=== PATIENT | female | born 1930 | race Caucasian/White ===

== ENCOUNTER 2016-09-24 11:09 | Inpatient (IN) ==
[2016-09-24] MEDS ORDERED: Aspirin 81 MG TAB.CHEW PO ONE (11:11)
--- NOTE | 2016-09-24 11:23 | Emergency Department Note ---
Disposition Clinical Impression: Non-STEMI (non-ST elevated myocardial infarction) Disposition: Admitted As Inpatient Condition: Fair Referrals: NO,PCP [Non-Partnered Physician] - Forms: ED Satisfaction Letter Time of Disposition: 13:22 Chest Pain HPI - General Chief Complaint: ED Chest Pain Stated Complaint: chest pain Time Seen by Provider: 09/24/16 11:11 Source: patient, EMS Limitations: no limitations Vital Signs Reviewed: Yes Nursing Notes Reviewed: Yes - History of Present Illness HPI Narrative: 86-year-old female who developed chest pain this morning with radiation into both shoulders. Patient states she does have a history of coronary artery disease. She denies any recent workup. He was across her chest lasting for 20- 30 minutes. 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 Duration: constant Onset: during rest Pain Location: substernal, left chest Severity: now resolved Severity scale (1-10): 0 Pain Radiation: RUE, LUE Improves with: nothing Worsens with: nothing Associated symptoms: Denies: fever, cough Treatments prior to arrival chest pain: aspirin - Related Data Home Medications Medication Instructions Recorded Confirmed Caltrate 600+D Plus Tablet 09/27/15 Carvedilol 09/27/15 Centrum Silver Tablet 09/27/15 Digoxin 09/27/15 Iron 09/27/15 09/27/15 Januvia 09/27/15 Lisinopril 09/27/15 Pantoprazole 09/27/15 Pravastatin Sodium 09/27/15 Previous Rx's Medication Instructions Recorded Naproxen [Naprosyn] 500 mg PO BID #20 tablet 09/27/15 Allergies Allergy/AdvReac Type Severity Reaction Status Date / Time metformin Allergy See Verified 09/24/16 11:14 Comments Sulfa (Sulfonamide Allergy See Verified 09/24/16 11:14 Antibiotics) Comments All systems ED: reviewed and negative except as stated. Constitutional: Denies: fever, chills, weakness, weight change Eyes: Denies: eye pain, eye discharge, vision change ENT ED: Denies: ear pain, throat pain, dental pain, hearing loss, epistaxis, congestion, dysphagia Cardiovascular: Reports: chest pain. Denies: palpitations, dyspnea on exertion , edema, syncope Respiratory: Denies: cough, dyspnea, wheezes, hemoptysis, stridor Gastrointestinal: Denies: abdominal pain, nausea, vomiting, diarrhea, constipation, hematemesis, melena, hematochezia Genitourinary: Denies: dysuria, frequency, hematuria, discharge Musculoskeletal: Denies: back pain, neck pain, arthralgia, myalgia Integumentary: Denies: rash, abrasion, lesions Neurological: Denies: headache, weakness, numbness, paresthesias, confusion, abnormal gait, vertigo Psychiatric: Denies: anxiety, depression, suicidal thoughts, homicidal thoughts , auditory hallucinations, visual hallucinations Endocrine: Denies: fatigue Hematological/Lymphatic: Denies: easy bleeding, easy bruising Allergic/Immunologic: Denies: facial swelling, urticaria Chest Pain PMH - Past Medical History Medical history: Reports: cancer, coronary artery disease, diabetes, hyperlipidemia, hypertension Surgical history: Reports: appendectomy, colectomy, colostomy, other Psychiatric history: Reports: no psych history - Social History Smoking Status: Unknown if ever smoked Alcohol use: Reports: none Drug use: Reports: none Physical Exam - General Limitations: no limitations General appearance: alert, in no apparent distress - Head Head exam: atraumatic, normocephalic, normal inspection - Eye Eye exam: Present: normal appearance, PERRL, EOMI - ENT ENT exam: normal exam, normal oropharynx, mucous membranes moist - Neck Neck exam: Present: normal inspection, full ROM, trachea midline - Chest Chest inspection: Present: normal inspection, symmetric chest wall rise - Respiratory Respiratory exam: Present: normal lung sounds bilaterally - Cardiovascular Cardiovascular exam: Present: regular rate, normal rhythm, normal heart sounds - Abdominal Exam Abdominal exam: Present: soft, Non-Tender. Absent: tenderness, distention, guarding, rebound, rigidity - Extremities Exam Extremities exam: Present: normal inspection, full ROM. Absent: tenderness, pedal edema - Expanded Lower Extremity Exam Neurovascular/Tendon exam: Absent: motor deficit, sensory deficit, tendon deficit Gait: observed and normal - Back Exam Back exam: Present: normal inspection, full ROM. Absent: tenderness - Neurological Exam Neurological exam: Present: alert, oriented X3 - Psychiatric Psychiatric exam: Present: normal affect, normal mood - Skin Skin exam: Present: warm, dry, intact, normal color Course - Reevaluation(s) Reevaluation #1: I discussed the findings with the patient including her positive troponin. I discussed with the patient that we would like to start her on some heparin however the patient states she had blood in her colostomy bag about a year ago and declines any anticoagulation. The patient states that she has no pain at the moment. Time: 13:19 - Consultations Consultation #1: Discussed with Dr. Cid. He will see the patient in consult. Time: 13:22 Consultation #2: Discussed with Dr. Cueva, it. Time: 13:37 Vital Signs Temperature 97.7 F 09/24/16 11:10 Pulse Rate 70 09/24/16 11:10 Respiratory Rate 16 09/24/16 11:10 Blood Pressure 145/93 09/24/16 11:10 O2 Sat by Pulse Oximetry 100 09/24/16 11:10 Temperature 97.7 F 09/24/16 11:10 Pulse Rate 68 09/24/16 12:13 Respiratory Rate 16 09/24/16 12:13 Blood Pressure 125/70 09/24/16 12:13 O2 Sat by Pulse Oximetry 100 09/24/16 12:13 Oxygen Delivery Oxygen Delivery Room Air Chest Pain - Lab Data Lab results reviewed: Yes I reviewed the patient's lab results. Result diagrams: 09/24/16 12:38 09/24/16 12:38 Lab Results 09/24/16 09/24/16 09/24/16 Range/Units 12:38 12:38 12:38 WBC 9.0 (4.3-11.1) K/mcL RBC 4.25 (3.82-4.97) M/mcL Hgb 13.3 (11.5-15.4) g/dL Hct 40.1 (35.3-44.9) % MCV 94.4 (83.0-100.0) fL MCH 31.3 (28.0-33.3) pg MCHC 33.2 (31.6-35.5) g/dL RDW 12.9 (11.5-14.5) % Plt Count 154 (140-400) K/mcL MPV 10.9 (9.4-12.4) fL Immature Gran % 0.2 (0-4) % Seg Neutrophils % 78.4 % Lymphocytes % 10.4 % Monocytes % 7.6 % Eosinophils % 3.1 % Basophils % 0.3 % Neutrophils # 7.0 (1.6-8.9) K/mcL Lymphocytes # 0.9 (0.6-4.6) K/mcL Monocytes # 0.7 (0.0-1.3) K/mcL Eosinophils # 0.3 (0.0-0.6) K/mcL Basophils # 0.0 (0.0-0.2) K/mcL PT 12.3 H (9.4-12.1) Seconds INR 1.1 APTT 31.6 (26.0-36.0) Seconds Sodium 140 (136-145) mEq/L Potassium 3.8 (3.5-4.5) mEq/L Chloride 103 (98-109) mEq/L Carbon Dioxide 29 (19-29) mEq/L BUN 19 (7-20) mg/dL Creatinine 0.85 (0.57-1.11) mg/dL Est GFR ( Amer) > 60 (> 60) Est GFR (Non-Af Amer) > 60 (> 60) BUN/Creatinine Ratio 22 (6-26) Glucose 220 H (70-99) mg/dL Calculated Osmolality 299 (280-300) Calcium 9.5 (8.6-10.8) mg/dL Troponin I (0-0.03) ng/mL 09/24/16 Range/Units 12:38 WBC (4.3-11.1) K/mcL RBC (3.82-4.97) M/mcL Hgb (11.5-15.4) g/dL Hct (35.3-44.9) % MCV (83.0-100.0) fL MCH (28.0-33.3) pg MCHC (31.6-35.5) g/dL RDW (11.5-14.5) % Plt Count (140-400) K/mcL MPV (9.4-12.4) fL Immature Gran % (0-4) % Seg Neutrophils % % Lymphocytes % % Monocytes % % Eosinophils % % Basophils % % Neutrophils # (1.6-8.9) K/mcL Lymphocytes # (0.6-4.6) K/mcL Monocytes # (0.0-1.3) K/mcL Eosinophils # (0.0-0.6) K/mcL Basophils # (0.0-0.2) K/mcL PT (9.4-12.1) Seconds INR APTT (26.0-36.0) Seconds Sodium (136-145) mEq/L Potassium (3.5-4.5) mEq/L Chloride (98-109) mEq/L Carbon Dioxide (19-29) mEq/L BUN (7-20) mg/dL Creatinine (0.57-1.11) mg/dL Est GFR ( Amer) (> 60) Est GFR (Non-Af Amer) (> 60) BUN/Creatinine Ratio (6-26) Glucose (70-99) mg/dL Calculated Osmolality (280-300) Calcium (8.6-10.8) mg/dL Troponin I 0.18 H* (0-0.03) ng/mL - Radiology Data Radiology results reviewed: Yes I reviewed the patient's radiology results. Chest X-Ray 09/24/16 11:11 IMPRESSION: No evidence for acute cardiopulmonary process. Stable cardiomegaly. Mild diffuse interstitial/reticular markings likely reflecting chronic fibrotic change. D/ / 09/24/2016 11:47:21 Keaton Matthews MD / [facility] Inter[facility] Provider: Keaton Matthews MD - EKG Data EKG attestation: Yes I reviewed and interpreted this EKG. EKG shows normal: sinus rhythm Rate: normal Rhythm: NSR [place]/QRS: LBBB When compared to previous EKG there are: no significant changes (02/05/2015) Interpretation: no acute changes Heart Score - Score History: Highly Suspicious EKG: Non Specific repolarisation Disturbance Age: Greater than 65 Risk Factors: Equal/Greater than 3 risk factor or history of atherosclerotic disease Troponin: 1-3x normal limit HEART Score Total: 8 Critical Care Time Critical Care Time: Yes Total Critical Care Time: 30 Attestation: The high probability of a clinically significant, sudden or life threatening deterioration of the [cardiovascular] system(s) required my full and direct attention, intervention and personal management. The aggregate critical care time was [30] minutes. This time is in addition to time spent performing reported procedures but includes the following: [x] Data Review and interpretation [x] Patient assessment and monitoring of vital signs [x] Documentation [x] Medication orders and management
[2016-09-24 12:46] LABS: Basophils % 0.3 %; Eosinophils # 0.3 K/mcL (0.0-0.6); Eosinophils % 3.1 %; Hematocrit 40.1 % (35.3-44.9); Hemoglobin 13.3 g/dL (11.5-15.4); Immature Granulocytes % 0.2 % (0-4); Lymphocytes # 0.9 K/mcL (0.6-4.6); Lymphocytes % 10.4 %; Mean Corpuscular HGB Conc 33.2 g/dL (31.6-35.5); Mean Corpuscular Hemoglobin 31.3 pg (28.0-33.3); Mean Corpuscular Volume 94.4 fL (83.0-100.0); Mean Platelet Volume 10.9 fL (9.4-12.4); Monocytes # 0.7 K/mcL (0.0-1.3); Monocytes % 7.6 %; Platelet Count 154 K/mcL (140-400); Red Blood Count 4.25 M/mcL (3.82-4.97); Red Cell Distribution Width 12.9 % (11.5-14.5); Segmented Neutrophils % 78.4 %
[2016-09-24 12:52] LABS: INR 1.1; Prothrombin Time 12.3 Seconds (9.4-12.1)
[2016-09-24 12:55] LABS: Activated Partial Thrombo Time 31.6 Seconds (26.0-36.0)
[2016-09-24 12:59] LABS: BUN/Creatinine Ratio 22 (6-26); Blood Urea Nitrogen 19 mg/dL (7-20); Calcium 9.5 mg/dL (8.6-10.8); Carbon Dioxide 29 mEq/L (19-29); Chloride 103 mEq/L (98-109); Glucose 220 mg/dL (70-99); Osmolality,Calculated 299 (280-300); Potassium 3.8 mEq/L (3.5-4.5); Sodium 140 mEq/L (136-145); eGFR For African Americans > 60 (> 60); eGFR For Non-African Americans > 60 (> 60)
[2016-09-24] MEDS ORDERED: Naloxone 0.4 MG/ML INJ IVP PRN (13:58)
[2016-09-24] MEDS ORDERED: Acetaminophen 325 MG TABLET PO PRN (13:58)
[2016-09-24] MEDS ORDERED: Nitroglycerin 0.4 MG TAB.SUBL SL PRN (14:01)
--- NOTE | 2016-09-24 14:07 | Internal Med History&Physical ---
<Kavya Duarte - Last Filed: 09/24/16 14:42> Date of Encounter: 09/24/16 Time of Encounter: 14:03 Assessment and Plan (1) Non-STEMI (non-ST elevated myocardial infarction) Current visit: Yes Status: Acute 1 patient has elevation in trop .18, T wave inversion inferioir leads ST depression in V5 V6, LBBB which appears to be new will continue to trend troponins 2 Dr Cid has been notified per Dr Wild ER physician who will see patient 3 patient refused heparin abdullahi, she has been given ASA 4 we will continue with BB JORDAN ASA 5 NPO for possible cath 6 continuos cardiac monitoring (2) HTN (hypertension) Current visit: Yes Status: Acute 1 continue with BB JORDAN goal is to maintain systolic less than 140 2 low Na diet Qualifiers: Hypertension type: essential hypertension Qualified Code(s): I10 - Essential (primary) hypertension (3) Diabetes Current visit: Yes Status: Acute 1 hold oral antidiabetic, accucheck AC/HS SSI as needed . Presently NPO will check BS every 6hrs with SSI coverage 2 diabetic diet once eating Qualifiers: Diabetes mellitus type: type 2 Diabetes mellitus complication status: without complication Diabetes mellitus watermelon inspector insulin use: without [facility] use Qualified Code(s): E11.9 - Type 2 diabetes mellitus without complications (4) Paroxysmal a-fib Current visit: Yes Status: Acute 1 present;y SR with controlled rate. Will continue with BB on ASA dt hx of GI bleed will continue ASA (5) Hyperlipemia Current visit: Yes Status: Acute 1 check lipid profile, continue statin Qualifiers: Hyperlipidemia type: unspecified Qualified Code(s): E78.5 - Hyperlipidemia , unspecified (6) DVT prophylaxis Current visit: Yes Status: Acute 1 pt refuse anticoagulation, apply WINSTON sood Internal Medicine - H&P: HPI Chief complaint: CP Admitted From: Emergency Dept Plans for Post Hospital Care: Home History of present illness: Ms. Vilchis is a 86 year old female with past medical hx of HTn HLD diabetes cardiomyopathy taksubo proximal atrial fibrillation colon cancer upper GI bleed cancer of sigmoid colonoscopy. Patient awoke this morning began to experience left-sided heaviness 2 out of 10 which radiated to both arms no associated symptoms no aggravating or relieving factors pain lasts approximately 5-10 minutes and resolved on own. She denies any shortness of breath palpitations lightheadedness nausea vomiting fevers chills. She did have an episode particularly 2 weeks ago same symptoms. She presented to the ER above complaints. According to ER records lab work was unremarkable except for a troponin event 0.1 a. Chest x-ray no acute current pulmonary process. EKG T- wave inversions in 23 aVF left bundle branch which appears to be new ST depression in leads ventricular hypertrophy per troponin elevated at 18. ER physician did speak with cardiology who will see the patient. ER physician symptoms start patient on heparin however patient refused due to she has a history of GI bleed in the past. Patient has been admitted for further orthopedic evaluation. Presently patient denies any chest pain she does appear to be any respiratory distress vital signs are stable. Lungs sounds are clear to auscultation heart sounds S1 and S2 no clicks gallops or murmurs noted Again spoke with her concerning heparin she again declined. Also suspect patient concerning CODE STATUS states that she will like to think about it patient is a full code. I reviewed his case with Dr Cueva who agrees with plan. Past Med Surg Social Fam HX - Past Medical History Medical history: cancer, coronary artery disease, diabetes, hyperlipidemia, hypertension Psychiatric history: no psych history - Past Surgical History Surgical History: appendectomy, colectomy, colostomy, other - Social History Smoking Status: Unknown if ever smoked Smokeless Tobacco Status: No Alcohol use: none Drug use: none - Family History Son Living Status: Cause of : cancer - Additional Family History Additional family history: reviewed noncontributory Internal Medicine - H&P: Meds Aspirin [Lo-Dose Aspirin EC] 81 mg PO DAILY 09/24/16 [History] Calcium Carbonate/Vitamin D3 [Calcium 500-Vit D3 600 Tablet] 1 tab PO DAILY 01/03 [History] Carvedilol 12.5 mg PO BID 09/24/16 [History] Digoxin [Lanoxin] 0.125 mg PO DAILY 09/24/16 [History] Lisinopril [Zestril] 5 mg PO DAILY 09/24/16 [History] Multivit-Min/Iron/Folic/Lutein [Centrum Silver Women Tablet] 1 tab PO DAILY 01/03 [History] Pantoprazole Sodium [Protonix] 40 mg PO DAILY 09/24/16 [History] Pravastatin Sodium [Pravachol] 80 mg PO DAILY 09/24/16 [History] Sitagliptin Phosphate [Januvia] 50 mg PO DAILY 09/24/16 [History] Allergies metformin Allergy (Verified 09/24/16 14:20) Hives Sulfa (Sulfonamide Antibiotics) Allergy (Verified 09/24/16 14:20) Hives All Systems PM: A 10-system review of systems was performed and is negative for pertinent findings except as documented above in the HPI. - Constitutional Constitutional: no chills, no fever(s), no night sweats - EENT Eyes: no change in vision, no discharge, no pain, no photophobia Nose, mouth and throat: no dysphagia, no nasal discharge, no neck pain, no sore throat - Cardiovascular Cardiovascular ROS IM: chest pain - Gastrointestinal Gastrointestinal: no abdominal pain, no diarrhea, no hematemesis, no hematochezia, no melena, no nausea, no vomiting - Genitourinary Genitourinary: no change in urinary stream, no dysuria, no flank pain, no hematuria - Musculoskeletal Musculoskeletal ROS IM: no numbness, no tingling - Neurological Neurological ROS: no confusion, no convulsions, no focal weakness, no numbness, no tingling, no tremor(s) - Constitutional Vitals: Temp Pulse Resp BP Pulse Ox 97.7 F 62 16 148/69 100 09/24/16 11:10 09/24/16 13:38 09/24/16 13:38 09/24/16 13:38 09/24/16 13:38 General appearance: Present: A&O X 3 - Head Head exam: Present: atraumatic, normocephalic - Eye Eye exam: Present: PERRL, conjuntiva pink, sclera anicteric Pupils: Present: PERRL - Neck Neck exam general surgery: Present: supple, trachea midline. Absent: lymphadenopathy - Respiratory Respiratory exam: Present: CTAB. Absent: accessory muscle use, rales, rhonchi, wheezes - Cardiovascular Cardiovascular exam: Present: RRR, +S1, +S2. Absent: diastolic murmur, gallop, rubs, systolic murmur - GI/Abdominal GI/Abdominal exam: Present: normal bowel sounds, soft, no peritoneal signs. Absent: distended, tenderness - Extremities Exam Extremities exam: Present: warm, radial pulses palpable and symetrical. Absent : calf tenderness, cyanotic, pedal edema - Neurological Exam Neurological exam: Present: CN II-XII intact, oriented X3, no focal deficits. Absent: pronater drift, facial droop, speech deficit - Skin Skin exam: Present: dry, intact Internal Med - H&P Results - Labs CBC & Chem 7: 09/24/16 12:38 09/24/16 12:38 Labs: Short CBC 09/24/16 Range/Units 12:38 WBC 9.0 (4.3-11.1) K/mcL Hgb 13.3 (11.5-15.4) g/dL Hct 40.1 (35.3-44.9) % Plt Count 154 (140-400) K/mcL Neutrophils # 7.0 (1.6-8.9) K/mcL BMP 09/24/16 12:38 Sodium 140 Potassium 3.8 Chloride 103 Carbon Dioxide 29 BUN 19 Creatinine 0.85 Glucose 220 H Calcium 9.5 Cardiac Enzymes 09/24/16 Range/Units 12:38 Troponin I 0.18 H* (0-0.03) ng/mL - EKG Data When compared to previous EKG: there are significant changes Interpretation IM: suggestive of ischemia EKG comments: 09/24/16 14:26 SR with LBB twave inversion in inferior leads st depression in V5 V6 ventricular hypertrophy - Impressions ITS Impressions Chest X-Ray 09/24/16 11:11 IMPRESSION: No evidence for acute cardiopulmonary process. Stable cardiomegaly. Mild diffuse interstitial/reticular markings likely reflecting chronic fibrotic change. D/ /24/2016 11:47:21 Keaton Matthews MD / [facility] Interpreting Provider: Keaton Matthews MD - Diagnostic Studies Chest x-ray Additional comments: Chest X-Ray 09/24/16 11:11 IMPRESSION: No evidence for acute cardiopulmonary process. Stable cardiomegaly. Mild diffuse interstitial/reticular markings likely reflecting chronic fibrotic change. D/ /24/2016 11:47:21 Keaton Matthews MD / [facility] Interpreting Provider: Keaton Matthews MD <Reggie Cueva T - Last Filed: 09/24/16 18:12> Date of Encounter: 09/24/16 Internal Medicine - H&P: HPI History of present illness: Ms. Vilchis is a 86 year old female All Systems PM: A 10-system review of systems was performed and is negative for pertinent findings except as documented above in the HPI. - Constitutional Vitals: Temp Pulse Resp BP Pulse Ox 97.6 F 55 18 164/82 97 09/24/16 16:07 09/24/16 16:07 09/24/16 16:07 09/24/16 16:07 09/24/16 16:07 Internal Med - H&P Results - Labs CBC & Chem 7: 09/24/16 12:38 09/24/16 12:38 - Attending Attestation I have independently interviewed and examined this patient. I have reviewed the EMR extensively and discussed plan of care the resident/nurse practitioner with exemptions as stated below. 86 Y/O F with PMH of HTN, HLD, Paroxysmal Afib, CAD (non-obstructive , no stents ), Colon CA s/p colostomy, presented with chest pain. She is seen at bedside with family and denies active chest pain , denies SOB/Denies n/v/diaphoresis. Physical exam: VSS, HR controlled, Not in distress, Chest is clear, S1, S2 only , Abdomen is benign, colostomy bag is empty and surrounding skin is clean and dry. No pedal edema Labs and Imaging reviewed: CBC/coag unremarkable, initial troponin 0.28. EKG TWI inversions in lateral leads, (chronic), but deeper, new LBBB, Inferior leads ST Depression and TWI. CXR is unremarkable A/P: NSTEMI: patient refusing anticoagulation and wants to think about it , continue ASA, continue Lipitor, BB, ACEI, Obtain ECHO, continue to trend troponin, consult cardiology, resume other home meds, high risk, full code Rest of details as in CERTIFIED PEDORTHOTIST Duarte documentation
[2016-09-24] MEDS ORDERED: Dextrose Gel 15 GM PO PRN ×2 (14:45)
[2016-09-24] MEDS ORDERED: D5% in Water 1,000 ML IVC PRN (14:45)
[2016-09-24] MEDS ORDERED: *HR* Dextrose 50 % in Water (Syg) 50 ML SYRINGE IVP PRN (14:45)
--- NOTE | 2016-09-24 15:11 | Cardiology Consult Note ---
Date of Encounter: 09/24/16 Time of Encounter: 15:06 Assessment and Plan (1) Non-STEMI (non-ST elevated myocardial infarction) Current Visit: Yes Status: Acute Troponin 0.18. Chest pain now resolved. H/o mild CMP and chest pain in the past. Previously declined LHC. States she would consider at this time. Family at bedside. Discussed LHC vs. medical management. She would consider LHC. We will discuss further. We will trend troponin and check echocardiogram (2) HTN (hypertension) Current Visit: Yes Status: Acute Continue home medications. Titrate as needed. Qualifiers: Hypertension type: essential hypertension Qualified Code(s): I10 - Essential (primary) hypertension (3) Paroxysmal a-fib Current Visit: Yes Status: Acute Currently SR. Not on anticoagulation d/t h/o GI bleed and anemia. Discussion w patient/family: The assessment and plan as outlined above was discussed with the patient and/or family members who expressed understanding and agreement. All questions were answered. Thank you for involving us in the care of your patient. Please call with any questions. History of Present Illness Consult date: 09/24/16 Requesting physician: Kavya Duarte Consult reason: NSTEMI Chief complaint: Chest pain. History of present illness: Ms. Vilchis is an 86 year old female presenting with left sided chest pain radiating to bilateral arms this morning while sitting on her couch. She associates it with SOB. Symptoms lasted about 20 min. Troponin found to be elevated at 0.18. Cardiology consulted for NSTEMI. Past medical history is significant for a cardiomyopathy thought secondary to either takotsubo or tachycardia induced from afib, HTN, HLD, diabetes type II, and GI bleed one year ago, colon cancer s/p colon resection. She has declined cardiac cath in the past. She is not on anticoagulation due to anemia and is tolerating aspirin. She is now chest pain free. Denies palpitations. Previous cardiac testing: Echo 09/2014 Impressions:LVEF 45-50%; low normal systolic function.Left ventricle is mildly dilated.There is evidence of mild diastolic dysfunction of the left ventricle.Moderately enlarged left atrial size.Moderately enlarged right atrial size.RV is mild to moderately dilated with normal function.Mild-moderate central mitral regurgitation.Mild pulmonic regurgitation.Mild tricuspid regurgitation.Estimated RVSP was 32 mmHg.No pulmonary hypertension.The IVC is not dilated. Past Med Surg Social Fam HX - Past Medical History Medical history: cancer, cardiomyopathy, diabetes, hyperlipidemia, hypertension , other (colon cancer s/p colon resection with colostomy.) Psychiatric history: no psych history - Past Surgical History Surgical History: appendectomy, colectomy, colostomy, other - Social History Smoking Status: Unknown if ever smoked Smokeless Tobacco Status: No Alcohol use: none Drug use: none - Family History Son Living Status: Cause of : cancer Medications and Allergies Aspirin [Lo-Dose Aspirin EC] 81 mg PO DAILY 09/24/16 [History] Calcium Carbonate/Vitamin D3 [Calcium 500-Vit D3 600 Tablet] 1 tab PO DAILY 01/03 [History] Carvedilol 12.5 mg PO BID 09/24/16 [History] Digoxin [Lanoxin] 0.125 mg PO DAILY 09/24/16 [History] Lisinopril [Zestril] 5 mg PO DAILY 09/24/16 [History] Multivit-Min/Iron/Folic/Lutein [Centrum Silver Women Tablet] 1 tab PO DAILY 01/03 [History] Pantoprazole Sodium [Protonix] 40 mg PO DAILY 09/24/16 [History] Pravastatin Sodium [Pravachol] 80 mg PO DAILY 09/24/16 [History] Sitagliptin Phosphate [Januvia] 50 mg PO DAILY 09/24/16 [History] Allergies metformin Allergy (Verified 09/24/16 14:20) Hives Sulfa (Sulfonamide Antibiotics) Allergy (Verified 09/24/16 14:20) Hives All Systems Review: A 10-system review of systems was performed and is negative for pertinent findings except as documented above in the HPI. Physical Examination Vital Signs, Last 4 Hours Pulse Resp BP Pulse Ox 09/24/16 14:47 16 159/95 09/24/16 14:33 54 16 157/90 100 General: Conversant, No Apparent Distress HEENT: Atraumatic, Normocephaly, Mucus Membranes Moist Neck: No JVD, Normal carotid pulses Cardiac: Reg Rate and Rhythm, Normal S1 and S2, No Murmur Lungs: Normal Breath Sounds, No Wheeze, Rales, Rhonchi Neuro: Alert and responsive, No focal deficits noted Abdomen: Soft, Non-Tender, Other (abd round but soft. Colostomy intact. ) Skin: No rashes noted on visualized skin Musculoskeletal: No Chest Wall Tenderness Extremities: No Clubbing, No Cyanosis, No Edema, Normal Pulses Results 09/24/16 12:38 09/24/16 12:38 - Imaging and Cardiology Echo: report reviewed - EKG Interpretation EKG results cardiology: personally reviewed (SR with LBBB, HR 72 bpm), left bundle branch block Consult Discharge Plan - Plan Referrals: Alanis Arvizu, DATA CONTROL CLERK [Primary Care Provider] -
[2016-09-24] MEDS: Insulin LISPRO 300 UNITS/3 ML VIAL SQ SCH ×2 (17:29→21:49)
[2016-09-24] MEDS ORDERED: Insulin LISPRO 300 UNITS/3 ML VIAL SQ SCH (18:00)
[2016-09-24] MEDS ORDERED: *HR* Heparin 5,000 UNIT/ML VIAL IVP PRN ×2 (18:07)
[2016-09-24] MEDS ORDERED: *HR* Heparin 5,000 UNIT/ML VIAL IVP ONE (18:07)
--- NOTE | 2016-09-24 18:09 | Electrocardiograph Report ---
[facility] Test Date: 2016-09-24 Pat Name: Florina Vilchis Department: 103 Room: E34 Gender: F Fire Inspector: : 1930 Requested By: Barak Wild Order Number: [id number] Reading MD: Sharath Gallegos MD Measurements Intervals [place] Rate: 72 P: 102 WA: 160 QRS: -13 QRSD: 152 T: 214 QT: 454 QTc: 478 Interpretive Statements SINUS RHYTHM LEFT BUNDLE BRANCH BLOCK Electronically Signed On 09-24-2016 18:07:56 EDT by Sharath Gallegos MD
[2016-09-24] MEDS ORDERED: Heparin 25,000 UNIT/500 ML D5W 25,000 UNIT/500 ML MLS IVC SCH (18:15)
[2016-09-24 18:53] LABS: Hematocrit 40.5 % (35.3-44.9); Hemoglobin 13.3 g/dL (11.5-15.4); Mean Corpuscular HGB Conc 32.8 g/dL (31.6-35.5); Mean Corpuscular Hemoglobin 30.8 pg (28.0-33.3); Mean Corpuscular Volume 93.8 fL (83.0-100.0); Mean Platelet Volume 10.7 fL (9.4-12.4); Platelet Count 152 K/mcL (140-400); Red Blood Count 4.32 M/mcL (3.82-4.97); Red Cell Distribution Width 12.7 % (11.5-14.5)
[2016-09-24 19:04] LABS: Activated Partial Thrombo Time 32.2 Seconds (26.0-36.0)
[2016-09-24 19:07] LABS: INR 1.1; Prothrombin Time 12.2 Seconds (9.4-12.1)
[2016-09-24] MEDS: Isosorbide MONOnitrate (24 HR) 30 MG TAB.ER.24H PO SCH (21:53)
[2016-09-25 01:11] LABS: Basophils % 0.5 %; Eosinophils # 0.5 K/mcL (0.0-0.6); Eosinophils % 5.5 %; Hematocrit 38.6 % (35.3-44.9); Hemoglobin 12.8 g/dL (11.5-15.4); Immature Granulocytes % 0.1 % (0-4); Lymphocytes # 2.9 K/mcL (0.6-4.6); Lymphocytes % 34.4 %; Mean Corpuscular HGB Conc 33.2 g/dL (31.6-35.5); Mean Corpuscular Hemoglobin 31.6 pg (28.0-33.3); Mean Corpuscular Volume 95.3 fL (83.0-100.0); Monocytes # 0.7 K/mcL (0.0-1.3); Monocytes % 8.7 %; Neutrophils # 4.3 K/mcL (1.6-8.9); Platelet Count 152 K/mcL (140-400); Red Blood Count 4.05 M/mcL (3.82-4.97); Segmented Neutrophils % 50.8 %
[2016-09-25 01:28] LABS: BUN/Creatinine Ratio 17 (6-26); Blood Urea Nitrogen 14 mg/dL (7-20); Calcium 9.3 mg/dL (8.6-10.8); Carbon Dioxide 28 mEq/L (19-29); Chloride 105 mEq/L (98-109); Chol/HDL Ratio 4.4 (0-4.9); Cholesterol 190 mg/dL (< 200); Glucose 131 mg/dL (70-99); HDL Cholesterol 43 mg/dL (40-59); LDL Cholesterol,Calculated 126 mg/dL (0-99); Osmolality,Calculated 296 (280-300); Potassium 3.7 mEq/L (3.5-4.5); Sodium 142 mEq/L (136-145); Triglycerides 105 mg/dL (< 150); eGFR For African Americans > 60 (> 60); eGFR For Non-African Americans > 60 (> 60)
[2016-09-25] MEDS ORDERED: Aspirin Enteric Coated 81 MG Tablet PO SCH (09:00)
--- NOTE | 2016-09-25 09:03 | ECHO - Doppler Report ---
Echocardiogram Name: Florina Vilchis Date of Study: 09/24/2016 Date: 1930 Ht: 61.0 in Medical Record#: [id number] Age: 86 Wt: 114.0 lb Gender: Female BSA: 1.49 Order #: [id number] Location: [facility] Room #: 2NE34 Reading Physician: Saúl Cid DO, FACC, KAREEM Vp Clinical Research: Zoila Espinal, RVT, RDCS Ordering Physician: Kavya Duarte CNP Primary Physician: Alanis Arvizu CNP Indications: Chest pain Impressions: LVEF 45%. Mild concentric left ventricular hypertrophy. Not all segments were well visualized. There appeared to be hypokinesis of the basal to mid inferolateral segments. Mild left ventricular diastolic dysfunction. Right ventricle was not well visualized. No evidence of pulmonary hypertension. No significant valvular dysfunction. Future studies should be completed with Definity contrast. Left Ventricular Wall Motion: Rest Echo Findings The mid inferior lateral and basal inferior lateral souza were hypokinetic. All other wall segments showed normal motion. Findings: Study Quality * Technically sub-optimal due to poor echocardiographic windows. ECG Findings * Sinus rhythm with BBB. Left Ventricle * LVEF 45%. * Mild concentric left ventricular hypertrophy. * Not all segments were well visualized. There appeared to be hypokinesis of the basal to mid inferolateral segments. * Mild left ventricular diastolic dysfunction. Right Ventricle * Right ventricle was not well visualized. Left Atrium * Mildly dilated left atrium. Right Atrium * Mildly dilated right atrium. Interatrial Septum * Interatrial septum not well evaluated. Aortic Valve * Trileaflet aortic valve. * Mildly calcified aortic valve leaflets. * No aortic regurgitation. * No aortic stenosis. Mitral Valve * Moderately thickened mitral valve leaflets. * Trace mitral regurgitation. * No mitral stenosis. Tricuspid Valve * Normal tricuspid valve structure and function. * Trace tricuspid regurgitation. * No evidence of pulmonary hypertension. Pulmonic Valve * Pulmonic valve not well visualized. * Trace pulmonic regurgitation. Aorta * Normally sized aortic root. Pericardium * The pericardium appears normal. IVC * Normal IVC dimensions and inspiratory collapse. Pulmonary Artery * Normal visualized portions of the main pulmonary artery. History Hypertension Diabetes Hypercholesteremia History of CAD/PTCA 10/04/2014 a Previous Echo was performed. Measurements: BP: 117/ 64 2D Normal Values RVIDd: 2.30 cm <2.7 cm IVSd: .20 cm 0.6 - 1.0 cm LVIDd: 5.00 cm 3.7 - 5.6 cm LVPWd: 1.20 cm 0.6 - 1.1 cm LVIDs: 3.60 cm 1.5 - 3.6 cm AO: 2.70 cm < 4.0 cm LA: 3.30 cm 2.0 - 4.0cm %FS: 28.00 cm >25 % LA volume: 69 Mitral Valve Dec Time:398.00 msec Peak E:.55 m/sec Peak A:.74 m/sec E/A Ratio:0.7 Peak E' Lat Bishop:5.85 cm/s Peak E' Med Bishop:3.61 cm/s E/E' Lat Ratio:9.5 E/E' Med Ratio:15.3 Tricuspid Valve TV Regurg Peak Grad: 24.00mmHg TV Regurg Peak Bishop: 2.47m/sec Updated by Saúl Cid DO, DECLAN, KYLEE SERNA on 09/25/2016 8:57:12 AM electronically signed on 09/25/2016 8:58:00 AM with status of Final Wall Motion Mcbride: 1=Normal, 2=Hypokinesis, 3=Akinesis, 4=Dyskinesis, 5=Aneurysmal, 6=Hyperkinetic, X=Not Visualized (Blank)=Missing
[2016-09-25] MEDS: Aspirin Enteric Coated 81 MG Tablet PO SCH (09:11)
[2016-09-25] MEDS: Isosorbide MONOnitrate (24 HR) 30 MG TAB.ER.24H PO SCH (09:11)
[2016-09-25] MEDS: Insulin LISPRO 300 UNITS/3 ML VIAL SQ SCH ×4 (09:12→22:03)
--- NOTE | 2016-09-25 09:15 | Cardiology Progress Note ---
Date of Encounter: 09/25/16 Time of Encounter: 08:20 Assessment and Plan (1) Non-STEMI (non-ST elevated myocardial infarction) Current Visit: Yes Status: Acute Peak troponin 1.01 with downward trend. She has been chest pain free since admission. History of ID in the past--patient had declined LHC/ischemic evaluation. Most recent TTE: EF 45-50% in September 2014. She continues to be pain free overnight. Recommend conservative medical management--continue heparin gtt for 24-48 hours , betablocker, ARB. Nitrate added yesterday, continue at discharge. Cardiac rehab not indicated at this time. TTE pending, will review results with Dr. Cid. (2) Paroxysmal a-fib Current Visit: Yes Status: Acute Currently SR. Not on anticoagulation d/t h/o GI bleed and anemia. (3) HTN (hypertension) Current Visit: Yes Status: Acute Continue home medications. Titrate as needed. Qualifiers: Hypertension type: essential hypertension Qualified Code(s): I10 - Essential (primary) hypertension Discussion w patient/family: The assessment and plan as outlined above was discussed with the patient and/or family members who expressed understanding and agreement. All questions were answered. Thank you for involving us in the care of your patient. Please call with any questions. The patient will be discussed and reviewed with Dr. Cid; changes to be made accordingly. Subjective Principal diagnosis: NSTEMI Interval history: Patient seen and examined earlier this AM. Daughter at bedside. She reports she slept well overnight, denies recurrent chest pain or discomfort. She has no complaints upon exam this morning. Objective Vital Signs, Last 4 Hours Temp Pulse Resp BP Pulse Ox 09/25/16 07:48 97.8 F 59 18 136/84 96 General: Conversant, No Apparent Distress HEENT: Atraumatic, Normocephaly, Mucus Membranes Moist Cardiac: Reg Rate and Rhythm, Normal S1 and S2 Lungs: Normal Breath Sounds Neuro: Alert and responsive Abdomen: Soft Skin: No rashes noted on visualized skin Musculoskeletal: No Chest Wall Tenderness Extremities: No Edema, Normal Pulses Results 09/25/16 01:00 09/25/16 01:00 Lab Results 09/24/16 09/24/16 09/24/16 18:37 18:37 18:37 WBC 7.7 Hgb 13.3 Hct 40.5 Plt Count 152 INR 1.1 APTT 32.2 Sodium Potassium Chloride Carbon Dioxide BUN Creatinine Glucose Calcium Troponin I 1.04 H* 09/25/16 09/25/16 09/25/16 01:00 01:00 01:00 WBC 8.5 Hgb 12.8 Hct 38.6 Plt Count 152 INR APTT Sodium 142 Potassium 3.7 Chloride 105 Carbon Dioxide 28 BUN 14 Creatinine 0.81 Glucose 131 H Calcium 9.3 Troponin I 0.67 H* Active Medications Acetaminophen (Tylenol) 650 mg PO Q6HR PRN PRN Reason: Mild Pain (1-3) Stop: 03/26/17 13:59 Aspirin (Aspirin Ec) 81 mg PO DAILY [facility] Stop: 03/27/17 09:01 Last Admin: 09/25/16 09:11 Dose: 81 mg Carvedilol (Coreg) 12.5 mg PO BIDWM [facility] Stop: 03/26/17 17:01 Last Admin: 09/25/16 09:12 Dose: 12.5 mg Dextrose/Water (Dextrose 50% (Syg)) 25 ml IVP AD PRN PRN Reason: Hypoglycemia Stop: 03/26/17 14:46 Heparin Sodium (Porcine) (Heparin) 3,100 unit 60 unit/kg (3100 unit) IVP Q6HR PRN PRN Reason: SEE COMMENTS Stop: 03/26/17 18:08 Heparin Sodium (Porcine) (Heparin) 1,600 unit 30 unit/kg (1600 unit) IVP Q6H PRN PRN Reason: SEE COMMENTS Stop: 03/26/17 18:08 Heparin Sodium/Dextrose (Heparin 25,000 Unit/500 Ml D5w) 25,000 unit in 500 mls @ 19.65 mls/hr IVC .Q24H JOSE MIGUEL; 19 UNIT/KG/HR PRN Reason: Protocol Stop: 03/26/17 18:16 Last Titration: 09/25/16 02:21 Dose: 17.01 unit/kg/hr, 17.6 mls/hr Insulin Human Lispro (Humalog) 0 units SQ HS [facility] PRN Reason: Protocol Stop: 03/26/17 21:01 Last Admin: 09/24/16 21:49 Dose: Not Given Insulin Human Lispro (Humalog) 0 units SQ TIDAC JOSE MIGUEL PRN Reason: Protocol Stop: 03/26/17 16:31 Last Admin: 04/08/17 09:12 Dose: Not Given Isosorbide Mononitrate (Imdur) 30 mg PO DAILY [facility] Stop: 03/26/17 18:16 Last Admin: 09/25/16 09:11 Dose: 30 mg Lisinopril (Zestril) 5 mg PO DAILY JOSE MIGUEL PRN Reason: Protocol Stop: 03/26/17 15:31 Last Admin: 09/25/16 09:11 Dose: 5 mg Naloxone HCl (Narcan) 0.4 mg IVP Q2MIN PRN PRN Reason: Opioid Reversal Stop: 03/26/17 13:59 Nitroglycerin (Nitroglycerin) 0.4 mg SL Q5MIN PRN PRN Reason: Chest Pain Stop: 03/26/17 14:02 Simvastatin (Zocor) 40 mg PO HS JOSE MIGUEL Stop: 03/26/17 21:01 Last Admin: 09/24/16 21:53 Dose: 40 mg - Imaging and Cardiology Chest Xray: report reviewed Echo: report reviewed Other Results: 12 hour tele: avg HR 56 SB. No significant event or pause noted. - EKG Interpretation EKG results cardiology: personally reviewed - VTE Documentation of Mechanical Device: Graduated compression elastic hosiery Consult Discharge Plan - Plan Referrals: Alanis Arvizu, [employer] REPAIR TECHNICIAN [Primary Care Provider] -
[2016-09-25 09:55] LABS: Activated Partial Thrombo Time 119.3 Seconds (26.0-36.0)
[2016-09-25 10:02] LABS: Heparin anti-factor XA UFH 0.73 IU/mL (0.30-0.70)
--- NOTE | 2016-09-25 16:33 | Internal Med Progress Note ---
Date of Encounter: 09/25/16 Time of Encounter: 16:30 - Assessment and plan (1) Non-STEMI (non-ST elevated myocardial infarction) Current Visit: Yes Status: Acute Assessment and plan: Admitted with chest pain. Elevated troponin to max of 1.01 Low troponin trending down. EF: 45%. Cardiology on the board. Plan : Medical management as patient does not want cardiac catheterization (2) Paroxysmal a-fib Current Visit: Yes Status: Acute Assessment and plan: Well-controlled rate. Was on Coumadin but due to GI bleed it was stopped. (3) HTN (hypertension) Current Visit: Yes Status: Acute Assessment and plan: Stable Qualifiers: Hypertension type: essential hypertension Qualified Code(s): I10 - Essential (primary) hypertension - Subjective Interval history: Seen and examined. Chart reviewed. Patient is comfortably lying in the bed. Patient denies any chest pain, shortness of breath, dizziness, diarrhea, abdominal pain or nausea. - Constitutional Vitals: Temp Pulse Resp BP Pulse Ox 97.9 F 65 18 111/62 97 09/25/16 12:44 09/25/16 12:44 09/25/16 12:44 09/25/16 12:44 09/25/16 12:44 General appearance: Present: A&O X 3 - Head Head exam: Present: atraumatic, normocephalic - Eye Eye exam: Present: PERRL, conjuntiva pink, sclera anicteric Pupils: Present: PERRL - Neck Neck exam general surgery: Present: supple, trachea midline. Absent: lymphadenopathy - Respiratory Respiratory exam: Present: CTAB. Absent: accessory muscle use, rales, rhonchi, wheezes - Cardiovascular Cardiovascular exam: Present: RRR, +S1, +S2. Absent: diastolic murmur, gallop, rubs, systolic murmur - GI/Abdominal GI/Abdominal exam: Present: normal bowel sounds, soft, no peritoneal signs. Absent: distended, tenderness - Extremities Exam Extremities exam: Present: warm, radial pulses palpable and symetrical. Absent : calf tenderness, cyanotic, pedal edema - Neurological Exam Neurological exam: Present: CN II-XII intact, oriented X3, no focal deficits. Absent: pronater drift, facial droop, speech deficit - Skin Skin exam: Present: dry, intact Internal Medicine: Result - Labs CBC & Chem 7: 09/25/16 01:00 09/25/16 01:00 Labs: Short CBC 09/24/16 09/25/16 Range/Units 18:37 01:00 WBC 7.7 8.5 (4.3-11.1) K/mcL Hgb 13.3 12.8 (11.5-15.4) g/dL Hct 40.5 38.6 (35.3-44.9) % Plt Count 152 152 (140-400) K/mcL Neutrophils # 4.3 (1.6-8.9) K/mcL BMP 09/25/16 01:00 Sodium 142 Potassium 3.7 Chloride 105 Carbon Dioxide 28 BUN 14 Creatinine 0.81 Glucose 131 H Calcium 9.3 Cardiac Enzymes 09/24/16 09/25/16 Range/Units 18:37 01:00 Troponin I 1.04 H* 0.67 H* (0-0.03) ng/mL - ABG Interpretation ABG results: PT/INR, D-dimer PT 12.2 Seconds (9.4-12.1) H 09/24/16 18:37 - VTE Documentation of Mechanical Device: Graduated compression elastic hosiery Consult Discharge Plan - Plan Referrals: Alanis Arvizu, [employer] LIFT OPERATOR [Primary Care Provider] -
[2016-09-25] MEDS: *HR* Heparin 5,000 UNIT/ML VIAL SQ SCH (17:37)
[2016-09-26] MEDS: *HR* Heparin 5,000 UNIT/ML VIAL SQ SCH (05:16)
--- NOTE | 2016-09-26 08:37 | Discharge Summary ---
Date of Encounter: 09/26/16 Time of Encounter: 08:34 - Discharge Diagnosis (1) Non-STEMI (non-ST elevated myocardial infarction) Priority: Primary Status: Acute (2) Paroxysmal a-fib Priority: Secondary Status: Acute (3) HTN (hypertension) Priority: Secondary Status: Acute Qualifiers: Hypertension type: essential hypertension Qualified Code(s): I10 - Essential (primary) hypertension - Discharge Medications Prescriptions: Nitroglycerin 0.4 mg SL Q5MIN PRN #30 tab.subl PRN Reason: Chest Pain Isosorbide MONOnitrate (24 HR) [Imdur] 30 mg PO DAILY #30 tab.er.24h Home Medications: Aspirin [Lo-Dose Aspirin EC] 81 mg PO DAILY 09/24/16 [History] Calcium Carbonate/Vitamin D3 [Calcium 500-Vit D3 600 Tablet] 1 tab PO DAILY 01/03 [History] Carvedilol 12.5 mg PO BID 09/24/16 [History] Digoxin [Lanoxin] 0.125 mg PO DAILY 09/24/16 [History] Lisinopril [Zestril] 5 mg PO DAILY 09/24/16 [History] Multivit-Min/Iron/Folic/Lutein [Centrum Silver Women Tablet] 1 tab PO DAILY 01/03 [History] Pantoprazole Sodium [Protonix] 40 mg PO DAILY 09/24/16 [History] Pravastatin Sodium [Pravachol] 80 mg PO DAILY 09/24/16 [History] Sitagliptin Phosphate [Januvia] 50 mg PO DAILY 09/24/16 [History] Isosorbide MONOnitrate (24 HR) [Imdur] 30 mg PO DAILY #30 tab.er.24h 09/26/16 [ Rx] Nitroglycerin 0.4 mg SL Q5MIN PRN #30 tab.subl 09/26/16 [Rx] Allergies/Adverse Reactions: Allergies metformin Allergy (Verified 09/24/16 14:20) Hives Sulfa (Sulfonamide Antibiotics) Allergy (Verified 09/24/16 14:20) Hives Date of admission: 09/24/16 14:44 Primary care physician: Alanis Arvizu CNP Consults: 09/24/16 16:39 Consult to Nutrition [CONS] Routine Comment: Consulting Provider: NUTRITION Reason for Dietary Consult: MST Score Discharging clinician: Gerardo Gomez - Patient Status Disposition: Home, Self-Care Condition: Fair Functional capacity at discharge: uses cane/walker Overall status at discharge: patient is progressing back to baseline - Discharge Instructions Follow Up With: Alanis Arvizu, EAMON [Primary Care Provider] - Saúl Cid DO [Partnered Physician] - - Diet and Activity Activity: increase activity as tolerated Diet: low fat, low cholesterol, low salt diet Interval History: Ms. Vilchis is a 86 year old female with past medical hx of HTn HLD diabetes cardiomyopathy taksubo proximal atrial fibrillation colon cancer upper GI bleed cancer of sigmoid colonoscopy. Patient awoke this morning began to experience left-sided heaviness 2 out of 10 which radiated to both arms no associated symptoms no aggravating or relieving factors pain lasts approximately 5-10 minutes and resolved on own. She denies any shortness of breath palpitations lightheadedness nausea vomiting fevers chills. She did have an episode particularly 2 weeks ago same symptoms. She presented to the ER above complaints. According to ER records lab work was unremarkable except for a troponin event 0.1 a. Chest x-ray no acute current pulmonary process. EKG T- wave inversions in 23 aVF left bundle branch which appears to be new ST depression in leads ventricular hypertrophy per troponin elevated at 18. ER physician did speak with cardiology who will see the patient. ER physician symptoms start patient on heparin however patient refused due to she has a history of GI bleed in the past. Hospital course: Patient was hospitalized. Her troponins were elevated. Cardiology was consulted. Cardiology discussed with the patient regarding the option of left heart catheterization. Patient and family had a long discussion regarding this invasive procedure at her and wants age. Patient is alert and oriented 3. Patient can take her own decisions. After prolonged discussion patient decided that she preferred to go with the conservator management and declined for any invasive procedures. Cardiology again discussed with the patient regarding left heart catheterization. Patient was formed on her opinion that she does not want any further invasive/interventional treatment. Cardiology recommended medical management. Heparin drip was stopped. Patient was ambulated yesterday. Plan: -Patient can go home today. -Patient will go home with aspirin/statins/beta nichole/lisinopril/Imdur/when necessary nitroglycerin. -I have discussed at length with the patient regarding new medication prescription that is M.D. and when necessary nitroglycerin. -Patient will have a follow-up appointment with her PCP in 1-2 weeks. -Patient will have a follow-up appointment with the cardiology in 1-2 weeks. -. At the time of discharge patient and her family members did not have any question, concerns, update our recommendations regarding her hospital stay. - Time Spent with Patient Total time spent providing and/or coordinating discharge services: - Constitutional Vitals: Temp Pulse Resp BP Pulse Ox 97.8 F 70 16 142/85 97 09/26/16 08:11 09/26/16 08:11 09/26/16 08:11 09/26/16 08:11 09/26/16 08:11 General appearance: Present: A&O X 3 - Head Head exam: Present: atraumatic, normocephalic - Eye Eye exam: Present: PERRL, conjuntiva pink, sclera anicteric Pupils: Present: PERRL - Neck Neck exam general surgery: Present: supple, trachea midline. Absent: lymphadenopathy - Respiratory Respiratory exam: Present: CTAB. Absent: accessory muscle use, rales, rhonchi, wheezes - Cardiovascular Cardiovascular exam: Present: RRR, +S1, +S2. Absent: diastolic murmur, gallop, rubs, systolic murmur - GI/Abdominal GI/Abdominal exam: Present: normal bowel sounds, soft, no peritoneal signs. Absent: distended, tenderness - Extremities Exam Extremities exam: Present: warm, radial pulses palpable and symetrical. Absent : calf tenderness, cyanotic, pedal edema - Neurological Exam Neurological exam: Present: CN II-XII intact, oriented X3, no focal deficits. Absent: pronater drift, facial droop, speech deficit - Skin Skin exam: Present: dry, intact - VTE Documentation of Mechanical Device: Intermittent pneumatic compression device
[2016-09-26] MEDS: Isosorbide MONOnitrate (24 HR) 30 MG TAB.ER.24H PO SCH (08:49)
[2016-09-26] MEDS: Insulin LISPRO 300 UNITS/3 ML VIAL SQ SCH (08:50)
[2016-09-26] MEDS: Aspirin Enteric Coated 81 MG Tablet PO SCH (08:50)
--- NOTE | 2016-09-27 08:59 | Electrocardiograph Report ---
[place] [address] Test Date: 2016-09-24 Pat Name: Florina Vilchis Department: 111 Room: 2NE34 Gender: F Bat Boy/Girl: DUNG : 1930 Requested By: Gerardo Gmoez Order Number: [id number] Reading MD: Nathan Blanco MD Measurements Intervals [place] Rate: 57 P: 99 CO: 156 QRS: -34 QRSD: 150 T: 177 QT: 503 QTc: 496 Interpretive Statements SINUS BRADYCARDIA WITH OCCASIONAL SUPRAVENTRICULAR PREMATURE COMPLEXES MARKED LEFT AXIS DEVIATION LEFT BUNDLE BRANCH BLOCK Electronically Signed On 09-27-2016 8:58:08 EDT by Nathan Blanco MD
[2016-09-28 10:27] VITALS: BP 142/85
== END 2016-09-26 11:37 | disposition home or self-care (01) | DRG 281 ==
LOC: 2NENU 11:09 → EMEROO 11:09 → 2NENU 15:43
PROVIDERS: ADMIT Internal Medicine; ATTEND Internal Medicine

== ENCOUNTER 2016-10-13 14:01 | Inpatient (IN) ==
[2016-10-13] MEDS ORDERED: Aspirin 81 MG TAB.CHEW PO ONE (14:19)
[2016-10-13] MEDS ORDERED: Nitroglycerin 0.4 MG TAB.SUBL SL PRN (14:33)
--- NOTE | 2016-10-13 14:34 | Emergency Department Note ---
Disposition Clinical Impression: Healthcare-associated pneumonia Chest pain Qualifiers: Chest pain type: unspecified Qualified Code(s): R07.9 - Chest pain, unspecified Disposition: Admitted As Inpatient Referrals: Alanis Arvizu CNP [Primary Care Provider] - Forms: ED Satisfaction Letter Chest Pain HPI - General Chief Complaint: ED Chest Pain Stated Complaint: chest pain Time Seen by Provider: 10/13/16 14:04 Source: patient, family Mode of arrival: ambulatory Limitations: language barrier Vital Signs Reviewed: Yes Nursing Notes Reviewed: Yes - History of Present Illness HPI Narrative: 86-year-old female with a history of hypertension diabetes presents for evaluation of chest pain. Patient was recently admitted and discharged for similar complaint. Patient at that time was offered a heart catheter, patient declined. Patient states that she has been having intermittent chest pain since discharge. Noted to have worsening left-sided chest pain without radiation. Denies any associated symptoms. No dyspnea. No fevers. No cough. Patient states that it was nonexertional pain while she was sitting watching TV. Patient did not take any nitroglycerin at home. In the care of the daughter who is concerned. Patient states that she would consider a heart catheter. Pt complaint: chest pain Severity scale (1-10): 0 - Related Data Home Medications Medication Instructions Recorded Confirmed Aspirin [Lo-Dose Aspirin EC] 81 mg PO DAILY 09/24/16 10/13/16 Carvedilol 12.5 mg PO BID 09/24/16 10/13/16 Multivit-Min/Iron/Folic/Lutein 1 tab PO DAILY 09/24/16 10/13/16 [Centrum Silver Women Tablet] Pantoprazole Sodium [Protonix] 40 mg PO DAILY 09/24/16 10/13/16 Pravastatin Sodium [Pravachol] 80 mg PO DAILY 09/24/16 10/13/16 Calcium Carbonate/Vitamin D3 1 each PO DAILY 10/13/16 10/13/16 [Calcium 600-Vit D3 200 Tablet] Lisinopril 2.5 mg PO DAILY 10/13/16 10/13/16 SitaGLIPtin [Januvia] 100 mg PO DAILY 10/13/16 10/13/16 Previous Rx's Medication Instructions Recorded Isosorbide MONOnitrate (24 HR) 30 mg PO DAILY #30 tab.er.24h 09/26/16 [Imdur] Nitroglycerin 0.4 mg SL Q5MIN PRN #30 tab.subl 09/26/16 Allergies Allergy/AdvReac Type Severity Reaction Status Date / Time metformin Allergy Hives Verified 10/13/16 14:02 Sulfa (Sulfonamide Allergy Hives Verified 10/13/16 14:02 Antibiotics) All systems ED: reviewed and negative except as stated. Constitutional: Reports: as per HPI. Denies: fever Eyes: Reports: as per HPI ENT ED: Reports: as per HPI Cardiovascular: Reports: as per HPI, chest pain. Denies: palpitations, syncope Respiratory: Reports: as per HPI. 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 Absent : tenderness, rash - Respiratory Respiratory exam: Present: normal lung sounds bilaterally. Absent: respiratory distress - Cardiovascular Cardiovascular exam: Present: regular rate, normal rhythm - Abdominal Exam Abdominal exam: Present: soft, Non-Tender, other (Functioning ostomy in the left lower abdomen) - Extremities Exam Extremities exam: Present: normal inspection. Absent: pedal edema - Back Exam Back exam: Present: normal inspection - Neurological Exam Neurological exam: Present: alert, oriented X3 - Skin Skin exam: Present: warm, dry, intact, normal color Course Course Narrative: Patient seen and examined. Patient's chart was reviewed. Discussed with the patient's family at bedside at the next step would be admission with cardiac evaluation likely possible heart catheter. Patient states that she is more receptive at this point. We will pursue cardiac evaluation with labs, chest x- ray. Patient received aspirin. Patient is chest pain-free at the time my evaluation. - Reevaluation(s) Reevaluation #1: Patient seen and examined. Patient denies any needs at this time. Resting comfortably. Vital stable. Time: 15:35 - Consultations Consultation #1: Spoke with Dr. Ward. Time: 15:53 Vital Signs Temperature 97.9 F 10/13/16 14:03 Pulse Rate 64 10/13/16 14:03 Respiratory Rate 15 10/13/16 14:03 Blood Pressure 141/79 10/13/16 14:03 O2 Sat by Pulse Oximetry 97 10/13/16 14:03 Temperature 97.9 F 10/13/16 14:03 Pulse Rate 55 10/13/16 15:02 Respiratory Rate 15 10/13/16 14:16 Blood Pressure 136/67 10/13/16 15:02 O2 Sat by Pulse Oximetry 95 10/13/16 15:02 Oxygen Delivery Oxygen Delivery Room Air Chest Pain - [facility] Narrative Medical decision making narrative: 46 year female returns for evaluation of chest pain. Patient had similar pain presentation the beginning of this month had a cardiac workup including an echo which showed an EF of 45%. Had a cardiology consult. Patient at that time stated that she did not want any further heart catheter intervention. Patient had a cardiac exam performed today which showed an unchanged EKG, basic lab work , chest x-ray which shows new infiltrate likely healthcare associated pneumonia. Patient denies interest breath cough or fever. Had a lengthy discussion with the family stated that they would like to consider more testing at this time. Patient's history was concerning for ACS chest pain. She will be admitted for pneumonia, chest pain. All questions were answered at time of disposition. - Lab Data Lab results reviewed: Yes I reviewed the patient's lab results. Result diagrams: 10/13/16 15:03 10/13/16 15:03 Lab Results 10/13/16 10/13/16 10/13/16 Range/Units 15:03 15:03 15:03 WBC 6.5 (4.3-11.1) K/mcL RBC 4.20 (3.82-4.97) M/mcL Hgb 13.1 (11.5-15.4) g/dL Hct 39.6 (35.3-44.9) % MCV 94.3 (83.0-100.0) fL MCH 31.2 (28.0-33.3) pg MCHC 33.1 (31.6-35.5) g/dL RDW 12.7 (11.5-14.5) % Plt Count 176 (140-400) K/mcL MPV 10.7 (9.4-12.4) fL Immature Gran % 0.2 (0-4) % Seg Neutrophils % 64.8 % Lymphocytes % 19.1 % Monocytes % 9.9 % Eosinophils % 5.4 % Basophils % 0.6 % Neutrophils # 4.2 (1.6-8.9) K/mcL Lymphocytes # 1.2 (0.6-4.6) K/mcL Monocytes # 0.6 (0.0-1.3) K/mcL Eosinophils # 0.4 (0.0-0.6) K/mcL Basophils # 0.0 (0.0-0.2) K/mcL Platelet Estimate Normal (Normal) Sodium 141 (136-145) mEq/L Potassium 3.8 (3.5-4.5) mEq/L Chloride 103 (98-109) mEq/L Carbon Dioxide 31 H (19-29) mEq/L BUN 16 (7-20) mg/dL Creatinine 0.82 (0.57-1.11) mg/dL Est GFR ( Amer) > 60 (> 60) Est GFR (Non-Af Amer) > 60 (> 60) BUN/Creatinine Ratio 20 (6-26) Glucose 134 H (70-99) mg/dL Calculated Osmolality 295 (280-300) Calcium 9.7 (8.6-10.8) mg/dL Total Bilirubin 0.5 (0.2-1.2) mg/dL AST 27 (5-34) Units/L ALT 14 (0-55) Units/L Alkaline Phosphatase 62 (38-126) Units/L Troponin I 0.01 (0-0.03) ng/mL B-Natriuretic Peptide (0-100) pg/mL Serum Total Protein 6.4 (6.0-8.3) g/dL Albumin 3.4 L (3.5-5.0) g/dL Globulin 3.0 (2.4-3.5) g/dL Albumin/Globulin Ratio 1.1 (1.1-2.2) 10/13/16 Range/Units 15:03 WBC (4.3-11.1) K/mcL RBC (3.82-4.97) M/mcL Hgb (11.5-15.4) g/dL Hct (35.3-44.9) % MCV (83.0-100.0) fL MCH (28.0-33.3) pg MCHC (31.6-35.5) g/dL RDW (11.5-14.5) % Plt Count (140-400) K/mcL MPV (9.4-12.4) fL Immature Gran % (0-4) % Seg Neutrophils % % Lymphocytes % % Monocytes % % Eosinophils % % Basophils % % Neutrophils # (1.6-8.9) K/mcL Lymphocytes # (0.6-4.6) K/mcL Monocytes # (0.0-1.3) K/mcL Eosinophils # (0.0-0.6) K/mcL Basophils # (0.0-0.2) K/mcL Platelet Estimate (Normal) Sodium (136-145) mEq/L Potassium (3.5-4.5) mEq/L Chloride (98-109) mEq/L Carbon Dioxide (19-29) mEq/L BUN (7-20) mg/dL Creatinine (0.57-1.11) mg/dL Est GFR ( Amer) (> 60) Est GFR (Non-Af Amer) (> 60) BUN/Creatinine Ratio (6-26) Glucose (70-99) mg/dL Calculated Osmolality (280-300) Calcium (8.6-10.8) mg/dL Total Bilirubin (0.2-1.2) mg/dL AST (5-34) Units/L ALT (0-55) Units/L Alkaline Phosphatase (38-126) Units/L Troponin I (0-0.03) ng/mL B-Natriuretic Peptide 474 H (0-100) pg/mL Serum Total Protein (6.0-8.3) g/dL Albumin (3.5-5.0) g/dL Globulin (2.4-3.5) g/dL Albumin/Globulin Ratio (1.1-2.2) - Radiology Data Radiology results reviewed: Yes I reviewed the patient's radiology results. Chest X-Ray 10/13/16 14:32 IMPRESSION: New airspace disease in the left upper lobe suggesting pneumonia. Follow-up is recommended after treatment to ensure resolution D/ / Wilner Arreguin MD / Wilner Arreguin MD Interpreting Provider: Wilner Arreguin MD - EKG Data EKG attestation: Yes I reviewed and interpreted this EKG. EKG shows normal: sinus rhythm Rate: normal Rhythm: NSR [place]/QRS: left axis deviation, LBBB Interpretation: no acute changes, unchanged when compared to prior tracing (date ) (09/2016) Heart Score - Score History: Highly Suspicious EKG: Non Specific repolarisation Disturbance Age: Greater than 65 Risk Factors: Equal/Greater than 3 risk factor or history of atherosclerotic disease Troponin: Less than normal limit HEART Score Total: 7 S.B.A.R. - S.B.A.[place] Situation: Demographics Background: Presenting Complaint Assessment: Vital Signs, Course and respsone to treatment, Patient/Family Expectation Recommendation: Barrier(s) to disposition, Recommendation based on pending studies, treatments, or consults S.B.A.RSydney Report Given to: Dr. Mitul JamisonBSydneyAKeeley Repor Time: 15:50 Attestation Statement - Attestation Attestation: I examined this patient and my medical decision-making was reviewed with the SPECIAL EDUCATION PROFESSIONAL/PA/Advanced Practice Nurse/Resident Physician. I agree with the documented findings, disposition and treatment plan as described except to the extent set forth below. Patient to the emergency department pending a chest pain. Patient states she has had 2 episodes in the past couple of days. He nausea or diaphoresis. Patient recently admitted for the same. She is offered a heart catheterization that time and declined. Patient is unsure at this time is that something that she would want to be. On examination she is laying in bed in no acute distress. Heart regular rate and rhythm and lungs clear. Plan. EKG has a chronic left bundle branch block. Labs pending at this time. Patient and her daughter deciding how much workup that she would like to have.
[2016-10-13 15:10] LABS: Basophils % 0.6 %; Eosinophils # 0.4 K/mcL (0.0-0.6); Eosinophils % 5.4 %; Hematocrit 39.6 % (35.3-44.9); Hemoglobin 13.1 g/dL (11.5-15.4); Immature Granulocytes % 0.2 % (0-4); Lymphocytes # 1.2 K/mcL (0.6-4.6); Lymphocytes % 19.1 %; Mean Corpuscular HGB Conc 33.1 g/dL (31.6-35.5); Mean Corpuscular Hemoglobin 31.2 pg (28.0-33.3); Mean Corpuscular Volume 94.3 fL (83.0-100.0); Mean Platelet Volume 10.7 fL (9.4-12.4); Monocytes # 0.6 K/mcL (0.0-1.3); Monocytes % 9.9 %; Neutrophils # 4.2 K/mcL (1.6-8.9); Platelet Count 176 K/mcL (140-400); Red Cell Distribution Width 12.7 % (11.5-14.5); Segmented Neutrophils % 64.8 %
[2016-10-13 15:24] LABS: Alanine Aminotransferase 14 Units/L (0-55); Albumin 3.4 g/dL (3.5-5.0); Albumin/Globulin Ratio 1.1 (1.1-2.2); Alkaline Phosphatase 62 Units/L (38-126); Aspartate Amino Transferase 27 Units/L (5-34); BUN/Creatinine Ratio 20 (6-26); Bilirubin,Total 0.5 mg/dL (0.2-1.2); Blood Urea Nitrogen 16 mg/dL (7-20); Calcium 9.7 mg/dL (8.6-10.8); Carbon Dioxide 31 mEq/L (19-29); Chloride 103 mEq/L (98-109); Glucose 134 mg/dL (70-99); Osmolality,Calculated 295 (280-300); Potassium 3.8 mEq/L (3.5-4.5); Sodium 141 mEq/L (136-145); Total Protein 6.4 g/dL (6.0-8.3); eGFR For African Americans > 60 (> 60); eGFR For Non-African Americans > 60 (> 60)
[2016-10-13 15:25] LABS: Platelet Estimate Normal (Normal)
[2016-10-13] MEDS ORDERED: Piperacillin/Tazobactam 4.5 GM in D5% in Water (Mini-Bag+) 100 ML IVPB ONE (15:35)
[2016-10-13] MEDS ORDERED: Levofloxacin 750 MG/150 ML 750 MG/150 ML BAG IVPB ONE (15:37)
[2016-10-13] MEDS ORDERED: Acetaminophen 325 MG TABLET PO PRN (18:10)
[2016-10-13] MEDS ORDERED: Naloxone 0.4 MG/ML INJ IVP PRN (18:10)
--- NOTE | 2016-10-13 18:11 | Internal Med History&Physical ---
Date of Encounter: 10/13/16 Time of Encounter: 18:20 Assessment and Plan (1) Chest pain Current visit: Yes Status: Acute Acute chest pain. We will observe the patient in the hospital. Trend troponins. Telemetry. Consult cardiology for recommendations. Continue medical management. Patient appears to be more amenable for further workup and cardiac catheterization if needed. Qualifiers: Chest pain type: precordial pain Qualified Code(s): R07.2 - Precordial pain (2) Healthcare-associated pneumonia Current visit: Yes Status: Suspected Chest x-ray shows findings suggestive of left upper lobe infiltrate. Patient does not have any fever or leukocytosis or cough at this time. Will get CT scan of the chest for further evaluation. For now continue with this patient on broad-spectrum antibiotics to treat healthcare associated pneumonia with suspicion for MRSA and gram-negative bacteria. (3) HTN (hypertension) Current visit: No Status: Chronic Monitor blood pressure closely. Continue home medications. Controlled at this time. Qualifiers: Hypertension type: essential hypertension Qualified Code(s): I10 - Essential (primary) hypertension (4) Diabetes Current visit: No Status: Chronic Monitor blood sugars. Sliding scale insulin. Diabetic diet. Qualifiers: Diabetes mellitus type: type 2 Diabetes mellitus complication status: without complication Diabetes mellitus buttermaker insulin use: without half-way use Qualified Code(s): E11.9 - Type 2 diabetes mellitus without complications (5) Paroxysmal a-fib Current visit: No Status: Chronic Patient on aspirin. Not on any other anticoagulation. Heart rate is controlled. (6) Hyperlipemia Current visit: Yes Status: Chronic Continue statin. Qualifiers: Hyperlipidemia type: mixed hyperlipidemia Qualified Code(s): E78.2 - Mixed hyperlipidemia Internal Medicine - H&P: HPI Chief complaint: Chest pain Admitted From: Emergency Dept Plans for Post Hospital Care: Home History of present illness: Ms. Vilchis is a 86 year old female patient with a history of hypertension, hyperlipidemia, diabetes disease, recent non-ST elevation NV, A. fib and colon cancer presented to the ER with complaints of chest pain. Patient had been admitted here Earlier this month for similar symptoms and at that time was diagnosed with non-ST elevation NV. She was evaluated by cardiology and recommended cardiac catheterization. However patient did not want the procedure done at that time and decided to go with medical management. She was discharged home and was pain-free at the time of discharge. Since then she has been having intermittent episodes of chest followed up with cardiology last week and was told that she was doing well. However she had an episode of chest pain on Tuesday and then another episode couple of days back. This morning she woke up with chest pain again. Pain is central in location and associated tingling and numbness in her hands and arms along with headache. All of her symptoms have now subsided. She received aspirin in the ER. She denies any shortness of breath, fever or chills or cough. No nausea or vomiting. Past Med Surg Social Fam HX - Past Medical History Attestation: Yes The following information was validated with the patient. Source: old records reviewed, obtained from family Medical history: cancer (colon), cardiomyopathy, diabetes, hyperlipidemia, hypertension, other Psychiatric history: no psych history - Past Surgical History Surgical History: appendectomy, colectomy, colostomy, other - Social History Smoking Status: Unknown if ever smoked Smokeless Tobacco Status: No Alcohol use: none Drug use: none - Family History Son Living Status: - Additional Family History Additional family history: Reviewed and found to be noncontributory at this time Internal Medicine - H&P: Meds Aspirin [Lo-Dose Aspirin EC] 81 mg PO DAILY 09/24/16 [History] Carvedilol 12.5 mg PO BID 09/24/16 [History] Multivit-Min/Iron/Folic/Lutein [Centrum Silver Women Tablet] 1 tab PO DAILY 01/03 [History] Pantoprazole Sodium [Protonix] 40 mg PO DAILY 09/24/16 [History] Pravastatin Sodium [Pravachol] 80 mg PO DAILY 09/24/16 [History] Isosorbide MONOnitrate (24 HR) [Imdur] 30 mg PO DAILY #30 tab.er.24h 09/26/16 [ Rx] Nitroglycerin 0.4 mg SL Q5MIN PRN #30 tab.subl 09/26/16 [Rx] Calcium Carbonate/Vitamin D3 [Calcium 600-Vit D3 200 Tablet] 1 each PO DAILY [History] Lisinopril 2.5 mg PO DAILY 10/13/16 [History] SitaGLIPtin [Januvia] 100 mg PO DAILY 10/13/16 [History] Allergies metformin Allergy (Verified 10/13/16 14:02) Hives Sulfa (Sulfonamide Antibiotics) Allergy (Verified 10/13/16 14:02) Hives All Systems PM: A 10-system review of systems was performed and is negative for pertinent findings except as documented above in the HPI. - Constitutional Constitutional: no chills, no fever(s), no night sweats - EENT Eyes: no change in vision, no discharge, no pain, no photophobia Ears: no ear discharge, no ear pain, no tinnitus Nose, mouth and throat: no dysphagia, no nasal discharge, no neck pain, no sore throat - Cardiovascular Cardiovascular ROS IM: chest pain, no diaphoresis, no dyspnea, no lightheadedness, no palpitations, no syncope - Respiratory Respiratory: no cough, no dyspnea, no wheezing, no excessive phlegm production - Gastrointestinal Gastrointestinal: no abdominal pain, no diarrhea, no hematemesis, no hematochezia, no melena, no nausea, no vomiting - Genitourinary Genitourinary: no change in urinary stream, no dysuria, no flank pain, no hematuria - Musculoskeletal Musculoskeletal ROS IM: no numbness, no tingling - Integumentary Integumentary IM: no rash, no unusual bruising - Neurological Neurological ROS: no confusion, no convulsions, no focal weakness, no numbness, no tingling, no tremor(s) - Hematologic/Lymphatic Hematologic/Lymphatic: no easy bruising - Constitutional Vitals: Temp Pulse Resp BP Pulse Ox 97.9 F 53 20 135/68 95 10/13/16 14:03 10/13/16 17:31 10/13/16 17:55 10/13/16 17:55 10/13/16 17:31 General appearance: Present: cooperative, mild distress, A&O X 3, answers questions appropriately - Neck Neck exam general surgery: Present: supple, trachea midline. Absent: lymphadenopathy - Respiratory Respiratory exam: Present: CTAB. Absent: accessory muscle use, rales, rhonchi, wheezes - Cardiovascular Cardiovascular exam: Present: RRR, +S1, +S2. Absent: diastolic murmur, gallop, rubs, systolic murmur - GI/Abdominal GI/Abdominal exam: Present: normal bowel sounds, soft, no peritoneal signs. Absent: distended, tenderness - Extremities Exam Extremities exam: Present: warm, radial pulses palpable and symetrical. Absent : calf tenderness, cyanotic, pedal edema - Neurological Exam Neurological exam: Present: alert, CN II-XII intact, oriented X3, no focal deficits. Absent: facial droop, speech deficit - Skin Skin exam: Present: dry, intact Internal Med - H&P Results - Labs CBC & Chem 7: 10/13/16 15:03 10/13/16 15:03 - EKG Data EKG comments: 10/13/16 18:44 EKG shows left bundle branch block unchanged from prior EKGs - Impressions Impressions Chest X-Ray 10/13/16 14:32 IMPRESSION: New airspace disease in the left upper lobe suggesting pneumonia. Follow-up is recommended after treatment to ensure resolution D/ / Wilner Arreguin MD / Wilner Arreguin MD Interpreting Provider: Wilner Arreguin MD - Attending Attestation This document has been at least partially created by [employer] recognition technology by Dr. Bauman. Errors in grammar, wording or other phrases may exist. If errors are found after the documentation is signed, they will be addressed individually in the addendum section of this document when appropriate.
[2016-10-13] MEDS ORDERED: D5% in Water 1,000 ML IVC PRN (18:50)
[2016-10-13] MEDS ORDERED: *HR* Dextrose 50 % in Water (Syg) 50 ML SYRINGE IVP PRN (18:50)
[2016-10-13] MEDS ORDERED: Dextrose Gel 15 GM PO PRN ×2 (18:50)
[2016-10-13] MEDS ORDERED: Vancomycin 750 MG in D5% in Water 250 ML IVPB SCH (19:00)
[2016-10-13] MEDS ORDERED: Vancomycin 750 MG in D5% in Water 250 ML IVPB ONE (20:00)
[2016-10-13] MEDS: Insulin LISPRO 300 UNITS/3 ML VIAL SQ SCH (22:10)
[2016-10-13] MEDS: Piperacillin/Tazobactam 3.375 GM in D5% in Water (Mini-Bag+) 100 ML IVPB SCH (22:27)
[2016-10-14 04:50] LABS: Basophils % 0.5 %; Eosinophils # 0.4 K/mcL (0.0-0.6); Eosinophils % 4.5 %; Hematocrit 38.1 % (35.3-44.9); Hemoglobin 12.5 g/dL (11.5-15.4); Immature Granulocytes % 0.3 % (0-4); Lymphocytes # 1.8 K/mcL (0.6-4.6); Lymphocytes % 22.7 %; Mean Corpuscular HGB Conc 32.8 g/dL (31.6-35.5); Mean Corpuscular Hemoglobin 31.4 pg (28.0-33.3); Mean Corpuscular Volume 95.7 fL (83.0-100.0); Mean Platelet Volume 11.1 fL (9.4-12.4); Monocytes # 0.9 K/mcL (0.0-1.3); Neutrophils # 4.8 K/mcL (1.6-8.9); Platelet Count 163 K/mcL (140-400); Red Blood Count 3.98 M/mcL (3.82-4.97); Red Cell Distribution Width 12.7 % (11.5-14.5)
[2016-10-14 05:03] LABS: BUN/Creatinine Ratio 20 (6-26); Blood Urea Nitrogen 17 mg/dL (7-20); Calcium 9.1 mg/dL (8.6-10.8); Carbon Dioxide 29 mEq/L (19-29); Chloride 105 mEq/L (98-109); Glucose 131 mg/dL (70-99); Osmolality,Calculated 297 (280-300); Potassium 3.7 mEq/L (3.5-4.5); Sodium 142 mEq/L (136-145); eGFR For African Americans > 60 (> 60); eGFR For Non-African Americans > 60 (> 60)
[2016-10-14] MEDS: Piperacillin/Tazobactam 3.375 GM in D5% in Water (Mini-Bag+) 100 ML IVPB SCH ×2 (06:00→15:49)
[2016-10-14] MEDS: Insulin LISPRO 300 UNITS/3 ML VIAL SQ SCH ×4 (08:19→21:44)
[2016-10-14] MEDS ORDERED: Levofloxacin 750 MG/150 ML 750 MG/150 ML BAG IVPB SCH (09:00)
[2016-10-14] MEDS: Isosorbide MONOnitrate (24 HR) 30 MG TAB.ER.24H PO SCH (10:42)
[2016-10-14] MEDS: Aspirin Enteric Coated 81 MG Tablet PO SCH (10:42)
--- NOTE | 2016-10-14 10:55 | Cardiology Consult Note ---
Date of Encounter: 10/14/16 Time of Encounter: 10:46 Assessment and Plan (1) Chest pain Current Visit: Yes Status: Acute Prior echo on 09/24 shows LVEF of 45% and hypokinesis of basal and inferolateral segments. Prior troponin during last hospital stay peaked at 1.04 Declined cath at that time She now has agreed to a heart cath due to worsening of her symptoms Current troponin is 0.00 Will schedule heart cath Qualifiers: Chest pain type: unspecified Qualified Code(s): R07.9 - Chest pain, unspecified (2) Abnormal echocardiogram Current Visit: Yes Status: Acute Prior echo from 09/24/16 showed LVEF of 45% and basal and inferolateral segment hypokinesis Plan for heart cath (3) History of non-ST elevation myocardial infarction (NSTEMI) Current Visit: Yes Status: Acute Prior troponin elevation and echo abnormality from last hospitalization on Plan for heart cath today (4) Paroxysmal a-fib Current Visit: No Status: Chronic She is on aspirin No anticoagulants due to prior GI bleed. Currently NSR Discussion w patient/family: The assessment and plan as outlined above was discussed with the patient and/or family members who expressed understanding and agreement. All questions were answered. Thank you for involving us in the care of your patient. Please call with any questions. History of Present Illness Consult date: 10/14/16 Consult reason: Chest pain, abnormal prior echo Chief complaint: Chest pain History of present illness: Ms. Vilchis is a 86 year old female who presented to the ER due to intermittent chest pain. She had a recent admission for the same and was found to have an abnormal echo with hypokinesis of the basal and inferolateral segments, and in addition an elevated troponin. She declined a heart cath at that time (and during clinic follow up). She presented to the ER due to worsening of her symptoms and changing her mind about the heart cath. She says the pain is in her left chest and lasts only a few seconds. It happens while she is at rest. She does not walk around a lot at home and doesn't know if exertion brings it on. She has been pain free since she arrived to the ER. Initial CXR showed pneumonia, but she has no cough, no hypoxia, no fever, and no leukocytosis. Follow up CT did not show a pneumonia, and there were no findings on CT to explain her chest pain (aside from calcified coronary vessels) . She is now amenable to a heart cath but says she only wants it through her wrist. Past Med Surg Social Fam HX - Past Medical History Medical history: cancer (colon), cardiomyopathy, diabetes, hyperlipidemia, hypertension, other Psychiatric history: no psych history - Past Surgical History Surgical History: appendectomy, colectomy, colostomy, other - Social History Smoking Status: Unknown if ever smoked Smokeless Tobacco Status: No Alcohol use: none Drug use: none - Family History Son Living Status: Medications and Allergies Aspirin [Lo-Dose Aspirin EC] 81 mg PO DAILY 09/24/16 [History] Carvedilol 12.5 mg PO BID 09/24/16 [History] Multivit-Min/Iron/Folic/Lutein [Centrum Silver Women Tablet] 1 tab PO DAILY 01/03 [History] Pantoprazole Sodium [Protonix] 40 mg PO DAILY 09/24/16 [History] Pravastatin Sodium [Pravachol] 80 mg PO DAILY 09/24/16 [History] Isosorbide MONOnitrate (24 HR) [Imdur] 30 mg PO DAILY #30 tab.er.24h 09/26/16 [ Rx] Nitroglycerin 0.4 mg SL Q5MIN PRN #30 tab.subl 09/26/16 [Rx] Calcium Carbonate/Vitamin D3 [Calcium 600-Vit D3 200 Tablet] 1 each PO DAILY [History] Lisinopril 2.5 mg PO DAILY 10/13/16 [History] SitaGLIPtin [Januvia] 100 mg PO DAILY 10/13/16 [History] Allergies metformin Allergy (Verified 10/13/16 14:02) Hives Sulfa (Sulfonamide Antibiotics) Allergy (Verified 10/13/16 14:02) Hives All Systems Review: A 10-system review of systems was performed and is negative for pertinent findings except as documented above in the HPI. - Constitutional Constitutional: no fatigue, no fever(s) - EENT Eyes: no loss of vision - Cardiovascular Cardiovascular: chest pain at rest, no palpitations - Respiratory Respiratory: no cough, no dyspnea - Gastrointestinal Gastrointestinal: no abdominal pain - Integumentary Integumentary: no rash - Hematological/Lymphatic Hematologic/Lymphatic: no easy bleeding Physical Examination Vital Signs, Last 4 Hours Temp Pulse Resp BP Pulse Ox 10/14/16 09:06 97 10/14/16 07:14 97.7 F 56 16 144/79 97 General: Conversant HEENT: Atraumatic Neck: No JVD Cardiac: Reg Rate and Rhythm, Normal S1 and S2 Lungs: Normal Breath Sounds, No Wheeze, Rales, Rhonchi Neuro: Alert and responsive Abdomen: Soft Skin: No rashes noted on visualized skin Musculoskeletal: No Chest Wall Tenderness Extremities: No Cyanosis, No Edema, Normal Pulses Results 10/14/16 03:47 10/14/16 03:47 Lab Results 10/13/16 10/14/16 10/14/16 21:24 03:47 03:47 WBC 7.8 Hgb 12.5 Hct 38.1 Plt Count 163 Sodium Potassium Chloride Carbon Dioxide BUN Creatinine Glucose Calcium Troponin I 0.02 0.02 10/14/16 03:47 WBC Hgb Hct Plt Count Sodium 142 Potassium 3.7 Chloride 105 Carbon Dioxide 29 BUN 17 Creatinine 0.86 Glucose 131 H Calcium 9.1 Troponin I Consult Discharge Plan - Plan Referrals: Alanis Arvizu, SHANK MAKER [Primary Care Provider] -
--- NOTE | 2016-10-14 11:27 | Pre-Sedation Evaluation ---
Pre-sedation evaluation - Pre-sedation checklist Date of procedure: 10/14/16 Procedure: [facility] Recent Vitals: Last Vital Signs Temp 97.4 F L 10/14/16 11:06 Pulse 72 10/14/16 11:06 Resp 16 10/14/16 11:06 BP 143/73 10/14/16 11:06 Pulse Ox 96 10/14/16 11:06 H&P (including ROS) documented in medical record: Yes Previous reaction to sedatives/anesthetics: No Dietary Status: NPO after Midnight Dentition: dentures removed ASA Classification *see protocol: CLASS II-Mild systemic disease Plan of Care: Pt appropriate candidate for procedure/moderate/conscious sedation , Risks/benefits of procedure/sedation discussed w/ patient/family
[2016-10-14] MEDS ORDERED: Heparin 1,000 UNITS/500 mL NS 500 ML ONE (15:51)
[2016-10-14] MEDS ORDERED: *HR* Heparin 10,000 UNIT/10 ML VIAL ONE (15:51)
[2016-10-14] MEDS ORDERED: 0.9 % Sodium Chloride 1,000 ML ONE ×2 (15:51→16:08)
[2016-10-14] MEDS ORDERED: Nitroglycerin 1,000 MCG/10 ML VIAL IV ONE (15:51)
[2016-10-14] MEDS ORDERED: *HR* FentaNYL (PF) 100 MCG/2 ML VIAL ONE (16:08)
[2016-10-14] MEDS ORDERED: *HR* Midazolam HCl 2 MG/2 ML VIAL ONE (16:08)
--- NOTE | 2016-10-14 16:59 | Invasive Diagnostic Lab Proc ---
Name: Florina Vilchis Date of Study: 10/14/2016 Date: 1930 Ht: 59.8in Medical Record#: [id number] Age: 86 Wt: 127.87lb Gender: Female BSA: 1.54 Order #: [id number] BMI: 25.1 Physicians Procedure Physician: Nathan Blanco MD, [facility] Referring MD: Referring MD: Staff Name Position Time In Yeny Zamorano RT Monitor 04:12 PM Haven Jean RT (R) Scrub 04:12 PM Kenny Boyd RN Medical Office Worker 04:12 PM Indications Indication Cardiomyopathy Procedures Performed Procedure L HRT ARTERY/VENTRICLE ANGIO Pre-Procedure Checklist Informed consent is complete signed and on chart. H\\T\\P is on chart. ID band is on and ID verified with patient. Patient NPO for procedure The procedure was described for the patient and questions were answered. Blood Pressure: 145/96 ECG is on chart. Rhythm: NSR Plan of Care Patient will tolerate the procedure without complications. Adequate level of comfort will be maintained. Hemodynamics will remain stable Patient will recover from procedure without complications. Respiratory function will be maintained. Cardiac rhythm will remain stable. Patient temperature will be maintained. Patient and/or family have verbalized understanding of the procedure. Patient Education Chief Complaint/Reason for Test: Cardiac Cath Developmental Category: Geriatric (65+ years) Developmentally Appropriate for Age: Yes Learning Barriers: None Education Needs: Procedure Education Method: Verbal Information Taught: Cardiac Cath Educational Evaluation: Able to repeat information Intravenous Access Time IV Size Location DC'd Fluid/Drip Rate Units RN 18g 1 /" Patent On Arrival Lt Antecubital 0.9NaCl 25 ml/hr Kenny Boyd RN Allergies SULFA (sulfonamide) metformin Vital Signs Time BP (mmHg) HR (bpm) O2 Sat. RR (bpm) LOC 04:11 PM 145 / 96 71 100 % 20 5 = Fully awake and oriented or at pre-proc level 04:13 PM / % 5 = Fully awake and oriented or at pre-proc level 04:13 PM / % 4 = Oriented but drowsy 04:08 PM 145 / 96 75 96 % 04:13 PM 167 / 99 69 100 % 24 04:18 PM 150 / 79 56 99 % 26 04:23 PM 149 / 77 57 99 % 18 04:28 PM 162 / 84 65 99 % 15 04:33 PM 158 / 83 66 99 % 20 04:28 PM / % 4 = Oriented but drowsy Procedural Medications Time Medication Dose Units Method Given By 04:13 PM Oxygen 2 L/min nasal cannula Kenny Boyd RN 04:13 PM Versed 1 mg Intravenous Kenny Boyd RN 04:13 PM Fentanyl 25 mcg Intravenous Kenny Boyd RN 04:27 PM Lidocaine 2% 20 ml Subcutaneous Nathan Blanco MD, [facility] ASA Classification: CLASS II- Mild systemic disease (i.e. well-controlled diabetes, hypertension, asthma, cigarette smoking) Bhargav Score Preprocedure Postprocedure Activity 2- Moves 4 extremities sustained head lift Activity 2- Moves 4 extremities sustained head lift Circulation 2- SBP +/= 20 points of pre-anesthetic level Circulation 2- SBP +/= 20 points of pre-anesthetic level Consciousness 2- Awake and alert oriented x 3 Consciousness 2- Awake and alert oriented x 3 O2 Saturation 2- Able to maintain O2 satruation of 92% on room air O2 Saturation 2- Able to maintain O2 satruation of 92% on room air Respiratory 2- Able to deep breathe and cough well Respiratory 2- Able to deep breathe and cough well Total Score 10 Total Score 10 Contrast Agent: Isovue Diagnostic Contrast: 31 ml Total Contrast: 31 ml Fluoro Dose: 72 mGy Procedure Log Time Note Enter By 04:05 PM Pt arrived to rn lab 1 at 16:05 [email or web address] 04:07 PM Case Start 04:07 PM CathStat 04:07 PM Vitals capture started with the following parameters, Patient=Adult, Interval=5 min, Initial Yninbfhp=400 mmHg, Deflation Rate=5 mmHg, Cuff placed on Left Leg 04:07 PM Physician arrived 16:07 [email or web address] 04:08 PM HR=75 bpm, JOVJ=093/96 mmhg, SpO2=96 % 04:12 PM Yeny Zamorano RT Position: Monitor Time in: 16:12 ner 04:12 PM Haven Jean RT (R) Position: Scrub Time in: 16:12 ner 04:12 PM Kenny Boyd RN Position: Medical Office Worker Time in: 16:12 [email or web address] 04:12 PM Patient charges- Angio tray pack, Navilyst 3mm J, Pulse Oximetry and ACIST tubing and transducer [email or web address] 04:12 PM Case Delayed No kkallner 04:12 PM Hair removed from procedure site in procedure lab using clippers. Bilateral groin prepped with Chloraprep by Haven Jean (R), safety strap applied then patient was draped. Skin intact. : PM ASA Class CLASS II- Mild systemic disease (i.e. well-controlled diabetes, hypertension, asthma, cigarette smoking) kk: PM Meet and greet completed : PM Sign in performed according to hospital policy. : PM Procedure start 16:13 PM Time: 16:13 Oxygen on at 2 L/min per nasal cannula by Kenny Boyd RN PM Time: 16:13 Versed 1 mg Intravenous Given by Kenny Boyd RN PM Time: 16:13 Fentanyl 25 mcg Intravenous Given by Kenny Boyd RN : PM Time: 16:13 Patient comfortable and pain free: Yes PM Time: 16:13LOC: 5 = Fully awake and oriented or at pre-proc level kk: PM HR=69 bpm, UDRP=948/99 mmhg, YyA4=051.0 %, Resp=24 B/min, Comment=nsr 04:13 PM Clinical Presentation: Unstable angina 04:17 PM Reference ECG taken 04:17 PM Reference ECG taken 04:17 PM Reference ECG taken 04:18 PM HR=56 bpm, CIIR=583/79 mmhg, SpO2=99.0 %, Resp=26 B/min 04:18 PM Recorded ECG: HR=56 Condition=Condition 1 04:20 PM Pressure channel 1 zero failed. 04:21 PM Pressure channel 1 zeroed. 04:23 PM HR=57 bpm, ZFZY=062/77 mmhg, SpO2=99.0 %, Resp=18 B/min 04:25 PM Time out performed according to hospital policy PM Time: 16:27 20 ml Lidocaine 2% to right groin Subcutaneous Given by Nathan Blanco MD, FACC kkall 04:28 PM HR=65 bpm, GYGH=625/84 mmhg, SpO2=99.0 %, Resp=15 B/min 04:28 PM Access obtained by percutaneous puncture. 5Fr 10cm Terumo [place] sheath placed in right Femoral artery. [id number] kkallner 04:28 PM Time: 16:13 Patient comfortable and pain free: Yes kkallner 04:28 PM Time: 16:13LOC: 4 = Oriented but drowsy kkallner 04:28 PM 5Fr FL 4 catheter inserted over the wire DN kkallner 04:28 PM wire removed kkallner 04:29 PM Recorded Pressure: Ao, HR=62, Condition=Condition 1 (Aorta) Ao 151/79/109 04:29 PM LCA angiography performed in multiple views. [email or web address] 04:31 PM Catheter removed kkallner 04:31 PM 5Fr FR 4 catheter inserted over the wire DN kkallner 04:31 PM wire removed kkallner 04:31 PM RCA angiography performed in multiple views. kkallner 04:32 PM Recorded Pressure: Ao, HR=63, Condition=Condition 1 (Aorta) Ao 142/83/110 04:33 PM HR=66 bpm, KOWJ=178/83 mmhg, SpO2=99.0 %, Resp=20 B/min 04:33 PM Catheter removed kkallner 04:33 PM 5Fr Pigtail catheter inserted over the wire [facility] kkallner 04:33 PM wire removed kkallner 04:34 PM Recorded Pressure: LV, HR=65, Condition=Condition 1 (Left Ventricle) LV 171/7/13 04:34 PM Catheter selectively placed in left ventricle kkallner 04:34 PM Recorded Pressure: LV, Ao, HR=64, Condition=Condition 1 (Left Ventricle) LV 168/9/12, (Aorta) Ao 169/75/109 04:34 PM Catheter removed kkallner 04:35 PM Bolus angiogram of right Femoral complete: 4 ml/sec for a total of 7 mls kkallner 04:36 PM Coronary Dominance: right kkallner 04:36 PM Lesion found in Proximal LAD. Pre Stenosis: 70 Pre JENNY Flow: kkallner 04:36 PM Lesion found in 1st Diagonal. Pre Stenosis: 80 Pre JENNY Flow: kkallner 04:37 PM Lesion found in Mid Circumflex. Pre Stenosis: 99 Pre JENNY Flow: kkallner 04:37 PM Lesion found in Proximal RCA. Pre Stenosis: 99 Pre JENNY Flow: 1: Slow Penetration without Perfusion kkallner 04:37 PM Lesion found in Mid RCA. Pre Stenosis: 99 Pre JENNY Flow: 1: Slow Penetration without Perfusion kkallner 04:39 PM Left Main Coronary Artery with 0% stenosis kkallner 04:39 PM Proximal Left Anterior Descending Coronary Artery with 70% stenosis. If graft is supplying this territory, 0 % stenosis. kkallner 04:39 PM Mid/Distal Left Anterior Descending Coronary Artery and diagonal branches with 80% stenosis. If graft is supplying this area, 0 % stenosis kkallner 04:39 PM Circumflex, Obtuse Marginal, Left Posterior Descending, and Left Posterolateral Coronary Arteries with 99 % stenosis. If graft is supplying this area, 0 % stenosis kkallner 04:39 PM Right Coronary, Right Posterior Descending Arteries with Right Posterolateral and Acute Marginal branches with 99 % stenosis. If graft is supplying this area, 0 % stenosis kkallner 04:39 PM Ramus with 0% stenosis. If graft is supplying this area, 0 % stenosis kkallner 04:40 PM Procedure completed at 16:40 kkallner 04:40 PM Sign out completed: Radiation Dose 72.39 mGy Fluoro Time: 1.3 Isovue 370 - 200ml contrast 31 ml given by Nathan Blanco MD, FACC. Complications: NoneCardiac Rehab Consult needed: YesConfirmed administered medications: Yes kkallner 04:40 PM Isovue 370 - 200ml,1 Bottle(s) used. kkallner 04:41 PM Arterial sheath pulled, Mynx closure device used and was Successful [id number] S/N. kkallner 04:41 PM Post ECG NSR kkallner 04:41 PM Post Blood Pressure 164/85 kkallner 04:41 PM 16:41 Post Pulses Bilateral DP \\T\\ PT 2+ kkallner 04:41 PM Information taught Cardiac Cath and Mynx kkallner 04:41 PM Education needs Procedure, Plan of Care, and Responsibilities of Patient in Care kkallner 04:42 PM Learning barriers :None kkallner 04:42 PM Education Methods Verbal kkallner 04:42 PM Education evaluation Able to repeat information kkallner 04:42 PM Site status No bleeding/hematoma - Rt Groin as reported by Haven Jean RT (R) at 16:42 kkallner 04:42 PM Opsite applied kkallner 04:42 PM Plavix, Effient or Brilinta given No kkallner 04:42 PM Delay to floor No kkallner 04:42 PM Patient out of room: 16:42 kkallner 04:42 PM Family placed in consult room. kkallner 04:42 PM Complications: None kkallner 04:42 PM Fluoro Time: 1.3 kkallner 04:42 PM Isovue 370 - 200ml contrast 31 ml given by Nathan Blanco MD, FACC. kkallner 04:42 PM Radiation Dose 72.39 mGy kkallner 04:43 PM Time: 16:28 Patient comfortable and pain free: Yes kkallner 04:43 PM Time: 16:28LOC: 4 = Oriented but drowsy kkallner 04:[address] surgeon paged kkallner 04:[address] Arvizu responded and will see patient tomorrow kkallner 04:52 PM Report given to Yenifer KAUR Pt taken to 3B Room #34. 16:52 kkallner Complications Complication None None Hemodynamics Pressures Site Systolic/A Wave Diastolic/V Wave Mean AO 151 79 109 AO 142 83 110 LV 171 7 13 LV 168 9 12 AO 169 75 109 Post Procedure Information Blood Pressure: 164/85 mmHg Rhythm: NSR Post procedural instructions were given Surgery consult for CABG Closure Device Time Device Success/Fail 10/14/2016 4:44:00 PM MynxGrip Successful Site Checks Time Location Status Staff Sheath In? Note 04:42 PM Rt Groin No bleeding/hematoma Haven Jean RT (R) Pulses Time Site Pre-Procedure Post-Procedure Note 10/14/2016 4:11:00 PM Bilateral DP \\T\\ PT 2+ 10/14/2016 4:11:00 PM Bilateral radial 2+ 4:41:00 PM Bilateral DP \\T\\ PT 2+ Updated by Yeny Zamorano, RT (R) on 10/14/2016 4:54:49 PM electronically signed on 10/14/2016 4:55:19 PM with status of Final
--- NOTE | 2016-10-14 17:23 | Invasive Diagnostic Lab ---
Name: Florina Vilchis Date of Study: 10/14/2016 Date: 1930 Ht: 152.0 cm /59.8 in Medical Record#: [id number] Age: 86 Wt: 58. kg / 127.87 lb Account/Order#: [id number] Gender: Female BSA: 1.54 Order #: [id number] Fluoro Dose: 72 mGy BMI: 25.1 Procedure Physician: Nathan Blanco MD, FACC Referring MD: Referring MD: Procedures Performed: LEFT HEART CATH Indications: Cardiomyopathy Impressions: There is severe three vessel coronary artery disease. LVEDP minimally elevated Recommendations: Optimal medical therapy of patient's disease. Aggressive risk factor modification. Suggest patient have Elective coronary artery bypass surgery over complex multivessel PCI History/Risk Factors: CA cardiomyopathy AFIB Diabetes Hypertension Dyslipidemia Procedure Access obtained in the right Femoral artery by percutaneous puncture Complications: None, None Contrast: Isovue 31ml Closure Device: MynxGrip Hemodynamics: Pressures Site Systolic/ A Wave Diastolic/ V Wave End Diastolic/ Mean HR AO 151 79 109 62 AO 142 83 110 63 LV 171 7 13 65 LV 168 9 12 64 AO 169 75 109 64 Coronary Dominance: right Lesion Findings/Interventions * Left Main Coronary Artery The LMCA is angiographically free of disease. * Left Anterior Descending There is a long 70% stenosis in the Proximal LAD. There is a long 80% stenosis in the 1st Diagonal. Reynolds 1,1,1 bifurcation lesion * Circumflex There is a long 70-99% stenosis that is aneurysmal in the Mid Circumflex. * Right Coronary Artery - calcified There is a 99% stenosis in the Proximal RCA. The lesion has a JENNY flow of 1. There is a 99% stenosis in the Mid RCA. The lesion has a JENNY flow of 1. Left to right collaterals No severe disease in the R PDA. Updated by Yeny Zamorano RT (R) on 10/14/2016 4:53:56 PM Nathan Blanco MD, FACC electronically signed on 10/14/2016 5:19:44 PM with status of Final
--- NOTE | 2016-10-14 18:01 | Cardiothoracic Consult Note ---
Date of Encounter: 10/14/16 Time of Encounter: 17:57 Assessment and Plan (1) Non-STEMI (non-ST elevated myocardial infarction) Current Visit: No Status: Acute The assessment and plan as outlined above was discussed with the patient and/or family members who expressed understanding and agreement. All questions were answered. The patient has triple-vessel disease with decreased ventricular function. She is at increased risk for open heart surgery because of her decreased ventricular function and frail status. I discussed options with the patient and her family. These would include medical therapy, PTCA with stents and open heart surgery. At this point, the patient states that she doesn't want any therapy and does not want to have open heart surgery or stents. I do feel that open heart surgery would be high risk. I tend to favor medical therapy and/or PTCA with stents. - History of Present Illness History of present illness: Ms. Vilchis is a 86 year old female History of present illness. The patient is an 86-year-old female who had a myocardial infarction in 1-2 weeks ago. She was discharged. She was readmitted with chest pain and a troponin of 0.02. An echocardiogram done on September 24, 2016 revealed an ejection fraction of 45% and no valvular disease. An echocardiogram done on October 04 revealed an ejection fraction of 45% to 50% and mild to moderate central mitral regurgitation. The patient is in chronic atrial fibrillation. Cardiac catheterization reveals a 70% LAD lesion. An 80% diagonal lesion. A 99% circumflex lesion. All of these vessels are bypassable. She also has 100% right coronary artery lesion that fills by collateral and does not appear to be bypassable. Admitting chest x-ray revealed a possible left upper lobe infiltrate and she is on 3 antibiotics. CAT scan of the chest revealed bibasilar pulmonary scarring and honeycombing. Past medical history is notable for hypertension, hyperlipidemia, diabetes on oral agents and colon cancer. She is status post resection of her colon cancer in 2011 and has a colostomy. She is also had an appendectomy. Social history. She lives by herself in [place]. Does not smoke and does not drink. Family history is positive for coronary artery disease. Review of systems is notable for chronic atrial fibrillation. Past Med Surg Social Fam HX - Past Medical History Medical history: cancer (colon), cardiomyopathy, diabetes, hyperlipidemia, hypertension, other Psychiatric history: no psych history - Past Surgical History Surgical History: appendectomy, colectomy, colostomy, other - Social History Smoking Status: Unknown if ever smoked Smokeless Tobacco Status: No Alcohol use: none Drug use: none - Family History Son Living Status: Medications and Allergies Aspirin [Lo-Dose Aspirin EC] 81 mg PO DAILY 09/24/16 [History] Carvedilol 12.5 mg PO BID 09/24/16 [History] Multivit-Min/Iron/Folic/Lutein [Centrum Silver Women Tablet] 1 tab PO DAILY 01/03 [History] Pantoprazole Sodium [Protonix] 40 mg PO DAILY 09/24/16 [History] Pravastatin Sodium [Pravachol] 80 mg PO DAILY 09/24/16 [History] Isosorbide MONOnitrate (24 HR) [Imdur] 30 mg PO DAILY #30 tab.er.24h 09/26/16 [ Rx] Nitroglycerin 0.4 mg SL Q5MIN PRN #30 tab.subl 09/26/16 [Rx] Calcium Carbonate/Vitamin D3 [Calcium 600-Vit D3 200 Tablet] 1 each PO DAILY [History] Lisinopril 2.5 mg PO DAILY 10/13/16 [History] SitaGLIPtin [Januvia] 100 mg PO DAILY 10/13/16 [History] Allergies metformin Allergy (Verified 10/13/16 14:02) Hives Sulfa (Sulfonamide Antibiotics) Allergy (Verified 10/13/16 14:02) Hives All Systems Review: A 10-system review of systems was performed and is negative for pertinent findings except as documented above in the HPI. Physical Examination Vital Signs, Last 4 Hours Temp Pulse Pulse Resp BP Pulse Ox 10/14/16 17:00 57 57 18 148/79 92 10/14/16 15:53 97.6 F 96 16 141/66 96 Pupils are equal, round and reactive to light and accommodation. She is edentulous. Neck is supple. Trachea in the midline. No thyromegaly or carotid bruits. Lungs are clear to percussion and auscultation. Heart is in an irregular rate and rhythm. Abdomen is benign. No tenderness, rebound or guarding. She is status post appendectomy. She does have a colostomy. Extremities without edema. No saphenous vein varicosities or strippings. 1+ pulses. Cranial nerves, motor and sensory intact. She is awake, alert and oriented 3. Results 10/14/16 03:47 10/14/16 03:47 Lab Results, Last 24 hours 10/13/16 10/14/16 10/14/16 21:24 03:47 03:47 WBC 7.8 Hgb 12.5 Hct 38.1 Plt Count 163 Sodium Potassium Chloride Carbon Dioxide BUN Creatinine Glucose Calcium Troponin I 0.02 0.02 10/14/16 03:47 WBC Hgb Hct Plt Count Sodium 142 Potassium 3.7 Chloride 105 Carbon Dioxide 29 BUN 17 Creatinine 0.86 Glucose 131 H Calcium 9.1 Troponin I Consult Discharge Plan - Plan Referrals: Alanis Arvizu CNP [Primary Care Provider] - 10/22/16 10:00 am
--- NOTE | 2016-10-14 19:25 | Electrocardiograph Report ---
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
--- NOTE | 2016-10-14 19:47 | Internal Med Progress Note ---
Date of Encounter: 10/14/16 Time of Encounter: 09:40 - Assessment and plan (1) Chest pain Current Visit: Yes Status: Acute Assessment and plan: Patient denied chest pain to me this morning during examination at approximately 9:40 AM. She said that she felt fine and really wanted to go home. She said that she had had heart pounding, pressure in her head and arms which is what brought her to the emergency department for admission anyway. Her troponins were negative 3. Cardiology was consult to today. Patient had LHC today. There were severe 3 vessel coronary artery disease. Cardiology recommendation after heart catheter suggested patient have elective coronary artery bypass surgery over complex multivessel PCI. Proximal LAD 70% stenosis, 70-99% aneurysmal stenosis and mid circumflex, RCA is 99% stenosis, same for the mid RCA. Patient was seen by Dr. Arvizu, cardiothoracic physician. Discussed CABG and her increased risk for this surgery due to decreased ventricular function and frail state. After discussing options, patient states that she does not want any therapy and does not want to have open heart surgery or stents. Dr. Arvizu suggests medical therapy and or PTCA with stents. Monitor patient Labs in the a.m. Continue oxygen as needed for saturation Qualifiers: Chest pain type: precordial pain Qualified Code(s): R07.2 - Precordial pain (2) HTN (hypertension) Current Visit: No Status: Chronic Assessment and plan: Chronic. Continue home medications. Hydralazine when necessary systolic blood pressure greater than 180. Qualifiers: Hypertension type: essential hypertension Qualified Code(s): I10 - Essential (primary) hypertension (3) Diabetes Current Visit: No Status: Chronic Assessment and plan: Diabetic diet Continue Accu-Cheks before meals and at bedtime Sliding scale insulin Hypoglycemia protocol Qualifiers: Diabetes mellitus type: type 2 Diabetes mellitus complication status: without complication Diabetes mellitus skilled nursing insulin use: without intermediate frame tender use Qualified Code(s): E11.9 - Type 2 diabetes mellitus without complications (4) Paroxysmal a-fib Current Visit: No Status: Chronic Assessment and plan: Rate is controlled with beta nichole. She is on aspirin and not any other anticoagulation. Chronic. Continue to monitor. (5) Hyperlipemia Current Visit: Yes Status: Chronic Qualifiers: Hyperlipidemia type: mixed hyperlipidemia Qualified Code(s): E78.2 - Mixed hyperlipidemia (6) History of non-ST elevation myocardial infarction (NSTEMI) Current Visit: Yes Status: Chronic Assessment and plan: Prior history. (7) Healthcare-associated pneumonia Current Visit: Yes Status: Suspected Assessment and plan: Patient's lungs are clear. Chest x-ray showed pneumonia. Chest CT was negative for pneumonia. I stopped IV antibiotics. Her vital signs are stable and there is no leukocytosis. We will continue to monitor labs and patient condition. - Time Spent With Patient less than 15 minutes - Subjective Interval history: Patient was seen and assessed this morning at about 9:40 AM. She does not have any peripheral edema. She says that she feels fine and wants to go home. She said that she was having heart pounding and pressure in her head and arms that led her to come to the emergency department for admission. She denies chest pain at this time. Chest xray was suggestive of pneumonia, however chest CT shows no evidence of pneumonia. She does have suspected pulmonary fibrosis at lung bases, and moderate cardiomegaly with extensive coronary artery calcification. Is being treated with IV antibiotics due to age. Her lungs are clear. - Constitutional Vitals: Temp Pulse Resp BP Pulse Ox 97.6 F 57 17 154/79 95 10/14/16 15:53 10/14/16 17:45 10/14/16 17:45 10/14/16 17:45 10/14/16 17:45 General appearance: Present: cooperative, mild distress, A&O X 3, pleasant, answers questions appropriately - Head Head exam: Present: normal inspection - Eye Eye exam: Present: normal appearance, conjuntiva pink - ENT ENT exam: Present: mucous membranes moist, normal exam - Neck Neck exam general surgery: Present: normal inspection. Absent: lymphadenopathy , tenderness - Respiratory Respiratory exam: Present: decreased breath sounds, CTAB. Absent: rales, rhonchi - GI/Abdominal GI/Abdominal exam: Present: normal bowel sounds, soft. Absent: hepatomegaly, tenderness - Neurological Exam Neurological exam: Present: alert, motor sensory deficit, oriented X3. Absent: no focal deficits, facial droop, speech deficit Internal Medicine: Result - Labs CBC & Chem 7: 10/14/16 03:47 10/14/16 03:47 Labs: Short CBC 10/14/16 Range/Units 03:47 WBC 7.8 (4.3-11.1) K/mcL Hgb 12.5 (11.5-15.4) g/dL Hct 38.1 (35.3-44.9) % Plt Count 163 (140-400) K/mcL Neutrophils # 4.8 (1.6-8.9) K/mcL BMP 10/14/16 03:47 Sodium 142 Potassium 3.7 Chloride 105 Carbon Dioxide 29 BUN 17 Creatinine 0.86 Glucose 131 H Calcium 9.1 Cardiac Enzymes 10/13/16 10/14/16 Range/Units 21:24 03:47 Troponin I 0.02 0.02 (0-0.03) ng/mL - Impressions Impressions Chest CT 10/13/16 18:12 IMPRESSION: 1. No evidence of pneumonia. 2. Suspected pulmonary fibrosis at the lung bases. 3. Moderate cardiomegaly with extensive coronary artery calcification. D/ / Rell Rosas MD / Rell Rosas MD Interpreting Provider: Rell Rosas MD Consult Discharge Plan - Plan Referrals: Alanis Arvizu CNP [Primary Care Provider] - 10/22/16 10:00 am
[2016-10-14] MEDS ORDERED: Vancomycin 500 MG in D5% in Water (Mini-Bag+) 100 ML IVPB SCH (20:00)
[2016-10-14] MEDS ORDERED: Piperacillin/Tazobactam 3.375 GM in D5% in Water (Mini-Bag+) 100 ML IVPB SCH (21:00)
[2016-10-15 05:14] LABS: Basophils % 0.5 %; Eosinophils # 0.4 K/mcL (0.0-0.6); Eosinophils % 4.6 %; Hematocrit 40.8 % (35.3-44.9); Hemoglobin 13.7 g/dL (11.5-15.4); Immature Granulocytes % 0.3 % (0-4); Lymphocytes # 1.7 K/mcL (0.6-4.6); Lymphocytes % 21.2 %; Mean Corpuscular HGB Conc 33.6 g/dL (31.6-35.5); Mean Corpuscular Hemoglobin 31.7 pg (28.0-33.3); Mean Corpuscular Volume 94.4 fL (83.0-100.0); Mean Platelet Volume 11.3 fL (9.4-12.4); Monocytes # 0.9 K/mcL (0.0-1.3); Neutrophils # 4.8 K/mcL (1.6-8.9); Platelet Count 152 K/mcL (140-400); Red Blood Count 4.32 M/mcL (3.82-4.97); Red Cell Distribution Width 12.8 % (11.5-14.5); Segmented Neutrophils % 61.4 %
[2016-10-15 05:29] LABS: BUN/Creatinine Ratio 18 (6-26); Blood Urea Nitrogen 15 mg/dL (7-20); Calcium 9.1 mg/dL (8.6-10.8); Carbon Dioxide 28 mEq/L (19-29); Chloride 105 mEq/L (98-109); Glucose 108 mg/dL (70-99); Osmolality,Calculated 295 (280-300); Potassium 3.6 mEq/L (3.5-4.5); Sodium 142 mEq/L (136-145); eGFR For African Americans > 60 (> 60); eGFR For Non-African Americans > 60 (> 60)
[2016-10-15] MEDS: Insulin LISPRO 300 UNITS/3 ML VIAL SQ SCH ×4 (07:42→21:57)
[2016-10-15] MEDS: Isosorbide MONOnitrate (24 HR) 30 MG TAB.ER.24H PO SCH (07:54)
[2016-10-15] MEDS: Aspirin Enteric Coated 81 MG Tablet PO SCH (07:55)
[2016-10-15] MEDS ORDERED: Levofloxacin 750 MG/150 ML 750 MG/150 ML BAG IVPB SCH (09:00)
--- NOTE | 2016-10-15 10:29 | Cardiology Progress Note ---
Date of Encounter: 10/15/16 Time of Encounter: 10:27 Assessment and Plan (1) Chest pain Current Visit: Yes Status: Acute Prior echo on 09/24 shows LVEF of 45% and hypokinesis of basal and inferolateral segments. Prior troponin during last hospital stay peaked at 1.04 Declined cath at that time She now has agreed to a heart cath due to worsening of her symptoms Current troponin is 0.00 [facility] with severe [address] surgery consulted, and Dr Colon to see the patient this AM to discuss options Qualifiers: Chest pain type: unspecified Qualified Code(s): R07.9 - Chest pain, unspecified (2) Abnormal echocardiogram Current Visit: Yes Status: Acute Prior echo from 09/24/16 showed LVEF of 45% and basal and inferolateral segment hypokinesis [facility] with severe [address] surgery consult (3) History of non-ST elevation myocardial infarction (NSTEMI) Current Visit: Yes Status: Chronic Prior troponin elevation and echo abnormality from last hospitalization on (4) Paroxysmal a-fib Current Visit: No Status: Chronic She is on aspirin No anticoagulants due to prior GI bleed. Currently NSR Discussion w patient/family: The assessment and plan as outlined above was discussed with the patient and/or family members who expressed understanding and agreement. All questions were answered. Thank you for involving us in the care of your patient. Please call with any questions. Subjective Interval history: [facility] yesterday with severe [address] surgery was consulted. The patient and family say they talked to Dr Arvizu yesterday and they are waiting for Dr Colon to come this morning to speak more about what a CABG would entail. After they hear from Dr Colon they would like to speak with cardiology about what stenting some of the lesions would entail. She denies any new chest discomfort overnight. Denies other complaints aside from feeling cold. Objective Vital Signs, Last 4 Hours Temp Pulse Resp BP Pulse Ox 10/15/16 07:32 97.7 F 60 14 126/74 95 General: Conversant HEENT: Atraumatic Neck: No JVD Cardiac: Reg Rate and Rhythm, Normal S1 and S2 Lungs: Normal Breath Sounds Neuro: Alert and responsive Abdomen: Soft Extremities: No Edema, Normal Pulses Results 10/15/16 04:20 10/15/16 04:20 Lab Results 10/15/16 10/15/16 04:20 04:20 WBC 7.8 Hgb 13.7 Hct 40.8 Plt Count 152 Sodium 142 Potassium 3.6 Chloride 105 Carbon Dioxide 28 BUN 15 Creatinine 0.84 Glucose 108 H Calcium 9.1 Consult Discharge Plan - Plan Referrals: Alanis Arvizu CNP [Primary Care Provider] - 10/22/16 10:00 am
--- NOTE | 2016-10-15 12:57 | Cardiothoracic Progress Note ---
Date of Encounter: 10/15/16 Time of Encounter: 12:55 - Assessment and plan (1) Non-STEMI (non-ST elevated myocardial infarction) Current Visit: No Status: Acute Although reluctant, the patient is willing to consent to coronary artery stenting. She is still declining CABG. I have spoken with the steam room attendant and the patient will be loaded with Plavix prior to her stenting tomorrow. The assessment and plan as outlined above was discussed with the patient and/or family members who expressed understanding and agreement. All questions were answered. - Subjective Interval history: The patient is resting comfortably in her hospital bed. She has no complaints of substernal chest pain or shortness of breath. Vital Signs, Last 4 Hours Temp Pulse Resp BP Pulse Ox 10/15/16 11:00 97.8 F 63 18 94/59 93 Oxgyen Flow Rate Oxygen Flow Rate (LPM) 2 Weight 10/13/16 10/14/16 10/15/16 23:59 23:59 23:59 Weight 57.606 kg 58 kg 56.382 kg - Physical Examination General: Conversant, No Apparent Distress Neck: No JVD, Normal carotid pulses Cardiac: Reg Rate and Rhythm, Normal S1 and S2, No Murmur Lungs: Normal Breath Sounds, No Wheeze, Rales, Rhonchi Neuro: Alert and responsive, No focal deficits noted Vascular: Normal capillary refill Musculoskeletal: No Chest Wall Tenderness Extremities: No Clubbing, No Cyanosis, No Edema - Labs 10/15/16 04:20 10/15/16 04:20 Lab Results, Last 24 hours 10/15/16 10/15/16 04:20 04:20 WBC 7.8 Hgb 13.7 Hct 40.8 Plt Count 152 Sodium 142 Potassium 3.6 Chloride 105 Carbon Dioxide 28 BUN 15 Creatinine 0.84 Glucose 108 H Calcium 9.1 Consult Discharge Plan - Plan Referrals: Alanis Arvizu CNP [Primary Care Provider] - 10/22/16 10:00 am
[2016-10-15 16:41] LABS: Potassium 4.1 mEq/L (3.5-4.5)
--- NOTE | 2016-10-15 18:32 | Internal Med Progress Note ---
Date of Encounter: 10/15/16 Time of Encounter: 09:50 - Assessment and plan (1) Chest pain Current Visit: Yes Status: Acute Assessment and plan: Patient still denies chest pain. Patient has LVEF of 45%, hypokinesis of basal and inferolateral segments. Troponins have been negative 3. She had a LHC that showed severe three-vessel disease. She has refused CABG on multiple occasions. She has been seen by cardiothoracic surgery, as well as cardiology. She will be preloaded with Plavix in the morning and will have stenting done. Qualifiers: Chest pain type: precordial pain Qualified Code(s): R07.2 - Precordial pain (2) HTN (hypertension) Current Visit: No Status: Chronic Assessment and plan: Chronic continue home medications. She has been 90s systolic today. She is resting quietly in bed. She has not been up. Qualifiers: Hypertension type: essential hypertension Qualified Code(s): I10 - Essential (primary) hypertension (3) Diabetes Current Visit: No Status: Chronic Assessment and plan: Accu-Cheks of been in the 150s. Continue diabetic diet Continue Accu-Cheks before meals and at bedtime Continue sliding scale insulin Continue hypoglycemic protocol Qualifiers: Diabetes mellitus type: type 2 Diabetes mellitus complication status: without complication Diabetes mellitus parking patroller insulin use: without parking patroller use Qualified Code(s): E11.9 - Type 2 diabetes mellitus without complications (4) Paroxysmal a-fib Current Visit: No Status: Chronic Assessment and plan: Rate control with beta nichole. She is on aspirin. She will get Plavix in the morning for her procedure. Continue to monitor. (5) Hyperlipemia Current Visit: Yes Status: Chronic Qualifiers: Hyperlipidemia type: mixed hyperlipidemia Qualified Code(s): E78.2 - Mixed hyperlipidemia (6) History of non-ST elevation myocardial infarction (NSTEMI) Current Visit: Yes Status: Chronic Assessment and plan: Prior history. (7) Healthcare-associated pneumonia Current Visit: Yes Status: Ruled-out Assessment and plan: Patient remained stable, as do labs. Her lungs are clear. She is not requiring oxygen. Antibiotics have been stopped. Chest x-ray showed what was most likely pneumonia, CAT scan did not show pneumonia. Continue to monitor. - Time Spent With Patient less than 15 minutes - Subjective Interval history: Patient is sitting up in bed this morning she was seen and reviewed at about 9: 50 AM. She is alert and oriented very pleasant. Patient appears to feel better today and is more conversive. She lives alone and gets passport services , but just a nurse who comes to check on her occasionally. She still does all of her housework, family says that she is exceptionally independent and active. tax services intern is to see patient. I have consulted PT and OT. Patient is agreeable to having outpatient physical therapy that is not in her home. Patient and family have agreed to cardiac stenting tomorrow morning. She is seeing cardiothoracic surgery and she is seeing cardiology, has weighed all of her options and has chosen stenting. I did speak with the family and pt today about the option of palliative care, they said that they are not ready to talk to them yet, but will keep it in mind. - Constitutional Vitals: Temp Pulse Resp BP Pulse Ox 97.8 F 66 16 97/62 95 10/15/16 15:51 10/15/16 15:51 10/15/16 15:51 10/15/16 15:51 10/15/16 15:51 General appearance: Present: cooperative, mild distress, A&O X 3, pleasant, answers questions appropriately - Head Head exam: Present: normal inspection - Eye Eye exam: Present: normal appearance, conjuntiva pink - ENT ENT exam: Present: mucous membranes moist, normal exam, normal external ear exam - Neck Neck exam general surgery: Present: normal inspection. Absent: lymphadenopathy , tenderness - Respiratory Respiratory exam: Present: decreased breath sounds, CTAB. Absent: rales, respiratory distress, rhonchi, wheezes - Cardiovascular Cardiovascular exam: Present: RRR, +S1, +S2 - Expanded Cardiovascular Exam Peripheral pulses: 2+: Dorsalis Pedis (L) PM, Dorsalis Pedis (R) PM - GI/Abdominal GI/Abdominal exam: Present: normal bowel sounds, soft. Absent: hepatomegaly, tenderness - Extremities Exam Extremities exam: Present: normal capillary refill, warm, radial pulses palpable and symetrical. Absent: pedal edema, tenderness - Neurological Exam Neurological exam: Present: alert, oriented X3, strengths equal and symetr throughout. Absent: pronater drift, facial droop, speech deficit Internal Medicine: Result - Labs CBC & Chem 7: 10/15/16 04:20 10/15/16 16:20 Labs: Short CBC 10/15/16 Range/Units 04:20 WBC 7.8 (4.3-11.1) K/mcL Hgb 13.7 (11.5-15.4) g/dL Hct 40.8 (35.3-44.9) % Plt Count 152 (140-400) K/mcL Neutrophils # 4.8 (1.6-8.9) K/mcL BMP 10/15/16 10/15/16 04:20 16:20 Sodium 142 140 Potassium 3.6 4.1 Chloride 105 103 Carbon Dioxide 28 29 BUN 15 18 Creatinine 0.84 1.10 Glucose 108 H 154 H Calcium 9.1 9.0 Consult Discharge Plan - Plan Referrals: Alanis Arvizu, EAMON [Primary Care Provider] - 10/22/16 10:00 am
[2016-10-16 04:29] LABS: Basophils % 0.4 %; Eosinophils # 0.4 K/mcL (0.0-0.6); Hematocrit 38.4 % (35.3-44.9); Hemoglobin 12.8 g/dL (11.5-15.4); Immature Granulocytes % 0.1 % (0-4); Lymphocytes # 1.8 K/mcL (0.6-4.6); Lymphocytes % 24.1 %; Mean Corpuscular HGB Conc 33.3 g/dL (31.6-35.5); Mean Corpuscular Hemoglobin 31.5 pg (28.0-33.3); Mean Corpuscular Volume 94.6 fL (83.0-100.0); Mean Platelet Volume 11.2 fL (9.4-12.4); Monocytes # 0.8 K/mcL (0.0-1.3); Neutrophils # 4.5 K/mcL (1.6-8.9); Platelet Count 150 K/mcL (140-400); Red Blood Count 4.06 M/mcL (3.82-4.97); Segmented Neutrophils % 59.4 %
[2016-10-16 04:37] LABS: BUN/Creatinine Ratio 25 (6-26); Blood Urea Nitrogen 21 mg/dL (7-20); Calcium 9.1 mg/dL (8.6-10.8); Carbon Dioxide 29 mEq/L (19-29); Chloride 104 mEq/L (98-109); Glucose 139 mg/dL (70-99); Osmolality,Calculated 293 (280-300); Potassium 3.9 mEq/L (3.5-4.5); Sodium 139 mEq/L (136-145); eGFR For African Americans > 60 (> 60); eGFR For Non-African Americans > 60 (> 60)
[2016-10-16] MEDS: Insulin LISPRO 300 UNITS/3 ML VIAL SQ SCH ×4 (07:17→22:24)
--- NOTE | 2016-10-16 11:24 | Internal Med Progress Note ---
Date of Encounter: 10/16/16 Time of Encounter: 11:22 - Assessment and plan (1) Non-STEMI (non-ST elevated myocardial infarction) Current Visit: No Status: Acute Assessment and plan: cath shows multi vessel cad agreable to pci (2) HTN (hypertension) Current Visit: No Status: Chronic Assessment and plan: well controlled Qualifiers: Hypertension type: essential hypertension Qualified Code(s): I10 - Essential (primary) hypertension (3) Diabetes Current Visit: No Status: Chronic Assessment and plan: on sliding scale Qualifiers: Diabetes mellitus type: type 2 Diabetes mellitus complication status: without complication Diabetes mellitus custodial insulin use: without intermediate manager use Qualified Code(s): E11.9 - Type 2 diabetes mellitus without complications (4) Paroxysmal a-fib Current Visit: No Status: Chronic Assessment and plan: in sinus rhythm (5) Hyperlipemia Current Visit: Yes Status: Chronic Assessment and plan: on lipitor 40 mg Qualifiers: Hyperlipidemia type: mixed hyperlipidemia Qualified Code(s): E78.2 - Mixed hyperlipidemia - Subjective Interval history: Patient with history of hypertension, diabetes, high cholesterol, atrial fibrillation, and cardiomyopathy patient was admitted with chest pain and underwent cardiac cath showing multivessel disease patient declined bypass but agreeable for angioplasty which is planned for this afternoon currently she is not having any chest pain is stable . has lots of family member in room - Constitutional Vitals: Temp Pulse Resp BP Pulse Ox 97.6 F 64 18 129/70 97 10/16/16 07:40 10/16/16 07:40 10/16/16 07:40 10/16/16 07:40 10/16/16 07:40 General appearance: Present: cooperative, mild distress, A&O X 3, pleasant, answers questions appropriately - Eye Eye exam: Present: PERRL, conjuntiva pink, sclera anicteric Pupils: Present: PERRL - Neck Neck exam general surgery: Present: supple, trachea midline. Absent: lymphadenopathy - Respiratory Respiratory exam: Present: CTAB. Absent: accessory muscle use, rales, rhonchi, wheezes - Cardiovascular Cardiovascular exam: Present: RRR, +S1, +S2. Absent: diastolic murmur, gallop, rubs, systolic murmur - GI/Abdominal GI/Abdominal exam: Present: normal bowel sounds, soft, no peritoneal signs. Absent: distended, tenderness - Extremities Exam Extremities exam: Present: warm, radial pulses palpable and symetrical. Absent : calf tenderness, cyanotic, pedal edema Internal Medicine: Result - Labs CBC & Chem 7: 10/16/16 04:05 10/16/16 04:05 Labs: Short CBC 10/16/16 Range/Units 04:05 WBC 7.6 (4.3-11.1) K/mcL Hgb 12.8 (11.5-15.4) g/dL Hct 38.4 (35.3-44.9) % Plt Count 150 (140-400) K/mcL Neutrophils # 4.5 (1.6-8.9) K/mcL BMP 10/15/16 10/16/16 16:20 04:05 Sodium 140 139 Potassium 4.1 3.9 Chloride 103 104 Carbon Dioxide 29 29 BUN 18 21 H Creatinine 1.10 0.84 Glucose 154 H 139 H Calcium 9.0 9.1 Consult Discharge Plan - Plan Referrals: Alanis Arvizu CNP [Primary Care Provider] - 10/22/16 10:00 am
[2016-10-16] MEDS ORDERED: 0.9 % Sodium Chloride 1,000 ML ONE ×2 (12:41→13:10)
[2016-10-16] MEDS ORDERED: *HR* Heparin 10,000 UNIT/10 ML VIAL ONE (12:41)
[2016-10-16] MEDS ORDERED: Heparin 1,000 UNITS/500 mL NS 500 ML ONE (12:41)
--- NOTE | 2016-10-16 12:50 | Pre-Sedation Evaluation ---
Pre-sedation evaluation - Pre-sedation checklist Date of procedure: 10/16/16 Procedure: PCI Recent Vitals: Last Vital Signs Temp 97.3 F L 10/16/16 11:32 Pulse 75 10/16/16 11:32 Resp 20 10/16/16 11:32 BP 158/85 10/16/16 11:32 Pulse Ox 96 10/16/16 11:32 H&P (including ROS) documented in medical record: Yes Previous reaction to sedatives/anesthetics: No Dietary Status: NPO after Midnight Airway Assessment: Patient can open mouth completely, TMJ function normal, Micrognathia (under-bite, receding chin) absent, Neck with adequate range of motion Dentition: dentures removed Possible difficult airway: No ASA Classification *see protocol: CLASS II-Mild systemic disease Plan of Care: Pt appropriate candidate for procedure/moderate/conscious sedation , Risks/benefits of procedure/sedation discussed w/ patient/family
[2016-10-16] MEDS ORDERED: *HR* Bivalirudin 250 MG VIAL IVC ONE (13:10)
[2016-10-16] MEDS ORDERED: *HR* FentaNYL (PF) 100 MCG/2 ML VIAL ONE (13:13)
[2016-10-16] MEDS ORDERED: *HR* Midazolam HCl 2 MG/2 ML VIAL ONE (13:13)
[2016-10-16] MEDS ORDERED: Nitroglycerin 1,000 MCG/10 ML VIAL IV ONE (13:40)
--- NOTE | 2016-10-16 14:20 | Invasive Diagnostic Lab Proc ---
Name: Florina Vilchis Date of Study: 10/16/2016 Date: 1930 Ht: 59.8in Medical Record#: [id number] Age: 86 Wt: 123.46lb Gender: Female BSA: 1.52 Order #: [id number] BMI: 24.24 Physicians Procedure Physician: Zandra Schaefer MD, [facility] Referring MD: Referring MD: Staff Name Position Time In Lupe Farias RT (R) Monitor 01:31 PM Natividad Toth RN Concreting Supervisor 01:31 PM Kaylen Saravia RT (R) Scrub 01:31 PM Indications Indication Unstable Angina Procedures Performed Procedure PRQ CARD BM STENT W/ANGIO 1 VSL Pre-Procedure Checklist Informed consent is complete signed and on chart. H\\T\\P is on chart. ID band is on and ID verified with patient. Patient NPO for procedure The procedure was described for the patient and questions were answered. Blood Pressure: 180/94 ECG is on chart. Plan of Care Patient will tolerate the procedure without complications. Adequate level of comfort will be maintained. Hemodynamics will remain stable Patient will recover from procedure without complications. Respiratory function will be maintained. Cardiac rhythm will remain stable. Patient temperature will be maintained. Patient and/or family have verbalized understanding of the procedure. Patient Education Chief Complaint/Reason for Test: Cardiac Cath Developmental Category: Geriatric (65+ years) Developmentally Appropriate for Age: Yes Learning Barriers: None Education Needs: Procedure Education Method: Verbal Information Taught: Cardiac Cath Educational Evaluation: Able to repeat information Intravenous Access Time IV Size Location DC'd Fluid/Drip Rate Units RN 01:33 PM Started with 22g 1 " Rt Antecubital 0.9NaCl 25 ml/hr Allergies SULFA (sulfonamide) metformin Vital Signs Time BP (mmHg) HR (bpm) O2 Sat. RR (bpm) LOC 180 / 94 78 95 % 19 5 = Fully awake and oriented or at pre-proc level 01:32 PM / % 4 = Oriented but drowsy 01:32 PM / % 4 = Oriented but drowsy 01:48 PM / % 4 = Oriented but drowsy 01:32 PM 180 / 94 75 97 % 12 01:37 PM 175 / 86 75 93 % 22 01:42 PM 154 / 68 70 98 % 13 01:47 PM 154 / 77 72 99 % 8 01:52 PM 160 / 84 74 99 % 01:57 PM 160 / 79 75 97 % 28 02:02 PM 141 / 66 76 95 % 15 02:07 PM 146 / 72 72 97 % 20 Procedural Medications Time Medication Dose Units Method Given By 01:32 PM Oxygen 2 L/min nasal cannula Natividad Toth RN 01:32 PM Versed 1 mg Intravenous Natividad Toth RN 01:32 PM Fentanyl 25 mcg Intravenous Natividad Toth RN 01:39 PM Lidocaine 2% 13 ml Subcutaneous Zandra Schaefer MD, FAC 01:43 PM Angiomax 0.75mg/kg bolus: 8 ml Intravenous Natividad Toth RN 01:43 PM Angiomax 1.75mg/kg/hr: 19 ml Intravenous Natividad Toth RN 01:53 PM Nitroglycerin 200 mcg Intracoronary Zandra Schaefer MD, FACC 01:58 PM Nitroglycerin 200 mcg Intracoronary Zandra Schaefer MD, FACC 02:01 PM Plavix 300 mg Orally Natividad Toth RN ASA Classification: CLASS II- Mild systemic disease (i.e. well-controlled diabetes, hypertension, asthma, cigarette smoking) Bhargav Score Preprocedure Postprocedure Activity 2- Moves 4 extremities sustained head lift Activity 2- Moves 4 extremities sustained head lift Circulation 2- SBP +/= 20 points of pre-anesthetic level Circulation 2- SBP +/= 20 points of pre-anesthetic level Consciousness 2- Awake and alert oriented x 3 Consciousness 2- Awake and alert oriented x 3 O2 Saturation 2- Able to maintain O2 satruation of 92% on room air O2 Saturation 2- Able to maintain O2 satruation of 92% on room air Respiratory 2- Able to deep breathe and cough well Respiratory 2- Able to deep breathe and cough well Total Score 10 Total Score 10 Contrast Agent: Isovue Diagnostic Contrast: 67 ml Total Contrast: 67 ml Fluoro Dose: 239 mGy Procedure Log Time Note Enter By 01:12 PM CathStat 01:12 PM Case Start 01:23 PM Recorded ECG: HR=92 Condition=Condition 1 01:31 PM Vitals capture started with the following parameters, Patient=Adult, Interval=5 min, Initial Uclbdpdo=477 mmHg, Deflation Rate=5 mmHg, Cuff placed on Left Arm 01:31 PM Pt arrived to bundle tier and labeler 2 at 13:31 [email or web address] 01:31 PM Lupe Farias RT (R) Position: Monitor Time in: 13:31 01:31 PM Natividad Toth RN Position: Concreting Supervisor Time in: 13:31 01:32 PM Kaylen Saravia RT (R) Position: Scrub Time in: 13:31 y3 01:32 PM Patient charges- Angio tray pack, Navilyst 3mm J, Pulse Oximetry and ACIST tubing and transducer [email or web address] :32 PM IV Supplies used: J loop Angio Cath. [email or web address] 01:32 PM Case Delayed No 3 :32 PM Hair removed from procedure site in holding area using clippers. Bilateral groin prepped with Chloraprep by Lupe Farias RT (R), safety strap applied then patient was draped. Skin intact. [email or web address] 01:32 PM Physician arrived 13:32 [email or web address] :32 PM ASA Class CLASS II- Mild systemic disease (i.e. well-controlled diabetes, hypertension, asthma, cigarette smoking) [email or web address] :32 PM Tomasz and clara completed [email or web address] :32 PM Sign in performed according to hospital policy. [email or web address] 01:32 PM Procedure start 13:32 :32 PM Time: 13:32 Oxygen on at 2 L/min per nasal cannula by Natividad Toth RN [email or web address] 01:32 PM Time: 13:32 Versed 1 mg Intravenous Given by Natividad Toth RN [email or web address] :32 PM HR=75 bpm, EWWE=936/94 mmhg, SpO2=97.0 %, Resp=12 B/min 01:32 PM Time: 13:32 Fentanyl 25 mcg Intravenous Given by Natividad Toth RN [email or web address] 01:32 PM Time: 13:32 Patient comfortable and pain free: Yes [email or web address] :32 PM Time: 13:32LOC: 4 = Oriented but drowsy [email or web address] 01:35 PM Recorded ECG: HR=79 Condition=Condition 1 01:36 PM Pressure channel 1 zeroed. 01:37 PM HR=75 bpm, JYQO=329/86 mmhg, SpO2=93.0 %, Resp=22 B/min, Comment=SR 01:38 PM Time out performed according to hospital policy [email or web address] 01:39 PM Time: 13:39 13 ml Lidocaine 2% to left groin Subcutaneous Given by Zandra Schaefer MD, [facility] [email or web address] 01:40 PM Access obtained by percutaneous puncture. 6Fr 10cm Terumo Myton sheath placed in left Femoral artery. [id number] [email or web address] 01:41 PM 0.035 145cm Navilyst 3mmJ wire [id number] [email or web address] 01:42 PM HR=70 bpm, PSEX=754/68 mmhg, SpO2=98.0 %, Resp=13 B/min, Comment=SR 01:42 PM 6Fr XB LAD 3.5 Cordis guide catheter was used to cannulate the PCI vessel successfully. reused? No [email or web address] 01:43 PM .014 Prowater 182cm guide wire across target lesion- successful. reused? No [email or web address] 01:43 PM Inflation device was opened. [email or web address] 01:43 PM Time: 13:43 Angiomax 0.75mg/kg bolus: 8 ml Intravenous Given by Natividad Toth RN Briceno pump [email or web address] 01:43 PM Time: 13:43 Angiomax 1.75mg/kg/hr: 19 ml Intravenous Given by Natividad Toth RN Briceno pump [email or web address] 01:44 PM Recorded Pressure: Ao, HR=69, Condition=Condition 1 (Aorta) Ao 135/64/92 01:46 PM 2.0 mm x 15 mm Emerge Monorail balloon across target lesion- successful. reused? No [email or web address] 01:47 PM HR=72 bpm, TOVU=586/77 mmhg, SpO2=99.0 %, Resp=8 B/min, Comment=SR 01:47 PM Balloon inflated @ 10 isaiah for 20 seconds [email or web address] 01:47 PM Time: 13:32 Patient comfortable and pain free: Yes [email or web address] 01:48 PM Time: 13:32LOC: 4 = Oriented but drowsy [email or web address] 01:48 PM Balloon inflated @ 14 isaiah for 30 seconds [email or web address] 01:49 PM Balloon catheter removed intact. [email or web address] 01:50 PM 2.5mm x 38mm Synergy drug-eluting stent across target lesion- successful Lot #[id number] [email or web address] 01:51 PM Stent deployed @ 12 isaiah for 30 seconds [email or web address] 01:52 PM HR=74 bpm, HJDL=353/84 mmhg, SpO2=99.0 % 01:52 PM Stent delivery system removed intact. [email or web address] 01:53 PM Time: 13:53 Nitroglycerin 200 mcg Intracoronary Given by Zandra Schaefer MD, [facility] [email or web address] 01:54 PM Recorded Pressure: Ao, HR=82, Condition=Condition 1 (Aorta) Ao 130/74/98 01:54 PM 2.5 mm x 15mm NC Emerge balloon across target lesion- successful. reused? No [email or web address] 01:55 PM Balloon inflated @ 20 isaiah for 15 seconds [email or web address] 01:56 PM Balloon inflated @ 20 isaiah for 15 seconds [email or web address] 01:57 PM HR=75 bpm, OVMR=415/79 mmhg, SpO2=97.0 %, Resp=28 B/min, Comment=SR 01:57 PM Balloon inflated @ 20 isaiah for 15 seconds [email or web address] 01:58 PM Balloon catheter removed intact. [email or web address] 01:58 PM Time: 13:58 Nitroglycerin 200 mcg Intracoronary Given by Zandra Schaefer MD, [email or web address] 01[facility]59 PM Recorded Pressure: Ao, HR=75, Condition=Condition 1 (Aorta) Ao 129/70/94 01:59 PM Guide wire removed intact. [email or web address] 01:59 PM Guide catheter removed intact. [email or web address] 01:59 PM Bolus angiogram of left Femoral complete: 4 ml/sec for a total of 7 mls [email or web address] 02:00 PM Angiomax turned off. [email or web address] 02:01 PM Time: 14:01 Plavix 300 mg Orally Given by Natividad Toth RN [email or web address] 02:02 PM HR=76 bpm, HCRO=316/66 mmhg, SpO2=95.0 %, Resp=15 B/min, Comment=SR 02:02 PM Procedure completed at 14:02 [email or web address] 02:03 PM Time: 13:48LOC: 4 = Oriented but drowsy [email or web address] 02:03 PM Time: 13:47 Patient comfortable and pain free: Yes [email or web address] 02:03 PM Sign out completed: Radiation Dose 239.41 mGy Fluoro Time: 5.8 Isovue 370 - 200ml contrast 65.7 ml given by Zandra Scahefer MD, FACC. Complications: NoneCardiac Rehab Consult needed: YesConfirmed administered medications: Yes [email or web address] 02:05 PM Isovue 370 - 200ml,1 Bottle(s) used. [email or web address] 02:05 PM Sheath left in place to be pulled on floor/holding areaV+Pad [email or web address] 02:05 PM Post ECG NSR [email or web address] 02:05 PM Post Blood Pressure 141/66 [email or web address] 02:05 PM 14:05 Post Pulses Bilateral DP \\T\\ PT 1+ [email or web address] 02:05 PM Information taught PCI [email or web address] 02:05 PM Education needs Procedure, Plan of Care, and Disease Process [email or web address] 02:05 PM Learning barriers :None [email or web address] 02:05 PM Education Methods Verbal [email or web address] 02:06 PM Education evaluation Able to repeat information [email or web address] 02:06 PM Site status No bleeding/hematoma - Lt Groin as reported by Kaylen Saravia RT (R) at 14:06 [email or web address] 02:06 PM Opsite applied [email or web address] 02:06 PM Delay to floor No [email or web address] 02:06 PM Family placed in consult room. [email or web address] 02:06 PM Complications: None [email or web address] 02:06 PM Fluoro Time: 5.8 [email or web address] 02:06 PM Isovue 370 - 200ml contrast 67 ml given by Zandra Schaefer MD, FACC. [email or web address] 02:06 PM Radiation Dose 239.41 mGy [email or web address] 02:07 PM HR=72 bpm, EUBE=859/72 mmhg, SpO2=97.0 %, Resp=20 B/min, Comment=SR 02:10 PM Report given to Sally KAUR Pt taken to 2N Room #15. 14:09 [email or web address] 02:10 PM Patient out of room: 14:10 [email or web address] Complications Complication None None Hemodynamics Pressures Site Systolic/A Wave Diastolic/V Wave Mean AO 135 64 92 AO 130 74 98 AO 129 70 94 Post Procedure Information Blood Pressure: 141/66 mmHg Rhythm: NSR Post procedural instructions were given Surgery consult for CABG Site Checks Time Location Status Staff Sheath In? Note 02:06 PM Lt Groin No bleeding/hematoma Kaylen Saravia RT (R) Pulses Time Site Pre-Procedure Post-Procedure Note Bilateral DP \\T\\ PT 1+ Bilateral radial 2+ 2:05:00 PM Bilateral DP \\T\\ PT 1+ Updated by Lupe Farias RT(R) on 10/16/2016 2:14:49 PM electronically signed on 10/16/2016 2:15:19 PM with status of Final
[2016-10-16] MEDS: 0.9 % Sodium Chloride 1,000 ML IVC SCH ×2 (14:45→22:24)
--- NOTE | 2016-10-16 15:41 | Invasive Diagnostic Lab ---
Name: Florina Vilchis Date of Study: 10/16/2016 Date: 1930 Ht: 152.0 cm /59.8 in Medical Record#: [id number] Age: 86 Wt: 56. kg / 123.46 lb Account/Order#: [id number] Gender: Female BSA: 1.52 Order #: [id number] Fluoro Dose: 239 mGy BMI: 24.24 Procedure Physician: Zandra Schaefer MD, FACC Referring MD: Referring MD: Procedures Performed: Stent w/ PTCA Single Major Vessel Indications: Unstable Angina, Coronary Artery Disease, Staged PCI Impressions: Patient had successful PTCA/Drug-Eluting Stent placement in the mid Circ. Recommendations: Dual antiplatelet therapy. Optimal medical therapy of patient's disease. Aggressive risk factor modification. History/Risk Factors: Cardiomyopathy cancer Diabetes Hypertension Dyslipidemia Procedure Access obtained in the left Femoral artery by percutaneous puncture Patient had successful PTCA/Drug-Eluting Stent placement in the mid Circ. Complications: None, None Contrast: Isovue 67ml Hemodynamics: Pressures Site Systolic/ A Wave Diastolic/ V Wave End Diastolic/ Mean HR AO 135 64 92 69 AO 130 74 98 82 AO 129 70 94 75 Lesion Findings/Interventions * Circumflex There is a 38 mm long, 99% stenosis in the Mid Circumflex. The lesion has no thrombus present. An intervention was performed on the Mid Circumflex with a final stenosis of 0%. There were no lesion complications. The final JENNY flow was 3. Interventional Device(s) Vessel Segment Type Name Diameter (mm) Length (mm) Mid Circumflex Balloon NC Emerge 2.5 15 Mid Circumflex Balloon Emerge Monorail 2 15 Mid Circumflex Drug Eluting Stent Synergy 2.5 38 Updated by Zandra Schaefer MD, FACC on 10/16/2016 3:34:18 PM Zandra Schaefer MD, FACC electronically signed on 10/16/2016 3:36:39 PM with status of Final
[2016-10-16] MEDS ORDERED: *HR* Atropine Sulfate 1 MG/10 ML SYRINGE ONE (16:01)
[2016-10-16] MEDS: Aspirin Enteric Coated 81 MG Tablet PO SCH (16:39)
[2016-10-16] MEDS: Isosorbide MONOnitrate (24 HR) 30 MG TAB.ER.24H PO SCH (16:39)
[2016-10-17] MEDS: Isosorbide MONOnitrate (24 HR) 30 MG TAB.ER.24H PO SCH (07:43)
[2016-10-17] MEDS: Aspirin Enteric Coated 81 MG Tablet PO SCH (07:44)
[2016-10-17] MEDS: Insulin LISPRO 300 UNITS/3 ML VIAL SQ SCH ×2 (07:55→12:12)
--- NOTE | 2016-10-17 10:01 | Cardiology Progress Note ---
Date of Encounter: 10/17/16 Time of Encounter: 08:00 Assessment and Plan (1) CAD (coronary artery disease) Current Visit: Yes Status: Acute Per cardiology: -Prior echo on 09/24 shows LVEF of 45% and hypokinesis of basal and inferolateral segments. -Prior troponin during last hospital stay peaked at 1.04. Declined cath at that time -Troponin negative this admission. -[facility] with severe 3 vessel disease -CT surgery consulted, not a surgical candidate. -On asa, plavix, beta nichole, statin, and reginald inhibitor. -Educated on dual anti-platelet therpay uninterrupted for at least 1 year. -Right groin access site management education given. Patient and family state understanding. -Cardiology will sign off and will follow up in outpatient setting. Follow up set. Qualifiers: Coronary Disease-Associated Artery/Lesion type: [place] artery [place] vs. transplanted heart: [place] heart Associated angina: without angina Qualified Code(s): I25.10 - Atherosclerotic heart disease of [place] coronary artery without angina pectoris (2) HTN (hypertension) Current Visit: No Status: Chronic Per cardiology: -Known history of HTN. -On beta nichole and reginald. -BPs 100-130s systolic. -Will continue to monitor in outpatient setting. Qualifiers: Hypertension type: essential hypertension Qualified Code(s): I10 - Essential (primary) hypertension Discussion w patient/family: The assessment and plan as outlined above was discussed with the patient and/or family members who expressed understanding and agreement. All questions were answered. Thank you for involving us in the care of your patient. Please call with any questions. Discussed and reviewed with . Subjective Principal diagnosis: chest pain Interval history: [facility] earlier this week with severe [address] surgery was consulted, and was felt to be not a surgical candidate. Patient underwent high risk PCI . Patient has successful drug eluding stent to mid circumflex. Patient denies chest pain. Denies issues with right groin access site. Objective Vital Signs, Last 4 Hours Temp Pulse Resp BP Pulse Ox 10/17/16 07:40 97.6 F 66 17 135/70 94 General: Conversant HEENT: Atraumatic, Normocephaly, Mucus Membranes Moist Neck: No JVD, Normal carotid pulses Cardiac: Reg Rate and Rhythm, Normal S1 and S2, No Murmur Lungs: Normal Breath Sounds Neuro: Alert and responsive, No focal deficits noted Abdomen: Soft, Non-Tender Skin: No rashes noted on visualized skin, Other (Right groin access without hematoma or ecchymosis. ) Musculoskeletal: No Chest Wall Tenderness Extremities: No Clubbing, No Cyanosis, No Edema, Normal Pulses Results 10/16/16 04:05 10/16/16 04:05 Active Medications Acetaminophen (Tylenol) 650 mg PO Q6HR PRN PRN Reason: Mild Pain (1-3) Stop: 04/14/17 18:11 Aspirin (Aspirin Ec) 81 mg PO DAILY [facility] Stop: 04/15/17 09:01 Last Admin: 10/17/16 07:44 Dose: 81 mg Atorvastatin Calcium (Lipitor) 40 mg PO HS [facility] Stop: 04/16/17 21:01 Last Admin: 10/16/16 20:48 Dose: 40 mg Carvedilol (Coreg) 12.5 mg PO BID [facility] Stop: 04/14/17 21:01 Last Admin: 10/17/16 07:44 Dose: 12.5 mg Clopidogrel Bisulfate (Plavix) 75 mg PO DAILY [facility] Stop: 04/17/17 09:01 Last Admin: 10/17/16 07:44 Dose: 75 mg Dextrose/Water (Dextrose 50% (Syg)) 25 ml IVP AD PRN PRN Reason: Hypoglycemia Stop: 04/14/17 18:51 Glucagon (Glucagen) 1 mg IM ONCE PRN PRN Reason: Hypoglycemia Stop: 04/14/17 18:51 Glucose (Gluctose) 15 gm PO ONCE PRN PRN Reason: Hypoglycemia Stop: 04/14/17 18:51 Glucose (Gluctose) 30 gm PO ONCE PRN PRN Reason: Hypoglycemia Stop: 04/14/17 18:51 Dextrose (Dextrose 5%) 1,000 mls @ 100 mls/hr IVC .Q10H PRN PRN Reason: HYPOGLYCEMIA Stop: 04/14/17 18:51 Sodium Chloride (0.9 % Sodium Chloride) 1,000 mls @ 100 mls/hr IVC .Q10H JOSE MIGUEL Stop: 04/17/17 18:15 Last Infusion: 10/17/16 07:40 Dose: Infused Insulin Human Lispro (Humalog) 0 units SQ HS JOSE MIGUEL PRN Reason: Protocol Stop: 04/14/17 21:01 Last Admin: 10/16/16 22:24 Dose: Not Given Insulin Human Lispro (Humalog) 0 units SQ TIDAC JOSE MIGUEL PRN Reason: Protocol Stop: 04/15/17 07:31 Last Admin: 10/17/16 07:55 Dose: Not Given Isosorbide Mononitrate (Imdur) 30 mg PO DAILY [facility] Stop: 04/15/17 09:01 Last Admin: 10/17/16 07:43 Dose: 30 mg Lisinopril (Zestril) 2.5 mg PO DAILY [facility] Stop: 04/15/17 09:01 Last Admin: 10/17/16 07:43 Dose: 2.5 mg Naloxone HCl (Narcan) 0.4 mg IVP Q2MIN PRN PRN Reason: Opioid Reversal Stop: 04/14/17 18:11 Nitroglycerin (Nitroglycerin) 0.4 mg SL Q5MIN PRN PRN Reason: Chest Pain Stop: 04/14/17 14:34 Omeprazole (Prilosec) 20 mg PO 0630 [facility] Stop: 04/15/17 06:31 Last Admin: 10/17/16 06:38 Dose: 20 mg Laboratory Tests 10/13/16 10/13/16 10/14/16 15:03 21:24 03:47 Hgb Hct Creatinine Troponin I 0.01 0.02 0.02 10/16/16 10/16/16 04:05 04:05 Hgb 12.8 Hct 38.4 Creatinine 0.84 Troponin I - Imaging and Cardiology Chest Xray: report reviewed Cardiac cath: report reviewed - EKG Interpretation EKG results cardiology: other (Telemetry reviewed with average HR 98, sinus rhythm. PVCs and PACs noted.) Consult Discharge Plan - Plan Referrals: Alanis Arvizu, EAMON [Primary Care Provider] - 10/22/16 10:00 am
[2016-10-17 14:49] VITALS: BP 103/57
--- NOTE | 2016-10-17 15:48 | Discharge Summary ---
Date of Encounter: 10/17/16 Time of Encounter: 15:45 - Discharge Diagnosis (1) Non-STEMI (non-ST elevated myocardial infarction) Priority: Primary Status: Acute Comments: cath showing multi vessel cad underwent pci of lx no complication (2) HTN (hypertension) Priority: Secondary Status: Chronic Comments: well controlled Qualifiers: Hypertension type: essential hypertension Qualified Code(s): I10 - Essential (primary) hypertension (3) Diabetes Priority: Secondary Status: Chronic Comments: chronic Qualifiers: Diabetes mellitus type: type 2 Diabetes mellitus complication status: without complication Diabetes mellitus jail insulin use: without jail use Qualified Code(s): E11.9 - Type 2 diabetes mellitus without complications (4) Paroxysmal a-fib Priority: Secondary Status: Chronic Comments: remains in sinus (5) Hyperlipemia Priority: Secondary Status: Chronic Qualifiers: Hyperlipidemia type: mixed hyperlipidemia Qualified Code(s): E78.2 - Mixed hyperlipidemia - Discharge Medications Prescriptions: Atorvastatin [Lipitor] 40 mg PO HS #30 tablet Carvedilol [Coreg] 6.25 mg PO BID #60 tablet Clopidogrel [Plavix] 75 mg PO DAILY #30 tablet Home Medications: Aspirin [Lo-Dose Aspirin EC] 81 mg PO DAILY 09/24/16 [History] Multivit-Min/Iron/Folic/Lutein [Centrum Silver Women Tablet] 1 tab PO DAILY 01/03 [History] Pantoprazole Sodium [Protonix] 40 mg PO DAILY 09/24/16 [History] Isosorbide MONOnitrate (24 HR) [Imdur] 30 mg PO DAILY #30 tab.er.24h 09/26/16 [ Rx] Nitroglycerin 0.4 mg SL Q5MIN PRN #30 tab.subl 09/26/16 [Rx] Calcium Carbonate/Vitamin D3 [Calcium 600-Vit D3 200 Tablet] 1 each PO DAILY [History] Lisinopril 2.5 mg PO DAILY 10/13/16 [History] SitaGLIPtin [Januvia] 100 mg PO DAILY 10/13/16 [History] Atorvastatin [Lipitor] 40 mg PO HS #30 tablet 10/17/16 [Rx] Carvedilol [Coreg] 6.25 mg PO BID #60 tablet 10/17/16 [Rx] Clopidogrel [Plavix] 75 mg PO DAILY #30 tablet 10/17/16 [Rx] Allergies/Adverse Reactions: Allergies metformin Allergy (Verified 10/13/16 14:02) Hives Sulfa (Sulfonamide Antibiotics) Allergy (Verified 10/13/16 14:02) Hives Date of admission: 10/16/16 16:40 Primary care physician: Alanis Arvizu CNP Discharging clinician: Jayne Blevins Anticipated date of discharge: 10/17/16 - Patient Status Disposition: Home, Self-Care Condition: Good Overall status at discharge: patient is back to baseline - Discharge Instructions Follow Up With: Wilner Ward MD [Partnered Physician] - - Diet and Activity Activity: increase activity as tolerated Diet: advance to your usual diet Hospital course: Ms. Vilchis is a 86 year old female - Time Spent with Patient Total time spent providing and/or coordinating discharge services: - Constitutional Vitals: Temp Pulse Resp BP Pulse Ox 98.0 F 77 16 103/57 94 10/17/16 14:48 10/17/16 14:48 10/17/16 14:48 10/17/16 14:48 10/17/16 14:48 General appearance: Present: cooperative, mild distress, A&O X 3, pleasant, answers questions appropriately - Eye Eye exam: Present: PERRL, conjuntiva pink, sclera anicteric Pupils: Present: PERRL - Neck Neck exam general surgery: Present: supple, trachea midline. Absent: lymphadenopathy - Respiratory Respiratory exam: Present: CTAB. Absent: accessory muscle use, rales, rhonchi, wheezes - Cardiovascular Cardiovascular exam: Present: RRR, +S1, +S2. Absent: diastolic murmur, gallop, rubs, systolic murmur - GI/Abdominal GI/Abdominal exam: Present: normal bowel sounds, soft, no peritoneal signs. Absent: distended, tenderness - Extremities Exam Extremities exam: Present: warm, radial pulses palpable and symetrical. Absent : calf tenderness, cyanotic, pedal edema - Neurological Exam Neurological exam: Present: CN II-XII intact, oriented X3, no focal deficits. Absent: pronater drift, facial droop, speech deficit - Skin Skin exam: Present: dry, intact
[2016-10-17] MEDS ORDERED: Aminoglycoside Consult 1 EACH MC ONE (17:09)
--- NOTE | 2016-10-17 17:53 | Electrocardiograph Report ---
[place] [id number] Test Date: 2016-10-16 Pat Name: Florina Vilchis Department: 110 Room: 2N15 Gender: F [employer] Coordinator: : 1930 Requested By: Zandra Schaefer Order Number: [id number] Reading MD: Zandra Schaefer Measurements Intervals [place] Rate: 68 P: 106 [place]: 170 QRS: -28 QRSD: 154 T: 190 QT: 468 QTc: 485 Interpretive Statements SINUS RHYTHM WITH OCCASIONAL VENTRICULAR PREMATURE COMPLEXES LEFT BUNDLE BRANCH BLOCK Electronically Signed On 10-17-2016 17:51:51 EDT by Zandra Schaefre
== END 2016-10-17 17:10 | disposition home or self-care (01) | DRG 246 ==
LOC: 3BNU 14:01 → EMEROO 14:01 → 3BNU 17:59 → 2NNU 10-16 14:13 → SUATTDRO 10-16 16:40
PROVIDERS: ADMIT Internal Medicine; ATTEND Internal Medicine

== ENCOUNTER 2016-10-30 17:49 | Observation (INO) ==
[2016-10-30] MEDS ORDERED: Aspirin 81 MG TAB.CHEW PO ONE (18:09)
--- NOTE | 2016-10-30 18:15 | Emergency Department Note ---
Disposition Clinical Impression: Chest pain of uncertain etiology Disposition: Admitted As Inpatient Condition: Fair Chest Pain HPI - General Chief Complaint: ED Chest Pain Stated Complaint: Chest Pain Time Seen by Provider: 10/30/16 17:56 Source: patient, family Limitations: no limitations Vital Signs Reviewed: Yes Nursing Notes Reviewed: Yes - History of Present Illness HPI Narrative: Mrs. Vilchis, an 86-year-old female, presents from home by POV with chief complaint chest pain. Described as substernal chest heaviness. Onset this morning and lasting a total of 30 minutes which included the patient taking 2 sublingual nitroglycerin 5 minutes apart which completely relieved her chest pain. Patient had just come in from outside and sat down at onset of her chest pain which was not relieved by rest. Associated with mild nausea. Patient denies radiation of her pain, weakness, diaphoresis, dyspnea. Patient had 2 episodes of this chest pain earlier this week. And all 3 abscesses, her chest pain was very similar to previous chest pain in early September of this year for which she was admitted to the hospital and subsequent received a single stent. PMH: Hypertension, hyperlipidemia, diabetes, colon cancer with colectomy and subsequent colostomy, ACS with single stent. Severity scale (1-10): 3 - Related Data Home Medications Medication Instructions Recorded Confirmed Aspirin [Lo-Dose Aspirin EC] 81 mg PO DAILY 09/24/16 10/31/16 Multivit-Min/Iron/Folic/Lutein 1 tab PO DAILY 09/24/16 10/31/16 [Centrum Silver Women Tablet] Pantoprazole Sodium [Protonix] 40 mg PO DAILY 09/24/16 10/31/16 Calcium Carbonate/Vitamin D3 1 each PO DAILY 10/13/16 10/31/16 [Calcium 600-Vit D3 200 Tablet] Lisinopril 2.5 mg PO DAILY 10/13/16 10/31/16 SitaGLIPtin [Januvia] 100 mg PO DAILY 10/13/16 10/31/16 Previous Rx's Medication Instructions Recorded Isosorbide MONOnitrate (24 HR) 30 mg PO DAILY #30 tab.er.24h 09/26/16 [Imdur] Nitroglycerin 0.4 mg SL Q5MIN PRN #30 tab.subl 09/26/16 Atorvastatin [Lipitor] 40 mg PO HS #30 tablet 10/17/16 Carvedilol [Coreg] 6.25 mg PO BID #60 tablet 10/17/16 Clopidogrel [Plavix] 75 mg PO DAILY #30 tablet 10/17/16 Isosorbide MONOnitrate (24 HR) 60 mg PO DAILY #60 tab.er.24h 11/01/16 [Imdur] Allergies Allergy/AdvReac Type Severity Reaction Status Date / Time metformin Allergy Hives Verified 10/31/16 11:52 Sulfa (Sulfonamide Allergy Hives Verified 10/31/16 11:52 Antibiotics) All systems ED: reviewed and negative except as stated. Constitutional: Denies: fever, chills, weakness Cardiovascular: Reports: chest pain. Denies: palpitations, dyspnea on exertion , orthopnea, edema, syncope Respiratory: Denies: cough, dyspnea, wheezes Gastrointestinal: Reports: nausea. Denies: abdominal pain, vomiting, diarrhea, constipation, hematemesis Genitourinary: Denies: urgency Musculoskeletal: Denies: back pain, neck pain Neurological: Denies: headache, weakness, numbness, paresthesias Chest Pain PMH - Past Medical History Medical history: Reports: cancer, cardiomyopathy, diabetes, hyperlipidemia, hypertension, other Surgical history: Reports: appendectomy, colectomy, colostomy, other Psychiatric history: Reports: no psych history PLATING ENGINEER history: Reports: no PLATING ENGINEER history - Social History Smoking Status: Unknown if ever smoked Alcohol use: Reports: none Drug use: Reports: none Physical Exam General: Patient is alert, oriented, and in no acute distress. HEENT: No facial asymmetry. Head is normocephalic and atraumatic. Cardiovascular: Heart regular rate and rhythm without clicks, rubs, gallops. Grade 3/6 left upper sternal border systolic murmur No JVD. PMI nondisplaced. No pedal edema. Bilateral radial and posterior pulses 2/4. Brisk capillary refill. Respiratory: Symmetric chest rise with good respiratory effort. Bilateral breath sounds are clear without wheezing, crackles, or rhonchi. Abdomen: Bowel sounds present normoactive x-4 quadrants. Abdomen is soft, nondistended, and nontender. No organomegaly noted. Psych: Patient's affect is appropriate for situation. - General Limitations: no limitations General appearance: alert, in no apparent distress Course Course Narrative: Patient's history is clinical concern for ACS. We will workup his chest pain with disposition pending. At this point, anticipating admission to the hospital for chest pain with rule out ACS. Initial troponin (-). EKG unremarkable for acute ischemic changes. Patient agrees to admission for r/o ACS. Patient accepted by hospitalist. Vital Signs Temperature 98.2 F 10/30/16 17:54 Pulse Rate 70 10/30/16 17:54 Respiratory Rate 18 10/30/16 17:54 Blood Pressure 141/78 10/30/16 17:54 O2 Sat by Pulse Oximetry 98 10/30/16 17:54 Temperature 98.0 F 11/01/16 07:21 Pulse Rate 64 11/01/16 07:21 Respiratory Rate 15 11/01/16 07:21 Blood Pressure 122/66 11/01/16 07:21 O2 Sat by Pulse Oximetry 97 11/01/16 08:59 Oxygen Delivery Oxygen Delivery Room Air Chest Pain - Medical Records Medical records reviewed: Yes I reviewed the patient's medical records. - Lab Data Lab results reviewed: Yes I reviewed the patient's lab results. Result diagrams: 10/31/16 00:17 10/31/16 00:17 Lab Results 10/30/16 10/30/16 10/30/16 Range/Units 18:29 18:29 18:29 WBC 7.0 (4.3-11.1) K/mcL RBC 4.26 (3.82-4.97) M/mcL Hgb 13.3 (11.5-15.4) g/dL Hct 40.1 (35.3-44.9) % MCV 94.1 (83.0-100.0) fL MCH 31.2 (28.0-33.3) pg MCHC 33.2 (31.6-35.5) g/dL RDW 12.8 (11.5-14.5) % Plt Count 194 (140-400) K/mcL MPV 10.8 (9.4-12.4) fL Immature Gran % 0.3 (0-4) % Seg Neutrophils % 67.2 % Lymphocytes % 16.3 % Monocytes % 9.6 % Eosinophils % 6.0 % Basophils % 0.6 % Neutrophils # 4.7 (1.6-8.9) K/mcL Lymphocytes # 1.1 (0.6-4.6) K/mcL Monocytes # 0.7 (0.0-1.3) K/mcL Eosinophils # 0.4 (0.0-0.6) K/mcL Basophils # 0.0 (0.0-0.2) K/mcL PT 12.8 H (9.4-12.1) Seconds INR 1.2 APTT 31.0 (26.0-36.0) Seconds Sodium 142 (136-145) mEq/L Potassium 3.7 (3.5-4.5) mEq/L Chloride 104 (98-109) mEq/L Carbon Dioxide 28 (19-29) mEq/L BUN 18 (7-20) mg/dL Creatinine 0.80 (0.57-1.11) mg/dL Est GFR ( Amer) > 60 (> 60) Est GFR (Non-Af Amer) > 60 (> 60) BUN/Creatinine Ratio 23 (6-26) Glucose 167 H (70-99) mg/dL Calculated Osmolality 300 (280-300) Calcium 9.4 (8.6-10.8) mg/dL Troponin I (0-0.03) ng/mL 10/30/16 Range/Units 18:29 WBC (4.3-11.1) K/mcL RBC (3.82-4.97) M/mcL Hgb (11.5-15.4) g/dL Hct (35.3-44.9) % MCV (83.0-100.0) fL MCH (28.0-33.3) pg MCHC (31.6-35.5) g/dL RDW (11.5-14.5) % Plt Count (140-400) K/mcL MPV (9.4-12.4) fL Immature Gran % (0-4) % Seg Neutrophils % % Lymphocytes % % Monocytes % % Eosinophils % % Basophils % % Neutrophils # (1.6-8.9) K/mcL Lymphocytes # (0.6-4.6) K/mcL Monocytes # (0.0-1.3) K/mcL Eosinophils # (0.0-0.6) K/mcL Basophils # (0.0-0.2) K/mcL PT (9.4-12.1) Seconds INR APTT (26.0-36.0) Seconds Sodium (136-145) mEq/L Potassium (3.5-4.5) mEq/L Chloride (98-109) mEq/L Carbon Dioxide (19-29) mEq/L BUN (7-20) mg/dL Creatinine (0.57-1.11) mg/dL Est GFR ( Amer) (> 60) Est GFR (Non-Af Amer) (> 60) BUN/Creatinine Ratio (6-26) Glucose (70-99) mg/dL Calculated Osmolality (280-300) Calcium (8.6-10.8) mg/dL Troponin I 0.01 (0-0.03) ng/mL - Radiology Data Radiology results reviewed: Yes I reviewed the patient's radiology results. - EKG Data EKG attestation: Yes I reviewed and interpreted this EKG. EKG results narrative: EKG dated 10/30/16 at 17:56 interpreted as sinus rhythm with rate of 69. CA 149 , QRS 150, QT/QTc 461/479. Left bundle branch block which is old compared to previous EKG dated 10/16/2016. EKG does not meet [facility] criteria. Attestation Statement - Attestation Attestation: I, Slava Leonardo, examined this patient and my medical decision-making was reviewed with the WORKERS' COMPENSATION MEDIATOR/PA/Advanced Practice Nurse/Resident Physician. I agree with the documented findings, disposition and treatment plan as described except to the extent set forth below. 86-year-old female presents with concerns of chest pain. Patient has multiple risk factors for cardiac disease. Patient has had similar episodes in the past and has received stenting in the past. Patient states the pain is central and nonradiating described as a pressure. Initial troponin negative. Patient will be admitted to hospital for further care and evaluation of her chest pain to rule out ACS.
[2016-10-30 18:35] LABS: Basophils % 0.6 %; Eosinophils # 0.4 K/mcL (0.0-0.6); Hematocrit 40.1 % (35.3-44.9); Hemoglobin 13.3 g/dL (11.5-15.4); Immature Granulocytes % 0.3 % (0-4); Lymphocytes # 1.1 K/mcL (0.6-4.6); Lymphocytes % 16.3 %; Mean Corpuscular HGB Conc 33.2 g/dL (31.6-35.5); Mean Corpuscular Hemoglobin 31.2 pg (28.0-33.3); Mean Corpuscular Volume 94.1 fL (83.0-100.0); Mean Platelet Volume 10.8 fL (9.4-12.4); Monocytes # 0.7 K/mcL (0.0-1.3); Monocytes % 9.6 %; Neutrophils # 4.7 K/mcL (1.6-8.9); Platelet Count 194 K/mcL (140-400); Red Blood Count 4.26 M/mcL (3.82-4.97); Red Cell Distribution Width 12.8 % (11.5-14.5); Segmented Neutrophils % 67.2 %
[2016-10-30 18:40] LABS: INR 1.2; Prothrombin Time 12.8 Seconds (9.4-12.1)
[2016-10-30 18:47] LABS: BUN/Creatinine Ratio 23 (6-26); Blood Urea Nitrogen 18 mg/dL (7-20); Calcium 9.4 mg/dL (8.6-10.8); Carbon Dioxide 28 mEq/L (19-29); Chloride 104 mEq/L (98-109); Glucose 167 mg/dL (70-99); Osmolality,Calculated 300 (280-300); Potassium 3.7 mEq/L (3.5-4.5); Sodium 142 mEq/L (136-145); eGFR For African Americans > 60 (> 60); eGFR For Non-African Americans > 60 (> 60)
[2016-10-30] MEDS ORDERED: Acetaminophen 325 MG TABLET PO PRN (21:59)
[2016-10-30] MEDS ORDERED: Naloxone 0.4 MG/ML INJ IVP PRN (21:59)
[2016-10-30] MEDS ORDERED: Nitroglycerin 0.4 MG TAB.SUBL SL PRN (22:02)
[2016-10-30] MEDS ORDERED: D5% in Water 1,000 ML IVC PRN (22:04)
[2016-10-30] MEDS ORDERED: *HR* Dextrose 50 % in Water (Syg) 50 ML SYRINGE IVP PRN (22:04)
[2016-10-30] MEDS ORDERED: Dextrose Gel 15 GM PO PRN ×2 (22:04)
--- NOTE | 2016-10-30 22:07 | Internal Med History&Physical ---
Date of Encounter: 10/30/16 Time of Encounter: 22:00 Assessment and Plan (1) Chest pain Current visit: No Status: Acute Patient has a history of CAD with a recent stenting. Chest pain more like cardiac origin. - We will put patient on continuous cardiac monitoring. - 3 sets of troponin. - Cardiology consult. - Increased imdur dose from 30 mg daily to 45 mg daily - Continue medical management for CAD, i.e. DAPT, beta nichole, statin. Qualifiers: Chest pain type: precordial pain Qualified Code(s): R07.2 - Precordial pain (2) Diabetes Current visit: No Status: Chronic Cover patient with sliding scale Qualifiers: Diabetes mellitus type: type 2 Diabetes mellitus complication status: without complication Diabetes mellitus longterm insulin use: without longterm use Qualified Code(s): E11.9 - Type 2 diabetes mellitus without complications (3) Hyperlipemia Current visit: No Status: Chronic Continue statin. Qualifiers: Hyperlipidemia type: mixed hyperlipidemia Qualified Code(s): E78.2 - Mixed hyperlipidemia (4) DVT prophylaxis Current visit: No Status: Acute Heparin subcutaneously (5) CAD (coronary artery disease) Current visit: No Status: Acute Continue aspirin, Plavix, beta nichole, and statin, - NTG prn - Increase imdur dose from 30mg qd to 45 mg qd. Qualifiers: Coronary Disease-Associated Artery/Lesion type: [place] artery [place] vs. transplanted heart: [place] heart Associated angina: without angina Qualified Code(s): I25.10 - Atherosclerotic heart disease of [place] coronary artery without angina pectoris Internal Medicine - H&P: HPI Chief complaint: Chest pain Admitted From: Home Plans for Post Hospital Care: Home History of present illness: Ms. Vilchis is a 86 year old female with a history of CAD S/P stent 2 weeks ago presented to ER for chest pain. Patient said she has a one episode the chest pain on Tuesday. Today she has 2 episode of chest pain, with 15 minutes interval between 2 episodes of chest pain. Patient said pain located on left substernal area, dull, 5/10, no radiation. Patient denies shortness of breath, nausea, diaphoresis. She denies cough or fever. Patient took 2 pills of nitroglycerin and the pain relieved after nitroglycerin use. Patient was sent to ER for further evaluation and admitted for further observation. I have discussed CODE STATUS with patient. She is DNR/DNI. Past Med Surg Social Fam HX - Past Medical History Medical history: cancer, cardiomyopathy, diabetes, hyperlipidemia, hypertension , other Psychiatric history: no psych history - Past Surgical History Surgical History: appendectomy, colectomy, colostomy, other - Social History Smoking Status: Unknown if ever smoked Smokeless Tobacco Status: No Alcohol use: none Drug use: none - Family History Son Living Status: Daughter Name: Mary Kay Tinsley Age: 64 Living Status: Still Living Hx Family Cardiac Disorders: No Hx Family Respiratory Disorders: No Hx Family Cancer: Yes (Breast CA) Hx Family GI Disorders: No Hx Family Genitourinary Disorders: No Hx Family Endocrine Disorder: No Hx Family Musculoskeletal Disorders: No Hx Family Neuromuscular Disorders: No Hx Family Neurologic Disorders: No Hx Family HEENT Disorders: No Hx Family Autoimmune Disorders: No Hx Family Reproductive Disorders: No Hx Family Psychosocial Disorders: No Hx Family Medical Disorders: No Internal Medicine - H&P: Meds Aspirin [Lo-Dose Aspirin EC] 81 mg PO DAILY 09/24/16 [History] Multivit-Min/Iron/Folic/Lutein [Centrum Silver Women Tablet] 1 tab PO DAILY 01/03 [History] Pantoprazole Sodium [Protonix] 40 mg PO DAILY 09/24/16 [History] Isosorbide MONOnitrate (24 HR) [Imdur] 30 mg PO DAILY #30 tab.er.24h 09/26/16 [ Rx] Nitroglycerin 0.4 mg SL Q5MIN PRN #30 tab.subl 09/26/16 [Rx] Calcium Carbonate/Vitamin D3 [Calcium 600-Vit D3 200 Tablet] 1 each PO DAILY [History] Lisinopril 2.5 mg PO DAILY 10/13/16 [History] SitaGLIPtin [Januvia] 100 mg PO DAILY 10/13/16 [History] Atorvastatin [Lipitor] 40 mg PO HS #30 tablet 10/17/16 [Rx] Carvedilol [Coreg] 6.25 mg PO BID #60 tablet 10/17/16 [Rx] Clopidogrel [Plavix] 75 mg PO DAILY #30 tablet 10/17/16 [Rx] Allergies metformin Allergy (Verified 10/13/16 14:02) Hives Sulfa (Sulfonamide Antibiotics) Allergy (Verified 10/13/16 14:02) Hives All Systems PM: A 10-system review of systems was performed and is negative for pertinent findings except as documented above in the HPI. - Constitutional Vitals: Temp Pulse Resp BP Pulse Ox 97.9 F 62 16 143/60 95 10/30/16 20:37 10/30/16 20:37 10/30/16 20:37 10/30/16 20:37 10/30/16 20:45 General appearance: Present: A&O X 3, no acute distress, answers questions appropriately - Head Head exam: Present: atraumatic, normocephalic - Eye Eye exam: Present: PERRL, conjuntiva pink, sclera anicteric Pupils: Present: PERRL - Neck Neck exam general surgery: Present: supple, trachea midline. Absent: lymphadenopathy - Respiratory Respiratory exam: Present: CTAB. Absent: accessory muscle use, rales, rhonchi, wheezes - Cardiovascular Cardiovascular exam: Present: RRR, +S1, +S2. Absent: diastolic murmur, gallop, rubs, systolic murmur - GI/Abdominal GI/Abdominal exam: Present: normal bowel sounds, soft, no peritoneal signs. Absent: distended, tenderness - Extremities Exam Extremities exam: Present: warm, radial pulses palpable and symetrical. Absent : calf tenderness, cyanotic, pedal edema - Neurological Exam Neurological exam: Present: CN II-XII intact, oriented X3, no focal deficits. Absent: pronater drift, facial droop, speech deficit - Skin Skin exam: Present: dry, intact Internal Med - H&P Results - Labs CBC & Chem 7: 10/31/16 00:17 10/31/16 00:17 - EKG Data -: EKG Interpreted by Myself EKG shows normal: sinus rhythm Rate: normal - EKG Data Prior EKG available for review: yes When compared to previous EKG: there is no significant change
[2016-10-31 00:43] LABS: Basophils % 0.4 %; Eosinophils # 0.5 K/mcL (0.0-0.6); Eosinophils % 6.7 %; Hematocrit 36.3 % (35.3-44.9); Hemoglobin 11.9 g/dL (11.5-15.4); Immature Granulocytes % 0.1 % (0-4); Lymphocytes # 1.9 K/mcL (0.6-4.6); Lymphocytes % 27.6 %; Mean Corpuscular HGB Conc 32.8 g/dL (31.6-35.5); Mean Corpuscular Hemoglobin 30.9 pg (28.0-33.3); Mean Corpuscular Volume 94.3 fL (83.0-100.0); Monocytes # 0.7 K/mcL (0.0-1.3); Monocytes % 10.3 %; Neutrophils # 3.8 K/mcL (1.6-8.9); Platelet Count 181 K/mcL (140-400); Red Blood Count 3.85 M/mcL (3.82-4.97); Red Cell Distribution Width 12.8 % (11.5-14.5); Segmented Neutrophils % 54.9 %
[2016-10-31 01:02] LABS: BUN/Creatinine Ratio 23 (6-26); Blood Urea Nitrogen 19 mg/dL (7-20); Calcium 9.1 mg/dL (8.6-10.8); Carbon Dioxide 27 mEq/L (19-29); Chloride 105 mEq/L (98-109); Chol/HDL Ratio 3.7 (0-4.9); Cholesterol 140 mg/dL (< 200); Glucose 194 mg/dL (70-99); HDL Cholesterol 38 mg/dL (40-59); LDL Cholesterol,Calculated 85 mg/dL (0-99); Magnesium 1.4 mg/dL (1.6-2.6); Osmolality,Calculated 300 (280-300); Phosphorous 3.5 mg/dL (2.3-4.7); Potassium 3.5 mEq/L (3.5-4.5); Sodium 141 mEq/L (136-145); Triglycerides 86 mg/dL (< 150); eGFR For African Americans > 60 (> 60); eGFR For Non-African Americans > 60 (> 60)
[2016-10-31] MEDS: *HR* Heparin 5,000 UNIT/ML VIAL SQ SCH ×2 (07:03→18:05)
[2016-10-31] MEDS: Insulin LISPRO 300 UNITS/3 ML VIAL SQ SCH ×3 (07:21→17:20)
[2016-10-31] MEDS ORDERED: Isosorbide MONOnitrate (24 HR) 30 MG TAB.ER.24H PO SCH ×2 (09:00)
[2016-10-31] MEDS: Aspirin Enteric Coated 81 MG Tablet PO SCH ×2 (10:03→11:20)
--- NOTE | 2016-10-31 10:13 | Cardiology Consult Note ---
Date of Encounter: 10/31/16 Time of Encounter: 10:10 Assessment and Plan (1) Chest pain Current Visit: No Status: Acute Patient has a history of CAD with a recent stenting. Chest pain possibly angina with response to nitro. Cardiac enzymes negative. Will increase nitrates (Imdur to 60 mg) Qualifiers: Chest pain type: precordial pain Qualified Code(s): R07.2 - Precordial pain Discussion w patient/family: The assessment and plan as outlined above was discussed with the patient and/or family members who expressed understanding and agreement. All questions were answered. Thank you for involving us in the care of your patient. Please call with any questions. History of Present Illness Consult date: 10/31/16 Requesting physician: Tariq Ochoa Consult reason: Chest pain Chief complaint: Chest pain History of present illness: Ms. Vilchis is a 86 year old female who recently underwent PCI. She has had two episodes of chest pressure since then, both have responded to nitro. The symptoms are somewhat different than what led her to get the PCI in the first place. Past Med Surg Social Fam HX - Past Medical History Medical history: cancer, cardiomyopathy, diabetes, hyperlipidemia, hypertension , other Psychiatric history: no psych history - Past Surgical History Surgical History: appendectomy, colectomy, colostomy, other - Social History Smoking Status: Unknown if ever smoked Smokeless Tobacco Status: No Alcohol use: none Drug use: none - Family History Son Living Status: Daughter Name: Mary Kay Tinsley Age: 64 Living Status: Still Living Hx Family Cardiac Disorders: No Hx Family Respiratory Disorders: No Hx Family Cancer: Yes (Breast CA) Hx Family GI Disorders: No Hx Family Genitourinary Disorders: No Hx Family Endocrine Disorder: No Hx Family Musculoskeletal Disorders: No Hx Family Neuromuscular Disorders: No Hx Family Neurologic Disorders: No Hx Family HEENT Disorders: No Hx Family Autoimmune Disorders: No Hx Family Reproductive Disorders: No Hx Family Psychosocial Disorders: No Hx Family Medical Disorders: No Medications and Allergies Aspirin [Lo-Dose Aspirin EC] 81 mg PO DAILY 09/24/16 [History] Multivit-Min/Iron/Folic/Lutein [Centrum Silver Women Tablet] 1 tab PO DAILY 01/03 [History] Pantoprazole Sodium [Protonix] 40 mg PO DAILY 09/24/16 [History] Isosorbide MONOnitrate (24 HR) [Imdur] 30 mg PO DAILY #30 tab.er.24h 09/26/16 [ Rx] Nitroglycerin 0.4 mg SL Q5MIN PRN #30 tab.subl 09/26/16 [Rx] Calcium Carbonate/Vitamin D3 [Calcium 600-Vit D3 200 Tablet] 1 each PO DAILY [History] Lisinopril 2.5 mg PO DAILY 10/13/16 [History] SitaGLIPtin [Januvia] 100 mg PO DAILY 10/13/16 [History] Atorvastatin [Lipitor] 40 mg PO HS #30 tablet 10/17/16 [Rx] Carvedilol [Coreg] 6.25 mg PO BID #60 tablet 10/17/16 [Rx] Clopidogrel [Plavix] 75 mg PO DAILY #30 tablet 10/17/16 [Rx] Allergies metformin Allergy (Verified 10/13/16 14:02) Hives Sulfa (Sulfonamide Antibiotics) Allergy (Verified 10/13/16 14:02) Hives All Systems Review: A 10-system review of systems was performed and is negative for pertinent findings except as documented above in the HPI. Physical Examination Vital Signs, Last 4 Hours Temp Pulse Resp BP Pulse Ox 10/31/16 07:13 97.9 F 59 16 146/81 96 General: Conversant, No Apparent Distress HEENT: Atraumatic, Normocephaly, Mucus Membranes Moist Neck: No JVD, Normal carotid pulses Cardiac: Reg Rate and Rhythm, Normal S1 and S2, No Murmur Lungs: Normal Breath Sounds, No Wheeze, Rales, Rhonchi Neuro: Alert and responsive, No focal deficits noted Abdomen: Soft, Non-Tender Skin: No rashes noted on visualized skin Musculoskeletal: No Chest Wall Tenderness Extremities: No Clubbing, No Cyanosis, No Edema, Normal Pulses Results 10/31/16 00:17 10/31/16 00:17 Lab Results 10/31/16 10/31/16 10/31/16 00:17 00:17 00:17 WBC 6.9 Hgb 11.9 Hct 36.3 Plt Count 181 Sodium 141 Potassium 3.5 Chloride 105 Carbon Dioxide 27 BUN 19 Creatinine 0.81 Glucose 194 H Calcium 9.1 Magnesium 1.4 L Troponin I 0.01 10/31/16 04:39 WBC Hgb Hct Plt Count Sodium Potassium Chloride Carbon Dioxide BUN Creatinine Glucose Calcium Magnesium Troponin I 0.02 Consult Discharge Plan - Plan Referrals: Alanis Arvizu, CUSTODIAL WORKER [Primary Care Provider] -
--- NOTE | 2016-10-31 11:02 | Internal Med Progress Note ---
Date of Encounter: 10/31/16 Time of Encounter: 11:00 - Assessment and plan (1) HTN (hypertension) Current Visit: No Status: Chronic Assessment and plan: conitnue home meds, monitor BP Qualifiers: Hypertension type: essential hypertension Qualified Code(s): I10 - Essential (primary) hypertension (2) Diabetes Current Visit: No Status: Chronic Assessment and plan: continu eto monitor fsg Qualifiers: Diabetes mellitus type: type 2 Diabetes mellitus complication status: without complication Diabetes mellitus custodial insulin use: without custodial use Qualified Code(s): E11.9 - Type 2 diabetes mellitus without complications (3) Hyperlipemia Current Visit: No Status: Chronic Qualifiers: Hyperlipidemia type: mixed hyperlipidemia Qualified Code(s): E78.2 - Mixed hyperlipidemia (4) Chest pain Current Visit: No Status: Acute Assessment and plan: Patient has a history of CAD with a recent stenting. Chest pain more like cardiac origin. Troponin was negative and EKG showed no ischemic changes. Cardiology was consulted and recommended increasing the dose of Imdur. Patient is chest pain-free at this time. Will observe today with increased dose of Imdur Qualifiers: Chest pain type: precordial pain Qualified Code(s): R07.2 - Precordial pain (5) CAD (coronary artery disease) Current Visit: No Status: Acute Assessment and plan: Continue aspirin, Plavix, beta nichole, and statin, - NTG prn - Increase imdur dose to 60 qd Qualifiers: Coronary Disease-Associated Artery/Lesion type: [place] artery [place] vs. transplanted heart: [place] heart Associated angina: without angina Qualified Code(s): I25.10 - Atherosclerotic heart disease of [place] coronary artery without angina pectoris - Subjective Interval history: seen at the bedside, presenetd with recurrent chest pain status post recent stenting. Denies any chest pain at this time. Cardiology has been consulted. - Constitutional Vitals: Temp Pulse Resp BP Pulse Ox 97.9 F 59 16 146/81 96 10/31/16 07:13 10/31/16 07:13 10/31/16 07:13 10/31/16 07:13 10/31/16 07:13 General appearance: Present: A&O X 3, no acute distress, answers questions appropriately Exam: - Head Head exam: Present: atraumatic, normocephalic - Eye Eye exam: Present: PERRL, conjuntiva pink, sclera anicteric Pupils: Present: PERRL - Neck Neck exam general surgery: Present: supple, trachea midline. Absent: lymphadenopathy - Respiratory Respiratory exam: Present: CTAB. Absent: accessory muscle use, rales, rhonchi, wheezes - Cardiovascular Cardiovascular exam: Present: RRR, +S1, +S2. Absent: diastolic murmur, gallop, rubs, systolic murmur - GI/Abdominal GI/Abdominal exam: Present: normal bowel sounds, soft, no peritoneal signs. Absent: distended, tenderness - Extremities Exam Extremities exam: Present: warm, radial pulses palpable and symetrical. Absent : calf tenderness, cyanotic, pedal edema - Neurological Exam Neurological exam: Present: CN II-XII intact, oriented X3, no focal deficits. Absent: pronater drift, facial droop, speech deficit - Skin Skin exam: Present: dry, intact Internal Medicine: Result - Labs CBC & Chem 7: 10/31/16 00:17 10/31/16 00:17 Labs: Short CBC 10/31/16 Range/Units 00:17 WBC 6.9 (4.3-11.1) K/mcL Hgb 11.9 (11.5-15.4) g/dL Hct 36.3 (35.3-44.9) % Plt Count 181 (140-400) K/mcL Neutrophils # 3.8 (1.6-8.9) K/mcL BMP 10/31/16 00:17 Sodium 141 Potassium 3.5 Chloride 105 Carbon Dioxide 27 BUN 19 Creatinine 0.81 Glucose 194 H Calcium 9.1 Cardiac Enzymes 10/31/16 10/31/16 Range/Units 00:17 04:39 Troponin I 0.01 0.02 (0-0.03) ng/mL - ABG Interpretation ABG results: PT/INR, D-dimer PT 12.8 Seconds (9.4-12.1) H 10/30/16 18:29 Consult Discharge Plan - Plan Referrals: Alanis Arvizu, STOCK TAKER [Primary Care Provider] -
[2016-10-31] MEDS: Isosorbide MONOnitrate (24 HR) 60 MG TAB.ER.24H PO SCH (11:20)
--- NOTE | 2016-10-31 12:51 | Electrocardiograph Report ---
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
[2016-10-31] MEDS ORDERED: Insulin LISPRO 300 UNITS/3 ML VIAL SQ SCH (21:00)
[2016-11-01] MEDS: *HR* Heparin 5,000 UNIT/ML VIAL SQ SCH (05:14)
[2016-11-01 07:25] VITALS: BP 122/66
[2016-11-01] MEDS: Insulin LISPRO 300 UNITS/3 ML VIAL SQ SCH (08:20)
[2016-11-01] MEDS: Isosorbide MONOnitrate (24 HR) 60 MG TAB.ER.24H PO SCH (08:47)
[2016-11-01] MEDS: Aspirin Enteric Coated 81 MG Tablet PO SCH (08:47)
--- NOTE | 2016-11-01 09:12 | Cardiology Progress Note ---
Date of Encounter: 11/01/16 Time of Encounter: 08:30 Assessment and Plan (1) Chest pain Current Visit: No Status: Acute Per cardiology: -Patient has a history of CAD with a recent stenting, September 2016 -[facility] September 2016 with 70% stenosis proximal LAD, 80% diagonal 1, 70-99% circumflex with CELIA, 99% proximal RCA, 99% mid RCA left to right collaterals noted. -Patient had chest pain prior to admission, relieved with 2 nitro. -Patient had chest pain, previous anginal equivalent bilateral arm pain. -Troponins negative. -Imdur was increased yesterday. -Denies chest pain overnight. -ON asa, beta nichole, statin, reginald inhibitor, plavix, and imdur. -Cardiology will sign off and will follow up in outpatient setting. Follow up set. Qualifiers: Chest pain type: precordial pain Qualified Code(s): R07.2 - Precordial pain (2) HTN (hypertension) Current Visit: No Status: Chronic Per cardiology: -Patient hypertensive on admission with BPs 140s. -Currently controlled. -ON beta nichole, reginald inhibitor. -Will continue to monitor in outpatient setting. Qualifiers: Hypertension type: essential hypertension Qualified Code(s): I10 - Essential (primary) hypertension (3) CAD (coronary artery disease) Current Visit: No Status: Acute Per cardiology: -Known CAD, see [facility] as above. -Will continue to monitor in outpatient setting. Qualifiers: Coronary Disease-Associated Artery/Lesion type: [place] artery [place] vs. transplanted heart: [place] heart Associated angina: without angina Qualified Code(s): I25.10 - Atherosclerotic heart disease of [place] coronary artery without angina pectoris Discussion w patient/family: The assessment and plan as outlined above was discussed with the patient and/or family members who expressed understanding and agreement. All questions were answered. Thank you for involving us in the care of your patient. Please call with any questions. Patient discussed and reviewed with . Subjective Principal diagnosis: chest pain Interval history: Patient was admitted with chest pain. Patient with recent [facility], triple vessel disease noted. Patient was turned down for CABG. Patient with subsequent CELIA to circumflex September 2016. Patient was admitted with chest pain. Patient was seen by Dr.JOhn Schaefer yesterday and imdur was increased. Patient denies chest pain overnight. Patient denies shortness of breath or increased fatigue. Objective Vital Signs, Last 4 Hours Temp Pulse Resp BP Pulse Ox 11/01/16 07:21 98.0 F 64 15 122/66 97 General: Conversant, No Apparent Distress HEENT: Atraumatic, Normocephaly, Mucus Membranes Moist Neck: No JVD, Normal carotid pulses Cardiac: Reg Rate and Rhythm, Normal S1 and S2, No Murmur Lungs: Normal Breath Sounds, No Wheeze, Rales, Rhonchi Neuro: Alert and responsive, No focal deficits noted Abdomen: Soft, Non-Tender Skin: No rashes noted on visualized skin Musculoskeletal: No Chest Wall Tenderness Extremities: No Clubbing, No Cyanosis, No Edema, Normal Pulses Results 10/31/16 00:17 10/31/16 00:17 Active Medications Acetaminophen (Tylenol) 650 mg PO Q6HR PRN PRN Reason: Mild Pain (1-3) Stop: 05/01/17 22:00 Aspirin (Aspirin Ec) 81 mg PO DAILY [facility] Stop: 05/02/17 09:01 Last Admin: 11/01/16 08:47 Dose: 81 mg Carvedilol (Coreg) 6.25 mg PO BID JOSE MIGUEL PRN Reason: Protocol Stop: 05/01/17 22:16 Last Admin: 11/01/16 08:47 Dose: 6.25 mg Clopidogrel Bisulfate (Plavix) 75 mg PO DAILY [facility] Stop: 05/02/17 09:01 Last Admin: 11/01/16 08:47 Dose: 75 mg Dextrose/Water (Dextrose 50% (Syg)) 25 ml IVP AD PRN PRN Reason: Hypoglycemia Stop: 05/01/17 22:05 Glucagon (Glucagen) 1 mg IM ONCE PRN PRN Reason: Hypoglycemia Stop: 05/01/17 22:05 Glucose (Gluctose) 15 gm PO ONCE PRN PRN Reason: Hypoglycemia Stop: 05/01/17 22:05 Glucose (Gluctose) 30 gm PO ONCE PRN PRN Reason: Hypoglycemia Stop: 05/01/17 22:05 Heparin Sodium (Porcine) (Heparin) 5,000 unit SQ Q12HCO [facility] Stop: 05/02/17 06:01 Last Admin: 11/01/16 05:14 Dose: 5,000 unit Dextrose (Dextrose 5%) 1,000 mls @ 100 mls/hr IVC .Q10H PRN PRN Reason: HYPOGLYCEMIA Stop: 05/01/17 22:05 Insulin Human Lispro (Humalog) 0 units SQ HS JOSE MIGUEL PRN Reason: Protocol Stop: 05/02/17 21:01 Last Admin: 10/31/16 21:10 Dose: Not Given Insulin Human Lispro (Humalog) 0 units SQ TIDAC JOSE MIGUEL PRN Reason: Protocol Stop: 05/02/17 07:31 Last Admin: 11/01/16 08:20 Dose: Not Given Isosorbide Mononitrate (Imdur) 60 mg PO DAILY [facility] Stop: 05/02/17 10:31 Last Admin: 11/01/16 08:47 Dose: 60 mg Lisinopril (Zestril) 2.5 mg PO DAILY [facility] Stop: 05/02/17 09:01 Last Admin: 11/01/16 08:47 Dose: 2.5 mg Naloxone HCl (Narcan) 0.4 mg IVP Q2MIN PRN PRN Reason: Opioid Reversal Stop: 05/01/17 22:00 Nitroglycerin (Nitroglycerin) 0.4 mg SL Q5MIN PRN PRN Reason: Chest Pain Stop: 05/01/17 22:03 Simvastatin (Zocor) 40 mg PO HS [facility] Stop: 05/02/17 21:01 Last Admin: 10/31/16 21:22 Dose: 40 mg Laboratory Tests 10/30/16 10/31/16 10/31/16 18:29 00:17 00:17 Hgb 11.9 Potassium Creatinine Troponin I 0.01 0.01 10/31/16 10/31/16 00:17 04:39 Hgb Potassium 3.5 Creatinine 0.81 Troponin I 0.02 - Imaging and Cardiology Chest Xray: report reviewed Cardiac cath: report reviewed - EKG Interpretation EKG results cardiology: other (Telemetry reviewed with average HR 61, sinus rhythm. Minimum HR 50. PVCs and 1 couplet PVCs noted. PACs noted.) Consult Discharge Plan - Plan Referrals: Alanis Arvizu, DISBURSING AGENT [Primary Care Provider] -
--- NOTE | 2016-11-01 09:28 | Discharge Summary ---
Date of Encounter: 11/01/16 Time of Encounter: 09:26 - Discharge Diagnosis (1) HTN (hypertension) Priority: Secondary Status: Chronic Qualifiers: Hypertension type: essential hypertension Qualified Code(s): I10 - Essential (primary) hypertension (2) Diabetes Priority: Secondary Status: Chronic Qualifiers: Diabetes mellitus type: type 2 Diabetes mellitus complication status: without complication Diabetes mellitus mcfp insulin use: without ocean transportation intermediary use Qualified Code(s): E11.9 - Type 2 diabetes mellitus without complications (3) Hyperlipemia Priority: Secondary Status: Chronic Qualifiers: Hyperlipidemia type: mixed hyperlipidemia Qualified Code(s): E78.2 - Mixed hyperlipidemia (4) Chest pain Priority: Primary Status: Acute Qualifiers: Chest pain type: precordial pain Qualified Code(s): R07.2 - Precordial pain (5) CAD (coronary artery disease) Priority: Secondary Status: Acute Qualifiers: Coronary Disease-Associated Artery/Lesion type: [place] artery [place] vs. transplanted heart: [place] heart Associated angina: without angina Qualified Code(s): I25.10 - Atherosclerotic heart disease of [place] coronary artery without angina pectoris - Discharge Medications Prescriptions: Isosorbide MONOnitrate (24 HR) [Imdur] 60 mg PO DAILY #60 tab.er.24h Home Medications: Aspirin [Lo-Dose Aspirin EC] 81 mg PO DAILY 09/24/16 [History] Multivit-Min/Iron/Folic/Lutein [Centrum Silver Women Tablet] 1 tab PO DAILY 01/03 [History] Pantoprazole Sodium [Protonix] 40 mg PO DAILY 09/24/16 [History] Isosorbide MONOnitrate (24 HR) [Imdur] 30 mg PO DAILY #30 tab.er.24h 09/26/16 [ Rx] Nitroglycerin 0.4 mg SL Q5MIN PRN #30 tab.subl 09/26/16 [Rx] Calcium Carbonate/Vitamin D3 [Calcium 600-Vit D3 200 Tablet] 1 each PO DAILY [History] Lisinopril 2.5 mg PO DAILY 10/13/16 [History] SitaGLIPtin [Januvia] 100 mg PO DAILY 10/13/16 [History] Atorvastatin [Lipitor] 40 mg PO HS #30 tablet 10/17/16 [Rx] Carvedilol [Coreg] 6.25 mg PO BID #60 tablet 10/17/16 [Rx] Clopidogrel [Plavix] 75 mg PO DAILY #30 tablet 10/17/16 [Rx] Isosorbide MONOnitrate (24 HR) [Imdur] 60 mg PO DAILY #60 tab.er.24h 11/01/16 [ Rx] Allergies/Adverse Reactions: Allergies metformin Allergy (Verified 10/31/16 11:52) Hives Sulfa (Sulfonamide Antibiotics) Allergy (Verified 10/31/16 11:52) Hives Date of admission: 10/30/16 19:57 Primary care physician: Alanis Arvizu CNP Consults: 10/30/16 22:05 Consult to Cardiology [CONS] Routine Comment: Consulting Provider: Cardiology Susi Reason for Consult: Increased frequency of chest pain after stenting Call Completed: No Discharging clinician: Denisha Bucio Anticipated date of discharge: 11/01/16 - Patient Status Disposition: Home, Self-Care Condition: Fair Functional capacity at discharge: independent ambulation Overall status at discharge: patient is back to baseline - Discharge Instructions Instructions: Myocardial Infarction (DC), Chest Pain (DC), Diabetes Mellitus Type 2 in Adults (DC), Chronic Hypertension (DC) Follow Up With: Alanis Arvizu CNP [Primary Care Provider] - 11/08/16 3:00 pm - Diet and Activity Activity: resume usual activities as tolerated Diet: advance to your usual diet Interval History: Ms. Vilchis is a 86 year old female who recently underwent PCI. She has had two episodes of chest pressure since then, both have responded to nitro. The symptoms are somewhat different than what led her to get the PCI in the first place. she was admitted for further evaluation of her chest pain. Chest pain possibly angina with response to nitro. Cardiac enzymes negative. cardio was consulted and recommended to increase nitrates (Imdur to 60 mg). john has remained chest pain free and is dc today in stable condition. [facility] will f/u as OP with cariodlogy Hospital course: Ms. Vilchis is a 86 year old female Time spent discussing smoking cessation with patient: more than 10 minutes - Time Spent with Patient Total time spent providing and/or coordinating discharge services: Greater than 30 minutes - Constitutional Vitals: Temp Pulse Resp BP Pulse Ox 98.0 F 64 15 122/66 97 11/01/16 07:21 11/01/16 07:21 11/01/16 07:21 11/01/16 07:21 11/01/16 08:59 General appearance: Present: A&O X 3, no acute distress, answers questions appropriately Exam: - Head Head exam: Present: atraumatic, normocephalic - Eye Eye exam: Present: PERRL, conjuntiva pink, sclera anicteric Pupils: Present: PERRL - Neck Neck exam general surgery: Present: supple, trachea midline. Absent: lymphadenopathy - Respiratory Respiratory exam: Present: CTAB. Absent: accessory muscle use, rales, rhonchi, wheezes - Cardiovascular Cardiovascular exam: Present: RRR, +S1, +S2. Absent: diastolic murmur, gallop, rubs, systolic murmur - GI/Abdominal GI/Abdominal exam: Present: normal bowel sounds, soft, no peritoneal signs. Absent: distended, tenderness - Extremities Exam Extremities exam: Present: warm, radial pulses palpable and symetrical. Absent : calf tenderness, cyanotic, pedal edema - Neurological Exam Neurological exam: Present: CN II-XII intact, oriented X3, no focal deficits. Absent: pronater drift, facial droop, speech deficit - Skin Skin exam: Present: dry, intact
--- NOTE | 2016-11-01 11:31 | Electrocardiograph Report ---
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
== END 2016-11-01 10:56 | disposition home or self-care (01) ==
LOC: EMEROO 17:49 → 3NENU 17:49 → SUATTDRO 19:57 → 3NENU 20:11 → 3BNU 11-01 08:41
PROVIDERS: ADMIT Pediatrics; ATTEND Pediatrics

== ENCOUNTER 2017-04-14 22:49 | Observation (INO) ==
[2017-04-14] MEDS ORDERED: Aspirin 81 MG TAB.CHEW PO ONE (23:17)
--- NOTE | 2017-04-14 23:22 | Emergency Department Note ---
Disposition Clinical Impression: Chest pain of uncertain etiology Disposition: Admitted As Inpatient Condition: Fair Time of Disposition: 04:40 Chest Pain HPI - General Chief Complaint: ED Chest Pain Stated Complaint: "CP" Time Seen by Provider: 04/14/17 23:03 Source: patient Limitations: no limitations Vital Signs Reviewed: Yes Nursing Notes Reviewed: Yes - History of Present Illness HPI Narrative: Mrs. Vilchis, an 87-year-old female, presents from home by personal vehicle for evaluation of chest pain. Onset 7 PM tonight while sitting. Described as left lower anterior chest pain, sharp, stabbing, with heaviness. Lasted approximately 5 minutes before spontaneously resolving. She did not have associated nausea, dyspnea, diaphoresis, back pain, weakness, or any radiation of her pain. Patient's daughter is bedside and brought her into the hospital and notes the pain began to resume while in the wound however cannot add further clarification. Patient is chest pain-free and asymptomatic at this time. Cardiac history: Hypertension, paroxysmal atrial fibrillation, CAD with ACS in September with stent placed. Antiplatelet: Aspirin, Plavix Anticoagulant: None Severity scale (1-10): 0 - Related Data Home Medications Medication Instructions Recorded Confirmed Aspirin [Lo-Dose Aspirin EC] 81 mg PO DAILY 09/24/16 12/30/16 Multivit-Min/Iron/Folic/Lutein 1 tab PO DAILY 09/24/16 12/30/16 [Centrum Silver Women Tablet] Pantoprazole Sodium [Protonix] 40 mg PO DAILY 09/24/16 12/30/16 Calcium Carbonate/Vitamin D3 1 each PO DAILY 10/13/16 12/30/16 [Calcium 600-Vit D3 200 Tablet] Lisinopril 2.5 mg PO DAILY 10/13/16 12/30/16 SitaGLIPtin [Januvia] 100 mg PO DAILY 10/13/16 12/30/16 Hydroxyzine HCl 10 mg PO PRN PRN MDD daily 12/30/16 12/30/16 Pantoprazole Sodium [Pantoprazole 40 mg PO DAILY 12/30/16 12/30/16 Sodium] Previous Rx's Medication Instructions Recorded Nitroglycerin 0.4 mg SL Q5MIN PRN #30 tab.subl 09/26/16 Atorvastatin [Lipitor] 40 mg PO HS #30 tablet 10/17/16 Carvedilol [Coreg] 6.25 mg PO BID #60 tablet 10/17/16 Clopidogrel [Plavix] 75 mg PO DAILY #30 tablet 10/17/16 Isosorbide MONOnitrate (24 HR) 60 mg PO DAILY #60 tab.er.24h 11/01/16 [Imdur] Allergies Allergy/AdvReac Type Severity Reaction Status Date / Time metformin Allergy Hives Verified 10/31/16 11:52 Sulfa (Sulfonamide Allergy Hives Verified 10/31/16 11:52 Antibiotics) All systems ED: reviewed and negative except as stated. Review of Systems: As Per HPI Chest Pain PMH - Past Medical History Medical history: Reports: cancer, diabetes, hyperlipidemia, hypertension, myocardial infarction Surgical history: Reports: appendectomy, colectomy, colostomy, other Psychiatric history: Reports: no psych history [employer] history: Reports: no [employer] history - Social History Smoking Status: Never smoker Alcohol use: Reports: none Drug use: Reports: none Physical Exam Vital Signs Reviewed General: Patient is alert, oriented, and in no acute distress. She appears age- appropriate. HEENT: No facial asymmetry. Head is normocephalic and atraumatic. PERRL, EOMI. mucosa moist. Trachea midline. Cardiovascular: Heart regular rate and rhythm without clicks, rubs, gallops, or murmurs. No JVD. PMI nondisplaced. No pedal edema. Bilateral radial posterior tibial pulses 2/4 equal. Respiratory: Symmetric chest rise with good respiratory effort. Bilateral breath sounds are clear without wheezing, crackles, or rhonchi. Abdomen: Obese. Bowel sounds present normoactive x-4 quadrants. Abdomen is soft, nondistended, and nontender. No organomegaly noted. Colostomy stoma pink , clean, with brown stool in colostomy bag. Musculoskeletal: Spontaneously moving all extremities. Neuro: GCS 15. Sensation light touch intact. Skin: Warm, dry, intact. Psych: Patient's affect is appropriate for situation. - General Limitations: no limitations General appearance: alert, in no apparent distress Course Course Narrative: Patient presents with chest pain and concerning story. She had an MA with stent in September. EKG shows left bundle branch block which is present on comparative EKG. Chest x-ray is unremarkable. Initial troponin is normal. Lab work otherwise unremarkable. I discussed these findings with the patient and her daughter at bedside. I described the meaning of an initial negative troponin and the need for continued evaluation given the patient's risk factors. They agree for admission for continued evaluation and management. I discussed the patient with the admitting hospitalist, Dr. Desai, who agrees to accept the patient for chest pain rule out ACS. Vital Signs Temperature 97.6 F 04/14/17 22:57 Pulse Rate 80 04/14/17 22:57 Respiratory Rate 18 04/14/17 22:57 Blood Pressure 167/85 04/14/17 22:57 O2 Sat by Pulse Oximetry 97 04/14/17 22:57 Temperature 97.9 F 04/15/17 01:57 Pulse Rate 72 04/15/17 01:57 Respiratory Rate 16 04/15/17 01:57 Blood Pressure 143/72 04/15/17 01:57 O2 Sat by Pulse Oximetry 94 04/15/17 01:57 Oxygen Delivery Oxygen Delivery Room Air Chest Pain - Lab Data Lab results reviewed: Yes I reviewed the patient's lab results. Result diagrams: 04/14/17 23:17 04/14/17 23:17 Lab Results 04/14/17 04/14/17 04/14/17 Range/Units 23:17 23:17 23:17 WBC 9.0 (4.3-11.1) K/mcL RBC 4.29 (3.82-4.97) M/mcL Hgb 13.5 (11.5-15.4) g/dL Hct 40.8 (35.3-44.9) % MCV 95.1 (83.0-100.0) fL MCH 31.5 (28.0-33.3) pg MCHC 33.1 (31.6-35.5) g/dL RDW 13.2 (11.5-14.5) % Plt Count 173 (140-400) K/mcL MPV 11.0 (9.4-12.4) fL Immature Gran % 0.2 (0-4) % Seg Neutrophils % 71.2 % Lymphocytes % 13.9 % Monocytes % 8.8 % Eosinophils % 5.5 % Basophils % 0.4 % Neutrophils # 6.4 (1.6-8.9) K/mcL Lymphocytes # 1.3 (0.6-4.6) K/mcL Monocytes # 0.8 (0.0-1.3) K/mcL Eosinophils # 0.5 (0.0-0.6) K/mcL Basophils # 0.0 (0.0-0.2) K/mcL PT 13.1 H (9.4-12.1) Seconds INR 1.2 APTT 32.4 (26.0-36.0) Seconds Sodium 141 (136-145) mEq/L Potassium 3.9 (3.5-4.5) mEq/L Chloride 104 (98-109) mEq/L Carbon Dioxide 27 (19-29) mEq/L BUN 18 (7-20) mg/dL Creatinine 1.15 H (0.57-1.11) mg/dL Est GFR ( Amer) 54 L (> 60) Est GFR (Non-Af Amer) 45 L (> 60) BUN/Creatinine Ratio 16 (6-26) Glucose 161 H (70-99) mg/dL Calculated Osmolality 297 (280-300) Calcium 9.6 (8.6-10.8) mg/dL Troponin I (0-0.03) ng/mL 04/14/17 Range/Units 23:17 WBC (4.3-11.1) K/mcL RBC (3.82-4.97) M/mcL Hgb (11.5-15.4) g/dL Hct (35.3-44.9) % MCV (83.0-100.0) fL MCH (28.0-33.3) pg MCHC (31.6-35.5) g/dL RDW (11.5-14.5) % Plt Count (140-400) K/mcL MPV (9.4-12.4) fL Immature Gran % (0-4) % Seg Neutrophils % % Lymphocytes % % Monocytes % % Eosinophils % % Basophils % % Neutrophils # (1.6-8.9) K/mcL Lymphocytes # (0.6-4.6) K/mcL Monocytes # (0.0-1.3) K/mcL Eosinophils # (0.0-0.6) K/mcL Basophils # (0.0-0.2) K/mcL PT (9.4-12.1) Seconds INR APTT (26.0-36.0) Seconds Sodium (136-145) mEq/L Potassium (3.5-4.5) mEq/L Chloride (98-109) mEq/L Carbon Dioxide (19-29) mEq/L BUN (7-20) mg/dL Creatinine (0.57-1.11) mg/dL Est GFR ( Amer) (> 60) Est GFR (Non-Af Amer) (> 60) BUN/Creatinine Ratio (6-26) Glucose (70-99) mg/dL Calculated Osmolality (280-300) Calcium (8.6-10.8) mg/dL Troponin I 0.02 (0-0.03) ng/mL - Radiology Data Radiology results reviewed: Yes I reviewed the patient's radiology results. - EKG Data EKG attestation: Yes I reviewed and interpreted this EKG. EKG results narrative: EKG dated 04/14/17 at 23:06 interpreted as sinus rhythm with a rate of 81. Normal intervals. Left axis. Left bundle branch block that is appropriately discordant. Compared to previous EKG also showing left bundle branch block; no acute ischemic changes in comparison. Heart Score - Score History: Moderately Suspicious EKG: Non Specific repolarisation Disturbance Age: Greater than 65 Risk Factors: Equal/Greater than 3 risk factor or history of atherosclerotic disease Troponin: Less than normal limit HEART Score Total: 6 Attestation Statement - Attestation Attestation: I, Jasper Joy MD, personally evaluated this patient and discussed their management with the resident physician. I reviewed the resident's note and agree with the documented findings, medical decision making, and plan of care. 87-year-old female presents to the emergency department with a complaint of an episode of left-sided chest pain which started earlier this evening while she was watching television. She describes the pain as a dull tight aching in the left mid chest. No radiation of the pain. No shortness of breath. No palpitations. No nausea or vomiting or diaphoresis. She denies any pain at present. Patient does have a history of an MA and coronary artery stents. On examination patient is a well-developed small elderly female in no acute distress. She is alert and oriented 3. There is no cyanosis or diaphoresis. Chest is nontender to palpation. Breath sounds are decreased but equal bilaterally with no rales or wheezes noted. Heart regular rate and rhythm. Abdomen soft and nontender with normal bowel sounds. Labs reviewed. Troponin normal. EKG shows a sinus rhythm with a left bundle branch block. Heart rate 81. Chest x-ray shows New mild pulmonary edema with probable small bilateral pleural effusions. The hospitalist, Dr. Desai, was consulted and accepted admission of the patient.
[2017-04-14 23:35] LABS: Basophils % 0.4 %; Eosinophils # 0.5 K/mcL (0.0-0.6); Eosinophils % 5.5 %; Hematocrit 40.8 % (35.3-44.9); Hemoglobin 13.5 g/dL (11.5-15.4); Immature Granulocytes % 0.2 % (0-4); Lymphocytes # 1.3 K/mcL (0.6-4.6); Lymphocytes % 13.9 %; Mean Corpuscular HGB Conc 33.1 g/dL (31.6-35.5); Mean Corpuscular Hemoglobin 31.5 pg (28.0-33.3); Mean Corpuscular Volume 95.1 fL (83.0-100.0); Monocytes # 0.8 K/mcL (0.0-1.3); Monocytes % 8.8 %; Neutrophils # 6.4 K/mcL (1.6-8.9); Platelet Count 173 K/mcL (140-400); Red Blood Count 4.29 M/mcL (3.82-4.97); Red Cell Distribution Width 13.2 % (11.5-14.5); Segmented Neutrophils % 71.2 %
[2017-04-14 23:39] LABS: INR 1.2; Prothrombin Time 13.1 Seconds (9.4-12.1)
[2017-04-14 23:41] LABS: Activated Partial Thrombo Time 32.4 Seconds (26.0-36.0)
[2017-04-14 23:44] LABS: Calcium 9.6 mg/dL (8.6-10.8); Potassium 3.9 mEq/L (3.5-4.5)
[2017-04-15] MEDS ORDERED: Naloxone 0.4 MG/ML INJ IVP PRN (01:12)
[2017-04-15] MEDS ORDERED: *HR* Dextrose 50 % in Water (Syg) 50 ML SYRINGE IVP PRN (01:14)
[2017-04-15] MEDS ORDERED: Nitroglycerin 0.4 MG TAB.SUBL SL PRN (01:14)
[2017-04-15] MEDS ORDERED: D5% in Water 1,000 ML IVC PRN (01:14)
[2017-04-15] MEDS ORDERED: Dextrose Gel 15 GM PO PRN ×2 (01:14)
--- NOTE | 2017-04-15 01:24 | Internal Med History&Physical ---
Date of Encounter: 04/15/17 Time of Encounter: 01:22 Assessment and Plan (1) Chest pain Current visit: Yes Status: Acute history of triple vessel coronary artery disease; 70% stenosis of proximal LAD , 80% diagonal 1, 70-99% circumflex with CELIA, 99% proximal RCA, 99% mid RCA left to right collaterals noted, she was recommended at the time to get CABG rather than multiple PCI's but she was turned down for CABG due to her advanced age so she subsequently had placement of CELIA to circumflex September 2016, since then she has been seen in the ER on multiple occasions with chest pain(stable angina) for which she has had increasing doses of long acting nitrates, we will continue her current regimen, cycle troponin, stone breaker and get cardiology to weigh in regarding optimizing medical management vs targeted PCI Qualifiers: Chest pain type: precordial pain Qualified Code(s): R07.2 - Precordial pain (2) HTN (hypertension) Current visit: Yes Status: Chronic Continue home antihypertensives with BP monitoring Qualifiers: Hypertension type: essential hypertension Qualified Code(s): I10 - Essential (primary) hypertension (3) Diabetes Current visit: Yes Status: Chronic History of type II diabetes mellitus that is well-controlled on Januvia, A1c was 6.1% in 01/2017, will hold home medication and do basal bolus insulin regimen with sliding scale insulin for hyperglycemia coverage Qualifiers: Diabetes mellitus type: type 2 Diabetes mellitus complication status: with neurologic complications Diabetes mellitus complication detail: with polyneuropathy Diabetes mellitus penitentiary insulin use: without penitentiary use Qualified Code(s): E11.42 - Type 2 diabetes mellitus with diabetic polyneuropathy (4) Paroxysmal a-fib Current visit: Yes Status: Chronic in sinus rhythm, on Coreg for rate control and aspirin both of which we will continue (5) CAD (coronary artery disease) Current visit: Yes Status: Chronic Refer to chest pain section Qualifiers: Coronary Disease-Associated Artery/Lesion type: [place] artery [place] vs. transplanted heart: [place] heart Associated angina: with stable angina Qualified Code(s): I25.118 - Atherosclerotic heart disease of [place] coronary artery with other forms of angina pectoris Internal Medicine - H&P: HPI Chief complaint: Chest pain Admitted From: Emergency Dept Plans for Post Hospital Care: Home History of present illness: Ms. Vilchis is a 87 year old female with hx of HTN/diabetes mellitus/ischemic- taksubo cardiomyopathy/paroxysmal atrial fibrillation/cancer of sigmoid colon was brought in for chest pain. She was sitting in her recliner on the evening of 04/14 when she began experiencing chest pain/heaviness under her left breast , it was 7/10 in severity, did not radiate, lasted for about 5 minutes and self resolved without the use of nitroglycerin or any medication. The pain returned after about 2 hours and it was then that patient called EMS and she was transported to the ER. She reports associated feeling of apprehension and dyspnea with the pain, she denies diaphoresis, lightheadedness, palpitations, nausea or vomiting. She denies any aggravating or relieving factors. A stat EKG obtained in the ER upon presentation was unchanged from prior EKG obtained on 10/31/2016. Her serum troponin was unremarkable. Of note she had LHC in September 2016 with the following findings; 70% stenosis of proximal LAD, 80% diagonal 1, 70-99% circumflex, 99% proximal RCA, 99% mid RCA left to right collaterals noted, she was recommended at the time to get CABG rather than multiple PCI's but she was turned down for CABG so she subsequently had placement of CELIA to circumflex in September 2016. Past Med Surg Social Fam HX - Past Medical History Medical history: cancer, diabetes, hyperlipidemia, hypertension, myocardial infarction Psychiatric history: no psych history - Past Surgical History Surgical History: appendectomy, colectomy, colostomy, other - Social History Smoking Status: Never smoker Smokeless Tobacco Status: No Alcohol use: none Drug use: none - Family History Son Living Status: Daughter Adopted: No Family Member Ethnicity: Non- Living Status: Still Living Hx Family Cardiac Disorders: No Hx Family Respiratory Disorders: No Hx Family Cancer: Yes (Breast Cancer) Hx Family GI Disorders: No Hx Family Endocrine Disorder: No Hx Family Neuromuscular Disorders: No Hx Family Neurologic Disorders: No Hx Family HEENT Disorders: No Hx Family Autoimmune Disorders: No Internal Medicine - H&P: Meds Aspirin [Lo-Dose Aspirin EC] 81 mg PO DAILY 09/24/16 [History] Multivit-Min/Iron/Folic/Lutein [Centrum Silver Women Tablet] 1 tab PO DAILY 01/03 [History] Pantoprazole Sodium [Protonix] 40 mg PO DAILY 09/24/16 [History] Nitroglycerin 0.4 mg SL Q5MIN PRN #30 tab.subl 09/26/16 [Rx] Calcium Carbonate/Vitamin D3 [Calcium 600-Vit D3 200 Tablet] 1 each PO DAILY [History] Lisinopril 2.5 mg PO DAILY 10/13/16 [History] SitaGLIPtin [Januvia] 100 mg PO DAILY 10/13/16 [History] Atorvastatin [Lipitor] 40 mg PO HS #30 tablet 10/17/16 [Rx] Carvedilol [Coreg] 6.25 mg PO BID #60 tablet 10/17/16 [Rx] Clopidogrel [Plavix] 75 mg PO DAILY #30 tablet 10/17/16 [Rx] Isosorbide MONOnitrate (24 HR) [Imdur] 60 mg PO DAILY #60 tab.er.24h 11/01/16 [ Rx] Hydroxyzine HCl 10 mg PO PRN PRN MDD daily 12/30/16 [History] Pantoprazole Sodium [Pantoprazole Sodium] 40 mg PO DAILY 12/30/16 [History] 3 Allergy/AdvReac Type Severity Reaction Status Date / Time metformin Allergy Hives Verified 10/31/16 11:52 Sulfa (Sulfonamide Allergy Hives Verified 10/31/16 11:52 Antibiotics) All Systems PM: A 10-system review of systems was performed and is negative for pertinent findings except as documented above in the HPI. - Constitutional Vitals: Temp Pulse Resp BP Pulse Ox 97.6 F 71 16 150/75 94 04/14/17 22:57 04/15/17 00:59 04/15/17 00:59 04/15/17 00:59 04/15/17 00:59 GENERAL: Frail looking elderly female, lying in bed, Alert, not in obvious pain or distress HEENT: NC/AT, EOMI, PERRLA, anicteric sclera, normal conjunctiva, supple, clear nares, moist mucous membranes, RESP: Lungs are clear to auscultation bilaterally, minimal crackles at the lung bases with no wheeze CARDIO: Normal heart sounds with RRR, no murmurs, no JVD, no ankle edema GI: Colostomy bag noted in the left abdomen, soft, full, no tenderness, no organomegaly felt, normal bowel sounds heard MUSCULOSKELETAL: Grossly normal movements bilaterally, no deformities noted, NEUROLOGIC: CN 2-12 intact grossly. No gross motor/sensory deficit appreciated, PSYCHIATRY: AAO x 3. Mood is fair SKIN: no skin rash or ulcers noted Internal Med - H&P Results - Labs CBC & Chem 7: 04/14/17 23:17 04/15/17 03:59 - EKG Data -: EKG Interpreted by Myself EKG shows normal: sinus rhythm - EKG Data Prior EKG available for review: yes When compared to previous EKG: there is no significant change - Diagnostic Studies Chest x-ray Status: image reviewed by me
[2017-04-15 05:00] LABS: BUN/Creatinine Ratio 24 (6-26); Blood Urea Nitrogen 21 mg/dL (7-20); Calcium 8.8 mg/dL (8.6-10.8); Carbon Dioxide 28 mEq/L (19-29); Chloride 105 mEq/L (98-109); Glucose 159 mg/dL (70-99); Magnesium 1.3 mg/dL (1.6-2.6); Osmolality,Calculated 298 (280-300); Phosphorous 2.5 mg/dL (2.3-4.7); Potassium 3.4 mEq/L (3.5-4.5); Sodium 141 mEq/L (136-145); eGFR For African Americans > 60 (> 60); eGFR For Non-African Americans > 60 (> 60)
[2017-04-15] MEDS ORDERED: Insulin LISPRO 300 UNITS/3 ML VIAL SQ SCH (06:00)
[2017-04-15] MEDS ORDERED: *HR* Heparin 5,000 UNIT/ML VIAL SQ SCH (06:30)
--- NOTE | 2017-04-15 08:34 | Cardiology Consult Note ---
<Domingo Monsivais - Last Filed: 04/15/17 10:29> Date of Encounter: 04/15/17 Time of Encounter: 08:30 Assessment and Plan (1) Chest pain Status: Acute Recurrent brief chest pain. Patient states that she forgot to use NTG. Troponin is negative x3. EKG unchanged from previous. Shows NSR with LBBB. Previous cardiac work-up: TTE 09/24/2016: LVEF 45%. Mild concentric LVH. Hypokinesis of the basal mid inferolateral segments. Mild diastolic dysfunction. RV was not well visualized. No evidence of pulmonary hypertension. No significant valvular dysfunction. [facility] 10/16/2016: Severe 3 vessel disease. Successful PTCA/CELIA placement fot mid circumflex. Left anterior descending 70% stenosis proximal LAD. 80% stenosis 1st diagonal. 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 Right coronary artery-calcified 99% stenosis in the proximal RCA. 99% stenosis in the Mid RCA. Brief episode of chest pain. Known CAD. B/p noted to be elevated. Increase imdur as tolerated. Consider increasing carvedilol if b/p tolerates. Instruction on use of SL NTG reviewed with patient and daughter. Patient was doing well prior to this event. Medical management vs further cardiac work up discussed. Recommend continuing medical management due to only one brief episode of chest pain. Patient and daughter agrees. Qualifiers: Chest pain type: precordial pain Qualified Code(s): R07.2 - Precordial pain (2) Paroxysmal a-fib Status: Chronic H/o PAF. Currently NSR. Continue carvedilol. No PAF seen on telemetry. Avg HR 67. Not on full AC due to history of GI bleed. On asa. (3) CAD (coronary artery disease) Status: Chronic H/o Severe three vessel CAD. S/p PCI Lcx artery earlier this year. Continue asa , plavix, statin, bb, and imdur. Qualifiers: Coronary Disease-Associated Artery/Lesion type: [place] artery [place] vs. transplanted heart: [place] heart Associated angina: with stable angina Qualified Code(s): I25.118 - Atherosclerotic heart disease of [place] coronary artery with other forms of angina pectoris Discussion w patient/family: The assessment and plan as outlined above was discussed with the patient and/or family members who expressed understanding and agreement. All questions were answered. Thank you for involving us in the care of your patient. Please call with any questions. History of Present Illness Consult date: 04/15/17 Requesting physician: Stalin Desai Consult reason: Chest pain Chief complaint: Chest pain History of present illness: Ms. Vilchis is a 87 year old female with hyperlipidemia, hypertension, DM, and atrial fibrillation. She is not on full anticoagulation secondary to anemia/ prior GI bleed, but does take aspirin. She presented to the ER with left sided chest pain. Pain occurred at rest and improved on its own after five minutes. She denies use of nitroglycerine. Denies associated symptoms such as SOB, palpitations, nausea, or diaphoresis. Reports she was otherwise doing fine for the last three months. Her daughter brought her in to the ED. She denies recurrent chest pain. Known history of severe three vessel CAD diagnosed 11/2016 and initially recommended for CABG. She was turned down for CABG due to advanced age and PCI was recommended. She received high risk PCI to her LCX artery in September. She had recurrent admission for chest pain since diagnosis. Previous testing: TTE 09/24/2016: LVEF 45%. Mild concentric LVH. Hypokinesis of the basal mid inferolateral segments. Mild diastolic dysfunction. RV was not well visualized. No evidence of pulmonary hypertension. No significant valvular dysfunction. [facility] 10/16/2016: Severe 3 vessel disease. Successful PTCA/CELIA placement fot mid circumflex. Left anterior descending 70% stenosis proximal LAD. 80% stenosis 1st diagonal. 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 Right coronary artery-calcified 99% stenosis in the proximal RCA. 99% stenosis in the Mid RCA. Past Med Surg Social Fam HX - Past Medical History Attestation: Yes The following information was validated with the patient. Medical history: cancer, diabetes, hyperlipidemia, hypertension, myocardial infarction Psychiatric history: no psych history - Past Surgical History Surgical History: appendectomy, colectomy, colostomy, other - Social History Smoking Status: Never smoker Smokeless Tobacco Status: No Alcohol use: none Drug use: none - Family History Son Living Status: Daughter Adopted: No Family Member Ethnicity: Non- Living Status: Still Living Hx Family Cardiac Disorders: No Hx Family Respiratory Disorders: No Hx Family Cancer: Yes (Breast Cancer) Hx Family GI Disorders: No Hx Family Endocrine Disorder: No Hx Family Neuromuscular Disorders: No Hx Family Neurologic Disorders: No Hx Family HEENT Disorders: No Hx Family Autoimmune Disorders: No Medications and Allergies Aspirin [Lo-Dose Aspirin EC] 81 mg PO DAILY 09/24/16 [History] Multivit-Min/Iron/Folic/Lutein [Centrum Silver Women Tablet] 1 tab PO DAILY 01/03 [History] Pantoprazole Sodium [Protonix] 40 mg PO DAILY 09/24/16 [History] Nitroglycerin 0.4 mg SL Q5MIN PRN #30 tab.subl 09/26/16 [Rx] Calcium Carbonate/Vitamin D3 [Calcium 600-Vit D3 200 Tablet] 1 each PO DAILY [History] Lisinopril 2.5 mg PO DAILY 10/13/16 [History] SitaGLIPtin [Januvia] 100 mg PO DAILY 10/13/16 [History] Atorvastatin [Lipitor] 40 mg PO HS #30 tablet 10/17/16 [Rx] Carvedilol [Coreg] 6.25 mg PO BID #60 tablet 10/17/16 [Rx] Clopidogrel [Plavix] 75 mg PO DAILY #30 tablet 10/17/16 [Rx] Isosorbide MONOnitrate (24 HR) [Imdur] 60 mg PO DAILY #60 tab.er.24h 11/01/16 [ Rx] Hydroxyzine HCl 10 mg PO DAILY PRN 12/30/16 [History] Isosorbide MONOnitrate (24 HR) [Imdur] 90 mg PO DAILY #30 tab.er.24h 04/15/17 [ Rx] 3 Allergy/AdvReac Type Severity Reaction Status Date / Time metformin Allergy Hives Verified 04/15/17 08:18 Sulfa (Sulfonamide Allergy Hives Verified 04/15/17 08:18 Antibiotics) All Systems Review: A 10-system review of systems was performed and is negative for pertinent findings except as documented above in the HPI. Physical Examination Vital Signs, Last 4 Hours Temp Pulse Resp BP Pulse Ox 04/15/17 07:30 97.4 F L 64 16 151/72 95 General: Conversant, No Apparent Distress, Other (Frail elderly female) HEENT: Atraumatic, Normocephaly, Mucus Membranes Moist Neck: No JVD, Normal carotid pulses Cardiac: Reg Rate and Rhythm, Normal S1 and S2, No Murmur, Other (SR, LBBB) Lungs: Normal Breath Sounds, No Wheeze, Rales, Rhonchi Neuro: Alert and responsive, No focal deficits noted Abdomen: Soft, Non-Tender, Other (colostomy bag in place. ) Skin: No rashes noted on visualized skin Musculoskeletal: No Chest Wall Tenderness Extremities: No Clubbing, No Cyanosis, No Edema, Normal Pulses Results 04/14/17 23:17 04/15/17 03:59 Lab Results 04/15/17 04/15/17 03:59 03:59 Sodium 141 Potassium 3.4 L Chloride 105 Carbon Dioxide 28 BUN 21 H Creatinine 0.86 Glucose 159 H Calcium 8.8 Magnesium 1.3 L Troponin I 0.03 Chest X-Ray 04/14/17 23:17 IMPRESSION: New mild pulmonary edema with probable small bilateral pleural effusions. D/ / Kim Samuel MD / Kim Samuel MD Interpreting Provider: Kim Samuel MD - Imaging and Cardiology Echo: report reviewed Cardiac cath: report reviewed - EKG Interpretation EKG results cardiology: personally reviewed Consult Discharge Plan - Plan Instructions: Isosorbide Mononitrate (By mouth), Chest Pain (GEN), Hypertension (GEN) Additional Instructions: Continue your medications. Your IMdur has been increased. Remember to use your nitroglycerin when you have chest pain. Return to the ER as needed for any other problems or concerns or if your symptoms return or worsen. Resume your normal activities as tolerated. Referrals: Alanis Arvizu CNP [Primary Care Provider] - 04/22/17 10:00 am Prescriptions: Isosorbide MONOnitrate (24 HR) [Imdur] 90 mg PO DAILY #30 tab.er.24h <Rosie Coombs - Last Filed: 04/15/17 22:40> Date of Encounter: 04/15/17 - Attending Attestation I have personally performed a face to face evaluation on this patient. I have reviewed and agree with the care plan. History and Exam by me shows: 87 YOF with severe 2 vessel disease and s/p pci of the mid CIRC 09/24/2016 had 5 minute episode of atypical chest pain, EF 45% on excellent medical management. Continue medical management and f/u with cardiology as an OP. Complex high risk PCI not indicated at this time Assessment and Plan Discussion w patient/family: The assessment and plan as outlined above was discussed with the patient and/or family members who expressed understanding and agreement. All questions were answered. Thank you for involving us in the care of your patient. Please call with any questions. History of Present Illness History of present illness: Ms. Vilchis is a 87 year old female All Systems Review: A 10-system review of systems was performed and is negative for pertinent findings except as documented above in the HPI. Results 04/14/17 23:17 04/15/17 03:59 Lab Results 04/15/17 04/15/17 04/15/17 03:59 03:59 10:16 Sodium 141 Potassium 3.4 L Chloride 105 Carbon Dioxide 28 BUN 21 H Creatinine 0.86 Glucose 159 H Calcium 8.8 Magnesium 1.3 L Troponin I 0.03 0.04 H*
[2017-04-15] MEDS ORDERED: Aspirin Enteric Coated 81 MG Tablet PO SCH (09:00)
[2017-04-15] MEDS ORDERED: Isosorbide MONOnitrate (24 HR) 60 MG TAB.ER.24H PO SCH (09:00)
[2017-04-15] MEDS ORDERED: Magnesium Oxide 400 MG TABLET PO SCH (09:00)
--- NOTE | 2017-04-15 09:09 | Electrocardiograph Report ---
[place] [id number] Test Date: 2017-04-14 Pat Name: Florina Vilchis Department: 104 Room: 3B48 Gender: F Deck Hand: [place] : 1930 Requested By: Anthony Crowley Order Number: [id number] Reading MD: Zandra Schaefer Measurements Intervals Keo Rate: 81 P: 99 TN: 153 QRS: 3 QRSD: 146 T: 143 QT: 427 QTc: 464 Interpretive Statements SINUS RHYTHM LEFT BUNDLE BRANCH BLOCK [120+ ms QRS DURATION, 80+ ms Q/S IN V1/V2, 85+ ms R IN I/aVL/V5/V6] Electronically Signed On 04-15-2017 9:07:12 EDT by Zandra Schaefer
[2017-04-15] MEDS ORDERED: Isosorbide MONOnitrate (24 HR) 30 MG TAB.ER.24H PO ONE (10:40)
[2017-04-15 10:48] VITALS: BP 152/77
--- NOTE | 2017-04-15 13:16 | Discharge Summary ---
Date of Encounter: 04/15/17 Time of Encounter: 09:00 - Discharge Diagnosis (1) Chest pain Priority: Primary Status: Acute Comments: Patient reports one brief, 5 minute episode of chest pain under her left breast. Onset while watching TV. She denies shortness of breath, nausea, or vomiting. It was persistent for 5 minutes and resolved on its own. There were no aggravating factors. She says that she presented to the emergency department after the pain result because she "felt funny". She reports hot feeling coming over her entire body from head to toe and feeling flushed. She otherwise she was unable to describe any other sensations. She denies palpitations. Patient recently finished cardiac rehabilitation this month after [facility] with stent placement in September or October of this year. Patient states that she forgot to use NTG. Troponin is negative x3. EKG unchanged from previous. Shows NSR with LBBB. Previous cardiac work-up: TTE 09/24/2016: LVEF 45%. Mild concentric LVH. Hypokinesis of the basal mid inferolateral segments. Mild diastolic dysfunction. RV was not well visualized. No evidence of pulmonary hypertension. No significant valvular dysfunction. [facility] 10/16/2016: Severe 3 vessel disease. Successful PTCA/CELIA placement fot mid circumflex. Left anterior descending 70% stenosis proximal LAD. 80% stenosis 1st diagonal. 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 Right coronary artery-calcified 99% stenosis in the proximal RCA. 99% stenosis in the Mid RCA. Brief episode of chest pain. Known CAD. B/p noted to be elevated. Increase imdur as tolerated. Consider increasing carvedilol if b/p tolerates. Instruction on use of SL NTG reviewed with patient and daughter. Patient was doing well prior to this event. Medical management vs further cardiac work up discussed. Recommend continuing medical management due to only one brief episode of chest pain. Patient and daughter agrees. Qualifiers: Chest pain type: precordial pain Qualified Code(s): R07.2 - Precordial pain (2) Paroxysmal a-fib Priority: Secondary Status: Chronic Comments: H/o PAF. Currently NSR. No PAF seen on telemetry. Avg HR 67. Patient is not on Plavix or another anticoagulant due to prior history of GI bleed. On asa and beta nichole. Continue at home. (3) CAD (coronary artery disease) Priority: Secondary Status: Chronic Comments: Patient with recent history of C with stent placement. Patient brief episode of chest pain prior to admission. She has been seen by cardiology and they agree and further medical management at this time. Continue home medications and increase Imdur. 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 Qualifiers: Coronary Disease-Associated Artery/Lesion type: [place] artery [place] vs. transplanted heart: [place] heart Associated angina: with stable angina Qualified Code(s): I25.118 - Atherosclerotic heart disease of [place] coronary artery with other forms of angina pectoris (4) HTN (hypertension) Priority: Secondary Status: Chronic Comments: Chronic. Continye home medications. Qualifiers: Hypertension type: essential hypertension Qualified Code(s): I10 - Essential (primary) hypertension (5) Diabetes Priority: Secondary Status: Chronic Comments: A1c 6.1% in January. 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: without petroleum terminal plant operator use Qualified Code(s): E11.42 - Type 2 diabetes mellitus with diabetic polyneuropathy - Discharge Medications Prescriptions: Isosorbide MONOnitrate (24 HR) [Imdur] 90 mg PO DAILY #30 tab.er.24h Home Medications: Aspirin [Lo-Dose Aspirin EC] 81 mg PO DAILY 09/24/16 [History] Multivit-Min/Iron/Folic/Lutein [Centrum Silver Women Tablet] 1 tab PO DAILY 01/03 [History] Pantoprazole Sodium [Protonix] 40 mg PO DAILY 09/24/16 [History] Nitroglycerin 0.4 mg SL Q5MIN PRN #30 tab.subl 09/26/16 [Rx] Calcium Carbonate/Vitamin D3 [Calcium 600-Vit D3 200 Tablet] 1 each PO DAILY [History] Lisinopril 2.5 mg PO DAILY 10/13/16 [History] SitaGLIPtin [Januvia] 100 mg PO DAILY 10/13/16 [History] Atorvastatin [Lipitor] 40 mg PO HS #30 tablet 10/17/16 [Rx] Carvedilol [Coreg] 6.25 mg PO BID #60 tablet 10/17/16 [Rx] Clopidogrel [Plavix] 75 mg PO DAILY #30 tablet 10/17/16 [Rx] Isosorbide MONOnitrate (24 HR) [Imdur] 60 mg PO DAILY #60 tab.er.24h 11/01/16 [ Rx] Hydroxyzine HCl 10 mg PO DAILY PRN 12/30/16 [History] Isosorbide MONOnitrate (24 HR) [Imdur] 90 mg PO DAILY #30 tab.er.24h 04/15/17 [ Rx] Allergies/Adverse Reactions: 3 Allergy/AdvReac Type Severity Reaction Status Date / Time metformin Allergy Hives Verified 04/15/17 08:18 Sulfa (Sulfonamide Allergy Hives Verified 04/15/17 08:18 Antibiotics) Date of admission: 04/15/17 01:03 Primary care physician: Alanis Arvizu CNP Consults: 04/15/17 01:12 Consult to Cardiology [CONS] Routine Comment: Consulting Provider: Cardiology Susi Reason for Consult: pls assist in managing this pt known to your practice with angina, thanks Call Completed: No Discharging clinician: Amy Rodriguez Anticipated date of discharge: 04/15/17 - Patient Status Disposition: Home, Self-Care Condition: Good Functional capacity at discharge: independent ambulation Overall status at discharge: patient is back to baseline - Discharge Instructions Follow Up With: Alanis Arvizu CNP [Primary Care Provider] - Additional Instructions: Continue your medications. Your IMdur has been increased. Remember to use your nitroglycerin when you have chest pain. Return to the ER as needed for any other problems or concerns or if your symptoms return or worsen. Resume your normal activities as tolerated. - Diet and Activity Activity: increase activity as tolerated Diet: diabetic diet, low fat, low cholesterol Hospital course: Please see assessment and plan for hospital course. - Time Spent with Patient Total time spent providing and/or coordinating discharge services: Less than 30 minutes - Constitutional Vitals: Temp Pulse Resp BP Pulse Ox 97.8 F 64 15 152/77 95 04/15/17 10:48 04/15/17 10:48 04/15/17 10:48 04/15/17 10:48 04/15/17 10:48
[2017-04-16] MEDS ORDERED: Isosorbide MONOnitrate (24 HR) 60 MG TAB.ER.24H PO SCH (09:00)
== END 2017-04-15 15:00 | disposition home or self-care (01) ==
LOC: EMEROO 22:49 → 3BNU 22:49
PROVIDERS: ADMIT Internal Medicine; ATTEND Registered Nurse

== ENCOUNTER 2017-05-28 20:23 | Observation (INO) ==
[2017-05-28] MEDS ORDERED: Aspirin 81 MG TAB.CHEW PO ONE (20:36)
[2017-05-28 20:50] LABS: Basophils # 0.1 K/mcL (0.0-0.2); Basophils % 0.6 %; Eosinophils # 0.5 K/mcL (0.0-0.6); Eosinophils % 6.5 %; Hematocrit 43.1 % (35.3-44.9); Immature Granulocytes % 0.1 % (0-4); Lymphocytes # 1.4 K/mcL (0.6-4.6); Lymphocytes % 17.4 %; Mean Corpuscular HGB Conc 32.5 g/dL (31.6-35.5); Mean Corpuscular Hemoglobin 31.2 pg (28.0-33.3); Mean Platelet Volume 10.9 fL (9.4-12.4); Monocytes # 0.8 K/mcL (0.0-1.3); Neutrophils # 5.2 K/mcL (1.6-8.9); Platelet Count 204 K/mcL (140-400); Red Blood Count 4.49 M/mcL (3.82-4.97); Red Cell Distribution Width 13.5 % (11.5-14.5); Segmented Neutrophils % 65.4 %
[2017-05-28 20:56] LABS: INR 1.1; Prothrombin Time 12.1 Seconds (9.4-12.1)
[2017-05-28 20:58] LABS: Activated Partial Thrombo Time 31.5 Seconds (26.0-36.0)
[2017-05-28 21:03] LABS: BUN/Creatinine Ratio 22 (6-26); Blood Urea Nitrogen 20 mg/dL (7-20); Calcium 9.9 mg/dL (8.6-10.8); Carbon Dioxide 30 mEq/L (19-29); Chloride 105 mEq/L (98-109); Glucose 183 mg/dL (70-99); Osmolality,Calculated 299 (280-300); Potassium 4.2 mEq/L (3.5-4.5); Sodium 141 mEq/L (136-145); eGFR For African Americans > 60 (> 60); eGFR For Non-African Americans 59 (> 60)
--- NOTE | 2017-05-28 21:38 | Emergency Department Note ---
Disposition Clinical Impression: Chest pain Qualifiers: Chest pain type: unspecified Qualified Code(s): R07.9 - Chest pain, unspecified Disposition: Admitted As Inpatient Condition: Good Chest Pain HPI - General Chief Complaint: ED Chest Pain Stated Complaint: chest pain Time Seen by Provider: 05/28/17 20:30 Source: patient Limitations: no limitations Vital Signs Reviewed: Yes Nursing Notes Reviewed: Yes - History of Present Illness HPI Narrative: Patient with previous history of stent placement presents for evaluation of chest pain. Patient states chest pain started while she was reading a book. Chest pain is described as a dull ache. Similar to previous NH but not as intense. No radiation of pain. No nausea or vomiting. No diaphoresis. Patient's chest pain was relieved with 2 nitroglycerin. Patient has been chest pain free since. Patient's chest pain started 1 hour prior to presentation. Severity scale (1-10): 0 - Related Data Home Medications Medication Instructions Recorded Confirmed Aspirin [Lo-Dose Aspirin EC] 81 mg PO DAILY 05/28/17 05/28/17 Atorvastatin [Lipitor] 40 mg PO HS 05/28/17 05/28/17 Calcium Carbonate/Vitamin D3 1 each PO DAILY 05/28/17 05/28/17 [Liquid Calcium 600-Vit D3 Sfgl] Carvedilol [Coreg] 6.25 mg PO BIDWM 05/28/17 05/28/17 Clopidogrel [Plavix] 75 mg PO DAILY 05/28/17 05/28/17 Isosorbide MONOnitrate [Isosorbide 90 mg PO DAILY 05/28/17 05/28/17 Mononitrate ER] Lisinopril [Zestril] 2.5 mg PO DAILY 05/28/17 05/28/17 Multivitamin [Multivitamins] 1 each PO DAILY 05/28/17 05/28/17 Nitroglycerin [Nitrostat] 0.4 mg SL PRN PRN 05/28/17 05/28/17 Pantoprazole Sodium [Protonix] 40 mg PO DAILY 05/28/17 05/28/17 SitaGLIPtin [Januvia] 100 mg PO DAILY 05/28/17 05/28/17 Allergies Allergy/AdvReac Type Severity Reaction Status Date / Time metformin Allergy See Verified 05/21/17 18:56 Comments Sulfa (Sulfonamide Allergy See Verified 05/21/17 18:56 Antibiotics) Comments All systems ED: reviewed and negative except as stated. Review of Systems: As Per HPI Constitutional: Denies: fever, chills Cardiovascular: Reports: chest pain. Denies: palpitations, dyspnea on exertion Respiratory: Denies: cough, dyspnea, wheezes Gastrointestinal: Denies: abdominal pain, nausea, vomiting, diarrhea Genitourinary: Denies: urgency, dysuria Musculoskeletal: Denies: back pain Integumentary: Denies: rash, abrasion, lesions Neurological: Denies: headache, weakness Chest Pain PMH - Past Medical History Medical history: Reports: diabetes, hypertension, other Surgical history: Reports: appendectomy, colectomy, colostomy, other Psychiatric history: Reports: no psych history DIANETIC COUNSELOR history: Reports: no DIANETIC COUNSELOR history - Social History Smoking Status: Never smoker Alcohol use: Reports: none Drug use: Reports: none Physical Exam General: Well appearing, nontoxic, no acute distress Head: Normocephalic Atraumatic Eyes: PERRL, EOMI ENT: Airway patent, no stridor Neck: supple, no meningismus Chest: Lungs clear to auscultation bilateral Cardiac: Regular rate and rhythm, no murmurs, rubs or gallops Abdomen: soft, nontender, nondistended; no guarding, rebound, or tenderness to percussion Musculoskeletal: Calves symmetric, nontender, no palpable cord Skin: No rash, normal skin tone Neuro: Alert and Oriented to person, place, and time; No focal deficit, CN 2-12 symmetric and intact - General Limitations: no limitations General appearance: alert, in no apparent distress Course - Reevaluation(s) Reevaluation #1: Patient remains chest pain-free. Patient lives alone. Son is at bedside. Agrees to admission. - Consultations Consultation #1: Discussed with hospitalist, Dr. Vazquez, patient accepted for admission. Time: 21:44 Vital Signs Temperature 0 F L 05/28/17 20:30 Pulse Rate 82 05/28/17 20:30 Respiratory Rate 16 05/28/17 20:30 Blood Pressure 158/106 05/28/17 20:30 O2 Sat by Pulse Oximetry 96 05/28/17 20:30 Temperature 98.1 F 05/29/17 06:54 Pulse Rate 60 05/29/17 06:54 Respiratory Rate 16 05/29/17 06:54 Blood Pressure 142/74 05/29/17 06:54 O2 Sat by Pulse Oximetry 93 05/29/17 06:54 Oxygen Delivery Oxygen Delivery Room Air Chest Pain - Lab Data Result diagrams: 05/28/17 20:46 05/28/17 20:46 Lab Results 05/28/17 05/28/17 05/28/17 Range/Units 20:46 20:46 20:46 WBC 7.9 (4.3-11.1) K/mcL RBC 4.49 (3.82-4.97) M/mcL Hgb 14.0 (11.5-15.4) g/dL Hct 43.1 (35.3-44.9) % MCV 96.0 (83.0-100.0) fL MCH 31.2 (28.0-33.3) pg MCHC 32.5 (31.6-35.5) g/dL RDW 13.5 (11.5-14.5) % Plt Count 204 (140-400) K/mcL MPV 10.9 (9.4-12.4) fL Immature Gran % 0.1 (0-4) % Seg Neutrophils % 65.4 % Lymphocytes % 17.4 % Monocytes % 10.0 % Eosinophils % 6.5 % Basophils % 0.6 % Neutrophils # 5.2 (1.6-8.9) K/mcL Lymphocytes # 1.4 (0.6-4.6) K/mcL Monocytes # 0.8 (0.0-1.3) K/mcL Eosinophils # 0.5 (0.0-0.6) K/mcL Basophils # 0.1 (0.0-0.2) K/mcL PT 12.1 (9.4-12.1) Seconds INR 1.1 APTT 31.5 (26.0-36.0) Seconds Sodium 141 (136-145) mEq/L Potassium 4.2 (3.5-4.5) mEq/L Chloride 105 (98-109) mEq/L Carbon Dioxide 30 H (19-29) mEq/L BUN 20 (7-20) mg/dL Creatinine 0.90 (0.57-1.11) mg/dL Est GFR ( Amer) > 60 (> 60) Est GFR (Non-Af Amer) 59 L (> 60) BUN/Creatinine Ratio 22 (6-26) Glucose 183 H (70-99) mg/dL Calculated Osmolality 299 (280-300) Calcium 9.9 (8.6-10.8) mg/dL Troponin I (0-0.03) ng/mL 05/28/17 Range/Units 20:46 WBC (4.3-11.1) K/mcL RBC (3.82-4.97) M/mcL Hgb (11.5-15.4) g/dL Hct (35.3-44.9) % MCV (83.0-100.0) fL MCH (28.0-33.3) pg MCHC (31.6-35.5) g/dL RDW (11.5-14.5) % Plt Count (140-400) K/mcL MPV (9.4-12.4) fL Immature Gran % (0-4) % Seg Neutrophils % % Lymphocytes % % Monocytes % % Eosinophils % % Basophils % % Neutrophils # (1.6-8.9) K/mcL Lymphocytes # (0.6-4.6) K/mcL Monocytes # (0.0-1.3) K/mcL Eosinophils # (0.0-0.6) K/mcL Basophils # (0.0-0.2) K/mcL PT (9.4-12.1) Seconds INR APTT (26.0-36.0) Seconds Sodium (136-145) mEq/L Potassium (3.5-4.5) mEq/L Chloride (98-109) mEq/L Carbon Dioxide (19-29) mEq/L BUN (7-20) mg/dL Creatinine (0.57-1.11) mg/dL Est GFR ( Amer) (> 60) Est GFR (Non-Af Amer) (> 60) BUN/Creatinine Ratio (6-26) Glucose (70-99) mg/dL Calculated Osmolality (280-300) Calcium (8.6-10.8) mg/dL Troponin I 0.02 (0-0.03) ng/mL Attestation Statement - Attestation Attestation: I, Jasper Joy MD, personally evaluated this patient and discussed their management with the resident physician. I reviewed the resident's note and agree with the documented findings, medical decision making, and plan of care. 87-year-old female who lives alone with history of coronary artery disease and coronary artery stents presents to the emergency department complaining of some left sided chest pain which started about one hour prior to arrival. She describes the pain as a dull ache beneath her left breast. No radiation of the pain. No nausea or vomiting or diaphoresis. No increased shortness of breath. Patient states this felt similar to her prior cardiac chest pain. She did take 2 nitroglycerin at home which relieved the pain by the time she arrived here. She has no pain at time of examination. On examination patient is a well-developed well-nourished well-appearing elderly female in no acute distress. She is alert and oriented 3. There is no cyanosis or diaphoresis. Chest is nontender to palpation. Breath sounds clear and equal bilaterally. Heart regular rate and rhythm. Abdomen soft and nontender with normal bowel sounds. She does have 1+ pitting edema bilaterally of the lower extremities. Abdomen reviewed. No acute ischemic changes on EKG. Chest x-ray negative. The hospitalist, Dr. Vazquez, was consulted and accepted admission of the patient.
[2017-05-29] MEDS ORDERED: Dextrose Gel 15 GM PO PRN ×2 (00:45)
[2017-05-29] MEDS ORDERED: D5% in Water 1,000 ML IVC PRN (00:45)
[2017-05-29] MEDS ORDERED: *HR* Dextrose 50 % in Water (Syg) 50 ML SYRINGE IVP PRN (00:45)
[2017-05-29] MEDS ORDERED: Nitroglycerin 0.4 MG TAB.SUBL SL PRN (00:46)
[2017-05-29] MEDS ORDERED: *HR* Morphine 2 MG/ML SYRINGE IVP PRN (00:48)
[2017-05-29] MEDS ORDERED: Acetaminophen 325 MG TABLET PO PRN (00:48)
[2017-05-29] MEDS ORDERED: Ondansetron 4 MG/2 ML VIAL IVP PRN (00:48)
[2017-05-29] MEDS ORDERED: Naloxone 0.4 MG/ML INJ IVP PRN (00:48)
--- NOTE | 2017-05-29 00:53 | Internal Med History&Physical ---
Date of Encounter: 05/29/17 Time of Encounter: 00:51 Assessment and Plan (1) Chest pain Current visit: Yes Status: Acute Hx of CAD/sp PTCA presented with SS chest pain at rest. Order cardiac enzymes. Stress test on Tuesday? 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 Vilchis is a 87 year old female pmhx significant for DM, HTN, HLD and CAD sp PTCA x2 presented with resting chest pain. Denies any prior episode. EKG and troponin are negative. Chest pain was substernal , non radiating , lasting only for 2 minutes and then did not recurr. She had cardiac cath with stent placement in September this year. Since then she is returning with chest pain. No dyspnea, no cough, no abdominal pain, no NVD. Past Med Surg Social Fam HX - Past Medical History Medical history: diabetes, hypertension, other Psychiatric history: no psych history - Past Surgical History Surgical History: appendectomy, colectomy, colostomy, other - Social History Smoking Status: Never smoker Smokeless Tobacco Status: No Alcohol use: none Drug use: none - Family History Son Living Status: Daughter Adopted: No Family Member Ethnicity: Non- Living Status: Still Living Hx Family Cardiac Disorders: No Hx Family Respiratory Disorders: No Hx Family Cancer: Yes (Breast Cancer) Hx Family GI Disorders: No Hx Family Endocrine Disorder: No Hx Family Neuromuscular Disorders: No Hx Family Neurologic Disorders: No Hx Family HEENT Disorders: No Hx Family Autoimmune Disorders: No Father Living Status: Hx Family Cancer: Yes Internal Medicine - H&P: Meds Aspirin [Lo-Dose Aspirin EC] 81 mg PO DAILY 05/28/17 [History] Atorvastatin [Lipitor] 40 mg PO HS 05/28/17 [History] Calcium Carbonate/Vitamin D3 [Liquid Calcium 600-Vit D3 Sfgl] 1 each PO DAILY [History] Carvedilol [Coreg] 6.25 mg PO BIDWM 05/28/17 [History] Clopidogrel [Plavix] 75 mg PO DAILY 05/28/17 [History] Isosorbide MONOnitrate [Isosorbide Mononitrate ER] 90 mg PO DAILY 05/28/17 [ History] Lisinopril [Zestril] 2.5 mg PO DAILY 05/28/17 [History] Multivitamin [Multivitamins] 1 each PO DAILY 05/28/17 [History] Nitroglycerin [Nitrostat] 0.4 mg SL PRN PRN 05/28/17 [History] Pantoprazole Sodium [Protonix] 40 mg PO DAILY 05/28/17 [History] SitaGLIPtin [Januvia] 100 mg PO DAILY 05/28/17 [History] 3 Allergy/AdvReac Type Severity Reaction Status Date / Time metformin Allergy See Verified 05/21/17 18:56 Comments Sulfa (Sulfonamide Allergy See Verified 05/21/17 18:56 Antibiotics) Comments All Systems PM: A 10-system review of systems was performed and is negative for pertinent findings except as documented above in the HPI. - Constitutional Constitutional: no chills, no fever(s), no night sweats - EENT Eyes: no change in vision, no discharge, no pain, no photophobia Ears: no ear discharge, no ear pain, no tinnitus Nose, mouth and throat: no dysphagia, no nasal discharge, no neck pain, no sore throat - Cardiovascular Cardiovascular ROS IM: no chest pain, no diaphoresis, no dyspnea, no lightheadedness, no palpitations, no syncope - Respiratory Respiratory: no cough, no dyspnea, no wheezing, no excessive phlegm production - Gastrointestinal Gastrointestinal: no abdominal pain, no diarrhea, no hematemesis, no hematochezia, no melena, no nausea, no vomiting - Genitourinary Genitourinary: no change in urinary stream, no dysuria, no flank pain, no hematuria - Musculoskeletal Musculoskeletal ROS IM: no numbness, no tingling - Integumentary Integumentary IM: no rash, no unusual bruising - Neurological Neurological ROS: no confusion, no convulsions, no focal weakness, no numbness, no tingling, no tremor(s) - Hematologic/Lymphatic Hematologic/Lymphatic: no easy bruising - Constitutional Vitals: Temp Pulse Resp BP Pulse Ox 97.8 F 72 14 176/74 94 05/28/17 22:11 05/28/17 22:11 05/28/17 22:11 05/28/17 22:11 05/28/17 22:11 - Head Head exam: Present: atraumatic, normocephalic - Eye Eye exam: Present: PERRL, conjuntiva pink, sclera anicteric Pupils: Present: PERRL - Neck Neck exam general surgery: Present: supple, trachea midline. Absent: lymphadenopathy - Respiratory Respiratory exam: Present: CTAB. Absent: accessory muscle use, rales, rhonchi, wheezes - Cardiovascular Cardiovascular exam: Present: RRR, +S1, +S2. Absent: diastolic murmur, gallop, rubs, systolic murmur - GI/Abdominal GI/Abdominal exam: Present: normal bowel sounds, soft, no peritoneal signs. Absent: distended, tenderness - Extremities Exam Extremities exam: Present: warm, radial pulses palpable and symmetrical. Absent : calf tenderness, cyanotic, pedal edema - Neurological Exam Neurological exam: Present: CN II-XII intact, oriented X3, no focal deficits. Absent: pronater drift, facial droop, speech deficit - Skin Skin exam: Present: dry, intact Internal Med - H&P Results - Labs CBC & Chem 7: 05/28/17 20:46 05/28/17 20:46
[2017-05-29 01:47] LABS: Hemoglobin A1C 6.2 %
[2017-05-29] MEDS: Insulin LISPRO 300 UNITS/3 ML VIAL SQ SCH ×6 (03:14→20:37)
[2017-05-29] MEDS: Aspirin Enteric Coated 81 MG Tablet PO SCH ×2 (03:22→08:24)
[2017-05-29] MEDS: Multivit/Ca/Min/Fe/FA 1 TAB TABLET PO SCH (08:24)
[2017-05-29] MEDS: Isosorbide MONOnitrate (24 HR) 30 MG TAB.ER.24H PO SCH (08:24)
--- NOTE | 2017-05-29 13:47 | Internal Med Progress Note ---
Date of Encounter: 05/29/17 Time of Encounter: 09:00 - Assessment and plan (1) Chest pain Current Visit: Yes Status: Acute Assessment and plan: Patient is an 87-year-old female. Past medical history significant for diabetes , hypertension, hyperlipidemia, coronary artery disease status post PTCA, also paroxysmal A. fib. She presented with chest pain while at rest at home. She reports that it lasted approximately 2 minutes and has had no chest pain since that time. She reports her daughter insisted she come for evaluation. Troponin is mildly elevated this visit, third troponin 0.04. Will trend. Chest x-ray is negative. Patient with recent extensive cardiac workup at the end of March of this year. [facility] in September,. Patient had successful PTCA/CELIA placement in mid circumflex. 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 RCA was calcified with 99% stenosis in the proximal RCA, and 99% stenosis in the mid RCA. Recommendations included DAPT and aggressive risk factor modification. The patient had TTE in September, with an LVEF of 45%, mild concentric LVH, hypokinesis of basal mid inferolateral segments, mild DDD and no significant valvular dysfunction. He was also evaluated in March, at that time continued medical management was recommended, patient and daughter both agreed. Due to continued chest pain and elevated troponin, cardiology was consulted this visit, as well. I appreciate their consultation and further recommendations. Continue aspirin, statin, beta nichole, Plavix, Imdur, lisinopril. Cardiology consult pending Continue telemetry Qualifiers: Chest pain type: unspecified Qualified Code(s): R07.9 - Chest pain, unspecified (2) Diabetes Current Visit: Yes Status: Chronic Assessment and plan: A1c 6.2%. Well controlled. SSI, Accuchecks achs, diabetic diet. 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 Qualifiers: Hyperlipidemia type: mixed hyperlipidemia Qualified Code(s): E78.2 - Mixed hyperlipidemia (4) DVT prophylaxis Current Visit: No Status: Acute Assessment and plan: Heparin subcutaneous, up to chair. - Time Spent With Patient less than 15 minutes - Subjective Interval history: Pt was seen and assessed at 0900. Pt is alert, awake, denies chest pain. She states that she has had no chest pain since prior to arrival in ED and that her daughter made her come. She is aware of POC and cardiology consult. She is agreeable and states that she wants to go home. She denies SOB, headache, n/v/d , diaphoresis, or abd pain. Cardiology consult pending at this time. - Constitutional Vitals: Temp Pulse Resp BP Pulse Ox 97.6 F 57 16 117/56 92 05/29/17 10:45 05/29/17 10:45 05/29/17 10:45 05/29/17 10:45 05/29/17 10:45 General appearance: Present: cooperative, A&O X 3, pleasant, no acute distress, answers questions appropriately - Head Head exam: Present: atraumatic, normal inspection, normocephalic - Eye Eye exam: Present: normal appearance, conjuntiva pink, sclera anicteric - Neck Neck exam general surgery: Present: normal inspection, supple, trachea midline. Absent: lymphadenopathy, tenderness - Respiratory Respiratory exam: Present: CTAB. Absent: accessory muscle use, chest wall tenderness, decreased breath sounds, rales, respiratory distress, rhonchi, wheezes - Cardiovascular Cardiovascular exam: Present: RRR, +S1, +S2. Absent: diastolic murmur, gallop, rubs, systolic murmur - GI/Abdominal GI/Abdominal exam: Present: normal bowel sounds, soft, no peritoneal signs. Absent: distended, hepatomegaly, tenderness - Extremities Exam Extremities exam: Present: normal capillary refill, normal inspection, warm, radial pulses palpable and symmetrical. Absent: calf tenderness, cyanotic, pedal edema, tenderness - Neurological Exam Neurological exam: Present: alert, oriented X3, no focal deficits. Absent: facial droop, speech deficit - Skin Skin exam: Present: dry, intact, normal color, warm. Absent: rash Internal Medicine: Result - Labs CBC & Chem 7: 05/28/17 20:46 05/28/17 20:46 Labs: Cardiac Enzymes 05/29/17 05/29/17 Range/Units 01:20 06:42 Troponin I 0.03 0.04 H* (0-0.03) ng/mL - ABG Interpretation ABG results: PT/INR, D-dimer PT 12.1 Seconds (9.4-12.1) 05/28/17 20:46 Consult Discharge Plan - Plan Referrals: Alanis Arvizu, TIMBER TRIMMER [Primary Care Provider] -
[2017-05-29] MEDS: *HR* Heparin 5,000 UNIT/ML VIAL SQ SCH (16:39)
[2017-05-30] MEDS: *HR* Heparin 5,000 UNIT/ML VIAL SQ SCH (05:08)
[2017-05-30 06:19] LABS: BUN/Creatinine Ratio 28 (6-26); Blood Urea Nitrogen 21 mg/dL (7-20); Calcium 8.8 mg/dL (8.6-10.8); Carbon Dioxide 27 mEq/L (19-29); Chloride 108 mEq/L (98-109); Glucose 135 mg/dL (70-99); Osmolality,Calculated 301 (280-300); Potassium 3.5 mEq/L (3.5-4.5); Sodium 143 mEq/L (136-145); eGFR For African Americans > 60 (> 60); eGFR For Non-African Americans > 60 (> 60)
[2017-05-30] MEDS ORDERED: Regadenoson 0.4 MG/5 ML SYRINGE IVP ONE ×2 (08:37→09:15)
[2017-05-30] MEDS: Insulin LISPRO 300 UNITS/3 ML VIAL SQ SCH ×3 (08:44→17:48)
--- NOTE | 2017-05-30 09:50 | Cardiology Consult Note ---
Date of Encounter: 05/30/17 Time of Encounter: 09:48 Assessment and Plan (1) Chest pain Current Visit: Yes Status: Acute Recurrent chest pain. 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 Troponin is negative x3. EKG unchanged from previous. Shows NSR with LBBB. Recent cardiac work-up: TTE 09/24/2016: LVEF 45%. Mild concentric LVH. Hypokinesis of the basal mid inferolateral segments. Mild diastolic dysfunction. RV was not well visualized. No evidence of pulmonary hypertension. No significant valvular dysfunction. [facility] 10/16/2016: Severe 3 vessel disease. Successful PTCA/CELIA placement to mid circumflex. 70% stenosis proximal LAD. 80% stenosis 1st diagonal. 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 Right coronary artery- calcified 99% stenosis in the proximal RCA. 99% stenosis in the Mid RCA. Recurrent episode of chest pain. Known severe 3 vessel CAD diagnosed in September. She declined CABg and opted for PCI. S/p CELIA to mLCX artery and severe stenosis in the LAD and RCA remaining. 3rd hospitalization for chest pain since [facility]. Imdur and carvedilol increased at last visit in March. Patient was recommended for stress test today per discussions with cardiology and hospitalist over the weekend. B/p not well controlled. B/p 156/100 will increase lisinopril. Further recommendations pending stress test. Qualifiers: Chest pain type: unspecified Qualified Code(s): R07.9 - Chest pain, unspecified (2) Paroxysmal a-fib Current Visit: Yes Status: Chronic H/o PAF. Currently NSR with LBBB. Continue carvedilol. Not on full AC due to GI bleed. (3) HTN (hypertension) Current Visit: Yes Status: Chronic B/p not well controlled. Increase zestril to 5 mg daily. Low sodium diet. Qualifiers: Hypertension type: essential hypertension Qualified Code(s): I10 - Essential (primary) hypertension Discussion w patient/family: The assessment and plan as outlined above was discussed with the patient and/or family members who expressed understanding and agreement. All questions were answered. Thank you for involving us in the care of your patient. Please call with any questions. History of Present Illness Consult date: 05/30/17 Requesting physician: Amy Rodriguez Consult reason: Chest pain Chief complaint: Chest pain History of present illness: Ms. Vilchis is a 87 year old female with a history of severe three vessel CAD s /p CELIA to m CX 09/2016, DM, and HTN who presented from home with chest pain. C/o sub sternal chest discomfort that was non-radiating. Denies associated symptoms. Symptoms occurred at rest. Denies using SL NTG. Third admission for recurrent chest pain since PCI in September of this year despite medical management. Cardiology discussed care with hospitalist yesterday and stress test was recommended. Past Med Surg Social Fam HX - Past Medical History Medical history: diabetes, hypertension, other Psychiatric history: no psych history - Past Surgical History Surgical History: appendectomy, colectomy, colostomy, other - Social History Smoking Status: Never smoker Smokeless Tobacco Status: No Alcohol use: none Drug use: none - Family History Son Living Status: Daughter Adopted: No Family Member Ethnicity: Non- Living Status: Still Living Hx Family Cardiac Disorders: No Hx Family Respiratory Disorders: No Hx Family Cancer: Yes (Breast Cancer) Hx Family GI Disorders: No Hx Family Endocrine Disorder: No Hx Family Neuromuscular Disorders: No Hx Family Neurologic Disorders: No Hx Family HEENT Disorders: No Hx Family Autoimmune Disorders: No Father Living Status: Hx Family Cancer: Yes Medications and Allergies Aspirin [Lo-Dose Aspirin EC] 81 mg PO DAILY 05/28/17 [History] Atorvastatin [Lipitor] 40 mg PO HS 05/28/17 [History] Calcium Carbonate/Vitamin D3 [Liquid Calcium 600-Vit D3 Sfgl] 1 cap PO DAILY 03/06 [History] Carvedilol [Coreg] 6.25 mg PO BIDWM 05/28/17 [History] Clopidogrel [Plavix] 75 mg PO DAILY 05/28/17 [History] Isosorbide MONOnitrate [Isosorbide Mononitrate ER] 90 mg PO DAILY 05/28/17 [ History] Lisinopril [Zestril] 2.5 mg PO DAILY 05/28/17 [History] Multivitamin [Multivitamins] 1 cap PO DAILY 05/28/17 [History] Nitroglycerin [Nitrostat] 0.4 mg SL PRN PRN 05/28/17 [History] Pantoprazole Sodium [Protonix] 40 mg PO DAILY 05/28/17 [History] SitaGLIPtin [Januvia] 100 mg PO DAILY 05/28/17 [History] 3 Allergy/AdvReac Type Severity Reaction Status Date / Time metformin Allergy See Verified 05/21/17 18:56 Comments Sulfa (Sulfonamide Allergy See Verified 05/21/17 18:56 Antibiotics) Comments All Systems Review: A 10-system review of systems was performed and is negative for pertinent findings except as documented above in the HPI. Physical Examination Vital Signs, Last 4 Hours Temp Pulse Resp BP Pulse Ox 05/30/17 06:55 97.9 F 61 16 159/81 95 Results 05/28/17 20:46 05/30/17 05:25 Lab Results 05/29/17 05/30/17 13:08 05:25 Sodium 143 Potassium 3.5 Chloride 108 Carbon Dioxide 27 BUN 21 H Creatinine 0.75 Glucose 135 H Calcium 8.8 Troponin I 0.03 Consult Discharge Plan - Plan Referrals: Alanis Arvizu, BUSINESS LAW PROFESSOR [Primary Care Provider] -
[2017-05-30] MEDS: Isosorbide MONOnitrate (24 HR) 30 MG TAB.ER.24H PO SCH (11:19)
[2017-05-30] MEDS: Aspirin Enteric Coated 81 MG Tablet PO SCH (11:19)
[2017-05-30] MEDS: Multivit/Ca/Min/Fe/FA 1 TAB TABLET PO SCH (11:19)
[2017-05-30] MEDS ORDERED: Ranolazine 500 MG TAB.ER.12H PO SCH (12:45)
--- NOTE | 2017-05-30 15:05 | Electrocardiograph Report ---
[place] [id number] Test Date: 2017-05-28 Pat Name: Florina Vilchis Department: 104 Room: 3B41 Gender: F Therapy Teacher: BOBBI : [id number] Requested By: Ernesto Duran Order Number: [id number] Reading MD: Slava Schaefer Measurements Intervals [place] Rate: 76 P: DC: 0 QRS: -30 QRSD: 150 T: 150 QT: 453 QTc: 483 Interpretive Statements SINUS RHYTHM WITH PVCS LEFT BUNDLE BRANCH BLOCK Electronically Signed On 05-30-2017 15:03:44 EST by Slava Schaefer
[2017-05-30 16:19] VITALS: BP 114/54
--- NOTE | 2017-05-30 17:24 | Discharge Summary ---
Date of Encounter: 05/30/17 Time of Encounter: 09:55 - Discharge Diagnosis (1) Chest pain Priority: Primary Status: Acute Comments: Patient is an 87-year-old female. Past medical history significant for diabetes , hypertension, hyperlipidemia, coronary artery disease status post PTCA, also paroxysmal A. fib. She presented with chest pain while at rest at home. She reports that it lasted approximately 2 minutes and has had no chest pain since that time. She reports her daughter insisted she come for evaluation. Troponin is mildly elevated this visit, third troponin 0.04. Will trend. Chest x-ray is negative. Patient with recent extensive cardiac workup at the end of March of this year. C in September,. Patient had successful PTCA/CELIA placement in mid circumflex. 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 RCA was calcified with 99% stenosis in the proximal RCA, and 99% stenosis in the mid RCA. Recommendations included DAPT and aggressive risk factor modification. The patient had TTE in September, with an LVEF of 45%, mild concentric LVH, hypokinesis of basal mid inferolateral segments, mild DDD and no significant valvular dysfunction. He was also evaluated in March, at that time continued medical management was recommended, patient and daughter both agreed. Due to continued chest pain and elevated troponin, cardiology was consulted this visit, as well. I appreciate their consultation and further recommendations. Per cardiology note, in September patient declined CABG and opted for PCI. This is her third hospitalization for chest pain since she had a heart catheter. Imdur and carvedilol were increased at her last visit in March. Patient had another stress test today, there is a mild/moderate intensity stress perfusion defect involving the mid to distal inferior lateral wall and distal mid inferior septum. Findings represent mild to moderate ischemia. There is 3 times a day. There is a gated EF of 44%. Patient was seen again after the stress test by cardiology, again they have opted to medically manage patient. She will follow-up in the office and they will discuss CABG vs continued medical management. Qualifiers: Chest pain type: unspecified Qualified Code(s): R07.9 - Chest pain, unspecified (2) Diabetes Priority: Secondary Status: Chronic Comments: A1c 6.2%. Well controlled. Continue home medication and Accu-Chek regimen. Qualifiers: Diabetes mellitus type: type 2 Diabetes mellitus complication status: without complication Diabetes mellitus snf insulin use: unspecified snf insulin use status Qualified Code(s): E11.9 - Type 2 diabetes mellitus without complications (3) Hyperlipemia Priority: Secondary Status: Chronic Comments: Chronic. Continue home medications. Qualifiers: Hyperlipidemia type: mixed hyperlipidemia Qualified Code(s): E78.2 - Mixed hyperlipidemia (4) DVT prophylaxis Priority: Secondary Status: Acute Comments: Heparin subcutaneous. Patient has been ambulatory. - Discharge Medications Prescriptions: Lisinopril [Zestril] 5 mg PO DAILY #30 tablet Home Medications: Aspirin [Lo-Dose Aspirin EC] 81 mg PO DAILY 05/28/17 [History] Atorvastatin [Lipitor] 40 mg PO HS 05/28/17 [History] Calcium Carbonate/Vitamin D3 [Liquid Calcium 600-Vit D3 Sfgl] 1 cap PO DAILY 03/06 [History] Carvedilol [Coreg] 6.25 mg PO BIDWM 05/28/17 [History] Clopidogrel [Plavix] 75 mg PO DAILY 05/28/17 [History] Isosorbide MONOnitrate [Isosorbide Mononitrate ER] 90 mg PO DAILY 05/28/17 [ History] Multivitamin [Multivitamins] 1 cap PO DAILY 05/28/17 [History] Nitroglycerin [Nitrostat] 0.4 mg SL PRN PRN 05/28/17 [History] Pantoprazole Sodium [Protonix] 40 mg PO DAILY 05/28/17 [History] SitaGLIPtin [Januvia] 100 mg PO DAILY 05/28/17 [History] Lisinopril [Zestril] 5 mg PO DAILY #30 tablet 05/30/17 [Rx] Allergies/Adverse Reactions: 3 Allergy/AdvReac Type Severity Reaction Status Date / Time metformin Allergy See Verified 05/21/17 18:56 Comments Sulfa (Sulfonamide Allergy See Verified 05/21/17 18:56 Antibiotics) Comments Procedures/tests Complete & Pending: Procedures Performed prior 72 hours Category Date Time Status NM rere perf SPECT multi [NM] Routine Exams 05/30/17 07:56 Taken SP pharm nuclear stress Routine Y 05/30/17 07:56 Completed Date of admission: 05/28/17 21:47 Primary care physician: Alanis Arvizu CNP Consults: 05/29/17 08:09 Consult to Cardiology [CONS] Routine Comment: Consulting Provider: Cardiology Susi Reason for Consult: elevated trop, known severe multi-vessel disease. [facility] with CELIA in 10/04. Recently seen by Dr. Coombs 04/05, recommended continued medical management. Time Notified: 08:11 Call Completed: Yes Discharging clinician: Amy Rodriguez Anticipated date of discharge: 05/30/17 - Patient Status Disposition: Home, Self-Care Condition: Good Functional capacity at discharge: uses cane/walker Overall status at discharge: patient is back to baseline - Discharge Instructions Follow Up With: Alanis Arvizu CNP [Primary Care Provider] - 06/06/17 3:00 pm Additional Instructions: Please follow-up with her primary care provider in the next 7-10 days for recheck. Please follow-up with cardiology as scheduled. Please resume your normal medications. I have increased your lisinopril, please start it tomorrow morning. Resume your normal activities as tolerated. Return to your normal diet. Please return to the emergency department as needed for any other problems or concerns. - Diet and Activity Activity: increase activity as tolerated Diet: advance to your usual diet Hospital course: Ms. Vilchis is a 87 year old female with past medical history of paroxysmal A. fib, coronary artery disease, recent PTCA with CELIA placement, hyperlipidemia, diabetes, hypertension, non-STEMI. She presented for repeat chest pain. She has had extensive cardiac workup in the recent past. Stress test today was positive for ischemia. Patient has been seen by cardiology and they will continue to medically manage. She will follow up in the office and perhaps discuss CABG in the near future. Please see assessment and plan for hospital course. - Time Spent with Patient Total time spent providing and/or coordinating discharge services: Less than 30 minutes - Constitutional Vitals: Temp Pulse Resp BP Pulse Ox 97.7 F 69 16 114/54 94 05/30/17 16:08 05/30/17 16:08 05/30/17 16:08 05/30/17 16:08 05/30/17 16:08 General appearance: Present: cooperative, A&O X 3, pleasant, no acute distress, answers questions appropriately - Head Head exam: Present: atraumatic, normal inspection, normocephalic - Eye Eye exam: Present: normal appearance, conjuntiva pink, sclera anicteric - Neck Neck exam general surgery: Present: supple, trachea midline. Absent: lymphadenopathy - Respiratory Respiratory exam: Present: CTAB. Absent: accessory muscle use, rales, rhonchi, wheezes - Cardiovascular Cardiovascular exam: Present: RRR, +S1, +S2. Absent: diastolic murmur, gallop, rubs, systolic murmur - GI/Abdominal GI/Abdominal exam: Present: normal bowel sounds, soft. Absent: distended, tenderness - Extremities Exam Extremities exam: Present: normal inspection, warm, radial pulses palpable and symmetrical. Absent: calf tenderness, cyanotic, pedal edema, tenderness - Neurological Exam Neurological exam: Present: alert, oriented X3, no focal deficits. Absent: facial droop, speech deficit - Skin Skin exam: Present: dry, intact, normal color, warm. Absent: rash
== END 2017-05-30 18:30 | disposition home or self-care (01) ==
LOC: EMEROO 20:23 → 3BNU 20:23
PROVIDERS: ADMIT Family Medicine; ATTEND Registered Nurse

== ENCOUNTER 2017-08-27 12:04 | Observation (INO) ==
[2017-08-27 12:49] LABS: Basophils % 0.2 %; Eosinophils # 0.3 K/mcL (0.0-0.6); Eosinophils % 2.5 %; Hematocrit 43.1 % (35.3-44.9); Hemoglobin 14.1 g/dL (11.5-15.4); Immature Granulocytes % 0.4 % (0-4); Lymphocytes # 1.4 K/mcL (0.6-4.6); Lymphocytes % 13.5 %; Mean Corpuscular HGB Conc 32.7 g/dL (31.6-35.5); Mean Corpuscular Hemoglobin 31.5 pg (28.0-33.3); Mean Corpuscular Volume 96.2 fL (83.0-100.0); Mean Platelet Volume 10.8 fL (9.4-12.4); Monocytes # 0.9 K/mcL (0.0-1.3); Monocytes % 8.6 %; Neutrophils # 7.9 K/mcL (1.6-8.9); Platelet Count 187 K/mcL (140-400); Red Blood Count 4.48 M/mcL (3.82-4.97); Red Cell Distribution Width 13.6 % (11.5-14.5); Segmented Neutrophils % 74.8 %
[2017-08-27 12:54] LABS: INR 1.1; Prothrombin Time 12.4 Seconds (9.4-12.1)
[2017-08-27 12:56] LABS: Activated Partial Thrombo Time 27.5 Seconds (26.0-36.0)
--- NOTE | 2017-08-27 12:57 | Emergency Department Note ---
Disposition Clinical Impression: Chest pain Qualifiers: Chest pain type: chest pain due to myocardial ischemia Ischemic chest pain type : stable angina pectoris Qualified Code(s): I20.8 - Other forms of angina pectoris Disposition: Admitted As Inpatient Condition: Fair Reasons to Return/Additional Instructions: admitted as inpatient. Referrals: Alanis Arvizu CNP [Primary Care Provider] - Forms: ED Satisfaction Letter Time of Disposition: 15:22 Chest Pain HPI - General Chief Complaint: ED Chest Pain Stated Complaint: chest pain Time Seen by Provider: 08/27/17 12:06 Source: patient, family Mode of arrival: ambulatory Limitations: no limitations Vital Signs Reviewed: Yes Nursing Notes Reviewed: Yes - History of Present Illness HPI Narrative: 87 year old female with PMHx of CAD, RI with stent placed 1 year ago presents to ED with a complaint of chest pain starting this morning. She states the pain is substernal pressure which began as she was getting out of bed. She states it last a couple of minutes and then resolved on its own. She did take a nitroglycerin later but states by that time her pain was already gone. She gets these episodes of CP about twice per month. She denies associated symptoms of SOB, lightheadedness, dizziness, abdominal pain, nausea, vomiting, diaphoresis. She is currently asymptomatic during exam. She is a never smoker but is a diabetic and takes aspirin daily. Severity scale (1-10): 0 - Related Data Home Medications Medication Instructions Recorded Confirmed Aspirin [Lo-Dose Aspirin EC] 81 mg PO DAILY 05/28/17 08/27/17 Atorvastatin [Lipitor] 40 mg PO HS 05/28/17 08/27/17 Calcium Carbonate/Vitamin D3 1 cap PO DAILY 05/28/17 08/27/17 [Liquid Calcium 600-Vit D3 Sfgl] Carvedilol [Coreg] 6.25 mg PO BIDWM 05/28/17 08/27/17 Clopidogrel [Plavix] 75 mg PO DAILY 05/28/17 08/27/17 Multivitamin [Multivitamins] 1 cap PO DAILY 05/28/17 08/27/17 Nitroglycerin [Nitrostat] 0.4 mg SL Q5M PRN 05/28/17 08/27/17 Pantoprazole Sodium [Protonix] 40 mg PO DAILY 05/28/17 08/27/17 SitaGLIPtin [Januvia] 100 mg PO DAILY 05/28/17 08/27/17 Acetaminophen [Tylenol] 500 mg PO Q6H PRN 08/14/17 08/27/17 HydrOXYzine 5 - 10 mg PO BID 08/14/17 08/27/17 Isosorbide MONOnitrate (24 HR) 30 mg PO DAILY 08/27/17 08/27/17 [Imdur] Previous Rx's Medication Instructions Recorded Lisinopril [Zestril] 5 mg PO DAILY #30 tablet 05/30/17 Magnesium Oxide [Mag-Ox] 400 mg PO DAILY #30 tablet 08/15/17 methylPREDNISolone [Medrol] 4 mg PO TAPER #21 tablet 08/22/17 Allergies Allergy/AdvReac Type Severity Reaction Status Date / Time metformin Allergy See Verified 08/22/17 17:36 Comments Sulfa (Sulfonamide Allergy See Verified 08/22/17 17:36 Antibiotics) Comments All systems ED: reviewed and negative except as stated. 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 Absent: respiratory distress, wheezes - Cardiovascular Cardiovascular exam: Present: regular rate, irregular rhythm, normal heart sounds, +S1, +S2 - Abdominal Exam Abdominal exam: Present: soft, tenderness. Absent: distention, guarding, rebound, rigidity Abdominal tenderness: Present: LLQ - Extremities Exam Extremities exam: Present: normal inspection, full ROM. Absent: tenderness, pedal edema - Neurological Exam Neurological exam: Present: alert, oriented X3 - Psychiatric Psychiatric exam: Present: normal affect, normal mood - Skin Skin exam: Present: warm, dry, intact, normal color Course Course Narrative: Will obtain EKG, old EKG, CBC, BMP, troponin, CXR. Vital Signs Temperature 98.3 F 08/27/17 12:10 Pulse Rate 98 03/10/18 12:10 Respiratory Rate 18 08/27/17 12:10 Blood Pressure 163/101 08/27/17 12:10 O2 Sat by Pulse Oximetry 94 08/27/17 12:10 Temperature 98.3 F 08/27/17 12:10 Pulse Rate 61 08/27/17 13:39 Respiratory Rate 16 08/27/17 13:39 Blood Pressure 153/83 08/27/17 13:39 O2 Sat by Pulse Oximetry 94 08/27/17 13:39 Oxygen Delivery Oxygen Delivery Room Air Chest Pain - MDM Narrative Medical decision making narrative: 87 year old female presents to ED with chest pain. She has been stable in ED. Workup has been negative thus far including EKG showing old LBBB, negative troponin, unremarkable labs and vitals. She has been asymptomatic however will require admission for ACS rule out. Discussed with hospitalist, agrees for admission at this time. - Lab Data Result diagrams: 08/27/17 12:36 08/27/17 12:36 Lab Results 08/27/17 08/27/17 08/27/17 Range/Units 12:36 12:36 12:36 WBC 10.6 (4.3-11.1) K/mcL RBC 4.48 (3.82-4.97) M/mcL Hgb 14.1 (11.5-15.4) g/dL Hct 43.1 (35.3-44.9) % MCV 96.2 (83.0-100.0) fL MCH 31.5 (28.0-33.3) pg MCHC 32.7 (31.6-35.5) g/dL RDW 13.6 (11.5-14.5) % Plt Count 187 (140-400) K/mcL MPV 10.8 (9.4-12.4) fL Immature Gran % 0.4 (0-4) % Seg Neutrophils % 74.8 % Lymphocytes % 13.5 % Monocytes % 8.6 % Eosinophils % 2.5 % Basophils % 0.2 % Neutrophils # 7.9 (1.6-8.9) K/mcL Lymphocytes # 1.4 (0.6-4.6) K/mcL Monocytes # 0.9 (0.0-1.3) K/mcL Eosinophils # 0.3 (0.0-0.6) K/mcL Basophils # 0.0 (0.0-0.2) K/mcL PT 12.4 H (9.4-12.1) Seconds INR 1.1 APTT 27.5 (26.0-36.0) Seconds Sodium 140 (136-145) mEq/L Potassium 4.0 (3.5-5.1) mEq/L Chloride 102 (98-107) mEq/L Carbon Dioxide 33 H (23-29) mEq/L BUN 19 (8-23) mg/dL Creatinine 0.77 (0.60-1.20) mg/dL Est GFR ( Amer) > 60 (> 60) Est GFR (Non-Af Amer) > 60 (> 60) BUN/Creatinine Ratio 25 (6-26) Glucose 181 H (70-105) mg/dL Calculated Osmolality 297 (280-300) Calcium 9.6 (8.6-10.3) mg/dL Troponin I 0.03 (< 0.04) ng/mL Heart Score - Score History: Moderately Suspicious EKG: Non Specific repolarisation Disturbance Age: Greater than 65 Risk Factors: Equal/Greater than 3 risk factor or history of atherosclerotic disease Troponin: Less than normal limit HEART Score Total: 6 Attestation Statement - Attestation Attestation: Patient was seen with resident physician. I reviewed the history, physical, assessment and plan, and agree with the findings. I also personally evaluated this patient and had [id number] time with this patient. 87 show female presents to emergency Department with 4-5 minute history of chest pain earlier today. Patient has a history of stents placed approximately year ago and several months ago had an echo which showed only 35% function. Patient states she does not usually get chest pain and this was unusual she said it is extreme heaviness that was in the middle of her chest. She denied afterwards but not while she actively had the pain. She is currently pain-free. She did take her aspirin this morning. No diaphoresis no shortness of breath. On exam vital signs are stable. ENT is unremarkable. Heart and lungs normal. Abdomen is soft and nontender. Extremities do not show any swelling. Neurologically intact and skin no rashes ED course we will do a chest pain workup which essentially was negative chest x-ray showed no abnormalities. EKG shows a left bundle branch block which is old. Troponin is negative. We will speak with the hospitalist service to arrange for admission for further cardiac workup. She was stable in the emergency department. Agree with resident physician assessment and plan.
[2017-08-27 13:06] LABS: Troponin I 0.03 ng/mL (< 0.04)
[2017-08-27 13:08] LABS: BUN/Creatinine Ratio 25 (6-26); Blood Urea Nitrogen 19 mg/dL (8-23); Calcium 9.6 mg/dL (8.6-10.3); Carbon Dioxide 33 mEq/L (23-29); Chloride 102 mEq/L (98-107); Glucose 181 mg/dL (70-105); Osmolality,Calculated 297 (280-300); Sodium 140 mEq/L (136-145); eGFR For African Americans > 60 (> 60); eGFR For Non-African Americans > 60 (> 60)
[2017-08-27] MEDS ORDERED: Naloxone 0.4 MG/ML INJ IVP PRN (15:46)
[2017-08-27] MEDS ORDERED: Nitroglycerin 0.4 MG TAB.SUBL SL PRN (15:56)
[2017-08-27] MEDS ORDERED: Dextrose Gel 15 GM/37.5 ML TUBE PO PRN ×2 (15:57)
[2017-08-27] MEDS ORDERED: D5% in Water 1,000 ML IVC PRN (15:57)
[2017-08-27] MEDS ORDERED: *HR* Dextrose 50 % in Water (Syg) 50 ML SYRINGE IVP PRN (15:57)
--- NOTE | 2017-08-27 16:03 | Internal Med History&Physical ---
<Kristin Pimentel - Last Filed: 08/27/17 16:32> Date of Encounter: 08/27/17 Time of Encounter: 16:00 Assessment and Plan (1) Chest pain Current visit: Yes Status: Acute - Hx of cad with recent stent placement. risk factors including HTN, HLP, and DM. - intermittent atypical chest pain. - troponin negative, and EKG no acute ST-T changes. - will admitted as observation, cycle troponin, EKG as needed, consult cardio. Qualifiers: Chest pain type: chest pain due to myocardial ischemia Ischemic chest pain type: stable angina pectoris Qualified Code(s): I20.8 - Other forms of angina pectoris (2) CAD (coronary artery disease) Current visit: No Status: Chronic - [facility] 10/16/2016: Severe 3 vessel disease. Successful PTCA/CELIA placement to mid circumflex. 70% stenosis proximal LAD. 80% stenosis 1st diagonal. 70-99% stenosis in the mid circumflex. Right coronary artery-calcified 99% stenosis in the proximal RCA. 99% stenosis in the Mid RCA. - cardiac risk factors including HTN, HLP, and DM. - continue asa, plavix, BB, ACEI, and imdur. - continue manage the risk factors, improve BG and BP control. Qualifiers: Coronary Disease-Associated Artery/Lesion type: [place] artery [place] vs. transplanted heart: [place] heart Associated angina: with stable angina Qualified Code(s): I25.118 - Atherosclerotic heart disease of [place] coronary artery with other forms of angina pectoris (3) HTN (hypertension) Current visit: No Status: Chronic - not well controlled, will adjust meds as needed. Qualifiers: Hypertension type: essential hypertension Qualified Code(s): I10 - Essential (primary) hypertension (4) Diabetes Current visit: No Status: Chronic - continue homes, started on insulin sliding scale. 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 - euvolemic on physical - continue current treatment. Qualifiers: Heart failure chronicity: chronic Qualified Code(s): I50.42 - Chronic combined systolic (congestive) and diastolic (congestive) heart failure Internal Medicine - H&P: HPI Chief complaint: chest pain Admitted From: Home Plans for Post Hospital Care: Home History of present illness: Ms. Vilchis is a 87 year old female with PMHx of CAD, [place] with stent placed 2016 presents to ED with a complaint of chest pain starting this morning. She states the pain is substernal pressure which began as she was getting out of bed. She states it last a couple of minutes and then resolved on its own. She did take a nitroglycerin later but states by that time her pain was already gone. She gets these episodes of CP about twice per month. She denies associated symptoms of SOB, lightheadedness, dizziness, abdominal pain, nausea, vomiting, diaphoresis. She is currently asymptomatic during exam. She is a never smoker but is a diabetic. Her daughter reported that she never checks her BG and BP at home. She stated that she takes aspirin and plavix daily. She also states that she feels nasal congested and has dry cough started today. Past Med Surg Social Fam HX - Past Medical History Medical history: coronary artery disease, diabetes, hyperlipidemia, hypertension Psychiatric history: no psych history - Past Surgical History Surgical History: appendectomy, colectomy, colostomy, other - Social History Smoking Status: Unknown if ever smoked Smokeless Tobacco Status: No Alcohol use: none Drug use: none - Family History Son Living Status: Daughter Adopted: No Family Member Ethnicity: Non- Living Status: Still Living Hx Family Cardiac Disorders: No Hx Family Respiratory Disorders: No Hx Family Cancer: Yes (Breast Cancer) Hx Family GI Disorders: No Hx Family Endocrine Disorder: No Hx Family Neuromuscular Disorders: No Hx Family Neurologic Disorders: No Hx Family HEENT Disorders: No Hx Family Autoimmune Disorders: No Father Living Status: Hx Family Cancer: Yes Internal Medicine - H&P: Meds Aspirin [Lo-Dose Aspirin EC] 81 mg PO DAILY 05/28/17 [History] Atorvastatin [Lipitor] 40 mg PO HS 05/28/17 [History] Calcium Carbonate/Vitamin D3 [Liquid Calcium 600-Vit D3 Sfgl] 1 cap PO DAILY 03/06 [History] Carvedilol [Coreg] 6.25 mg PO BIDWM 05/28/17 [History] Clopidogrel [Plavix] 75 mg PO DAILY 05/28/17 [History] Multivitamin [Multivitamins] 1 cap PO DAILY 05/28/17 [History] Nitroglycerin [Nitrostat] 0.4 mg SL Q5M PRN 05/28/17 [History] Pantoprazole Sodium [Protonix] 40 mg PO DAILY 05/28/17 [History] SitaGLIPtin [Januvia] 100 mg PO DAILY 05/28/17 [History] Lisinopril [Zestril] 5 mg PO DAILY #30 tablet 05/30/17 [Rx] Acetaminophen [Tylenol] 500 mg PO Q6H PRN 08/14/17 [History] HydrOXYzine 5 - 10 mg PO BID 08/14/17 [History] Magnesium Oxide [Mag-Ox] 400 mg PO DAILY #30 tablet 08/15/17 [Rx] methylPREDNISolone [Medrol] 4 mg PO TAPER #21 tablet 08/22/17 [Rx] Isosorbide MONOnitrate (24 HR) [Imdur] 90 mg PO DAILY 08/27/17 [History] 3 Allergy/AdvReac Type Severity Reaction Status Date / Time metformin Allergy See Verified 08/22/17 17:36 Comments Sulfa (Sulfonamide Allergy See Verified 08/22/17 17:36 Antibiotics) Comments All Systems PM: A 10-system review of systems was performed and is negative for pertinent findings except as documented above in the HPI. Review of systems: REVIEW OF SYSTEMS: CONSTITUTIONAL: No weight loss, fever, chills, weakness or fatigue. HEENT: Eyes: No visual loss, blurred vision, double vision or yellow sclerae. Ears, Nose, Throat: No hearing loss, sneezing, congestion, runny nose or sore throat. SKIN: No rash or itching. CARDIOVASCULAR: see HPI. RESPIRATORY: see HPI. GASTROINTESTINAL: No anorexia, nausea, vomiting or diarrhea. No abdominal pain or blood. GENITOURINARY: No dysuria, urgency, or frequency. NEUROLOGICAL: No headache, dizziness, syncope, paralysis, ataxia, numbness or tingling in the extremities. No change in bowel or bladder control. MUSCULOSKELETAL: No muscle, back pain, joint pain or stiffness. HEMATOLOGIC: No anemia, bleeding or bruising. LYMPHATICS: No enlarged nodes. No history of splenectomy. PSYCHIATRIC: No history of depression or anxiety. ENDOCRINOLOGIC: No reports of sweating, cold or heat intolerance. No polyuria or polydipsia. - Constitutional Vitals: Temp Pulse Resp BP Pulse Ox 98.3 F 73 18 157/82 98 08/27/17 12:10 08/27/17 15:39 08/27/17 15:39 08/27/17 15:39 08/27/17 15:39 Exam: PHYSICAL EXAMINATION: GENERAL APPEARANCE: The patient is alert, oriented and in no acute distress. HEENT: Head is normocephalic. The sinuses are nontender. Pupils are equal and reactive. The nares are patent. Oropharynx clear without lesions. NECK: Supple without lymphadenopathy. HEART: Regular rate and rhythm. LUNGS: No crackles or wheezes are heard. ABDOMEN: Soft, nontender, nondistended with good bowel sounds heard. Inguinal area is normal. EXTREMITIES: Without cyanosis, clubbing or edema. NEUROLOGICAL: Gross nonfocal. SKIN: Warm and dry without any rash. Internal Med - H&P Results - Labs CBC & Chem 7: 08/27/17 12:36 08/27/17 12:36 <Corby Pascual - Last Filed: 08/27/17 17:25> Date of Encounter: 08/27/17 Internal Medicine - H&P: HPI History of present illness: Ms. Vilchis is a 87 year old female All Systems PM: A 10-system review of systems was performed and is negative for pertinent findings except as documented above in the HPI. - Constitutional Vitals: Temp Pulse Resp BP Pulse Ox 98.8 F 82 16 154/74 96 08/27/17 16:10 08/27/17 16:10 08/27/17 16:10 08/27/17 16:10 08/27/17 16:10 Internal Med - H&P Results - Labs CBC & Chem 7: 08/27/17 12:36 08/27/17 12:36 Labs: Cardiac Enzymes 08/27/17 Range/Units 16:18 Troponin I 0.03 (< 0.04) ng/mL - Attending Attestation I have personally performed a face to face evaluation on this patient. I have reviewed and agree with the care plan provided by NATALIA Pimentel. History and Exam by me shows: Ms. Vilchis is a 87 year old female with PMHx of CAD, GA with stent placed 2016 presents to ED with a complaint of chest pain starting this morning. Her CP is more like sharp pain, located left chest and sub sternal region. Non radiating CP. Denied any active CP now. Gen: A,A, O x 3 Mark: Diminished BS b/l No crackles Heart: S1S2 + RRR 2/6 ESM Abd: Soft, NT BS + a/p 1. Acute chest pain 2. Severe tripple vessel CAD Pt wanted to continued medical management on Tele check [facility] Imdur to 90 will get her BP under control Card consulted
[2017-08-27] MEDS ORDERED: Isosorbide MONOnitrate (24 HR) 60 MG TAB.ER.24H PO SCH ×2 (16:25→16:34)
[2017-08-27] MEDS: Insulin LISPRO 300 UNITS/3 ML VIAL SQ SCH (16:53)
[2017-08-27] MEDS ORDERED: Insulin LISPRO 300 UNITS/3 ML VIAL SQ SCH (21:00)
[2017-08-27] MEDS: methylPREDNISolone 4 MG TABLET PO SCH (21:55)
[2017-08-28 06:06] LABS: Basophils % 0.3 %; Eosinophils # 0.2 K/mcL (0.0-0.6); Eosinophils % 2.2 %; Hematocrit 42.5 % (35.3-44.9); Hemoglobin 14.1 g/dL (11.5-15.4); Immature Granulocytes % 0.3 % (0-4); Lymphocytes % 9.5 %; Mean Corpuscular HGB Conc 33.2 g/dL (31.6-35.5); Mean Corpuscular Hemoglobin 31.7 pg (28.0-33.3); Mean Corpuscular Volume 95.5 fL (83.0-100.0); Mean Platelet Volume 11.7 fL (9.4-12.4); Monocytes # 0.8 K/mcL (0.0-1.3); Monocytes % 7.6 %; Neutrophils # 8.2 K/mcL (1.6-8.9); Platelet Count 191 K/mcL (140-400); Red Blood Count 4.45 M/mcL (3.82-4.97); Red Cell Distribution Width 13.6 % (11.5-14.5); Segmented Neutrophils % 80.1 %
[2017-08-28 06:50] LABS: BUN/Creatinine Ratio 23 (6-26); Blood Urea Nitrogen 15 mg/dL (8-23); Carbon Dioxide 27 mEq/L (23-29); Chloride 101 mEq/L (98-107); Glucose 159 mg/dL (70-105); Osmolality,Calculated 292 (280-300); Potassium 3.6 mEq/L (3.5-5.1); Sodium 139 mEq/L (136-145); eGFR For African Americans > 60 (> 60); eGFR For Non-African Americans > 60 (> 60)
[2017-08-28] MEDS: methylPREDNISolone 4 MG TABLET PO SCH (08:25)
[2017-08-28] MEDS: Insulin LISPRO 300 UNITS/3 ML VIAL SQ SCH ×2 (08:33→12:51)
[2017-08-28] MEDS ORDERED: VITAMIN D3 PO SCH (09:00)
[2017-08-28] MEDS ORDERED: Aspirin Enteric Coated 81 MG Tablet PO SCH (09:00)
[2017-08-28] MEDS ORDERED: Cholecalciferol (D-3) 1,000 UNIT TABLET PO SCH (09:00)
[2017-08-28] MEDS ORDERED: *HR* SitaGLIPtin 100 MG TABLET PO SCH (09:00)
[2017-08-28] MEDS ORDERED: CALCIUM CARBONATE PO SCH (09:00)
[2017-08-28] MEDS ORDERED: [UNRECOGNIZED DRUG - OTHER] PO SCH (09:00)
[2017-08-28] MEDS ORDERED: Magnesium Oxide 400 MG TABLET PO SCH (09:00)
[2017-08-28] MEDS ORDERED: Multivit/Ca/Min/Fe/FA 1 TAB TABLET PO SCH (09:00)
[2017-08-28] MEDS ORDERED: Isosorbide MONOnitrate (24 HR) 30 MG TAB.ER.24H PO SCH (09:00)
--- NOTE | 2017-08-28 10:45 | Cardiology Consult Note ---
Date of Encounter: 08/28/17 Time of Encounter: 10:38 Assessment and Plan (1) Chest pain Current Visit: No Status: Acute Chest pain, possible angina but some atypical features. LORI negative. Would reocmmend increase imdur as was recommended previously, and more aggressive BP control. Qualifiers: Chest pain type: precordial pain Qualified Code(s): R07.2 - Precordial pain Discussion w patient/family: The assessment and plan as outlined above was discussed with the patient and/or family members who expressed understanding and agreement. All questions were answered. Thank you for involving us in the care of your patient. Please call with any questions. History of Present Illness Consult date: 08/28/17 Requesting physician: Julienne Chew Consult reason: Chest pain Chief complaint: Chest Pain History of present illness: Ms. Vilchis is a 87 year old female with known CAD presents with recurrent chest pain. Pain was substernal, came on at rest a lasted just a few minutes. This is her first episode since being admitted in May. At that time medical mgmt. was recomended. Increasing her imdur had been suggested but was not done. She has known CAD, underwent stenting of circ. Known 99% prox. RCA with collaterals form circ. This was reviewed by interventional at last admission and medical mgmt. recommnended. Past Med Surg Social Fam HX - Past Medical History Medical history: coronary artery disease, diabetes, hyperlipidemia, hypertension Psychiatric history: no psych history - Past Surgical History Surgical History: appendectomy, colectomy, colostomy, other - Social History Smoking Status: Unknown if ever smoked Smokeless Tobacco Status: No Alcohol use: none Drug use: none - Family History Son Living Status: Daughter Adopted: No Family Member Ethnicity: Non- Living Status: Still Living Hx Family Cardiac Disorders: No Hx Family Respiratory Disorders: No Hx Family Cancer: Yes (Breast Cancer) Hx Family GI Disorders: No Hx Family Endocrine Disorder: No Hx Family Neuromuscular Disorders: No Hx Family Neurologic Disorders: No Hx Family HEENT Disorders: No Hx Family Autoimmune Disorders: No Father Living Status: Hx Family Cancer: Yes Medications and Allergies Aspirin [Lo-Dose Aspirin EC] 81 mg PO DAILY 05/28/17 [History] Atorvastatin [Lipitor] 40 mg PO HS 05/28/17 [History] Calcium Carbonate/Vitamin D3 [Liquid Calcium 600-Vit D3 Sfgl] 1 cap PO DAILY 03/06 [History] Carvedilol [Coreg] 6.25 mg PO BIDWM 05/28/17 [History] Clopidogrel [Plavix] 75 mg PO DAILY 05/28/17 [History] Multivitamin [Multivitamins] 1 cap PO DAILY 05/28/17 [History] Nitroglycerin [Nitrostat] 0.4 mg SL Q5M PRN 05/28/17 [History] Pantoprazole Sodium [Protonix] 40 mg PO DAILY 05/28/17 [History] SitaGLIPtin [Januvia] 100 mg PO DAILY 05/28/17 [History] Lisinopril [Zestril] 5 mg PO DAILY #30 tablet 05/30/17 [Rx] Acetaminophen [Tylenol] 500 mg PO Q6H PRN 08/14/17 [History] HydrOXYzine 5 - 10 mg PO BID 08/14/17 [History] Magnesium Oxide [Mag-Ox] 400 mg PO DAILY #30 tablet 08/15/17 [Rx] methylPREDNISolone [Medrol] 4 mg PO TAPER #21 tablet 08/22/17 [Rx] Isosorbide MONOnitrate (24 HR) [Imdur] 90 mg PO DAILY 08/27/17 [History] 3 Allergy/AdvReac Type Severity Reaction Status Date / Time metformin Allergy See Verified 08/22/17 17:36 Comments Sulfa (Sulfonamide Allergy See Verified 08/22/17 17:36 Antibiotics) Comments All Systems Review: The remainder of the systems were reviewed and are negative Physical Examination Vital Signs, Last 4 Hours Temp Pulse Resp BP Pulse Ox 08/28/17 07:26 98.1 F 59 16 140/73 91 General: Conversant, No Apparent Distress HEENT: Atraumatic, Normocephaly, Mucus Membranes Moist Neck: No JVD, Normal carotid pulses Cardiac: Reg Rate and Rhythm, Normal S1 and S2, No Murmur Lungs: Normal Breath Sounds, No Wheeze, Rales, Rhonchi Neuro: Alert and responsive, No focal deficits noted Abdomen: Soft, Non-Tender Skin: No rashes noted on visualized skin Musculoskeletal: No Chest Wall Tenderness Results 08/28/17 05:00 08/28/17 05:00 Lab Results 08/27/17 08/27/17 08/28/17 16:18 21:54 05:00 WBC 10.3 Hgb 14.1 Hct 42.5 Plt Count 191 Sodium Potassium Chloride Carbon Dioxide BUN Creatinine Glucose Calcium Troponin I 0.03 0.03 08/28/17 08/28/17 05:00 05:00 WBC Hgb Hct Plt Count Sodium 139 Potassium 3.6 Chloride 101 Carbon Dioxide 27 BUN 15 Creatinine 0.66 Glucose 159 H Calcium 9.0 Troponin I 0.04 H* - EKG Interpretation EKG results cardiology: other (NSR, PAC, LBBB, no acute ST changes) Consult Discharge Plan - Plan Referrals: Alanis Arvizu, PRE KINDERGARTEN TEACHER [Primary Care Provider] -
[2017-08-28 12:29] VITALS: BP 108/68
--- NOTE | 2017-08-28 14:00 | Discharge Summary ---
- NOTES TO OUTPATIENT PROVIDER Notes to Outpatient Provider: Family concerned that patient's anxiety is brain on her chest pain. Recommend following up with her primary care physician and have him discuss altering her anxiety meds Orders not resulted at time of discharge: Pending orders 08/28/17 06:00 ECG 12 lead ECG [ECG] AM 0600 Date of Encounter: 08/28/17 Time of Encounter: 13:58 - Discharge Diagnosis (1) CAD (coronary artery disease) Priority: Primary Status: Chronic Comments: Please see notes under chest pain Cardiology saw and stated Chest pain is possible angina but some atypical features. LORI negative. Would reocmmend increase imdur as was recommended previously, which has been done, and more aggressive BP control. Family feels there is component of anxiety related to the chest pain. I instructed them to speak to their primary care physician regarding anti-anxiety medications. Qualifiers: Coronary Disease-Associated Artery/Lesion type: [place] artery [place] vs. transplanted heart: [place] heart Associated angina: with stable angina Qualified Code(s): I25.118 - Atherosclerotic heart disease of [place] coronary artery with other forms of angina pectoris (2) Chest pain Priority: Primary Status: Acute Comments: Cardiology consulted and saw the patient. Patient has a history of left heart catheter 10/16/16 with severe three-vessel disease with successful PTCA/CELIA placement 70% percent stenosis proximal LAD, 80% stenosis first diagonal, 70-99 % stenosis in the mid circumflex, right coronary artery calcified 99% stenosis in the proximal RCA. 99% stenosis in the mid RCA. Cardiac risk factors include hypertension which has been poorly controlled, HL PE and diabetes. She will continue her aspirin, Plavix,, beta nichole, [place] 1 and Imdur which the dose has been increased from 90 daily to 60 twice a day. She will follow-up with cardiology as directed. She needs to continue to manage her risk factors with improved blood glucose and blood pressure control. 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 Imdur dose has been adjusted to 60 mg twice a day Qualifiers: Hypertension type: essential hypertension Qualified Code(s): I10 - Essential (primary) hypertension (6) Paroxysmal a-fib Priority: Primary Status: Chronic Comments: Sinus rhythm on monitor (7) Anxiety Priority: Primary Status: Chronic Comments: Family states she becomes anxious at times. She is on no anti-anxiety medications. We will defer to her primary care in view of her age. Hospital course: Ms. Vilchis is a 87 year old female Discharge discussed with: patient, family, nurse - Time Spent with Patient Total time spent providing and/or coordinating discharge services: Less than 30 minutes - Discharge Medications Prescriptions: Isosorbide MONOnitrate (24 HR) [Imdur] 60 mg PO BID 30 Days #60 tab.er.24h Home Medications: Aspirin [Lo-Dose Aspirin EC] 81 mg PO DAILY 05/28/17 [History] Atorvastatin [Lipitor] 40 mg PO HS 05/28/17 [History] Calcium Carbonate/Vitamin D3 [Liquid Calcium 600-Vit D3 Sfgl] 1 cap PO DAILY 03/06 [History] Carvedilol [Coreg] 6.25 mg PO BIDWM 05/28/17 [History] Clopidogrel [Plavix] 75 mg PO DAILY 05/28/17 [History] Multivitamin [Multivitamins] 1 cap PO DAILY 05/28/17 [History] Nitroglycerin [Nitrostat] 0.4 mg SL Q5M PRN 05/28/17 [History] Pantoprazole Sodium [Protonix] 40 mg PO DAILY 05/28/17 [History] SitaGLIPtin [Januvia] 100 mg PO DAILY 05/28/17 [History] Lisinopril [Zestril] 5 mg PO DAILY #30 tablet 05/30/17 [Rx] Acetaminophen [Tylenol] 500 mg PO Q6H PRN 08/14/17 [History] HydrOXYzine 5 - 10 mg PO BID 08/14/17 [History] Magnesium Oxide [Mag-Ox] 400 mg PO DAILY #30 tablet 08/15/17 [Rx] methylPREDNISolone [Medrol] 4 mg PO TAPER #21 tablet 08/22/17 [Rx] Isosorbide MONOnitrate (24 HR) [Imdur] 60 mg PO BID 30 Days #60 tab.er.24h 08/28 [Rx] Allergies/Adverse Reactions: 3 Allergy/AdvReac Type Severity Reaction Status Date / Time metformin Allergy See Verified 08/22/17 17:36 Comments Sulfa (Sulfonamide Allergy See Verified 08/22/17 17:36 Antibiotics) Comments Date of admission: 87-year-old female with known CAD presented with recurrent chest pain. Pain was substernal and came at rest which lasted a few minutes. She was admitted with same in May. At that time medical management was recommended. Increasing her Imdur had been suggested but was not done. She has known CAD underwent stenting of the circumflex with no 99% proximal RCA with collaterals from the circumflex. Medical management continues to be recommended and her Imdur dose has been increased from 90 daily to 60 mg twice a day. Patient has had no further chest pain her blood pressure is stable. It is recommended she have tighter control of her blood pressure and blood glucose. She is to follow up with her PCP this week. Son is concerned this is anxiety driven and night ask him to discuss this with his primary care physician. Please refer to the assessment and plan for further details of this admission Primary care physician: Alanis Arvizu CNP Consults: 08/27/17 16:26 Consult to Cardiology [CONS] Routine Comment: Consulting Provider: Cardiology Susi Reason for Consult: chest pain Call Completed: Yes Discharging clinician: Nya Gutierrez Anticipated date of discharge: 08/28/17 - Constitutional Vitals: Temp Pulse Resp BP Pulse Ox 97.8 F 80 16 108/68 97 08/28/17 12:28 08/28/17 12:28 08/28/17 12:28 08/28/17 12:28 08/28/17 12:28 General appearance: Present: cooperative, A&O X 3, pleasant, no acute distress, answers questions appropriately - Head Head exam: Present: atraumatic, normocephalic - Eye Eye exam: Present: PERRL, conjuntiva pink, sclera anicteric Pupils: Present: PERRL - Neck Neck exam general surgery: Present: supple, trachea midline. Absent: lymphadenopathy - Respiratory Respiratory exam: Present: CTAB. Absent: accessory muscle use, rales, rhonchi, wheezes - Cardiovascular Cardiovascular exam: Present: RRR, +S1, +S2. Absent: diastolic murmur, gallop, rubs, systolic murmur - GI/Abdominal GI/Abdominal exam: Present: normal bowel sounds, soft, no peritoneal signs. Absent: distended, tenderness - Extremities Exam Extremities exam: Present: warm, radial pulses palpable and symmetrical. Absent : calf tenderness, cyanotic, pedal edema - Neurological Exam Neurological exam: Present: alert, CN II-XII intact, oriented X3, no focal deficits. Absent: pronater drift, facial droop, speech deficit - Skin Skin exam: Present: dry, intact, normal color, warm - Patient Status Disposition: Home, Self-Care Condition: Fair Functional capacity at discharge: independent ambulation Overall status at discharge: patient is back to baseline - Discharge Instructions Follow Up With: Alanis Arvizu, FIELD HUMAN RESOURCES MANAGER [Primary Care Provider] - - Diet and Activity Activity: resume usual activities as tolerated Diet: advance to your usual diet, low fat, low cholesterol, low salt diet
[2017-08-28] MEDS ORDERED: Isosorbide MONOnitrate (24 HR) 60 MG TAB.ER.24H PO SCH (21:00)
--- NOTE | 2017-08-29 19:28 | Electrocardiograph Report ---
[place] [id number] Test Date: 2017-08-27 Pat Name: Florina Vilchis Department: 103 Room: 24 Gender: Female Complaint Specialist: PARKER : 1930 Requested By: Julienne Chew Order Number: [id number] Reading MD: Nathan Blanco MD Measurements Intervals [place] Rate: 70 P: 29 SD: 153 QRS: -21 QRSD: 140 T: 156 QT: 453 QTc: 474 Interpretive Statements SINUS RHYTHM WITH OCCASIONAL SUPRAVENTRICULAR PREMATURE COMPLEXES W BLOCKED PAC/SINUS BEAT LEFT BUNDLE BRANCH BLOCK BASELINE ARTIFACT COMPLICATES ACCURATE INTERPRETATION Electronically Signed On 08-29-2017 19:27:13 EDT by Nathan Blanco MD
--- NOTE | 2017-08-29 19:35 | Electrocardiograph Report ---
[place] [id number] Test Date: 2017-08-27 Pat Name: Florina Vilchis Department: 103 Room: 3B23 Gender: F Roller Setter: : 1930 Requested By: Mick Scott Order Number: [id number] Reading MD: Nathan Blanco MD Measurements Intervals [place] Rate: 61 P: 62 ME: 153 QRS: -24 QRSD: 146 T: 153 QT: 477 QTc: 480 Interpretive Statements SINUS RHYTHM WITH OCCASIONAL SUPRAVENTRICULAR PREMATURE COMPLEXES LEFT BUNDLE BRANCH BLOCK Poor R wave progression Electronically Signed On 08-29-2017 19:33:17 EDT by Nathan Blanco MD
--- NOTE | 2017-08-29 19:53 | Electrocardiograph Report ---
[address] [place], [place] [address] Test Date: 2017-08-28 Pat Name: Florina Vilchis Department: 113 Room: 3B23 Gender: F Surface Grinder: [id number] : 1930 Requested By: Kristin Pimentel Order Number: [id number] Reading MD: Nathan Blanco MD Measurements Intervals [place] Rate: 55 P: 36 OR: 151 QRS: -28 QRSD: 157 T: 170 QT: 533 QTc: 522 Interpretive Statements SINUS BRADYCARDIA WITH OCCASIONAL SUPRAVENTRICULAR PREMATURE COMPLEXES W BLOCKED PAC LEFT BUNDLE BRANCH BLOCK Electronically Signed On 08-29-2017 19:52:30 EDT by Nathan Blanco MD
== END 2017-08-28 15:28 | disposition home or self-care (01) ==
LOC: EMEROO 12:04 → 3BNU 12:04
PROVIDERS: ADMIT Family Medicine; ATTEND Registered Nurse

== ENCOUNTER 2017-09-08 03:20 | Observation (INO) ==
[2017-09-08] MEDS ORDERED: Aspirin 81 MG TAB.CHEW PO ONE (03:47)
[2017-09-08 04:03] LABS: Basophils % 0.1 %; Hematocrit 40.4 % (35.3-44.9); Hemoglobin 13.1 g/dL (11.5-15.4); Immature Granulocytes % 0.5 % (0-4); Lymphocytes # 0.6 K/mcL (0.6-4.6); Lymphocytes % 4.4 %; Mean Corpuscular HGB Conc 32.4 g/dL (31.6-35.5); Mean Corpuscular Hemoglobin 31.4 pg (28.0-33.3); Mean Corpuscular Volume 96.9 fL (83.0-100.0); Mean Platelet Volume 10.7 fL (9.4-12.4); Monocytes # 0.5 K/mcL (0.0-1.3); Monocytes % 3.9 %; Neutrophils # 12.8 K/mcL (1.6-8.9); Platelet Count 239 K/mcL (140-400); Red Blood Count 4.17 M/mcL (3.82-4.97); Red Cell Distribution Width 13.5 % (11.5-14.5); Segmented Neutrophils % 91.1 %
[2017-09-08 04:09] LABS: INR 1.1; Prothrombin Time 12.3 Seconds (9.4-12.1)
[2017-09-08 04:12] LABS: Activated Partial Thrombo Time 27.7 Seconds (26.0-36.0)
[2017-09-08 04:23] LABS: BUN/Creatinine Ratio 29 (6-26); Blood Urea Nitrogen 28 mg/dL (8-23); Calcium 9.3 mg/dL (8.6-10.3); Carbon Dioxide 29 mEq/L (23-29); Chloride 102 mEq/L (98-107); Glucose 368 mg/dL (70-105); Osmolality,Calculated 306 (280-300); Potassium 4.1 mEq/L (3.5-5.1); Sodium 138 mEq/L (136-145); eGFR For African Americans > 60 (> 60); eGFR For Non-African Americans 56 (> 60)
[2017-09-08 04:24] LABS: Troponin I < 0.03 ng/mL (< 0.04)
--- NOTE | 2017-09-08 04:31 | Emergency Department Note ---
Disposition Clinical Impression: CAD (coronary artery disease) Qualifiers: Coronary Disease-Associated Artery/Lesion type: unspecified vessel or lesion type [place] vs. transplanted heart: [place] heart Associated angina: with unstable angina Qualified Code(s): I25.110 - Atherosclerotic heart disease of [place] coronary artery with unstable angina pectoris Chest pain Qualifiers: Chest pain type: chest pain due to myocardial ischemia Ischemic chest pain type : stable angina pectoris Qualified Code(s): I20.8 - Other forms of angina pectoris Disposition: Admitted As Inpatient Condition: Fair Time of Disposition: 04:34 Chest Pain HPI - General Chief Complaint: ED Chest Pain Stated Complaint: CP Time Seen by Provider: 09/08/17 03:33 Source: patient Mode of arrival: ambulatory Limitations: no limitations Vital Signs Reviewed: Yes Nursing Notes Reviewed: Yes - History of Present Illness HPI Narrative: 87-year-old female presents to the emergency department with chest pain. Said it started approximately 2:00 this morning while she was watching a movie. So they came on all of a sudden is about 8 out 10 nonradiating. Says she was not nauseous or vomiting. But did feel similar to her previous heart attack or she had ever placed approximately one year ago. She did take 2 nitroglycerin while there. She does take a daily aspirin. But takes in the morning. She says the chest pain is now gone after nitroglycerin completely took away. Patient otherwise having no complaints including no fevers, chills, nausea, vomiting, shortness of breath, abdominal pain, change in bowel movement, pain with urination, neck pain, back pain, headache, blurry vision, peritoneal and on the arms and legs are in generalized weakness. Severity scale (1-10): 8 - Related Data Home Medications Medication Instructions Recorded Confirmed Aspirin [Lo-Dose Aspirin EC] 81 mg PO DAILY 05/28/17 08/27/17 Atorvastatin [Lipitor] 40 mg PO HS 05/28/17 08/27/17 Calcium Carbonate/Vitamin D3 1 cap PO DAILY 05/28/17 08/27/17 [Liquid Calcium 600-Vit D3 Sfgl] Carvedilol [Coreg] 6.25 mg PO BIDWM 05/28/17 08/27/17 Clopidogrel [Plavix] 75 mg PO DAILY 05/28/17 08/27/17 Multivitamin [Multivitamins] 1 cap PO DAILY 05/28/17 08/27/17 Nitroglycerin [Nitrostat] 0.4 mg SL Q5M PRN 05/28/17 08/27/17 Pantoprazole Sodium [Protonix] 40 mg PO DAILY 05/28/17 08/27/17 SitaGLIPtin [Januvia] 100 mg PO DAILY 05/28/17 08/27/17 Acetaminophen [Tylenol] 500 mg PO Q6H PRN 08/14/17 08/27/17 HydrOXYzine 5 - 10 mg PO BID 08/14/17 08/27/17 Previous Rx's Medication Instructions Recorded Lisinopril [Zestril] 5 mg PO DAILY #30 tablet 05/30/17 Magnesium Oxide [Mag-Ox] 400 mg PO DAILY #30 tablet 08/15/17 methylPREDNISolone [Medrol] 4 mg PO TAPER #21 tablet 08/22/17 Isosorbide MONOnitrate (24 HR) 60 mg PO BID 30 Days #60 tab.er.24h 08/28/17 [Imdur] Allergies Allergy/AdvReac Type Severity Reaction Status Date / Time metformin Allergy See Verified 09/08/17 03:24 Comments Sulfa (Sulfonamide Allergy See Verified 09/08/17 03:24 Antibiotics) Comments Review of Systems: 10 point review of systems done and negative unless otherwise stated in the history of present illness. All systems ED: reviewed and negative except as stated. Review of Systems: As Per HPI Chest Pain PMH - Past Medical History Medical history: Reports: coronary artery disease, diabetes, hyperlipidemia, hypertension Surgical history: Reports: appendectomy, colectomy, colostomy, other Psychiatric history: Reports: no psych history JANITOR CUSTODIAN history: Reports: no JANITOR CUSTODIAN history - Social History Smoking Status: Never smoker Alcohol use: Reports: none Drug use: Reports: none Physical Exam - General Limitations: no limitations General appearance: alert - Head Head exam: atraumatic, normocephalic, normal inspection - Eye Eye exam: Present: normal appearance, PERRL, EOMI - ENT ENT exam: normal exam, normal oropharynx, mucous membranes moist - Neck Neck exam: Present: normal inspection, full ROM, trachea midline - Chest Chest inspection: Present: normal inspection, symmetric chest wall rise - Respiratory Respiratory exam: Present: normal lung sounds bilaterally - Cardiovascular Cardiovascular exam: Present: regular rate, normal rhythm, normal heart sounds - Abdominal Exam Abdominal exam: Present: soft, Non-Tender. Absent: tenderness, distention, guarding, rebound, rigidity - Extremities Exam Extremities exam: Present: normal inspection, full ROM. Absent: tenderness, pedal edema - Expanded Lower Extremity Exam Neurovascular/Tendon exam: Present: normal capillary refill. Absent: pulse deficit, motor deficit, sensory deficit, tendon deficit - Back Exam Back exam: Present: normal inspection, full ROM. Absent: tenderness, CVA tenderness (R), CVA tenderness (L) - Neurological Exam Neurological exam: Present: alert, oriented X3 - Skin Skin exam: Present: warm, dry, intact, normal color Course Course Narrative: 87-year-old female presents to the emergency department with chest pain. We will do normal chest pain workup including CBC, CMP, troponin as well as chest x -ray EKG. Patient had a gotten aspirins will give her aspirin as she R he took nitroglycerin and chest pain is completely alleviated. Disposition most likely is admission. Vital Signs Temperature 98.1 F 09/08/17 03:21 Pulse Rate 75 09/08/17 03:21 Respiratory Rate 20 09/08/17 03:21 Blood Pressure 129/73 09/08/17 03:21 O2 Sat by Pulse Oximetry 96 09/08/17 03:21 Temperature 98.1 F 09/08/17 03:21 Pulse Rate 75 09/08/17 03:21 Respiratory Rate 20 09/08/17 03:21 Blood Pressure 129/73 09/08/17 03:21 O2 Sat by Pulse Oximetry 96 09/08/17 03:21 Oxygen Delivery Oxygen Delivery Room Air Chest Pain - [facility] Narrative Medical decision making narrative: 87-year-old male presents to the emergency department complaining of chest pain. She does have history of stents also has diabetes. Chest pain is alleviated with nitroglycerin. Did give aspirin while she was here. EKG had no acute changes she had a left bundle-branch block that is old when comparison with old one. She recently was admitted approximately 2-3 weeks ago for similar issue. Discharged home and followed up with cardiology with no complaints. Due to patient's history as well as a going away with nitroglycerin and risk factors patient are sore 5 we felt that admission was warranted. Spoke with the Hospital is Dr. Cárdenas who agreed to admit the patient with her service. Patient is admitted hospital service and stable condition. Chest X-Ray 09/08/17 03:47 IMPRESSION: No acute cardiopulmonary findings. Cardiomegaly. Chronic interstitial disease. D/ / Wilner Vidal MD / Wilner Vidal MD Interpreting Provider: Wilner Vidal MD - Medical Records Medical records reviewed: Yes I reviewed the patient's medical records. - Lab Data Lab results reviewed: Yes I reviewed the patient's lab results. Result diagrams: 09/08/17 03:45 09/08/17 03:45 Lab Results 09/08/17 09/08/17 09/08/17 Range/Units 03:45 03:45 03:45 WBC 14.0 H (4.3-11.1) K/mcL RBC 4.17 (3.82-4.97) M/mcL Hgb 13.1 (11.5-15.4) g/dL Hct 40.4 (35.3-44.9) % MCV 96.9 (83.0-100.0) fL MCH 31.4 (28.0-33.3) pg MCHC 32.4 (31.6-35.5) g/dL RDW 13.5 (11.5-14.5) % Plt Count 239 (140-400) K/mcL MPV 10.7 (9.4-12.4) fL Immature Gran % 0.5 (0-4) % Seg Neutrophils % 91.1 % Lymphocytes % 4.4 % Monocytes % 3.9 % Eosinophils % 0.0 % Basophils % 0.1 % Neutrophils # 12.8 H (1.6-8.9) K/mcL Lymphocytes # 0.6 (0.6-4.6) K/mcL Monocytes # 0.5 (0.0-1.3) K/mcL Eosinophils # 0.0 (0.0-0.6) K/mcL Basophils # 0.0 (0.0-0.2) K/mcL PT 12.3 H (9.4-12.1) Seconds INR 1.1 APTT 27.7 (26.0-36.0) Seconds Sodium 138 (136-145) mEq/L Potassium 4.1 (3.5-5.1) mEq/L Chloride 102 (98-107) mEq/L Carbon Dioxide 29 (23-29) mEq/L BUN 28 H (8-23) mg/dL Creatinine 0.95 (0.60-1.20) mg/dL Est GFR ( Amer) > 60 (> 60) Est GFR (Non-Af Amer) 56 L (> 60) BUN/Creatinine Ratio 29 H (6-26) Glucose 368 H (70-105) mg/dL Calculated Osmolality 306 H (280-300) Calcium 9.3 (8.6-10.3) mg/dL Troponin I < 0.03 (< 0.04) ng/mL - Radiology Data Radiology results reviewed: Yes I reviewed the patient's radiology results. - EKG Data EKG attestation: Yes I reviewed and interpreted this EKG. EKG results narrative: EKG done at [age] year myself intending shows sinus rhythm at a rate of 79, PA 159, QRS 154, QTC 492 with a leftward axis. There is no acute ST changes no acute T-wave changes no other signs of ischemia. She does have a left bundle- branch block that is old in comparison with old no heart strain or hypertrophy or WPW/Brugada syndrome. The bundle-branch is present in old EKG done on . Heart Score - Score History: Slightly Suspicious EKG: Non Specific repolarisation Disturbance Age: Greater than 65 Risk Factors: Equal/Greater than 3 risk factor or history of atherosclerotic disease Troponin: Less than normal limit HEART Score Total: 5
--- NOTE | 2017-09-08 04:54 | Internal Med History&Physical ---
Date of Encounter: 09/08/17 Time of Encounter: 04:50 Assessment and Plan (1) Chest pain Current visit: Yes Status: Acute recurrent chest pain with recurrent admission trend trop, tele, pulse ox BP low normal for her age. Unable to increase coreg dosing. Already on increased dose of imdur. consult cards for further guidance on plan of care. Evaluate benefit of ranexa ? Qualifiers: Chest pain type: chest pain due to myocardial ischemia Ischemic chest pain type: stable angina pectoris Qualified Code(s): I20.8 - Other forms of angina pectoris (2) CAD (coronary artery disease) Current visit: Yes Status: Chronic plan as above Qualifiers: Coronary Disease-Associated Artery/Lesion type: unspecified vessel or lesion type [place] vs. transplanted heart: [place] heart Associated angina: with unstable angina Qualified Code(s): I25.110 - Atherosclerotic heart disease of [place] coronary artery with unstable angina pectoris (3) Diabetes Current visit: No Status: Chronic poor control on januvia alone check A1c Add ISS diabetic education may need home insulin depending on A1c number Qualifiers: Diabetes mellitus type: type 2 Diabetes mellitus fpc insulin use: unspecified intermediate teacher insulin use status Diabetes mellitus complication status : without complication Qualified Code(s): E11.9 - Type 2 diabetes mellitus without complications (4) HTN (hypertension) Current visit: No Status: Chronic Qualifiers: Hypertension type: essential hypertension Qualified Code(s): I10 - Essential (primary) hypertension (5) Hyperlipemia Current visit: No Status: Chronic Qualifiers: Hyperlipidemia type: mixed hyperlipidemia Qualified Code(s): E78.2 - Mixed hyperlipidemia (6) Paroxysmal a-fib Current visit: No Status: Chronic Internal Medicine - H&P: HPI Chief complaint: Chest pain History of present illness: Ms. Vilchis is a 87 year old female with a history of CAD status post stents who presents with chest pain evaluation. She was sitting at home watching TV at about 2 AM in the morning when she developed sternal chest pain, radiating down the sternum, 8 out of 10, pressure- like sensation, associated with bilateral arm numbness, improved with nitroglycerin x2 tabs. On review of medical history it appears that she completed left heart catheter with severe three-vessel disease with successful PTCA/CELIA placement 70% percent stenosis proximal LAD, 80% stenosis first diagonal, 70-99% stenosis in the mid circumflex, right coronary artery calcified 99% stenosis in the proximal RCA. 99% stenosis in the mid RCA. She subsequently completed a stress test in May 2017 with plans for continued medical management. She was again seen earlier this month in August for similar chest pain presentation. Was evaluated by cardiology with recommendation to increase the dose of Imdur from 90mg QD to 60mg BID She has a colostomy status post colon cancer surgery in April 2012 EKG personally reviewed with rate of 79, left bundle branch block XR/XR chest 1V portable IMPRESSION: No acute cardiopulmonary findings. Cardiomegaly. Chronic interstitial disease. Past Med Surg Social Fam HX - Past Medical History Medical history: coronary artery disease, diabetes, hyperlipidemia, hypertension Psychiatric history: no psych history - Past Surgical History Surgical History: appendectomy, colectomy, colostomy, other - Social History Smoking Status: Never smoker Smokeless Tobacco Status: No Alcohol use: none Drug use: none - Family History Son Living Status: Daughter Adopted: No Family Member Ethnicity: Non- Living Status: Still Living Hx Family Cardiac Disorders: No Hx Family Respiratory Disorders: No Hx Family Cancer: Yes (Breast Cancer) Hx Family GI Disorders: No Hx Family Endocrine Disorder: No Hx Family Neuromuscular Disorders: No Hx Family Neurologic Disorders: No Hx Family HEENT Disorders: No Hx Family Autoimmune Disorders: No Father Living Status: Hx Family Cancer: Yes Internal Medicine - H&P: Meds Aspirin [Lo-Dose Aspirin EC] 81 mg PO DAILY 05/28/17 [History] Atorvastatin [Lipitor] 40 mg PO HS 05/28/17 [History] Calcium Carbonate/Vitamin D3 [Liquid Calcium 600-Vit D3 Sfgl] 1 cap PO DAILY 03/06 [History] Carvedilol [Coreg] 6.25 mg PO BIDWM 05/28/17 [History] Clopidogrel [Plavix] 75 mg PO DAILY 05/28/17 [History] Multivitamin [Multivitamins] 1 cap PO DAILY 05/28/17 [History] Nitroglycerin [Nitrostat] 0.4 mg SL Q5M PRN 05/28/17 [History] Pantoprazole Sodium [Protonix] 40 mg PO DAILY 05/28/17 [History] SitaGLIPtin [Januvia] 100 mg PO DAILY 05/28/17 [History] Lisinopril [Zestril] 5 mg PO DAILY #30 tablet 05/30/17 [Rx] Acetaminophen [Tylenol] 500 mg PO Q6H PRN 08/14/17 [History] HydrOXYzine 5 - 10 mg PO BID 08/14/17 [History] Magnesium Oxide [Mag-Ox] 400 mg PO DAILY #30 tablet 08/15/17 [Rx] methylPREDNISolone [Medrol] 4 mg PO TAPER #21 tablet 08/22/17 [Rx] Isosorbide MONOnitrate (24 HR) [Imdur] 60 mg PO BID 30 Days #60 tab.er.24h 08/28 [Rx] 3 Allergy/AdvReac Type Severity Reaction Status Date / Time metformin Allergy See Verified 09/08/17 03:24 Comments Sulfa (Sulfonamide Allergy See Verified 09/08/17 03:24 Antibiotics) Comments All Systems PM: A 10-system review of systems was performed and is negative for pertinent findings except as documented above in the HPI. Review of systems: ROS 14 point review of systems reviewed as best as possible given presentation. Pertinent positive or negative as per HPI or otherwise reviewed as negative - Constitutional Vitals: Temp Pulse Resp BP Pulse Ox 98.1 F 72 16 115/64 95 09/08/17 03:21 09/08/17 04:32 09/08/17 04:32 09/08/17 04:32 09/08/17 04:32 Exam: General - AAO x 3 Psych - Appropriate affect/speech. No agitation Eyes - YANELIS. Eye lids intact. No scleral icterus Neuro - No gross peripheral or central neuro deficits on inspection Heart - Sinus. RRR. S1 and S2 present. No added HS/murmurs appreciated. No elevated JVD appreciated. Lung - Adequate air entry b/l, No crackles/wheezes appreciated GI - stoma present. Soft, non-tender. No hepatosplenomegaly/ascites. BS+ - No CVA/suprapubic tenderness or palpable bladder distension Skin - Intact. No rash/petechiae/ecchymosis. Warm extremities MSK - Joints with normal ROM. No joint swellings Internal Med - H&P Results - Labs CBC & Chem 7: 09/08/17 03:45 09/08/17 03:45
[2017-09-08] MEDS ORDERED: Naloxone 0.4 MG/ML INJ IVP PRN (05:05)
[2017-09-08] MEDS ORDERED: *HR* Dextrose 50 % in Water (Syg) 50 ML SYRINGE IVP PRN (05:06)
[2017-09-08] MEDS ORDERED: Dextrose Gel 15 GM/37.5 ML TUBE PO PRN ×2 (05:06)
[2017-09-08] MEDS ORDERED: D5% in Water 1,000 ML IVC PRN (05:06)
[2017-09-08] MEDS: Insulin LISPRO 300 UNITS/3 ML VIAL SQ SCH ×2 (08:16→11:51)
[2017-09-08] MEDS: Aspirin Enteric Coated 81 MG Tablet PO SCH (08:20)
[2017-09-08] MEDS: *HR* SitaGLIPtin 100 MG TABLET PO SCH (08:20)
[2017-09-08] MEDS: Cholecalciferol (D-3) 1,000 UNIT TABLET PO SCH (08:20)
[2017-09-08] MEDS: Isosorbide MONOnitrate (24 HR) 60 MG TAB.ER.24H PO SCH ×2 (08:20→21:09)
[2017-09-08] MEDS: Magnesium Oxide 400 MG TABLET PO SCH (08:21)
[2017-09-08] MEDS ORDERED: Isosorbide MONOnitrate (24 HR) 60 MG TAB.ER.24H PO SCH (09:00)
[2017-09-08 09:48] LABS: Estimated Average Glucose 166 mg/dl; Hemoglobin A1C 7.4 %
--- NOTE | 2017-09-08 11:08 | Cardiology Consult Note ---
Date of Encounter: 09/08/17 Time of Encounter: 08:30 Assessment and Plan (1) Chest pain Current Visit: No Status: Chronic Per cardiology: -Presents with chest pain, occured at rest. -Relieved with 2 nitro at home. -Denies recurrence since, chest pain free. -Initial troponin negative, then 0.05. -No acute ischemic ECG changes. -On imdur. -Of note, daughter reports she feels anxiety plays a role in her mother's chest pain. Reports PCP recently started anti-anxiety medications TID. -Will add ranexa 500mg BID. - will review [facility] films. Qualifiers: Chest pain type: unspecified Qualified Code(s): R07.9 - Chest pain, unspecified (2) Elevated troponin Current Visit: Yes Status: Acute Per cardiology: -Initial troponin negative, then 0.05. -Appears to have somewhat chronically elevated troponins. -Denies current chest pain. -ECG with no acute changes. -TTE 08/15/17 with LVEF 35%, global hypokinesis. -Known severe CAD. -Of note, WBC 14. -Recommend trending troponins. -Do not suspect NSTEMI at this time. Has chronically elevated troponins. (3) Cardiomyopathy Current Visit: Yes Status: Chronic Per cardiology: -Known cardiomyopathy. -LVEf 09/2016 45%. -08/15/17 LVEF 35%, global hypokinesis. -On beta nichole and reginald inhibitor. -Euvolemic on exam. -Will continue to monitor. Qualifiers: Cardiomyopathy type: unspecified Qualified Code(s): I42.9 - Cardiomyopathy , unspecified (4) Paroxysmal a-fib Current Visit: No Status: Chronic Per cardiology: -Known PAF. -On beta nichole. -Gtnmg3exae score 7 (age 3, Gender, HTN, CHF, CAD, DM). Not on anticoagulation due to significant GI bleed on coumadin. Patient and family aware of greatly increased risk of CVA/embolic event off anticoagulation, and accept risk -HR controlled. -SR per telemetry. -Will continue to monitor. (5) CAD (coronary artery disease) Current Visit: Yes Status: Chronic Per cardiology: -Known CAD -[facility] 10/16/2016: Severe 3 vessel disease. Successful PTCA/CELIA placement fot mid circumflex. Left anterior descending 70% stenosis proximal LAD. 80% stenosis 1st diagonal. 70-99% stenosis that is aneurysmal in the mid circumflex with CELIA placed. Right coronary artery-calcified 99% stenosis in the proximal RCA. 99% stenosis in the Mid RCA. -Stress 05/2017 with There is a mild-moderate intensity stress perfusion defect involving the mid to distal inferior wall and distal inferoseptum. Findings represent mild to moderate ischemia (SDS 6). There is transient ischemic dilatation. -Stress Adán abnormal, however correlates with known RCA lesion. Medical management was recommended at that time. -On asa, plavix, statin, beta nichole, imdur. -Ranexa has been added. Will continue to monitor. Qualifiers: Coronary Disease-Associated Artery/Lesion type: [place] artery [place] vs. transplanted heart: [place] heart Associated angina: with unspecified angina Qualified Code(s): I25.119 - Atherosclerotic heart disease of [place] coronary artery with unspecified angina pectoris Discussion w patient/family: The assessment and plan as outlined above was discussed with the patient and/or family members who expressed understanding and agreement. All questions were answered. Thank you for involving us in the care of your patient. Please call with any questions. Discussed and reviewed with . History of Present Illness Consult date: 09/08/17 Requesting physician: Melina Cárdenas Consult reason: recurrent chest pain Chief complaint: chest pain History of present illness: Ms. Vilchis is a 87 year old female with a relevant past medical history of CAD s/p PCI, cardiomyopathy, HTN, hyperlipidemia, DM, paroxysmal atrial fibrillation not on anticoagulation due to GI bleed, colon CA. Patient presented to [facility] with complaints of mid sternal chest pain. Patient states pain started while sitting down at rest. Patient states pain radiated to both arms. Denies aggravating symptoms. Pateint states pain was relieved with 2 nitro at home. Denies exertional symptoms. Denies current chest pain. Of note, daughter thinks that anxiety may be playing a part in chest pain and states PCP recently started patient on a daily anti-anxiety regimen. Past Med Surg Social Fam HX - Past Medical History Attestation: Yes The following information was validated with the patient. Source: patient, old records reviewed, obtained from family Medical history: atrial fibrillation, cardiomyopathy, coronary artery disease, diabetes, hyperlipidemia, hypertension Psychiatric history: no psych history - Past Surgical History Surgical History: appendectomy, colectomy, colostomy, other - Social History Smoking Status: Never smoker Smokeless Tobacco Status: No Alcohol use: none Drug use: none - Family History Son Living Status: Daughter Adopted: No Family Member Ethnicity: Non- Living Status: Still Living Hx Family Cardiac Disorders: No Hx Family Respiratory Disorders: No Hx Family Cancer: Yes (Breast Cancer) Hx Family GI Disorders: No Hx Family Endocrine Disorder: No Hx Family Neuromuscular Disorders: No Hx Family Neurologic Disorders: No Hx Family HEENT Disorders: No Hx Family Autoimmune Disorders: No Father Living Status: Hx Family Cancer: Yes Medications and Allergies Aspirin [Lo-Dose Aspirin EC] 81 mg PO DAILY 05/28/17 [History] Atorvastatin [Lipitor] 40 mg PO HS 05/28/17 [History] Calcium Carbonate/Vitamin D3 [Liquid Calcium 600-Vit D3 Sfgl] 1 cap PO DAILY 03/06 [History] Carvedilol [Coreg] 6.25 mg PO BIDWM 05/28/17 [History] Clopidogrel [Plavix] 75 mg PO DAILY 05/28/17 [History] Multivitamin [Multivitamins] 1 cap PO DAILY 05/28/17 [History] Nitroglycerin [Nitrostat] 0.4 mg SL Q5M PRN 05/28/17 [History] Pantoprazole Sodium [Protonix] 40 mg PO DAILY 05/28/17 [History] SitaGLIPtin [Januvia] 100 mg PO DAILY 05/28/17 [History] Acetaminophen [Tylenol] 500 mg PO Q6H PRN 08/14/17 [History] HydrOXYzine 5 - 10 mg PO TID 08/14/17 [History] Magnesium Oxide [Mag-Ox] 400 mg PO DAILY #30 tablet 08/15/17 [Rx] methylPREDNISolone [Medrol] 4 mg PO TAPER #21 tablet 08/22/17 [Rx] Isosorbide MONOnitrate (24 HR) [Imdur] 60 mg PO BID 30 Days #60 tab.er.24h 08/28 [Rx] Lisinopril [Zestril] 10 mg PO DAILY 09/08/17 [History] 3 Allergy/AdvReac Type Severity Reaction Status Date / Time metformin Allergy See Verified 09/08/17 03:24 Comments Sulfa (Sulfonamide Allergy See Verified 09/08/17 03:24 Antibiotics) Comments All Systems Review: The remainder of the systems were reviewed and are negative - Cardiovascular Cardiovascular: as per HPI, chest pain at rest, radiating jaw, neck or arm pain Physical Examination Vital Signs, Last 4 Hours Temp Pulse Resp BP Pulse Ox 09/08/17 08:05 97.8 F 68 135/68 94 09/08/17 07:23 97.8 F 66 14 135/68 94 General: Conversant, No Apparent Distress HEENT: Atraumatic, Normocephaly, Mucus Membranes Moist Neck: No JVD, Normal carotid pulses Cardiac: Reg Rate and Rhythm, Normal S1 and S2, No Murmur Lungs: Normal Breath Sounds, No Wheeze, Rales, Rhonchi Neuro: Alert and responsive, No focal deficits noted Abdomen: Soft, Non-Tender Skin: No rashes noted on visualized skin Musculoskeletal: No Chest Wall Tenderness Extremities: No Clubbing, No Cyanosis, No Edema, Normal Pulses Results 09/08/17 03:45 09/08/17 03:45 Lab Results Impressions Chest X-Ray 09/08/17 03:47 IMPRESSION: No acute cardiopulmonary findings. Cardiomegaly. Chronic interstitial disease. D/ / Wilner Vidal MD / Wilner Vidal MD Interpreting Provider: Wilner Vidal MD Active Medications Acetaminophen (Tylenol) 500 mg PO Q6H PRN PRN Reason: Pain Stop: 03/10/18 04:59 Aspirin (Aspirin Ec) 81 mg PO DAILY JOSE MIGUEL Stop: 03/10/18 09:01 Last Admin: 09/08/17 08:20 Dose: 81 mg Atorvastatin Calcium (Lipitor) 40 mg PO HS JOSE MIGUEL Stop: 03/10/18 21:01 Calcium Carbonate (Tums) 500 mg PO DAILY JOSE MIGUEL PRN Reason: Protocol Stop: 03/10/18 09:01 Last Admin: 09/08/17 08:19 Dose: 500 mg Carvedilol (Coreg) 6.25 mg PO BIDWM JOSE MIGUEL PRN Reason: Protocol Stop: 03/10/18 08:01 Last Admin: 09/08/17 08:20 Dose: 6.25 mg Clopidogrel Bisulfate (Plavix) 75 mg PO DAILY JOSE MIGUEL Stop: 03/10/18 09:01 Last Admin: 09/08/17 08:19 Dose: 75 mg Dextrose/Water (Dextrose 50% (Syg)) 25 ml IVP AD PRN PRN Reason: Hypoglycemia Stop: 03/10/18 05:07 Glucagon (Glucagen) 1 mg IM ONCE PRN PRN Reason: Hypoglycemia Stop: 03/10/18 05:07 Glucose (Gluctose) 15 gm PO ONCE PRN PRN Reason: Hypoglycemia Stop: 03/10/18 05:07 Glucose (Gluctose) 30 gm PO ONCE PRN PRN Reason: Hypoglycemia Stop: 03/10/18 05:07 Hydroxyzine HCl (Hydroxyzine) 5 mg PO BID PRN PRN Reason: Anxiety Stop: 03/10/18 09:01 Dextrose (Dextrose 5%) 1,000 mls @ 100 mls/hr IVC .Q10H PRN PRN Reason: HYPOGLYCEMIA Stop: 03/10/18 05:07 Insulin Human Lispro (Humalog) 0 units SQ TIDAC [facility] PRN Reason: Protocol Stop: 03/10/18 07:31 Last Admin: 09/08/17 08:16 Dose: 10 units Insulin Human Lispro (Humalog) 0 units SQ HS JOSE MIGUEL PRN Reason: Protocol Stop: 03/10/18 21:01 Isosorbide Mononitrate (Imdur) 60 mg PO BID [facility] Stop: 03/10/18 09:01 Last Admin: 09/08/17 08:20 Dose: 60 mg Lisinopril (Zestril) 5 mg PO DAILY [facility] PRN Reason: Protocol Stop: 03/10/18 09:01 Last Admin: 09/08/17 08:19 Dose: 5 mg Magnesium Oxide (Mag-Ox) 400 mg PO DAILY JOSE MIGUEL PRN Reason: Protocol Stop: 03/10/18 09:01 Last Admin: 09/08/17 08:21 Dose: Not Given Naloxone HCl (Narcan) 0.4 mg IVP Q2MIN PRN PRN Reason: SEE COMMENTS Stop: 03/10/18 05:06 Omeprazole (Prilosec) 20 mg PO 0630 [facility] Stop: 03/10/18 06:31 Last Admin: 09/08/17 05:44 Dose: 20 mg Ranolazine (Ranexa) 500 mg PO BID [facility] Stop: 03/10/18 11:01 Sitagliptin Phosphate (Januvia) 100 mg PO DAILY [facility] Stop: 03/10/18 09:01 Last Admin: 09/08/17 08:20 Dose: 100 mg Vitamin D (Vitamin D) 1,000 unit PO DAILY JOSE MIGUEL Stop: 03/10/18 09:01 Last Admin: 09/08/17 08:20 Dose: 1,000 unit Laboratory Tests 09/08/17 09/08/17 09/08/17 03:45 03:45 08:25 WBC 14.0 H Hgb 13.1 Creatinine 0.95 Troponin I < 0.03 0.05 H* - Imaging and Cardiology Chest Xray: report reviewed Stress Test: report reviewed Echo: report reviewed Cardiac cath: report reviewed - EKG Interpretation EKG results cardiology: personally reviewed (ECG with SR, PACs, LBBB noted.), other (Telemetry reviewed with average HR previous 12 hours noted to be 75, SR. PVCs noted.) Consult Discharge Plan - Plan Referrals: Alanis Arvizu, [facility] [Primary Care Provider] -
[2017-09-08] MEDS: Ranolazine 500 MG TAB.ER.12H PO SCH ×2 (11:54→21:09)
[2017-09-08] MEDS ORDERED: methylPREDNISolone 4 MG TABLET PO ONE (15:52)
--- NOTE | 2017-09-08 15:56 | Event Note ---
Date of Encounter: 09/08/17 Time of Encounter: 15:55 Patient was seen and examined. Admitted overnight by my colleague for chest pain that is recurrent. Has known coronary artery disease that is being managed conservatively. Had a stent placed back in September 2016. Comes back with chest pain. No ST or T-wave changes. Opponent first set was 0.03 seconds that was 0.05. We will check another troponin. Started on Ranexa by cardiology. We will see if this helps her and possibly discharge by tomorrow early if she is feeling better.
--- NOTE | 2017-09-08 16:52 | Discharge Summary ---
Orders not resulted at time of discharge: Pending orders 09/08/17 16:16 Troponin I Stat 09/09/17 04:00 BMP [Basic Metabolic Panel] AM 0400 Complete Blood Count [HEME] AM 0400 Magnesium AM 0400 Date of Encounter: 09/09/17 Time of Encounter: 16:51 - Discharge Diagnosis (1) Chest pain Priority: Primary Status: Acute Qualifiers: Chest pain type: chest pain due to myocardial ischemia Ischemic chest pain type: stable angina pectoris Qualified Code(s): I20.8 - Other forms of angina pectoris (2) Elevated troponin Priority: Primary Status: Acute (3) Diabetes Priority: Secondary Status: Chronic Qualifiers: Diabetes mellitus type: type 2 Diabetes mellitus supervisor intermediates insulin use: unspecified halfway insulin use status Diabetes mellitus complication status : without complication Qualified Code(s): E11.9 - Type 2 diabetes mellitus without complications (4) HTN (hypertension) Priority: Secondary Status: Chronic Qualifiers: Hypertension type: essential hypertension Qualified Code(s): I10 - Essential (primary) hypertension (5) Hyperlipemia Priority: Secondary Status: Chronic Qualifiers: Hyperlipidemia type: mixed hyperlipidemia Qualified Code(s): E78.2 - Mixed hyperlipidemia Hospital course: Ms. Vilchis is a 87 year old female with a history of CAD status post stents who presented with chest pain. She was sitting at home watching TV at about 2 AM in the morning when she developed sternal chest pain, radiating down the sternum, 8 out of 10, pressure-like sensation, associated with bilateral arm numbness, improved with nitroglycerin x2 tabs. On review of medical history it appears that she completed left heart catheter 10/16/16 with severe three-vessel disease with successful PTCA/CELIA placement 70% percent stenosis proximal LAD, 80 % stenosis first diagonal, 70-99% stenosis in the mid circumflex, right coronary artery calcified 99% stenosis in the proximal RCA. 99% stenosis in the mid RCA. She subsequently completed a stress test in May 2017 with plans for continued medical management. She was again seen earlier this month in August for similar chest pain presentation. Was evaluated by cardiology with recommendation to increase the dose of Imdur from 90mg QD to 60mg BID. This time around she was admitted to the hospitalist service. Troponins were 0.05, 0.06, 0.06. EKG with no new ST or T-wave changes. There was a left bundle branch block which is not new. Cardiology saw the patient and recommended Ranexa for now. Ranexa was added and the patient was chest pain-free. She was discharged on 09/09 2017. - Time Spent with Patient Total time spent providing and/or coordinating discharge services: Greater than 30 minutes - Discharge Medications Prescriptions: Ranolazine [Ranexa] 500 mg PO BID #60 tab.er.12h Home Medications: Aspirin [Lo-Dose Aspirin EC] 81 mg PO DAILY 05/28/17 [History] Atorvastatin [Lipitor] 40 mg PO HS 05/28/17 [History] Calcium Carbonate/Vitamin D3 [Liquid Calcium 600-Vit D3 Sfgl] 1 cap PO DAILY 03/06 [History] Carvedilol [Coreg] 6.25 mg PO BIDWM 05/28/17 [History] Clopidogrel [Plavix] 75 mg PO DAILY 05/28/17 [History] Multivitamin [Multivitamins] 1 cap PO DAILY 05/28/17 [History] Nitroglycerin [Nitrostat] 0.4 mg SL Q5M PRN 05/28/17 [History] Pantoprazole Sodium [Protonix] 40 mg PO DAILY 05/28/17 [History] SitaGLIPtin [Januvia] 100 mg PO DAILY 05/28/17 [History] Acetaminophen [Tylenol] 500 mg PO Q6H PRN 08/14/17 [History] HydrOXYzine 5 - 10 mg PO TID 08/14/17 [History] Magnesium Oxide [Mag-Ox] 400 mg PO DAILY #30 tablet 08/15/17 [Rx] methylPREDNISolone [Medrol] 4 mg PO TAPER #21 tablet 08/22/17 [Rx] Isosorbide MONOnitrate (24 HR) [Imdur] 60 mg PO BID 30 Days #60 tab.er.24h 08/28 [Rx] Lisinopril [Zestril] 10 mg PO DAILY 09/08/17 [History] Ranolazine [Ranexa] 500 mg PO BID #60 tab.er.12h 09/08/17 [Rx] Allergies/Adverse Reactions: 3 Allergy/AdvReac Type Severity Reaction Status Date / Time metformin Allergy See Verified 09/08/17 03:24 Comments Sulfa (Sulfonamide Allergy See Verified 09/08/17 03:24 Antibiotics) Comments Date of admission: 09/08/17 04:25 Primary care physician: Alanis Arvizu CNP Consults: 09/08/17 05:06 Consult to Diabetes Education [CONS] Routine Comment: Reason for Consult: poor control of blood sugar, education 09/08/17 05:11 Consult to Cardiology [CONS] Routine Comment: Consulting Provider: Cardiology Susi Reason for Consult: recurrent chest pain Call Completed: No - Constitutional Vitals: Temp Pulse Resp BP Pulse Ox 98.3 F 77 14 120/54 93 09/08/17 16:00 09/08/17 16:00 09/08/17 07:23 09/08/17 16:00 09/08/17 16:00 Exam: GEN: NAD CVS: RRR. S1, S2, No m/r/g RESP: CTAB ABD: Soft, NT, ND, +BS EXT: No edema. 2+ DP. No rashes NEURO: Nonfocal - Patient Status Disposition: Home, Self-Care Overall status at discharge: patient is progressing back to baseline - Discharge Instructions Instructions: Coronary Artery Disease in Women (GEN) Follow Up With: Alanis Arvizu CNP [Primary Care Provider] - 09/15/17 10:00 am (Please follow up as schedule...) - Diet and Activity Activity: increase activity as tolerated Diet: diabetic diet, low salt diet
[2017-09-08] MEDS ORDERED: Insulin LISPRO 300 UNITS/3 ML VIAL SQ SCH (21:00)
[2017-09-09 05:08] LABS: Basophils % 0.1 %; Hematocrit 37.9 % (35.3-44.9); Hemoglobin 12.5 g/dL (11.5-15.4); Immature Granulocytes % 0.4 % (0-4); Lymphocytes # 0.6 K/mcL (0.6-4.6); Lymphocytes % 4.4 %; Mean Corpuscular Hemoglobin 31.6 pg (28.0-33.3); Mean Corpuscular Volume 95.7 fL (83.0-100.0); Mean Platelet Volume 10.8 fL (9.4-12.4); Monocytes # 0.3 K/mcL (0.0-1.3); Monocytes % 2.2 %; Neutrophils # 11.9 K/mcL (1.6-8.9); Platelet Count 212 K/mcL (140-400); Red Blood Count 3.96 M/mcL (3.82-4.97); Red Cell Distribution Width 13.7 % (11.5-14.5); Segmented Neutrophils % 92.9 %
[2017-09-09 05:21] LABS: BUN/Creatinine Ratio 36 (6-26); Blood Urea Nitrogen 30 mg/dL (8-23); Calcium 9.1 mg/dL (8.6-10.3); Carbon Dioxide 30 mEq/L (23-29); Chloride 104 mEq/L (98-107); Glucose 319 mg/dL (70-105); Magnesium 1.6 mg/dL (1.6-2.6); Osmolality,Calculated 306 (280-300); Potassium 4.5 mEq/L (3.5-5.1); Sodium 139 mEq/L (136-145); eGFR For African Americans > 60 (> 60); eGFR For Non-African Americans > 60 (> 60)
[2017-09-09 07:31] VITALS: BP 132/80
[2017-09-09] MEDS: Insulin LISPRO 300 UNITS/3 ML VIAL SQ SCH (08:07)
[2017-09-09] MEDS: Aspirin Enteric Coated 81 MG Tablet PO SCH (08:07)
[2017-09-09] MEDS: Cholecalciferol (D-3) 1,000 UNIT TABLET PO SCH (08:07)
[2017-09-09] MEDS: Magnesium Oxide 400 MG TABLET PO SCH (08:08)
[2017-09-09] MEDS: Ranolazine 500 MG TAB.ER.12H PO SCH (08:08)
[2017-09-09] MEDS: Isosorbide MONOnitrate (24 HR) 60 MG TAB.ER.24H PO SCH (08:08)
[2017-09-09] MEDS: *HR* SitaGLIPtin 100 MG TABLET PO SCH (08:08)
--- NOTE | 2017-09-09 14:48 | Electrocardiograph Report ---
[place] [id number] Test Date: 2017-09-08 Pat Name: Florina Vilchis Department: 104 Room: 2A14 Gender: F Postulant: BOBBI : 1930 Requested By: Bradley Glez Order Number: [id number] Reading MD: Saúl Cid DO Measurements Intervals [place] Rate: 79 P: 25 MO: 159 QRS: -30 QRSD: 154 T: 151 QT: 458 QTc: 492 Interpretive Statements SINUS RHYTHM WITH OCCASIONAL SUPRAVENTRICULAR PREMATURE COMPLEXES LEFT BUNDLE BRANCH BLOCK Electronically Signed On 09-09-2017 14:47:14 EDT by Saúl Cid DO
== END 2017-09-09 11:00 | disposition home or self-care (01) ==
LOC: 2ANU 03:20 → EMEROO 03:20 → 2ANU 04:57
PROVIDERS: ADMIT Internal Medicine Hematology & Oncology; ATTEND Internal Medicine

== ENCOUNTER 2017-09-20 08:34 | Observation (INO) ==
[2017-09-20] MEDS: 0.9 % Sodium Chloride 1,000 ML IVC SCH (10:34)
[2017-09-20] MEDS ORDERED: *HR* Heparin 10,000 UNIT/10 ML VIAL ONE ×2 (12:42→14:15)
[2017-09-20] MEDS ORDERED: Heparin 1,000 UNITS/500 mL 500 ML ONE (12:42)
[2017-09-20] MEDS ORDERED: 0.9 % Sodium Chloride 1,000 ML ONE ×2 (12:42→19:51)
[2017-09-20] MEDS ORDERED: Verapamil 5 MG/2 ML VIAL ONE (12:42)
[2017-09-20] MEDS ORDERED: ISOVUE-370 200 ML INFUS..BTL IV ONE ×2 (12:42→14:31)
[2017-09-20] MEDS ORDERED: Nitroglycerin 1,000 MCG/10 ML VIAL IV ONE (12:42)
[2017-09-20] MEDS ORDERED: *HR* FentaNYL (PF) 100 MCG/2 ML VIAL ONE (13:08)
[2017-09-20] MEDS ORDERED: *HR* Midazolam HCl 2 MG/2 ML VIAL ONE (13:08)
--- NOTE | 2017-09-20 13:25 | Pre-Sedation Evaluation ---
Pre-sedation evaluation - Pre-sedation checklist Date of procedure: 09/20/17 Procedure: [facility] Recent Vitals: Last Vital Signs Temp 98.6 F 09/20/17 10:23 Pulse 57 09/20/17 10:23 Resp 18 09/20/17 10:23 BP 128/64 09/20/17 10:23 Pulse Ox 96 09/20/17 10:23 H&P (including ROS) documented in medical record: Yes Previous reaction to sedatives/anesthetics: No Dietary Status: NPO after Midnight Dentition: No loose teeth or bridges ASA Classification *see protocol: CLASS II-Mild systemic disease Plan of Care: Pt appropriate candidate for procedure/moderate/conscious sedation , Risks/benefits of procedure/sedation discussed w/ patient/family
--- NOTE | 2017-09-20 13:26 | History & Physical Report ---
Date of Encounter: 09/20/17 Time of Encounter: 13:20 24 Hour HP Update - Instructions Instructions: If the History and Physical is less than 30 days old and was completed prior to A.M. admission and or procedure and has NOT been updated on calendar day of procedure please complete this update prior to performing procedure. - Update Patient reports changes in Medical Condition: No Changes in examination, assessment, or condition: No Changes in Medication: No Preop tests/diagnostics Reviewed: Yes Surgery Remains Indicated: Yes Consent for Planned Operative Procedure(s) Verified: Yes - Attending Attestation Patient and family aware of progressively worsening CHF with severe RCA and LAD stenosis and declining functional capacity with angina requiring multiple hospitalizations. High risk, potentially complex PCI discussed with them. They are aware and wish to proceed understanding <5% chance of MT//CVA/CABG /ITZ/bleeding.
[2017-09-20] MEDS ORDERED: Tirofiban 12.5 MG/250ML 12.5 MG/250 ML BAG ONE (13:43)
[2017-09-20] MEDS ORDERED: Ondansetron 4 MG/2 ML VIAL IVP PRN (14:55)
[2017-09-20] MEDS ORDERED: Acetaminophen 325 MG TABLET PO PRN (14:55)
[2017-09-20] MEDS ORDERED: Nitroglycerin 0.4 MG TAB.SUBL SL PRN ×2 (14:55→16:23)
[2017-09-20] MEDS ORDERED: *HR* HYDROcodone/Acet 5/325 mg TABLET PO PRN (14:55)
[2017-09-20] MEDS ORDERED: *HR* Atropine Sulfate 1 MG/10 ML SYRINGE ONE (19:50)
[2017-09-20] MEDS ORDERED: *HR* Atropine Sulfate 1 MG/10 ML SYRINGE IVP STA (20:08)
--- NOTE | 2017-09-20 21:05 | Event Note ---
Date of Encounter: 09/20/17 Time of Encounter: 21:02 Asked to evaluate patient for bradycardia. Pt is s/p cath and stent placement x 2 today. Her heart rate has been in 50s and SBP in 80s today. This evening she developed bradycardia and hypotension (SBP in 70s). Pt without chest pain or dyspnea. No confusion. Exam Alert. Oriented and pleasant SBP 82. Heart rate 30s - 40. Heart kimberly and irreg. Lungs clear EKG - Mobitz 2 versus 3rd degree heart block I/P 1. High grade heart block - currently mentating and SBP OK. Atropine 0.5mg IV tried with no improvement (as expected) IV fluids given for 200ml. BP has remained stable. Pacer pads applied. Transferred to 2N. D/W cardiology carbon grinder. Family at bedside and updated. CCM 74min
[2017-09-20] MEDS: Isosorbide MONOnitrate (24 HR) 60 MG TAB.ER.24H PO SCH (21:21)
[2017-09-21] MEDS: 0.9 % Sodium Chloride 1,000 ML IVC SCH ×2 (03:36→20:42)
[2017-09-21 04:28] LABS: Hematocrit 32.5 % (35.3-44.9)
[2017-09-21 04:31] LABS: Hemoglobin 10.7 g/dL (11.5-15.4)
[2017-09-21 04:47] LABS: BUN/Creatinine Ratio 18 (6-26); Blood Urea Nitrogen 23 mg/dL (8-23); eGFR For African Americans 48 (> 60); eGFR For Non-African Americans 40 (> 60)
[2017-09-21] MEDS: Isosorbide MONOnitrate (24 HR) 60 MG TAB.ER.24H PO SCH ×2 (07:35→20:34)
[2017-09-21] MEDS: Magnesium Oxide 400 MG TABLET PO SCH (07:55)
[2017-09-21] MEDS: Aspirin Enteric Coated 81 MG Tablet PO SCH (07:56)
[2017-09-21] MEDS: Multivit/Ca/Min/Fe/FA 1 TAB TABLET PO SCH (07:56)
[2017-09-21] MEDS: CALCIUM CARBONATE PO SCH (07:58)
[2017-09-21] MEDS: VITAMIN D3 PO SCH (07:58)
[2017-09-21] MEDS ORDERED: *HR* SitaGLIPtin 100 MG TABLET PO SCH (09:00)
[2017-09-21 11:30] LABS: Calcium 8.4 mg/dL (8.6-10.3); Potassium 3.8 mEq/L (3.5-5.1)
--- NOTE | 2017-09-21 13:52 | Cardiology Progress Note ---
Date of Encounter: 09/21/17 Time of Encounter: 13:50 Assessment and Plan (1) AV block Current Visit: Yes Status: Acute Developed high degree/complete heart block yesterday evening, s/p LHC with PCI yesterday to RCA, mLAD. Was also on Coreg 6.25mg BID at home--now on hold. BP was 80s/50s overnight. Fluids currently running. Pt alert and oriented. Improved today--appears SR with PACs and blocked PACs. HR 60s. No urgent need for PPM at this time. Check TSH. Continue to monitor on tele overnight, avoid AV asia blockers. (2) CAD (coronary artery disease) Current Visit: Yes Status: Chronic S/P LHC yesterday with PCI to proximal/mid RCA. Patient had successful PTCA/Drug -Eluting Stent placement in the mid LAD. DAPT (ASA and Plavix) uninterrupted x 1 year. Pt verbalizes understanding. Continue Statin. No BB due to bradycardia/AV block as above. Right femoral access site healing well. No bleeding or hematoma. Mild ecchymosis noted. HGB 10.7 today, was 13.9 09/14/17. Continue to monitor closely. Check CBC and BMP in AM. Denies active bleeding. Qualifiers: Coronary Disease-Associated Artery/Lesion type: [place] artery [place] vs. transplanted heart: [place] heart Associated angina: with unspecified angina Qualified Code(s): I25.119 - Atherosclerotic heart disease of [place] coronary artery with unspecified angina pectoris (3) Cardiomyopathy Current Visit: No Status: Chronic EF 35% on TTE 07/2017. EF on LHC yesterday 25%. ICMP. Recheck TTE as outpt after revascularization. Pt appears euvolemic on exam. Qualifiers: Cardiomyopathy type: unspecified Qualified Code(s): I42.9 - Cardiomyopathy , unspecified (4) Elevated troponin Current Visit: No Status: Acute Troponin 0.10, 0.31 s/p C with revascularization--suspect demand ischemic, nondiagnostic for ACS. (5) EDNA (acute kidney injury) Current Visit: Yes Status: Acute Creatinine 1.34 s/p LHC. Receiving IV fluids. Recheck BMP in AM. Discussion w patient/family: The assessment and plan as outlined above was discussed with the patient and/or family members who expressed understanding and agreement. All questions were answered. Thank you for involving us in the care of your patient. Please call with any questions. I will discuss all the above with Dr. Coombs and make changes as necessary. Subjective Principal diagnosis: CAD s/p PCI, AV block Interval history: S/P outpt [facility] yesterday--There is multi vessel coronary artery disease sp successful high risk revascularization. Intermediate tercile SYNTAX anatomy score. The left ventricle has severely abnormal contractility EF 25%. Patient had successful PTCA/Drug-Eluting Stent placement in the proximal/mid RCA. Patient had successful PTCA/Drug-Eluting Stent placement in the mid LAD. Yesterday evening pt developed high degree AV block, was given atropine without improvement. BP was 70s systolic, was 80s/50s overnight. Appears improved this AM. Home BB--Coreg on hold. Currently SR with ectopy and blocked PACs. Pt denies chest pain or dyspnea. Post cath troponin 0.10, 0.31. Objective Vital Signs, Last 4 Hours Temp Pulse Resp BP Pulse Ox 09/21/17 11:33 98.4 F 73 18 98/49 94 09/21/17 11:17 64 09/21/17 11:13 67 18 93 09/21/17 10:21 68 16 89/49 94 Vital Signs Temp Pulse Resp BP Pulse Ox 09/21/17 11:33 98.4 F 73 18 98/49 94 09/21/17 11:17 64 09/21/17 11:13 67 18 93 09/21/17 10:21 68 16 89/49 94 09/21/17 07:45 59 09/21/17 07:42 94 09/21/17 07:40 60 16 93 09/21/17 07:18 98.9 F 66 16 85/55 93 09/21/17 03:40 97.6 F 68 19 86/52 90 09/20/17 23:23 98.0 F 51 16 88/66 95 09/20/17 21:00 98.9 F 42 17 99/47 92 09/20/17 19:40 97.3 F L 64 18 84/36 96 09/20/17 19:30 98 09/20/17 16:48 58 94/54 09/20/17 16:17 57 97/59 09/20/17 16:07 56 97/54 09/20/17 15:58 97.5 F L 56 16 97/54 98 09/20/17 15:35 58 93/58 Intake and Output 09/20/17 09/21/17 09/21/17 23:59 07:59 15:59 Intake Total 0 / 0 1000 / 1000 240 / 240 Output Total 400 / 400 Balance 0 / 0 600 / 600 240 / 240 Intake: IV Fluids 1000 / 1000 0.9 % Sodium Chloride 1,000 ML 1000 / 1000 @ 50 mls/hr IVC .Q20H JOSE MIGUEL Rx#: [id number] Oral 0 / 0 240 / 240 Output: Urine 400 / 400 Other: Meal Dinner Breakfast Percent of Meal Consumed 0% 75% # Voids 0 Weight 62.9 kg 62.8 kg Blood Glucose* 125 146 Patient Weight 09/21/17 23:59 Weight 62.8 kg General: Conversant, No Apparent Distress HEENT: Atraumatic, Normocephaly, Mucus Membranes Moist Neck: No JVD, Normal carotid pulses Cardiac: Other (irregular) Lungs: Normal Breath Sounds, No Wheeze, Rales, Rhonchi Neuro: Alert and responsive, No focal deficits noted Abdomen: Soft, Non-Tender Skin: Other (right femoral access site healing well. No bleeding or hematoma noted. Mild ecchymosis.) Musculoskeletal: No Chest Wall Tenderness Extremities: No Clubbing, No Cyanosis, No Edema, Normal Pulses Results 09/21/17 04:02 09/21/17 10:52 Lab Results 09/21/17 09/21/17 09/21/17 04:02 04:02 10:52 Hgb 10.7 L D Hct 32.5 L Plt Count 152 Sodium Potassium Chloride Carbon Dioxide BUN 23 Creatinine 1.27 H Glucose Calcium Troponin I 0.10 H* 0.31 H* 09/21/17 10:52 Hgb Hct Plt Count Sodium 137 Potassium 3.8 Chloride 103 Carbon Dioxide 29 BUN 25 H Creatinine 1.34 H Glucose 165 H Calcium 8.4 L Troponin I Short CBC 09/21/17 Range/Units 04:02 Hgb 10.7 L D (11.5-15.4) g/dL Hct 32.5 L (35.3-44.9) % Plt Count 152 (140-400) K/mcL BMP 09/21/17 09/21/17 Range/Units 10:52 04:02 Sodium 137 (136-145) mEq/L Potassium 3.8 (3.5-5.1) mEq/L Chloride 103 (98-107) mEq/L Carbon Dioxide 29 (23-29) mEq/L BUN 25 H 23 (8-23) mg/dL Creatinine 1.34 H 1.27 H (0.60-1.20) mg/dL Glucose 165 H (70-105) mg/dL Calcium 8.4 L (8.6-10.3) mg/dL Cardiac Enzymes 09/21/17 09/21/17 Range/Units 10:52 04:02 Troponin I 0.31 H* 0.10 H* (< 0.04) ng/mL Active Medications Acetaminophen (Tylenol) 650 mg PO Q6HR PRN PRN Reason: Mild Pain Stop: 03/22/18 14:56 Acetaminophen (Tylenol) 500 mg PO Q6H PRN PRN Reason: Pain Stop: 03/22/18 16:24 Hydrocodone Bitart/Acetaminophen ([place] 5-325 Mg) 1 tab PO Q4HR PRN PRN Reason: Moderate Pain Stop: 03/22/18 14:56 Last Admin: 09/20/17 19:33 Dose: 1 tab Aspirin (Aspirin Ec) 81 mg PO DAILY JOSE MIGUEL Stop: 03/23/18 09:01 Last Admin: 09/21/17 07:56 Dose: 81 mg Atorvastatin Calcium (Lipitor) 40 mg PO HS JOSE MIGUEL Stop: 03/22/18 21:01 Last Admin: 09/20/17 21:22 Dose: 40 mg Clopidogrel Bisulfate (Plavix) 75 mg PO DAILY JOSE MIGUEL Stop: 03/23/18 09:01 Last Admin: 09/21/17 07:56 Dose: 75 mg Diphenhydramine HCl (Benadryl) 25 mg PO HS PRN PRN Reason: Insomnia Stop: 03/22/18 14:56 Docusate Sodium (Colace) 100 mg PO BID JOSE MIGUEL PRN Reason: Protocol Stop: 03/22/18 21:01 Last Admin: 09/21/17 07:56 Dose: 100 mg Sodium Chloride (0.9 % Sodium Chloride) 1,000 mls @ 50 mls/hr IVC .Q20H JOSE MIGUEL Stop: 03/22/18 10:01 Last Admin: 09/21/17 03:36 Dose: 50 mls/hr Isosorbide Mononitrate (Imdur) 60 mg PO BID [facility] Stop: 03/22/18 21:01 Last Admin: 09/21/17 07:35 Dose: Not Given Lansoprazole (Prevacid) 30 mg PO DAILY JOSE MIGUEL Stop: 03/23/18 09:01 Last Admin: 09/21/17 07:56 Dose: 30 mg Magnesium Oxide (Mag-Ox) 400 mg PO DAILY JOSE MIGUEL PRN Reason: Protocol Stop: 03/23/18 09:01 Last Admin: 09/21/17 07:55 Dose: 400 mg Multivitamins/Calcium (Thera M Plus) 1 tab PO DAILY JOSE MIGUEL Stop: 03/23/18 09:01 Last Admin: 09/21/17 07:56 Dose: 1 tab Nitroglycerin (Nitroglycerin) 0.4 mg SL Q5MIN PRN PRN Reason: Chest Pain Stop: 03/22/18 14:56 Nitroglycerin (Nitroglycerin) 0.4 mg SL Q5M PRN PRN Reason: Chest Pain Stop: 03/22/18 16:24 Ondansetron HCl (Zofran) 4 mg IVP Q6HR PRN; Protocol PRN Reason: Nausea And Vomiting Stop: 03/22/18 14:56 Pharmacy Profile Note (Patient Taking Own Medication) 0 each PO DAILY [facility] Stop: 03/23/18 09:01 Last Admin: 09/21/17 07:58 Dose: Not Given Sitagliptin Phosphate (Januvia) 100 mg PO DAILY [facility] Stop: 03/23/18 09:01 Last Admin: 09/21/17 08:30 Dose: 100 mg - Imaging and Cardiology Cardiac cath: report reviewed - EKG Interpretation EKG results cardiology: personally reviewed, other (12 hr tele AVG HR 60) Consult Discharge Plan - Plan Referrals: Alanis Arvizu, [facility] AIDE [Primary Care Provider] - 09/30/17 9:00 am
--- NOTE | 2017-09-21 16:20 | Invasive Diagnostic Lab Proc ---
Name: Florina Vilchis Date of Study: 09/20/2017 Date: 1930 Ht: 59.0in Medical Record#: [id number] Age: 87 Wt: 131.18lb Gender: Female BSA: 1.54 Order #: [id number] BMI: 26.48 Physicians Procedure Physician: Nathan Blanco MD, FACC Referring MD: Alanis Arvizu, UTILITY SALES AND SERVICE MANAGER Referring MD: Jose Roberto Staff Name Position Time In Rhiannon Saldivar RN Pre-Op Nurse Melba Galdamez RN Pre-Op Nurse Lupe Farias RT (R) Monitor 01:18 PM Kaylen Saravia RT (R) Scrub 01:18 PM Kim Sigala RN Algebraist 01:18 PM Devon Matias RN Algebraist 01:19 PM Indications Indication Anginal equivalent Procedures Performed Procedure L HRT ARTERY/VENTRICLE ANGIO PRQ CARD CELIA STENT W/ANGIO 1 VSL PRQ CARD CELIA STENT W/ANGIO 1 VSL Pre-Procedure Checklist Informed consent is complete signed and on chart. H&P is on chart. ID band is on and ID verified with patient. Patient NPO for procedure The procedure was described for the patient and questions were answered. Blood Pressure: 128/64 ECG is on chart. Rhythm: Sinus Bradycardia Plan of Care Patient will tolerate the procedure without complications. Adequate level of comfort will be maintained. Hemodynamics will remain stable Patient will recover from procedure without complications. Respiratory function will be maintained. Cardiac rhythm will remain stable. Patient temperature will be maintained. Patient and/or family have verbalized understanding of the procedure. Patient Education Chief Complaint/Reason for Test: Cardiac Cath Developmental Category: Geriatric (65+ years) Developmentally Appropriate for Age: Yes Learning Barriers: None Education Needs: Procedure Education Method: Verbal Information Taught: Cardiac Cath Educational Evaluation: Able to repeat information Intravenous Access Time IV Size Location DC'd Fluid/Drip Rate Units RN 10:19 AM Started with 20g 1 1/4" Lt Arm 0.9NaCl 50 ml/hr Melba Galdamez RN Allergies SULFA (sulfonamide) metformin Vital Signs Time BP (mmHg) HR (bpm) O2 Sat. RR (bpm) LOC 10:21 AM 128 / 64 57 96 % 18 5 = Fully awake and oriented or at pre-proc level 01:20 PM / % 4 = Oriented but drowsy 01:20 PM / % 4 = Oriented but drowsy 01:49 PM 111 / 54 54 100 % 01:53 PM 124 / 65 58 99 % 01:58 PM 138 / 76 58 100 % 02:03 PM 157 / 94 62 100 % 02:09 PM 168 / 102 53 100 % 02:14 PM 169 / 87 63 100 % 02:19 PM 157 / 91 62 99 % 02:24 PM 153 / 88 65 100 % 02:29 PM 160 / 84 67 100 % 02:34 PM 147 / 71 69 99 % 02:39 PM 144 / 70 % 01:19 PM 153 / 82 62 100 % 01:24 PM 142 / 68 57 100 % 01:29 PM 117 / 61 62 98 % 01:33 PM 116 / 61 54 99 % 01:38 PM 114 / 63 57 100 % 01:43 PM 118 / 60 53 100 % 01:49 PM 118 / 56 54 99 % Procedural Medications Time Medication Dose Units Method Given By 01:19 PM Oxygen 2 L/min nasal cannula Devon Matias RN 01:19 PM Versed 1 mg Intravenous Devon Matias RN 01:20 PM Fentanyl 25 mcg Intravenous Devon Matias RN 01:30 PM Lidocaine 2% 18 ml Subcutaneous Nathan Blanco MD, FAC 01:40 PM Heparin 4000 units Intravenous Devon Matias RN 01:50 PM Nitroglycerin 100 mcg Intracoronary Nathan Blanco MD 02:15 PM Heparin 1000 units Intravenous Devon Matias RN 02:16 PM Nitroglycerin 200 mcg Intracoronary Nathan Blanco MD 02:22 PM Hydralazine 10 mg Intravenous Devon Matias RN 02:32 PM Plavix 300 mg Orally Devon Matias RN ASA Classification: CLASS III- Severe systemic disease (i.e. prior AMI, diabetes with vascular complications, morbid obesity) Bhargav Score Preprocedure Postprocedure Activity 2- Moves 4 extremities sustained head lift Activity 2- Moves 4 extremities sustained head lift Circulation 2- SBP +/= 20 points of pre-anesthetic level Circulation 2- SBP +/= 20 points of pre-anesthetic level Consciousness 2- Awake and alert oriented x 3 Consciousness 2- Awake and alert oriented x 3 O2 Saturation 2- Able to maintain O2 satruation of 92% on room air O2 Saturation 2- Able to maintain O2 satruation of 92% on room air Respiratory 2- Able to deep breathe and cough well Respiratory 2- Able to deep breathe and cough well Total Score 10 Total Score 10 Contrast Agent: Isovue Diagnostic Contrast: 140 ml Total Contrast: 140 ml Fluoro Dose: 842 mGy Activated Clotting Time Time Seconds to Clot 02:14 PM 288 Procedure Log Time Note Enter By 01:14 PM CathStat 01:14 PM Vitals capture started with the following parameters, Patient=Adult, Interval=5 min, Initial Nkaaeidg=584 mmHg, Deflation Rate=3 mmHg, Cuff placed on Right Arm 01:15 PM Vitals capture stopped. 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 [email or web address] :19 PM Case Delayed Previous case ran long [email or web address] PM Hair removed from procedure site in holding area using clippers. Bilateral groin prepped with Chloraprep by Zandra Schaefer MD, [facility], then patient was draped. Skin intact. [email or web address] : PM Physician arrived 13:19 [email or web address] PM ASA Class CLASS III- Severe systemic disease (i.e. prior AMI, diabetes with vascular complications, morbid obesity) [email or web address] : PM Tomasz and clara completed [email or web address] :19 PM Sign in performed according to hospital policy. [email or web address] :19 PM Procedure start 13:19 [email or web address] PM Time: 13:19 Oxygen on at 2 L/min per nasal cannula by Devon Matias RN [facility]:19 PM HR=62 bpm, OLUR=315/82 mmhg, QnB3=411.0 %, Comment=SR 01:20 PM Time: 13:19 Versed 1 mg Intravenous Given by Devon Matias RN [email or web address] 01:20 PM Time: 13:20 Fentanyl 25 mcg Intravenous Given by Devon Matias RN [email or web address] 01:20 PM Time: 13:20 Patient comfortable and pain free: Yes [email or web address] 01:20 PM Time: 13:20LOC: 4 = Oriented but drowsy [email or web address] 01:22 PM Pressure channel 1 zeroed. 01:24 PM HR=57 bpm, IKQH=325/68 mmhg, TiL7=323.0 %, Comment=SR 01:29 PM HR=62 bpm, MMLS=859/61 mmhg, SpO2=98.0 %, Comment=SR 01:30 PM Time out performed according to hospital policy [email or web address] 01:30 PM Time: 13:30 18 ml Lidocaine 2% to right groin Subcutaneous Given by Nathan Blanco MD, [facility] [email or web address] 01:32 PM Unsuccessful access attempt # 1 into the right Femoral artery. Manual pressure applied to achieve hemostasis.. [email or web address] 01:33 PM HR=54 bpm, MALI=323/61 mmhg, SpO2=99.0 %, Comment=SR 01:34 PM Access obtained by percutaneous puncture. 5Fr 10cm Terumo [place] sheath placed in right Femoral artery. [id number] [email or web address] 01:34 PM Recorded Pressure: Ao, HR=55, Condition=Condition 1 (Aorta) Ao 110/60/81 01:35 PM 0.035 145cm Navilyst 3mmJ wire [id number] [email or web address] 01:35 PM 5Fr FR 4 catheter inserted over the wire [facility] [email or web address] 01:35 PM LCA angiography performed in multiple views. [email or web address] 01:35 PM Time: 13:20LOC: 4 = Oriented but drowsy [email or web address] 01:35 PM Time: 13:20 Patient comfortable and pain free: Yes [email or web address] 01:36 PM Lesion found in Mid LAD. Pre Stenosis: 90 Pre JENNY Flow: 3: Complete and Brisk Flow/Perfusion [email or web address] 01:36 PM Lesion found in 1st Diagonal. Pre Stenosis: 70 Pre JENNY Flow: 3: Complete and Brisk Flow/Perfusion [email or web address] 01:36 PM Lesion found in Proximal Circumflex. Pre Stenosis: 20 Pre JENNY Flow: 3: Complete and Brisk Flow/Perfusion [email or web address] 01:36 PM Catheter removed [email or web address] 01:37 PM 5Fr FR 4 catheter inserted over the wire [facility] [email or web address] 01:37 PM RCA angiography performed in multiple views. [email or web address] 01:37 PM Coronary Dominance: right [email or web address] 01:38 PM Lesion found in Proximal RCA. Pre Stenosis: 99 Pre JENNY Flow: 2: Partial Flow/Perfusion (> 1 but < 3) [email or web address] 01:38 PM Catheter removed [email or web address] 01:38 PM Bolus angiogram of right Femoral complete: 4 ml/sec for a total of 7 mls [email or web address] 01:38 PM HR=57 bpm, VXET=597/63 mmhg, OfF5=235.0 %, Comment=SR 01:39 PM Sheath exchanged for a 7 Fr 11 cm Cordis Addie sheath [id number] [email or web address] 01:40 PM 7Fr JR 4 Mach 1 guide catheter was used to cannulate the PCI vessel successfully. reused? No [email or web address] 01:40 PM Time: 13:40 Heparin 4000 units Intravenous Given by Devon Matias RN [email or web address] 01:40 PM .014 PT Graphix 300cm guide wire across target lesion- successful. reused? No [email or web address] 01:40 PM Inflation device was opened. [email or web address] 01:41 PM 1.2 mm x 15 mm Emerge OTW balloon across target lesion- successful. reused? No [email or web address] 01:43 PM HR=53 bpm, ANCN=753/60 mmhg, WhV4=844.0 %, Comment=SR 01:44 PM Recorded Pressure: Ao, HR=58, Condition=Condition 1 (Aorta) Ao 109/51/75 01:48 PM Balloon inflated @ 18 isaiah for 15 seconds [email or web address] 01:49 PM HR=54 bpm, LTFH=509/56 mmhg, SpO2=99.0 %, Comment=SR 01:49 PM NIBP STAT measurement started. 01:49 PM Balloon inflated @ 18 isaiah for 18 seconds [email or web address] 01:49 PM Balloon inflated @ 18 isaiah for 15 seconds [email or web address] 01:49 PM HR=54 bpm, IYOZ=283/54 mmhg, UtK5=180.0 %, Comment=SR 01:50 PM Time: 13:50 Nitroglycerin 100 mcg Intracoronary Given by Nathan Blanco MD [email or web address] 01:50 PM Time: 13:35 Patient comfortable and pain free: Yes [email or web address] 01:51 PM Balloon catheter removed intact. [email or web address] 01:51 PM 2.25 mm x 15 mm Emerge Monorail balloon across target lesion- successful. reused? No [email or web address] 01:52 PM Recorded Pressure: Ao, HR=56, Condition=Condition 1 (Aorta) Ao 125/53/81 01:53 PM HR=58 bpm, AOSK=455/65 mmhg, SpO2=99.0 %, Comment=SR 01:54 PM Balloon inflated @ 10 isaiah for 12 seconds [email or web address] 01:55 PM Balloon inflated @ 10 isaiah for 14 seconds [email or web address] 01:56 PM Balloon catheter removed intact. [email or web address] 01:58 PM 2.5mm x 38mm Synergy drug-eluting stent across target lesion- successful Lot #[id number] [email or web address] 01:58 PM HR=58 bpm, VKQZ=718/76 mmhg, GzU7=972.0 %, Comment=SR 01:59 PM Stent deployed @ 12 isaiah for 16 seconds [email or web address] 01:59 PM Stent delivery system removed intact. [email or web address] 02:01 PM 3.0 mm x 20mm NC Trek Rx balloon across target lesion- successful. reused? No [email or web address] 02:03 PM HR=62 bpm, HPSC=395/94 mmhg, PpO1=441.0 % 02:05 PM Balloon inflated @ 14 isaiah for 18 seconds [email or web address] 02:05 PM Balloon inflated @ 16 isaiah for 14 seconds [email or web address] 02:05 PM Time: 13:50 Patient comfortable and pain free: Yes [email or web address] 02:06 PM Balloon catheter removed intact. [email or web address] 02:07 PM 3.75 mm x 6mm NC Emerge balloon across target lesion- successful. reused? No [email or web address] 02:07 PM Balloon inflated @ 14 isaiah for 14 seconds [email or web address] 02:08 PM Recorded Pressure: Ao, HR=65, Condition=Condition 1 (Aorta) Ao 133/60/88 02:09 PM HR=53 bpm, KJAJ=450/102 mmhg, PsG2=341.0 %, Comment=SR 02:09 PM Lesion found in Distal RCA. Pre Stenosis: 50 Pre JENNY Flow: 3: Complete and Brisk Flow/Perfusion [email or web address] 02:09 PM Wire removed [email or web address] 02:09 PM Balloon catheter removed intact. [email or web address] 02:09 PM Guide catheter removed intact. [email or web address] 02:10 PM 7Fr CLS 3.0 Mach 1 guide catheter was used to cannulate the PCI vessel successfully. reused? No [email or web address] 02:13 PM .014 [place] 190cm guide wire across target lesion- successful. reused? No [email or web address] 02:14 PM HR=63 bpm, WMZK=617/87 mmhg, TdV0=670.0 %, Comment=SR 02:14 PM At 14:14 the ACT was 288 seconds. [email or web address] 02:15 PM 2.25x15 balloon re-inserted. [email or web address] 02:16 PM Time: 14:15 Heparin 1000 units Intravenous Given by Devon Matias RN [email or web address] 02:16 PM Time: 14:16 Nitroglycerin 200 mcg Intracoronary Given by Nathan Blanco MD eliot 02:17 PM Balloon inflated @ 12 isaiah for 15 seconds [email or web address] 02:19 PM HR=62 bpm, HXOQ=471/91 mmhg, SpO2=99.0 %, Comment=SR 02:19 PM Balloon catheter removed intact. [email or web address] 02:20 PM 2.25 mm x 12mm NC Trek Rx balloon across target lesion- successful. reused? No [email or web address] 02:20 PM Balloon inflated @ 14 isaiah for 12 seconds [email or web address] 02:21 PM Recorded Pressure: Ao, HR=54, Condition=Condition 1 (Aorta) Ao 157/74/107 02:21 PM Balloon inflated @ 14 isaiah for 12 seconds [email or web address] 02:21 PM Balloon catheter removed intact. [email or web address] 02:22 PM 2.25mm x 20mm Synergy drug-eluting stent across target lesion- successful Lot #[id number] [email or web address] 02:22 PM Time: 14:22 Hydralazine 10 mg Intravenous Given by Devon Matias RN [email or web address] 02:23 PM Stent deployed @ 11 isaiah for 20 seconds [email or web address] 02:24 PM Stent delivery system removed intact. [email or web address] 02:24 PM HR=65 bpm, ESRG=103/88 mmhg, FzH1=097.0 %, Comment=SR 02:24 PM 2.5 mm x 6mm NC Emerge balloon across target lesion- successful. reused? No [email or web address] 02:26 PM Balloon inflated @ 18 isaiah for 19 seconds [email or web address] 02:26 PM Balloon inflated @ 12 isaiah for 10 seconds [email or web address] 02:26 PM Balloon catheter removed intact. [email or web address] 02:27 PM Guide wire removed intact. [email or web address] 02:28 PM 5Fr Pigtail catheter inserted over the wire [facility] [email or web address] 02:28 PM Catheter selectively placed in left ventricle [email or web address] 02:29 PM Bolus angiogram of left Ventricle complete: 12 ml/sec for a total of 30 mls [email or web address] 02:29 PM HR=67 bpm, FXCJ=799/84 mmhg, TcP3=073.0 %, Comment=SR 02:30 PM Recorded Pressure: LV, HR=68, Condition=Condition 1 (Left Ventricle) LV 173/12/14 02:31 PM Recorded Pressure: LV, Ao, HR=67, Condition=Condition 1 (Left Ventricle) LV 168/69/14, (Aorta) Ao 164/70/107 02:31 PM Catheter removed [email or web address] 02:32 PM Time: 14:32 Plavix 300 mg Orally Given by Devon Matias RN [email or web address] 02:34 PM HR=69 bpm, XPNU=622/71 mmhg, SpO2=99.0 %, Comment=SR 02:34 PM Procedure completed at 14:34 [email or web address] 02:34 PM Did you address JENNY flow and Dominance? Yes [email or web address] 02:34 PM Sign out completed: Radiation Dose 841.94 mGy Fluoro Time: 17.9 Isovue 370 - 200ml contrast 140 ml given by Nathan Blanco MD, [facility]. Complications: NoneCardiac Rehab Consult needed: YesConfirmed administered medications: Yes [email or web address] 02:34 PM Isovue 370 - 200ml,1 Bottle(s) used. [email or web address] 02:34 PM Arterial sheath pulled, Mynx closure device used and was Successful S/N. [email or web address] 02:34 PM Estimated Blood Loss: minimal [email or web address] 02:35 PM Post ECG Sinus Bradycardia [email or web address] 02:35 PM Post Blood Pressure 147/71 [email or web address] 02:35 PM Information taught Cardiac Cath, PCI, and Mynx [email or web address] 02:35 PM Education needs Procedure, Plan of Care, and Disease Process [email or web address] 02:35 PM Learning barriers :None [email or web address] 02:35 PM Education Methods Verbal [email or web address] 02:35 PM Education evaluation Able to repeat information [email or web address] 02:35 PM Site status No bleeding/hematoma - Rt Groin as reported by Kaylen Saravia RT (R) at 14:35 [email or web address] 02:35 PM Opsite applied [email or web address] 02:39 PM OGFZ=116/70 mmhg, Comment=SR 02:42 PM Report given to Bonny RN Pt taken to Holding room Room #1. 14:42 [email or web address] 02:42 PM Delay to floor Bed availability [email or web address] 02:42 PM Family placed in consult room. [email or web address] 02:42 PM Fluoro Time: 17.9 [email or web address] 02:42 PM Isovue 370 - 200ml contrast [address] Blanco. [email or web address] 02:42 PM Radiation Dose 841.94 mGy [email or web address] 02:53 PM Patient out of room: 14:53 [email or web address] Complications Complication None Hemodynamics Pressures Site Systolic/A Wave Diastolic/V Wave Mean AO 110 60 81 AO 109 51 75 AO 125 53 81 AO 133 60 88 AO 157 74 107 LV 173 12 14 LV 168 69 14 AO 164 70 107 Post Procedure Information Blood Pressure: 147/71 mmHg Rhythm: Sinus Bradycardia Post procedural instructions were given Closure Device Time Device Success/Fail 09/20/2017 2:35:00 PM MynxGrip Successful Site Checks Time Location Status Staff Sheath In? Note 02:35 PM Rt Groin No bleeding/hematoma Kaylen Saravia RT (R) Pulses Time Site Pre-Procedure Post-Procedure Note 09/20/2017 10:20:00 AM Bilateral DP 2+ 2+ 09/20/2017 10:20:00 AM Bilateral PT 1+ 1+ 09/20/2017 10:21:00 AM Bilateral radial 2+ 2+ Updated by Lupe Farias RT(R) on 09/20/2017 2:53:44 PM electronically signed on 09/21/2017 4:13:56 PM with status of Final
--- NOTE | 2017-09-21 17:18 | Electrocardiograph Report ---
[address] [place] [address] Test Date: 2017-09-20 Pat Name: Florina Vilchis Department: 111 Room: 2N12 Gender: F Database Analyst: [id number] : 1930 Requested By: Nathan Blanco Order Number: [id number] Reading MD: Tana Yeboah Measurements Intervals Lamar Rate: 40 P: NC: 0 QRS: -53 QRSD: 124 T: 116 QT: 580 QTc: 509 Interpretive Statements SINUS RHYTHM WITH HIGH GRADE AV BLOCK MARKED LEFT AXIS DEVIATION POSSIBLE RIGHT VENTRICULAR CONDUCTION DELAY ST DEVIATION AND MODERATE T-WAVE ABNORMALITY, CONSIDER LATERAL ISCHEMIA Electronically Signed On 09-21-2017 17:17:31 EDT by Tana Yeboah
[2017-09-21] MEDS: *HR* Heparin 5,000 UNIT/ML VIAL SQ SCH (20:34)
[2017-09-22 05:19] LABS: Basophils % 0.2 %; Eosinophils # 0.4 K/mcL (0.0-0.6); Eosinophils % 5.1 %; Hematocrit 30.3 % (35.3-44.9); Hemoglobin 10.1 g/dL (11.5-15.4); Immature Granulocytes % 0.2 % (0-4); Lymphocytes # 1.4 K/mcL (0.6-4.6); Mean Corpuscular HGB Conc 33.3 g/dL (31.6-35.5); Mean Corpuscular Hemoglobin 32.3 pg (28.0-33.3); Mean Corpuscular Volume 96.8 fL (83.0-100.0); Mean Platelet Volume 11.4 fL (9.4-12.4); Monocytes # 0.8 K/mcL (0.0-1.3); Monocytes % 8.9 %; Platelet Count 130 K/mcL (140-400); Red Blood Count 3.13 M/mcL (3.82-4.97); Red Cell Distribution Width 13.6 % (11.5-14.5); Segmented Neutrophils % 69.6 %
[2017-09-22 05:31] LABS: BUN/Creatinine Ratio 21 (6-26); Blood Urea Nitrogen 16 mg/dL (8-23); Calcium 8.3 mg/dL (8.6-10.3); Carbon Dioxide 26 mEq/L (23-29); Chloride 111 mEq/L (98-107); Glucose 145 mg/dL (70-105); Magnesium 1.5 mg/dL (1.6-2.6); Osmolality,Calculated 298 (280-300); Potassium 3.6 mEq/L (3.5-5.1); Sodium 142 mEq/L (136-145); eGFR For African Americans > 60 (> 60); eGFR For Non-African Americans > 60 (> 60)
[2017-09-22 05:45] LABS: Thyroid Stimulating Hormone 8.616 mcIU/mL (0.340-5.600)
[2017-09-22] MEDS: *HR* Heparin 5,000 UNIT/ML VIAL SQ SCH (06:00)
[2017-09-22] MEDS ORDERED: *HR* SitaGLIPtin 25 MG TABLET PO SCH (08:00)
[2017-09-22] MEDS: Multivit/Ca/Min/Fe/FA 1 TAB TABLET PO SCH (08:43)
[2017-09-22] MEDS: VITAMIN D3 PO SCH (08:43)
[2017-09-22] MEDS: Isosorbide MONOnitrate (24 HR) 60 MG TAB.ER.24H PO SCH (08:43)
[2017-09-22] MEDS: Magnesium Oxide 400 MG TABLET PO SCH (08:43)
[2017-09-22] MEDS: CALCIUM CARBONATE PO SCH (08:43)
[2017-09-22] MEDS: Aspirin Enteric Coated 81 MG Tablet PO SCH (08:43)
[2017-09-22 11:20] VITALS: BP 127/77
--- NOTE | 2017-09-22 11:24 | Cardiology Progress Note ---
Date of Encounter: 09/22/17 Time of Encounter: 11:21 Assessment and Plan (1) CAD (coronary artery disease) Current Visit: Yes Status: Chronic S/P C with PCI to proximal/mid RCA. Patient had successful PTCA/Drug-Eluting Stent placement in the mid LAD. DAPT (ASA and Plavix) uninterrupted x 1 year. Pt verbalizes understanding. Continue Statin. No BB due to bradycardia/AV block as above. Right femoral access site healing well. No bleeding or hematoma. Mild ecchymosis noted. HGB 10.7 yesterday, 10.1 today--suspect dilutional. Denies active bleeding, was 13.9 09/14/17. Continue to monitor closely. Consulting hospitalist for confusion and hypothyroidism. Qualifiers: Coronary Disease-Associated Artery/Lesion type: [place] artery [place] vs. transplanted heart: [place] heart Associated angina: with unspecified angina Qualified Code(s): I25.119 - Atherosclerotic heart disease of [place] coronary artery with unspecified angina pectoris (2) AV block Current Visit: Yes Status: Resolved Developed high degree/complete heart block evening of 09/20, s/p [facility] with PCI to RCA, mLAD. Was also on Coreg 6.25mg BID at home--now on hold. Has continued to improve, now resolved. 12 hr tele AVG HR 70, SR with no high degree AV block noted. TSH 8.616--check free T3 and T4. (3) Cardiomyopathy Current Visit: No Status: Chronic EF 35% on TTE 07/2017. EF on [facility] 25%. ICMP. Recheck TTE as outpt after revascularization. Pt appears euvolemic on exam. Qualifiers: Cardiomyopathy type: unspecified Qualified Code(s): I42.9 - Cardiomyopathy , unspecified (4) Elevated troponin Current Visit: No Status: Acute Troponin 0.10, 0.31 s/p [facility] with revascularization--suspect demand ischemic, nondiagnostic for ACS. (5) Confusion Current Visit: Yes Status: Acute Per family, pt seems more confused. She is alert and oriented when questioned. Could be secondary to hospital stay. Discussed with Dr. Coombs, consult hospitalist for further management. Appreciate recs. (6) Hypothyroid Current Visit: Yes Status: Acute TSH 8.616. Check Free T3 and T4. Hospitalist consulted for management as well. Qualifiers: Hypothyroidism type: unspecified Qualified Code(s): E03.9 - Hypothyroidism , unspecified Discussion w patient/family: The assessment and plan as outlined above was discussed with the patient and/or family members who expressed understanding and agreement. All questions were answered. Thank you for involving us in the care of your patient. Please call with any questions. I will discuss all the above with Dr. Coombs and make changes as necessary. Subjective Principal diagnosis: CAD s/p PCI, AV block Interval history: Pt denies acute complaints this AM. Family at bedside, concerned that she seems more confused. TSH resulted--8.616. HR has improved--24 hr tele AVG HR 70, no high degree block noted. BP has improved. Objective Vital Signs, Last 4 Hours Temp Pulse Resp BP Pulse Ox 09/22/17 11:17 98.2 F 73 16 127/77 91 Vital Signs Temp Pulse Resp BP Pulse Ox 09/22/17 11:17 98.2 F 73 16 127/77 91 09/22/17 07:20 79 09/22/17 07:07 98.4 F 81 19 132/83 92 09/22/17 03:55 98.2 F 67 20 151/72 95 09/21/17 23:14 99.2 F 71 19 145/71 95 09/21/17 19:05 97.5 F L 75 17 127/53 95 09/21/17 18:34 93 09/21/17 18:31 74 16 95 09/21/17 16:08 97.3 F L 62 16 120/53 93 09/21/17 16:01 73 09/21/17 15:57 63 16 132/82 96 09/21/17 11:33 98.4 F 73 18 98/49 94 Intake and Output 09/21/17 09/22/17 09/22/17 23:59 07:59 15:59 Intake Total 1960 / 1960 360 / 360 Output Total 1225 / 1225 700 / 700 Balance 735 / 735 -340 / -340 Intake: IV Fluids 1000 / 1000 0.9 % Sodium Chloride 1,000 ML 1000 / 1000 @ 50 mls/hr IVC .Q20H JOSE MIGUEL Rx#: [id number] Oral 960 / 960 360 / 360 Output: Urine 1225 / 1225 600 / 600 Stool 100 / 100 Other: Meal Dinner Breakfast Percent of Meal Consumed 100% 95% Stool Size Small Stool Consistency soft Stool Color Brown Weight 63 kg Blood Glucose* 201 128 143 Patient Weight 09/22/17 23:59 Weight 63 kg General: Conversant, No Apparent Distress HEENT: Atraumatic, Normocephaly, Mucus Membranes Moist Neck: No JVD, Normal carotid pulses Cardiac: Reg Rate and Rhythm, Normal S1 and S2, No Murmur Lungs: Normal Breath Sounds, No Wheeze, Rales, Rhonchi Neuro: Alert and responsive, No focal deficits noted Abdomen: Other (distended) Skin: No rashes noted on visualized skin Musculoskeletal: No Chest Wall Tenderness Extremities: No Clubbing, No Cyanosis, No Edema, Normal Pulses Results 09/22/17 04:38 09/22/17 04:38 Lab Results 09/21/17 09/21/17 09/22/17 10:52 10:52 04:38 WBC 8.6 Hgb 10.1 L Hct 30.3 L Plt Count 130 L Sodium 137 Potassium 3.8 Chloride 103 Carbon Dioxide 29 BUN 25 H Creatinine 1.34 H Glucose 165 H Calcium 8.4 L Magnesium Troponin I 0.31 H* TSH 09/22/17 04:38 WBC Hgb Hct Plt Count Sodium 142 Potassium 3.6 Chloride 111 H Carbon Dioxide 26 BUN 16 Creatinine 0.78 Glucose 145 H Calcium 8.3 L Magnesium 1.5 L Troponin I TSH 8.616 H Short CBC 09/22/17 Range/Units 04:38 WBC 8.6 (4.3-11.1) K/mcL Hgb 10.1 L (11.5-15.4) g/dL Hct 30.3 L (35.3-44.9) % Plt Count 130 L (140-400) K/mcL Neutrophils # 6.0 (1.6-8.9) K/mcL BMP 09/22/17 09/21/17 Range/Units 04:38 10:52 Sodium 142 137 (136-145) mEq/L Potassium 3.6 3.8 (3.5-5.1) mEq/L Chloride 111 H 103 (98-107) mEq/L Carbon Dioxide 26 29 (23-29) mEq/L BUN 16 25 H (8-23) mg/dL Creatinine 0.78 1.34 H (0.60-1.20) mg/dL Glucose 145 H 165 H (70-105) mg/dL Calcium 8.3 L 8.4 L (8.6-10.3) mg/dL Cardiac Enzymes 09/21/17 Range/Units 10:52 Troponin I 0.31 H* (< 0.04) ng/mL Active Medications Acetaminophen (Tylenol) 650 mg PO Q6HR PRN PRN Reason: Mild Pain Stop: 03/22/18 14:56 Acetaminophen (Tylenol) 500 mg PO Q6H PRN PRN Reason: Pain Stop: 03/22/18 16:24 Hydrocodone Bitart/Acetaminophen ([place] 5-325 Mg) 1 tab PO Q4HR PRN PRN Reason: Moderate Pain Stop: 03/22/18 14:56 Last Admin: 09/20/17 19:33 Dose: 1 tab Aspirin (Aspirin Ec) 81 mg PO DAILY JOSE MIGUEL Stop: 03/23/18 09:01 Last Admin: 09/22/17 08:43 Dose: 81 mg Atorvastatin Calcium (Lipitor) 40 mg PO HS JOSE MIGUEL Stop: 03/22/18 21:01 Last Admin: 09/21/17 20:34 Dose: 40 mg Clopidogrel Bisulfate (Plavix) 75 mg PO DAILY JOSE MIGUEL Stop: 03/23/18 09:01 Last Admin: 09/22/17 08:43 Dose: 75 mg Diphenhydramine HCl (Benadryl) 25 mg PO HS PRN PRN Reason: Insomnia Stop: 03/22/18 14:56 Docusate Sodium (Colace) 100 mg PO BID JOSE MIGUEL PRN Reason: Protocol Stop: 03/22/18 21:01 Last Admin: 09/22/17 08:43 Dose: 100 mg Heparin Sodium (Porcine) (Heparin) 5,000 unit SQ Q12HCO JOSE MIGUEL Stop: 03/23/18 18:01 Last Admin: 09/22/17 06:00 Dose: 5,000 unit Sodium Chloride (0.9 % Sodium Chloride) 1,000 mls @ 50 mls/hr IVC .Q20H JOSE MIGUEL Stop: 03/22/18 10:01 Last Admin: 09/21/17 20:42 Dose: 50 mls/hr Isosorbide Mononitrate (Imdur) 60 mg PO BID JOSE MIGUEL Stop: 03/22/18 21:01 Last Admin: 09/22/17 08:43 Dose: 60 mg Lansoprazole (Prevacid) 30 mg PO DAILY JOSE MIGUEL Stop: 03/23/18 09:01 Last Admin: 09/22/17 08:43 Dose: 30 mg Lisinopril (Zestril) 5 mg PO DAILY JOSE MIGUEL PRN Reason: Protocol Stop: 03/24/18 09:31 Last Admin: 09/22/17 11:21 Dose: 5 mg Magnesium Oxide (Mag-Ox) 400 mg PO DAILY JOSE MIGUEL PRN Reason: Protocol Stop: 03/23/18 09:01 Last Admin: 09/22/17 08:43 Dose: 400 mg Multivitamins/Calcium (Thera M Plus) 1 tab PO DAILY JOSE MIGUEL Stop: 03/23/18 09:01 Last Admin: 09/22/17 08:43 Dose: 1 tab Nitroglycerin (Nitroglycerin) 0.4 mg SL Q5MIN PRN PRN Reason: Chest Pain Stop: 03/22/18 14:56 Nitroglycerin (Nitroglycerin) 0.4 mg SL Q5M PRN PRN Reason: Chest Pain Stop: 03/22/18 16:24 Ondansetron HCl (Zofran) 4 mg IVP Q6HR PRN; Protocol PRN Reason: Nausea And Vomiting Stop: 03/22/18 14:56 Pharmacy Profile Note (Patient Taking Own Medication) 0 each PO DAILY [facility] Stop: 03/23/18 09:01 Last Admin: 09/22/17 08:43 Dose: Not Given Sitagliptin Phosphate (Januvia) 25 mg PO DAILY@0800 [facility] Stop: 03/23/18 09:01 Last Admin: 09/22/17 08:43 Dose: 25 mg - Imaging and Cardiology Cardiac cath: report reviewed - EKG Interpretation EKG results cardiology: personally reviewed (SR with ectopy, HR 75, LBBB.), other (12 hr tele AVG HR 70, SR with ectopy, no high degree AV block noted.) Consult Discharge Plan - Plan Referrals: Alanis Arvizu, [employer] [Primary Care Provider] - 09/30/17 9:00 am
--- NOTE | 2017-09-22 13:06 | Internal Medicine Consult Note ---
Date of Encounter: 09/22/17 Time of Encounter: 13:03 - Assessment and plan (1) Confusion Status: Acute Assessment and plan: Hospitalist is being consulted as the family is concerned with AMS. The staff and family notes that the patient appears to become confused in the evening and that it persists throughout the night. Per my assessment the patient is A&OX3 and able to fully participate in H&P and examination. Family at bedside and notes that she seems appropriate and at baseline I suspect that the patient may have sundowners. I would refrain from CT head at this time as the patient is appropriate and has no focal neurological deficits (2) Hypothyroid Status: Acute Assessment and plan: S/p [facility], found to have a high-grade complete heart block TSH found to be 8.616 Hospitalist has been consulted for recommendations -obtain T3- T4 -start levothyroxine based upon whether she has primary hypothyroidism vs subclinical hypothyroidism -Given her age and hx of CAD I would recommend 50mcg PO levothyroxine daily if found to have primary hypothyroidism Qualifiers: Hypothyroidism type: unspecified Qualified Code(s): E03.9 - Hypothyroidism , unspecified (3) AV block Status: Resolved Assessment and plan: She developed a high-degree AV block s/p [facility]. AV block has now resolved and she is NSR with PAC's rate of 70's continue to hold BB see comments regarding suspected hypothyroidism - Time Spent With Patient Total time spent is greater than 50% in coordination of care (as documented) at patient's floor/unit and/or counseling patient: 25 - 35 minutes Internal Medicine - CN: HPI - Data of Consult Consult date: 09/22/17 Requesting Physician: Nathan Blanco MD - Consult Narrative Reason for consult: confusion, elevated TSH History of present illness: Ms. Vilchis is a 87 year old female that is s/p [facility] with stent placement to the LAD, and RCA. The Hospitalist group is being consulted to assist with management of AMS and suspected hypothyroidism with an elevated TSH which was found while doing a workup for a high-grade complete heart block s/p [facility] Past Med Surg Social Fam HX - Past Medical History Medical history: atrial fibrillation, cardiomyopathy, coronary artery disease, diabetes, hyperlipidemia, hypertension Psychiatric history: no psych history - Past Surgical History Surgical History: appendectomy, colectomy, colostomy, other - Social History Smoking Status: Never smoker Smokeless Tobacco Status: No Alcohol use: none Drug use: none - Family History Son Living Status: Daughter Adopted: No Family Member Ethnicity: Non- Living Status: Still Living Hx Family Cardiac Disorders: No Hx Family Respiratory Disorders: No Hx Family Cancer: Yes (Breast Cancer) Hx Family GI Disorders: No Hx Family Endocrine Disorder: No Hx Family Neuromuscular Disorders: No Hx Family Neurologic Disorders: No Hx Family HEENT Disorders: No Hx Family Autoimmune Disorders: No Father Living Status: Hx Family Cancer: Yes - Constitutional Constitutional: fatigue - Cardiovascular Cardiovascular ROS IM: no chest pain, no dyspnea, no dyspnea on exertion, no lightheadedness, no syncope - Respiratory Respiratory: no cough - Psychiatric Psychiatric: confusion (AMS; noted to be confused throughout the night) Internal Medicine - CN: Meds Calcium Carbonate/Vitamin D3 [Liquid Calcium 600-Vit D3 Sfgl] 1 cap PO DAILY 03/06 [History] Multivitamin [Multivitamins] 1 cap PO DAILY 05/28/17 [History] Pantoprazole Sodium [Protonix] 40 mg PO DAILY 05/28/17 [History] SitaGLIPtin [Januvia] 100 mg PO DAILY 05/28/17 [History] Acetaminophen [Tylenol] 500 mg PO Q6H PRN 08/14/17 [History] HydrOXYzine 5 - 10 mg PO TID 08/14/17 [History] Magnesium Oxide [Mag-Ox] 400 mg PO DAILY #30 tablet 08/15/17 [Rx] Aspirin [Lo-Dose Aspirin EC] 81 mg PO DAILY #30 tablet.dr 09/22/17 [Rx] Atorvastatin [Lipitor] 40 mg PO HS #30 tablet 09/22/17 [Rx] Clopidogrel [Plavix] 75 mg PO DAILY #30 tablet 09/22/17 [Rx] Isosorbide MONOnitrate (24 HR) [Imdur] 60 mg PO BID #60 tab.er.24h 09/22/17 [Rx] Lisinopril [Zestril] 5 mg PO DAILY #30 tablet 09/22/17 [Rx] Miscellaneous Medical Supply [Blood Pressure Cuff] 1 each MC 1-2XD PRN 30 Days # 1 each 09/22/17 [Rx] Nitroglycerin [Nitrostat] 0.4 mg SL Q5M PRN #30 tab.subl 09/22/17 [Rx] Ranolazine [Ranexa] 1,000 mg PO BID #60 tab.er.12h 09/22/17 [Rx] 3 Allergy/AdvReac Type Severity Reaction Status Date / Time metformin Allergy See Verified 09/08/17 03:24 Comments Sulfa (Sulfonamide Allergy See Verified 09/08/17 03:24 Antibiotics) Comments Internal Medicine - CN: Exam - Constitutional Vitals: Temp Pulse Resp BP Pulse Ox 98.2 F 62 16 127/77 91 09/22/17 11:17 09/22/17 11:20 09/22/17 11:17 09/22/17 11:17 09/22/17 11:17 General appearance IM: Present: cooperative, A&O X 3, no acute distress, answers questions appropriately - Eye Eye exam: Present: PERRL - Respiratory Respiratory exam: Present: CTAB - Cardiovascular Cardiovascular exam IM: Present: RRR, +S1, +S2 - Neurological Exam Neurological exam: Present: alert, CN II-XII intact, oriented X3, no focal deficits, strengths equal and symetr throughout. Absent: facial droop, speech deficit Internal Medicine - CN: Reslt - Labs CBC & Chem 7: 09/22/17 04:38 09/22/17 04:38 Labs: Short CBC 09/22/17 Range/Units 04:38 WBC 8.6 (4.3-11.1) K/mcL Hgb 10.1 L (11.5-15.4) g/dL Hct 30.3 L (35.3-44.9) % Plt Count 130 L (140-400) K/mcL Neutrophils # 6.0 (1.6-8.9) K/mcL BMP 09/22/17 04:38 Sodium 142 Potassium 3.6 Chloride 111 H Carbon Dioxide 26 BUN 16 Creatinine 0.78 Glucose 145 H Calcium 8.3 L Consult Discharge Plan - Plan Instructions: Left Heart Catheterization (DC), Bradycardia (DC) Additional Instructions: RISK FACTORS: STOP SMOKING: If you smoke, STOP. Smoking or tobacco use significantly increases your risk of heart disease because nicotine causes the arteries to narrow or constrict. It also causes fats to stick to the artery. Your chances of having a heart attack are greatly increased if you continue to smoke. For more information, call the education line for smoking cessation [id number] EAT A LOW FAT/CHOLESTEROL/SODIUM DIET: This diet may help reduce your chances of having a heart attack. LIFTING: Avoid lifting anything more than 10 pounds for 5-7 days Prior to straining, laughing, sneezing and/or coughing, apply manual pressure directly over insertion site. ACTIVITY: You may walk or climb stairs as tolerated You can resume sexual activity as tolerated In general, you are encouraged to engage in a minimum of 30 minutes or more of moderate intensity physical activity, such as brisk walking, daily or at least 3 -4 times weekly BATHING Do not submerge the site into water (bath tub, hot tub, swimming pool) for 1 week. This can be a source for infection into the blood stream. You may shower after 24 hours SITE CARE: After 24 hours, you may remove the dressing and leave the site open to air. Keep the site clean and dry. Clean gently and pat dry. You can expect bruising and tenderness that gradually resolve within a week or two. Return to work as instructed per your physician Resume driving as instructed per physician Keep all scheduled follow up appointments Resume medications as instructed IMPORTANT: If prescribed a Platelet Aggregation Inhibitor such as, Plavix, Brilinta or Effient: Duration of therapy is minimum one year These medications are often used in combination with Aspirin in prevention of future heart attacks Never discontinue unless consult with your Test Man STROKE (CVA) Risk factors for a stroke are: Age, cigarette smoking, diabetes, excessive alcohol consumption, family history, high blood pressure, overweight, physical inactivity, prior stroke, heart attack, diagnosis of carotid artery stenosis or other artery disease. Warning signs: Sudden numbness or weakness of the face, arm or leg; especially on one side of the body, sudden confusion, trouble speaking or understanding, sudden trouble seeing in one or both eyes, sudden trouble walking, dizziness, loss of balance or coordination, sudden severe headache with no cause. Call 911 or go to the Emergency Room. CONGESTIVE HEART FAILURE: If you have been diagnosed with Congestive Heart Failure (CHF) and your symptoms return, make an appointment with your physician Weigh yourself daily. Notify your physician if you have a weight gain of two or more pounds in one day or five or more pounds in one week. If you experience any difficulty breathing, please call 911 BLEEDING: Although the risk of bleeding is minimal, it can happen. If you have any bleeding from the site, apply firm pressure above the puncture site for 10-15 minutes. If the bleeding does not stop, continue manual pressure and call 911 Contact your physician if: You develop a fever greater than 101 degrees Fahrenheit Your site becomes reddened or has any drainage You have an increase in pain or burning at the site or if a large knot forms at the site. If you experience chest pain, shortness of breath, dizziness, or extreme tiredness, stop the activity and rest. Please notify your physicians office if you experience any of these symptoms and they are not relieved by rest please call 911! Referrals: Brian Roque MEDIA PROFESSIONAL [Advanced Practice Nurse] - (Office will call patient at home with follow up appointment ) Alanis Arvizu CNP [Primary Care Provider] - 09/30/17 9:00 am Prescriptions: Aspirin [Lo-Dose Aspirin EC] 81 mg PO DAILY #30 tablet. Atorvastatin [Lipitor] 40 mg PO HS #30 tablet Clopidogrel [Plavix] 75 mg PO DAILY #30 tablet Isosorbide MONOnitrate (24 HR) [Imdur] 60 mg PO BID #60 tab.er.24h Lisinopril [Zestril] 5 mg PO DAILY #30 tablet Miscellaneous Medical Supply [Blood Pressure Cuff] 1 each MC 1-2XD PRN 30 Days # 1 each PRN Reason: Hypertension Nitroglycerin [Nitrostat] 0.4 mg SL Q5M PRN #30 tab.subl PRN Reason: Chest Pain Ranolazine [Ranexa] 1,000 mg PO BID #60 tab.er.12h
[2017-09-22 13:16] LABS: Triiodothyronine (T3) Free 2.52 pg/mL (2.50-3.90)
--- NOTE | 2017-09-22 15:00 | Discharge Summary ---
Orders not resulted at time of discharge: Pending orders 09/20/17 19:40 ECG 12 lead ECG [ECG] Stat 09/21/17 06:00 ECG 12 lead ECG [ECG] AM 0600 09/22/17 14:39 ECG 48 holter monitor setup [ECG] Routine Date of Encounter: 09/22/17 Time of Encounter: 14:52 - Discharge Diagnosis (1) CAD (coronary artery disease) Priority: Primary Status: Chronic Qualifiers: Coronary Disease-Associated Artery/Lesion type: [place] artery [place] vs. transplanted heart: [place] heart Associated angina: with unspecified angina Qualified Code(s): I25.119 - Atherosclerotic heart disease of [place] coronary artery with unspecified angina pectoris (2) AV block Priority: Secondary Status: Resolved (3) Cardiomyopathy Priority: Secondary Status: Chronic Qualifiers: Cardiomyopathy type: ischemic Qualified Code(s): I25.5 - Ischemic cardiomyopathy (4) Elevated troponin Priority: Secondary Status: Acute (5) Confusion Priority: Secondary Status: Acute (6) Hypothyroid Priority: Secondary Status: Acute Qualifiers: Hypothyroidism type: unspecified Qualified Code(s): E03.9 - Hypothyroidism , unspecified - Hospital Course Hospital course: Ms. Vilchis is a 87 year old female that presented 09/20/17 for staged PCI. S/P [facility] 09/20/17 with PCI to proximal/mid RCA. Patient had successful PTCA/Drug- Eluting Stent placement in the mid LAD. DAPT (ASA and Plavix) uninterrupted x 1 year. Pt verbalizes understanding. Continue Statin. No BB due to bradycardia/AV block. Developed high degree/complete heart block evening of 09/20, s/p [facility] with PCI to RCA, mLAD. Was also on Coreg 6.25mg BID at home--now on hold. Has continued to improve, now resolved. 12 hr tele AVG HR 70, SR with no high degree AV block noted. Will d/c home on 48 hour holter monitor. TSH 8.616-- normal free T3 and free T4. Consulted hospitalist, they did not feel synthroid was warranted given the normal T3 and T4. Right femoral access site healing well. No bleeding or hematoma. Mild ecchymosis noted. HGB 10.7 yesterday, 10.1 today--suspect dilutional, as she has been on IV fluids, now stopped. Denies active bleeding, was 13.9 09/14/17. EF 35% on TTE 07/2017. EF on LHC 25%. ICMP. Continue Lisinopril. No BB currently due to the AV block. Consider resuming low dose BB as outpt. Recheck TTE as outpt after revascularization. Pt appears euvolemic on exam. Troponin 0.10, 0.31 s/p LHC with revascularization--suspect demand ischemic, nondiagnostic for ACS. Per family, pt seems more confused. She is alert and oriented when questioned. Hospitalist consulted, thought to be secondary to sundowners, no further testing warranted. D/C home in stable condition. Will coordinate outpt follow-up. - Time Spent with Patient Total time spent providing and/or coordinating discharge services: Greater than 30 minutes - Discharge Medications Prescriptions: Aspirin [Lo-Dose Aspirin EC] 81 mg PO DAILY #30 tablet. Atorvastatin [Lipitor] 40 mg PO HS #30 tablet Clopidogrel [Plavix] 75 mg PO DAILY #30 tablet Isosorbide MONOnitrate (24 HR) [Imdur] 60 mg PO BID #60 tab.er.24h Lisinopril [Zestril] 5 mg PO DAILY #30 tablet Miscellaneous Medical Supply [Blood Pressure Cuff] 1 each MC 1-2XD PRN 30 Days # 1 each PRN Reason: Hypertension Nitroglycerin [Nitrostat] 0.4 mg SL Q5M PRN #30 tab.subl PRN Reason: Chest Pain Ranolazine [Ranexa] 1,000 mg PO BID #60 tab.er.12h Home Medications: Calcium Carbonate/Vitamin D3 [Liquid Calcium 600-Vit D3 Sfgl] 1 cap PO DAILY 03/06 [History] Multivitamin [Multivitamins] 1 cap PO DAILY 05/28/17 [History] Pantoprazole Sodium [Protonix] 40 mg PO DAILY 05/28/17 [History] SitaGLIPtin [Januvia] 100 mg PO DAILY 05/28/17 [History] Acetaminophen [Tylenol] 500 mg PO Q6H PRN 08/14/17 [History] HydrOXYzine 5 - 10 mg PO TID 08/14/17 [History] Magnesium Oxide [Mag-Ox] 400 mg PO DAILY #30 tablet 08/15/17 [Rx] Aspirin [Lo-Dose Aspirin EC] 81 mg PO DAILY #30 tablet.dr 09/22/17 [Rx] Atorvastatin [Lipitor] 40 mg PO HS #30 tablet 09/22/17 [Rx] Clopidogrel [Plavix] 75 mg PO DAILY #30 tablet 09/22/17 [Rx] Isosorbide MONOnitrate (24 HR) [Imdur] 60 mg PO BID #60 tab.er.24h 09/22/17 [Rx] Lisinopril [Zestril] 5 mg PO DAILY #30 tablet 09/22/17 [Rx] Miscellaneous Medical Supply [Blood Pressure Cuff] 1 each MC 1-2XD PRN 30 Days # 1 each 09/22/17 [Rx] Nitroglycerin [Nitrostat] 0.4 mg SL Q5M PRN #30 tab.subl 09/22/17 [Rx] Ranolazine [Ranexa] 1,000 mg PO BID #60 tab.er.12h 09/22/17 [Rx] Allergies/Adverse Reactions: 3 Allergy/AdvReac Type Severity Reaction Status Date / Time metformin Allergy See Verified 09/08/17 03:24 Comments Sulfa (Sulfonamide Allergy See Verified 09/08/17 03:24 Antibiotics) Comments Date of admission: 09/21/17 16:13 Primary care physician: Alanis Arvizu CNP Consults: 09/20/17 14:55 Consult to Cardiac Rehabilitation-Phase1 [CONS] Routine Comment: Reason for Consult: post op PCI Call Completed: Yes 09/22/17 11:33 Consult to Hospitalist [CONS] Routine Consulting Provider: Hospitalist [place] Reason for Consult: confusion, hypothyroidism Call Completed: Yes Discharging clinician: Brian Roque Anticipated date of discharge: 09/22/17 Physical Examination Vital Signs, Last 4 Hours Temp Pulse Resp BP Pulse Ox 09/22/17 11:20 62 09/22/17 11:17 98.2 F 73 16 127/77 91 Vital Signs Temp Pulse Resp BP Pulse Ox 09/22/17 11:20 62 09/22/17 11:17 98.2 F 73 16 127/77 91 09/22/17 07:20 79 09/22/17 07:07 98.4 F 81 19 132/83 92 09/22/17 03:55 98.2 F 67 20 151/72 95 09/21/17 23:14 99.2 F 71 19 145/71 95 09/21/17 19:05 97.5 F L 75 17 127/53 95 09/21/17 18:34 93 09/21/17 18:31 74 16 95 09/21/17 16:08 97.3 F L 62 16 120/53 93 09/21/17 16:01 73 09/21/17 15:57 63 16 132/82 96 Intake and Output 09/21/17 09/22/17 09/22/17 23:59 07:59 15:59 Intake Total 1960 / 1960 600 / 600 Output Total 1225 / 1225 900 / 900 Balance 735 / 735 -300 / -300 Intake: IV Fluids 1000 / 1000 0.9 % Sodium Chloride 1,000 ML 1000 / 1000 @ 50 mls/hr IVC .Q20H JOSE MIGUEL Rx#: [id number] Oral 960 / 960 600 / 600 Output: Urine 1225 / 1225 800 / 800 Stool 100 / 100 Other: Meal Dinner Lunch Percent of Meal Consumed 100% 20% Stool Size Moderate Stool Consistency soft formed Stool Color Brown # Bowel Movements 1 Weight 63 kg Blood Glucose* 201 128 143 Patient Weight 09/22/17 23:59 Weight 63 kg General: Conversant, No Apparent Distress HEENT: Atraumatic, Normocephaly, Mucus Membranes Moist Neck: No JVD, Normal carotid pulses Cardiac: Reg Rate and Rhythm, Normal S1 and S2, No Murmur Lungs: Normal Breath Sounds, No Wheeze, Rales, Rhonchi Neuro: Alert and responsive, No focal deficits noted Abdomen: Soft, Non-Tender Skin: No rashes noted on visualized skin Musculoskeletal: No Chest Wall Tenderness Extremities: No Clubbing, No Cyanosis, No Edema, Normal Pulses - Patient Status Disposition: Home, Self-Care Condition: Fair Functional capacity at discharge: independent ambulation Overall status at discharge: patient is progressing back to baseline - Discharge Instructions Follow Up With: Alanis Arvizu CNP [Primary Care Provider] - 09/30/17 9:00 am Additional Instructions: RISK FACTORS: STOP SMOKING: If you smoke, STOP. Smoking or tobacco use significantly increases your risk of heart disease because nicotine causes the arteries to narrow or constrict. It also causes fats to stick to the artery. Your chances of having a heart attack are greatly increased if you continue to smoke. For more information, call the education line for smoking cessation 3-332-[id number] EAT A LOW FAT/CHOLESTEROL/SODIUM DIET: This diet may help reduce your chances of having a heart attack. LIFTING: Avoid lifting anything more than 10 pounds for 5-7 days Prior to straining, laughing, sneezing and/or coughing, apply manual pressure directly over insertion site. ACTIVITY: You may walk or climb stairs as tolerated You can resume sexual activity as tolerated In general, you are encouraged to engage in a minimum of 30 minutes or more of moderate intensity physical activity, such as brisk walking, daily or at least 3 -4 times weekly BATHING Do not submerge the site into water (bath tub, hot tub, swimming pool) for 1 week. This can be a source for infection into the blood stream. You may shower after 24 hours SITE CARE: After 24 hours, you may remove the dressing and leave the site open to air. Keep the site clean and dry. Clean gently and pat dry. You can expect bruising and tenderness that gradually resolve within a week or two. Return to work as instructed per your physician Resume driving as instructed per physician Keep all scheduled follow up appointments Resume medications as instructed IMPORTANT: If prescribed a Platelet Aggregation Inhibitor such as, Plavix, Brilinta or Effient: Duration of therapy is minimum one year These medications are often used in combination with Aspirin in prevention of future heart attacks Never discontinue unless consult with your [employer] STROKE (CVA) Risk factors for a stroke are: Age, cigarette smoking, diabetes, excessive alcohol consumption, family history, high blood pressure, overweight, physical inactivity, prior stroke, heart attack, diagnosis of carotid artery stenosis or other artery disease. Warning signs: Sudden numbness or weakness of the face, arm or leg; especially on one side of the body, sudden confusion, trouble speaking or understanding, sudden trouble seeing in one or both eyes, sudden trouble walking, dizziness, loss of balance or coordination, sudden severe headache with no cause. Call 911 or go to the Emergency Room. CONGESTIVE HEART FAILURE: If you have been diagnosed with Congestive Heart Failure (CHF) and your symptoms return, make an appointment with your physician Weigh yourself daily. Notify your physician if you have a weight gain of two or more pounds in one day or five or more pounds in one week. If you experience any difficulty breathing, please call 911 BLEEDING: Although the risk of bleeding is minimal, it can happen. If you have any bleeding from the site, apply firm pressure above the puncture site for 10-15 minutes. If the bleeding does not stop, continue manual pressure and call 911 Contact your physician if: You develop a fever greater than 101 degrees Fahrenheit Your site becomes reddened or has any drainage You have an increase in pain or burning at the site or if a large knot forms at the site. If you experience chest pain, shortness of breath, dizziness, or extreme tiredness, stop the activity and rest. Please notify your physicians office if you experience any of these symptoms and they are not relieved by rest please call 911! - Diet and Activity Activity: increase activity as tolerated Diet: low fat, low cholesterol, low salt diet
--- NOTE | 2017-09-25 10:11 | Electrocardiograph Report ---
[place] [id number] Test Date: 2017-09-21 Pat Name: Florina Vilchis Department: 110 Room: 2N12 Gender: Continuous Improvement Facilitator: : [id number] Requested By: Nathan Blanco Order Number: [id number] Reading MD: Tana Yeboah Measurements Intervals [place] Rate: 62 P: 52 SD: 168 QRS: -11 QRSD: 150 T: 183 QT: 485 QTc: 491 Interpretive Statements SINUS RHYTHM, SINUS ARRHYTHMIA WITH PACs LEFT BUNDLE BRANCH BLOCK Electronically Signed On 09-25-2017 10:09:32 EDT by Tana Yeboah
== END 2017-09-22 16:20 | disposition home or self-care (01) ==
LOC: INVDIALAB 08:34 → 2NNU 08:34 → 2ANU 14:07 → 2NENU 14:49 → 2NNU 21:07
PROVIDERS: ADMIT Emergency Medicine; ATTEND Emergency Medicine

== ENCOUNTER 2017-09-30 10:30 | Inpatient (IN) ==
[2017-09-30] MEDS ORDERED: Naloxone 0.4 MG/ML INJ IVP PRN (13:23)
[2017-09-30] MEDS ORDERED: *HR* Dextrose 50 % in Water (Syg) 50 ML SYRINGE IVP PRN (13:25)
[2017-09-30] MEDS ORDERED: D5% in Water 1,000 ML IVC PRN (13:25)
[2017-09-30] MEDS ORDERED: Dextrose Gel 15 GM/37.5 ML TUBE PO PRN ×2 (13:25)
--- NOTE | 2017-09-30 13:26 | Electrophysiology Consult Note ---
<Ca Barker Alivia - Last Filed: 09/30/17 14:17> Date of Encounter: 09/30/17 Time of Encounter: 13:00 Assessment and Plan (1) Complete heart block Current Visit: Yes Status: Acute Patient presented in the outpatient setting with complete heart block. Refused EMS transfer to hospital; collapsed in lobby and requiring CPR. On epi at 2; transcutaneously paced at 70. BP stable. Discussed with Dr.John Schaefer, recommend insertion of temporary pacer now. Discussed with Dr. Coombs (interventional cardiology) Plan for implant of BiV-ICD today (Hx of EF 35%). Will continue to follow. (2) CAD (coronary artery disease) Current Visit: No Status: Chronic Recent PCI to RCA and LAD. Uninterrupted DAPT (asa + plavix) for a minimum of 1 year. Qualifiers: Coronary Disease-Associated Artery/Lesion type: [place] artery [place] vs. transplanted heart: [place] heart Associated angina: with unspecified angina Qualified Code(s): I25.119 - Atherosclerotic heart disease of [place] coronary artery with unspecified angina pectoris (3) Paroxysmal a-fib Current Visit: No Status: Chronic Hx of PAF. Not on AC d/t hx of GI bleed. Discussion w patient/family: The assessment and plan as outlined above was discussed with the patient and/or family members who expressed understanding and agreement. All questions were answered. Thank you for involving us in the care of your patient. Please call with any questions. The patient and plan of care was discussed with Dr. Slava Schaefer. History of Present Illness Consult date: 09/30/17 Requesting physician: Silvio Cruz Consult reason: Complete heart block Chief complaint: Arrest History of present illness: Ms. Vilchis is a 87 year old female with PMHx significant for CAD s/p recent PCI to RCA and LAD, ischemic cardiomyopathy with LVEF 35%, PAF (no AC, hx of GI bleed), and HTN who was transferred to [facility] ICU from [facility] for complete heart block. She was seen earlier this morning in the outpatient setting with EAMON Rivas for hospital follow-up. HR were in the 40's, ECG was obtained and demonstrated complete heart block. She was recommended transfer to the ED with [facility] via EMS but patient refused and wanted daughter to drive her. As she was leaving [facility], she reportedly collapsed in the lobby. Per Evelyn--"Compressions initiated immediately and patient provided respirations with Ambu bag. Patient intermittently regained a pulse. Crash cart available and initial ECG showed asystole. Medications being prepared, however patient did return pulse and back heart rate in the 40s with junctional rhythm and returned back to her complete heart block. Patient had loss of pulse again with asystole with compressions and bagging resumed. IV access obtained and normal saline started wide open. Patient again regained spontaneous return of circulation and breathing. Patient alert and oriented 3 with positive movement of all extremities x 4 and cooperative. No acute trauma noted." Per Debbie report, patient received atropine and was started on epi gtt; HR did not respond and was then transcutaneously paced at 70. She was given IV ativan and fentanyl per medflight d/t pain/agitation and is drowsy upon exam. Past Med Surg Social Fam HX - Past Medical History Attestation: Yes The following information was validated with the patient. Source: patient, old records reviewed, obtained from family Medical history: atrial fibrillation, cardiomyopathy, CHF, coronary artery disease, diabetes, hyperlipidemia, hypertension Psychiatric history: no psych history - Past Surgical History Surgical History: angioplasty/stent, appendectomy, colectomy, colostomy, other - Social History Smoking Status: Never smoker Smokeless Tobacco Status: No Alcohol use: none Drug use: none - Family History Son Living Status: Daughter Adopted: No Family Member Ethnicity: Non- Living Status: Still Living Hx Family Cardiac Disorders: No Hx Family Respiratory Disorders: No Hx Family Cancer: Yes (Breast Cancer) Hx Family GI Disorders: No Hx Family Endocrine Disorder: No Hx Family Neuromuscular Disorders: No Hx Family Neurologic Disorders: No Hx Family HEENT Disorders: No Hx Family Autoimmune Disorders: No Father Living Status: Hx Family Cancer: Yes Medications and Allergies Calcium Carbonate/Vitamin D3 [Liquid Calcium 600-Vit D3 Sfgl] 1 cap PO DAILY 03/06 [History] Multivitamin [Multivitamins] 1 cap PO DAILY 05/28/17 [History] Pantoprazole Sodium [Protonix] 40 mg PO DAILY 05/28/17 [History] SitaGLIPtin [Januvia] 100 mg PO DAILY 05/28/17 [History] Acetaminophen [Tylenol] 500 mg PO Q6H PRN 08/14/17 [History] HydrOXYzine 5 - 10 mg PO TID 08/14/17 [History] Magnesium Oxide [Mag-Ox] 400 mg PO DAILY #30 tablet 08/15/17 [Rx] Aspirin [Lo-Dose Aspirin EC] 81 mg PO DAILY #30 tablet.dr 09/22/17 [Rx] Atorvastatin [Lipitor] 40 mg PO HS #30 tablet 09/22/17 [Rx] Clopidogrel [Plavix] 75 mg PO DAILY #30 tablet 09/22/17 [Rx] Isosorbide MONOnitrate (24 HR) [Imdur] 60 mg PO BID #60 tab.er.24h 09/22/17 [Rx] Nitroglycerin [Nitrostat] 0.4 mg SL Q5M PRN #30 tab.subl 09/22/17 [Rx] Ranolazine [Ranexa] 1,000 mg PO BID #60 tab.er.12h 09/22/17 [Rx] Lisinopril [Zestril] 5 mg PO DAILY 09/30/17 [History] 3 Allergy/AdvReac Type Severity Reaction Status Date / Time metformin Allergy See Verified 09/08/17 03:24 Comments Sulfa (Sulfonamide Allergy See Verified 09/08/17 03:24 Antibiotics) Comments All Systems Review: The remainder of the systems were reviewed and are negative - Cardiovascular Cardiovascular: as per HPI Physical Examination General: Other (appears critically ill) Cardiac: Reg Rate and Rhythm, Normal S1 and S2 Lungs: Normal Breath Sounds Neuro: Other (drowsy) Abdomen: Soft Skin: No rashes noted on visualized skin Musculoskeletal: No Chest Wall Tenderness Extremities: No Edema, Normal Pulses Results - Imaging and Cardiology Echo: report reviewed Cardiac cath: report reviewed - EKG Interpretation EKG results cardiology: personally reviewed Consult Discharge Plan - Plan Additional Instructions: ACTIVITY: Moderate activity for the next 7 days. No lifting more than 5 pounds ( gallon of milk) for 4-6 weeks. Avoid lifting your arm on the same side as the device for 4 weeks. BATHING /SHOWERING: Do not remove the large bandage over the site for 2 days. Do not allow the device to get wet for 7-10 days. You may bathe/shower, but do not use soap and water on the site. When bathing, keep the site dry by covering with Saran wrap or a towel. WOUND CARE: The white steri-strips will start to peel away and come off after 14 days, or your doctor will remove them after [address] anything into or on top of the incision. Do not use cotton swabs. Do not use any antibiotic ointment or Vitamin E on the site. REMINDERS: You may use electrical devices, such as, microwaves, hair dryers, electric razors, electric blankets, etc. as long as they are in good condition and kept 6 -8 inches away from the device. It is recommended to use cell phones on the opposite side of your device. Notify security personnel at the airport that you have a device before you go through airport security screening. When at places with security monitors, such as a grocery store, do not linger near these monitors. It is fine to walk past them in a normal manner. Refer to your owners manual for more specific directions. CARRY YOUR PACEMAKER/ICD CARD WITH YOU AT ALL TIMES Return to work as instructed per physician Resume driving as instructed per physician Keep all scheduled follow up appointments Resume medications as instructed Contact [facility] ( ) if: You develop excessive bleeding from insertion or wound site not controlled by applying pressure You develop a fever greater than 101 degrees Fahrenheit Your incision becomes reddened at or around the site Your incision develops yellowish or greenish drainage or development of white pimple-like bumps You experience excessive pain You develop swelling in your ankles You experience muscle switching You develop excessive hiccupping If you experience chest pain, shortness of breath, dizziness, or extreme tiredness, stop the activity and rest. Please notify [facility] office if you experience any of these symptoms and they are not relieved by rest please call 911! Referrals: Slava Schaefer MD [Partnered Physician] - ([facility]---7-10 days for wound check [facility]-- 4-6 weeks for device check ) Alanis Arvizu, WAITER/WAITRESS HEAD [Primary Care Provider] - <Slava Schaefer - Last Filed: 10/04/17 15:17> Date of Encounter: 10/04/17 - Attending Attestation I have personally performed a face to face evaluation on this patient. I have reviewed and agree with the care plan. History and Exam by me shows: Presents with complete heart block, known ischemic cardiomyopathy. Would recommend BIV pacemaker. Assessment and Plan Discussion w patient/family: The assessment and plan as outlined above was discussed with the patient and/or family members who expressed understanding and agreement. All questions were answered. Thank you for involving us in the care of your patient. Please call with any questions. History of Present Illness History of present illness: Ms. Vilchis is a 87 year old female Past Med Surg Social Fam HX - Family History Son Living Status: Daughter Adopted: No Family Member Ethnicity: Non- Living Status: Still Living Hx Family Cardiac Disorders: No Hx Family Respiratory Disorders: No Hx Family Cancer: Yes (Breast Cancer) Hx Family GI Disorders: No Hx Family Endocrine Disorder: No Hx Family Neuromuscular Disorders: No Hx Family Neurologic Disorders: No Hx Family HEENT Disorders: No Hx Family Autoimmune Disorders: No Father Living Status: Cause of : cancer Hx Family Cancer: Yes Mother Age at : 80 Cause of : old age All Systems Review: The remainder of the systems were reviewed and are negative Physical Examination Vital Signs, Last 4 Hours Pulse Resp BP Pulse Ox 10/04/17 12:00 72 16 113/90 96 Results 10/04/17 03:25 10/04/17 03:25 Lab Results 10/04/17 10/04/17 03:25 03:25 WBC 6.3 Hgb 9.9 L Hct 29.8 L Plt Count 161 Sodium 142 Potassium 3.7 Chloride 107 Carbon Dioxide 32 H BUN 13 Creatinine 0.59 L Glucose 141 H Calcium 8.4 L
--- NOTE | 2017-09-30 13:29 | Pulmonology History & Physical ---
<Silvio Cruz - Last Filed: 09/30/17 14:40> Date of Encounter: 09/30/17 Time of Encounter: 13:27 Assessment and Plan (1) Complete heart block Current visit: Yes Status: Acute Presented as an outpatient today found to be in complete heart block. Report is that she refused ambulance transfer and subsequently collapsed and was taken to the nursing facility and arrest. Require transcutaneous pacing postarrest. Continue dopamine infusion. Cardiology consulted and anticipate pacemaker placement today. (2) Cardiomyopathy Current visit: No Status: Chronic patient with history of ischemic cardiomyopathy with most recent ejection fraction of 35% on echo on 07/2017. Presents in complete heart block. Plan for pacemaker placement today. Qualifiers: Cardiomyopathy type: ischemic Qualified Code(s): I25.5 - Ischemic cardiomyopathy (3) CAD (coronary artery disease) Current visit: No Status: Chronic History of coronary artery disease status post left heart catheterization . Multivessel coronary artery disease. PTCA/drug-eluting stent placed in the proximal RCA as well as the mid LAD. Currently on no antiplatelet therapy with aspirin and Plavix to be uninterrupted for one year. Qualifiers: Coronary Disease-Associated Artery/Lesion type: [place] artery [place] vs. transplanted heart: [place] heart Associated angina: with unspecified angina Qualified Code(s): I25.119 - Atherosclerotic heart disease of [place] coronary artery with unspecified angina pectoris (4) Paroxysmal a-fib Current visit: No Status: Chronic No rate control antiarrhythmic on medication list. Not on anticoagulation as she has a history of GI bleed. Continue to monitor. (5) HTN (hypertension) Current visit: No Status: Chronic Hold home medications at this time in lieu of pacemaker placement now. 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 Qualifiers: Hyperlipidemia type: mixed hyperlipidemia Qualified Code(s): E78.2 - Mixed hyperlipidemia (8) DVT prophylaxis Current visit: No Status: Acute Hold heparin until after pacemaker placement and resume 5000 units every 12 hours History of Present Illness Chief complaint: Cardiac arrest, complete heart block HPI: Ms. Vilchis is a 87 year old female with a primary medical history of CAD status post stents, diabetes, hypertension who presents to the ICU as a transfer from [facility] post arrest. Patient is currently sedated and unable to provide any history. Report is that she went as an outpatient for cardiology evaluation today. There she was found to be in complete heart block. The patient collapsed and was taken to the closest facility with CPR in progress. Patient was found to be in complete heart block necessitating transcutaneous pacing. Prior to arrival she did receive sedatives and analgesics and presents unable to provide any history. At the time of evaluation the patient is somnolent. She has dopamine infusing peripherally as well as being transcutaneously paced. Cardiology aware of the patient was plans of pacemaker placement today. Past Med Surg Social Fam HX - Past Medical History Source: old records reviewed Medical history: atrial fibrillation, cardiomyopathy, coronary artery disease, diabetes, hyperlipidemia, hypertension Psychiatric history: no psych history - Past Surgical History Surgical History: appendectomy, colectomy, colostomy, other - Social History Smoking Status: Never smoker Smokeless Tobacco Status: No Alcohol use: none Drug use: none - Family History Son Living Status: Daughter Adopted: No Family Member Ethnicity: Non- Living Status: Still Living Hx Family Cardiac Disorders: No Hx Family Respiratory Disorders: No Hx Family Cancer: Yes (Breast Cancer) Hx Family GI Disorders: No Hx Family Endocrine Disorder: No Hx Family Neuromuscular Disorders: No Hx Family Neurologic Disorders: No Hx Family HEENT Disorders: No Hx Family Autoimmune Disorders: No Father Living Status: Hx Family Cancer: Yes Mother Age at : 80 Cause of : old age Medications and Allergies Calcium Carbonate/Vitamin D3 [Liquid Calcium 600-Vit D3 Sfgl] 1 cap PO DAILY 03/06 [History] Multivitamin [Multivitamins] 1 cap PO DAILY 05/28/17 [History] Pantoprazole Sodium [Protonix] 40 mg PO DAILY 05/28/17 [History] SitaGLIPtin [Januvia] 100 mg PO DAILY 05/28/17 [History] Acetaminophen [Tylenol] 500 mg PO Q6H PRN 08/14/17 [History] HydrOXYzine 5 - 10 mg PO TID 08/14/17 [History] Magnesium Oxide [Mag-Ox] 400 mg PO DAILY #30 tablet 08/15/17 [Rx] Aspirin [Lo-Dose Aspirin EC] 81 mg PO DAILY #30 tablet.dr 09/22/17 [Rx] Atorvastatin [Lipitor] 40 mg PO HS #30 tablet 09/22/17 [Rx] Clopidogrel [Plavix] 75 mg PO DAILY #30 tablet 09/22/17 [Rx] Isosorbide MONOnitrate (24 HR) [Imdur] 60 mg PO BID #60 tab.er.24h 09/22/17 [Rx] Nitroglycerin [Nitrostat] 0.4 mg SL Q5M PRN #30 tab.subl 09/22/17 [Rx] Ranolazine [Ranexa] 1,000 mg PO BID #60 tab.er.12h 09/22/17 [Rx] Lisinopril [Zestril] 5 mg PO DAILY 09/30/17 [History] 3 Allergy/AdvReac Type Severity Reaction Status Date / Time metformin Allergy See Verified 09/08/17 03:24 Comments Sulfa (Sulfonamide Allergy See Verified 09/08/17 03:24 Antibiotics) Comments ROS unobtainable: due to mental status All Systems: The remainder of the systems were reviewed and are negative Physical Examination General appearance: other (Somnolent) ENT: oropharynx moist Effort: normal Auscultation: bilateral: rhonchi Cardiovascular: regular rate and rhythm, other (Transcutaneously paced) Gastrointestinal: soft, non-tender, non-distended Integumentary: normal Extremities: no cyanosis, no edema Musculoskeletal: no deformities other (Somnolent) <Zulay Guy M - Last Filed: 09/30/17 16:37> Date of Encounter: 09/30/17 History of Present Illness HPI: Ms. Vilchis is a 87 year old female All Systems: The remainder of the systems were reviewed and are negative Physical Examination Vital Signs: Vital Signs, Last 4 Hours Temp Pulse Resp BP Pulse Ox 09/30/17 14:38 70 28 118/48 100 09/30/17 13:37 69 100 09/30/17 13:03 97.3 F L 70 19 114/81 100 Results - Laboratory Findings Abnormal lab findings: Abnormal lab results POC Glucose 174 mg/dL (70-99) H 09/30/17 13:02 - Attending Attestation I examined this patient and my medical decision-making was reviewed with the Resident Physician. I agree with the documented findings, disposition and treatment plan as described except to the extent set forth below. Patient seen and examined. Labs, radiology, chart personally reviewed. Agree with resident's history and physical, assessment, plan with following comments: MEDIA CENTER ASSISTANT: Patient does not follows commands, he should not has received sedative and she will respond to painful stimuli Pulmonary: Acceptable oxygenation and ventilation Cardiovascular: Patient have pacemaker and cardiology follow-up. Patient arrived on Epinephrine drip and changed to dopamine drip GI: Nutrition per dietary and GI prophylaxis per routine Heme: DVT prophylaxis per routine Renal; urine out put and renal funtion reviewed Endorcine: blood glucose is monitored Lines: all lines checked and no evidence of infections Skin: skin care to prevent pressure ulcers per nursing routine care
[2017-09-30] MEDS ORDERED: Heparin 1,000 UNITS/500 mL 500 ML ONE (14:33)
[2017-09-30] MEDS ORDERED: *HR* FentaNYL (PF) 100 MCG/2 ML VIAL ONE ×2 (15:23→16:51)
--- NOTE | 2017-09-30 15:44 | Invasive Diagnostic Lab Proc ---
Name: Florina Vilchis Date of Study: 09/30/2017 Date: 1930 Ht: 59.1in Medical Record#: [id number] Age: 87 Wt: 134.48lb Gender: Female BSA: 1.56 Order #: [id number] BMI: 27.11 Physicians Procedure Physician: Rosie Coombs MD Referring MD: Referring MD: Staff Name Position Time In Yeny Zamorano RT Monitor 03:05 PM Haven Jean RT (R) Scrub 03:05 PM Jasmin Smith RN [facility] Magistrate 03:05 PM Indications Indication 3rd Degree Heart Block Procedures Performed Procedure INS/RPL TEMP PM LEAD/CATH;SNGL Pre-Procedure Checklist Informed consent is complete signed and on chart. H&P is on chart. ID band is on and ID verified with patient. Patient NPO for procedure The procedure was described for the patient and questions were answered. Blood Pressure: 132/47 ECG is on chart. Rhythm: Paced Plan of Care Patient will tolerate the procedure without complications. Adequate level of comfort will be maintained. Hemodynamics will remain stable Patient will recover from procedure without complications. Respiratory function will be maintained. Cardiac rhythm will remain stable. Patient temperature will be maintained. Patient and/or family have verbalized understanding of the procedure. Patient Education Chief Complaint/Reason for Test: Temporary pacemaker Developmental Category: Geriatric (65+ years) Developmentally Appropriate for Age: Yes Learning Barriers: None Education Needs: Procedure Education Method: Verbal Information Taught: Temporary pacemaker Educational Evaluation: Able to repeat information Intravenous Access Time IV Size Location DC'd Fluid/Drip Rate Units RN 20g 1 06/23" Patent On Arrival Rt Antecubital Triple Lumen Rt Jugular Allergies SULFA (sulfonamide) Sulfa (Sulfonamide Antibiotics) metformin Vital Signs Time BP (mmHg) HR (bpm) O2 Sat. RR (bpm) LOC 114 / 81 70 95 % 19 03:07 PM 132 / 47 64 97 % 03:11 PM 126 / 51 77 98 % 03:16 PM 130 / 65 74 80 % 03:21 PM 143 / 56 72 100 % 03:27 PM 136 / 59 70 98 % Procedural Medications Time Medication Dose Units Method Given By 03:05 PM Dopamine 15 mcg/kg/min Intravenous 03:10 PM Oxygen 2 L/min nasal cannula Radha Mcdonough RN 03:10 PM Lidocaine 2% 10 ml Subcutaneous Rosie Coombs MD 03:23 PM Fentanyl 50 mcg Intravenous Radha Mcdonough RN ASA Classification: Emergent Procedure: ASA score is assumed Bhargav Score Preprocedure Postprocedure Activity 1- Moves 2 extremities sustained head lift Activity 1- Moves 2 extremities sustained head lift Circulation 2- SBP +/= 20 points of pre-anesthetic level Circulation 2- SBP +/= 20 points of pre-anesthetic level Consciousness 1- Responds to verbal stimuli drowsy Consciousness 1- Responds to verbal stimuli drowsy O2 Saturation 2- Able to maintain O2 satruation of 92% on room air O2 Saturation 2- Able to maintain O2 satruation of 92% on room air Respiratory 2- Able to deep breathe and cough well Respiratory 2- Able to deep breathe and cough well Total Score 8 Total Score 8 Contrast Agent: Isovue Fluoro Dose: 57 mGy Procedure Log Time Note Enter By 02:46 PM CathStat 03:05 PM Pt arrived to labor representative 2 at 15:04 dspell 03:05 PM Yeny Zamorano RT Position: Monitor Time in: 15:05 dspell 03:05 PM Haven Jean RT (R) Position: Scrub Time in: 15:05 dspell 03:05 PM Jasmin Smith RN Position: [facility] Magistrate Time in: 15:05 dspell 03:05 PM Patient charges- Angio tray pack, Navilyst 3mm J, Pulse Oximetry and ACIST tubing and transducer dspell 03:05 PM Patient arrived at 15:05 with Dopamine Intravenous drip @ 15 mcg/kg/min dspell 03:06 PM Case Delayed No dspell 03:06 PM Hair removed from procedure site in holding area using clippers. Left groin prepped with Chloraprep by Yeny Zamorano RT, then patient was draped. Skin intact. dspell 03:06 PM Vitals capture started with the following parameters, Patient=Adult, Interval=5 min, Initial Dzlitmhj=464 mmHg, Deflation Rate=5 mmHg, Cuff placed on Right Arm 03:07 PM Pt heavily sedated prior to arriving to slab inspector. dspell 03:07 PM Meet and greet completed dspell 03:07 PM Sign in performed according to hospital policy. dspell 03:07 PM Procedure start 15:07 dspell 03:07 PM HR=64 bpm, DPAK=744/47 mmhg, SpO2=97 % 03:10 PM Time: 15:10 Oxygen on at 2 L/min per nasal cannula by Radha Mcdonough RN 03:10 PM Time: 15:10 10 ml Lidocaine 2% to right groin Subcutaneous Given by Rosie Coombs MD 03:10 PM Micro-Introducer Kit utilized for sheath placement 03:11 PM HR=77 bpm, DDVI=766/51 mmhg, SpO2=98.0 % 03:14 PM Access obtained by percutaneous puncture. 7Fr 11cm Cordis Addie sheath placed in right Femoral vein. [id number] 03:14 PM PstProc:Bard Bipolar Pacing Catheter Temp pacer inserted into right femoral vein 03:15 PM PstProc: Temp pacer on. 03:16 PM HR=74 bpm, IQDH=613/65 mmhg, SpO2=80.0 % 03:21 PM HR=72 bpm, XYFT=032/56 mmhg, SxA1=291.0 % 03:22 PM PstProc: Temp pacer turned on, rate 70 ppm, mA 5, sensitivity 2 :23 PM Time: 15:23 Fentanyl 50 mcg Intravenous Given by Radha Mcdonough RN :24 PM PstProc: Sheath(s) sutured in due to Temporary Pacer. :24 PM PstProc: Pacer is inserted at 70 cm :24 PM Procedure completed at 15:24 :25 PM Sign out completed: Radiation Dose 56.94 mGy Fluoro Time: 2.8 Isovue 370 - 200ml contrast ml given by Rosie Coombs MD. Complications: NoneCardiac Rehab Consult needed: NoConfirmed administered medications: Yes :25 PM Estimated Blood Loss: minimal :25 PM Post ECG Paced :25 PM Post Blood Pressure 143/56 dsp:25 PM Information taught Temporary pacemaker :26 PM Education needs Procedure, Plan of Care, and Responsibilities of Patient in Care : PM Learning barriers :None :26 PM Education Methods Verbal dspellman 03:26 PM Education evaluation Able to repeat information dspell 03:26 PM Site status No bleeding/hematoma - Rt Groin as reported by Haven Jean RT (R) at 15:26 dspell 03:26 PM Opsite applied dspell 03:26 PM Plavix, Effient or Brilinta given No dspell 03:26 PM Delay to floor No dspell 03:26 PM 15:26 Post Pulses Bilateral DP & PT 1+ dspell 03:26 PM Family placed in consult room. dspell 03:26 PM Complications: None dspell 03:26 PM Fluoro Time: 2.8 dsp 03:26 PM Radiation Dose 56.94 mGy dspell 03:27 PM HR=70 bpm, GHCW=311/59 mmhg, SpO2=98.0 % 03:37 PM Report given to Marlin KAUR Pt taken to ICU Room #1. 15:36 valeria Complications Complication None None Hemodynamics Post Procedure Information Blood Pressure: 143/56 mmHg Rhythm: Paced Post procedural instructions were given Site Checks Time Location Status Staff Sheath In? Note 03:26 PM Rt Groin No bleeding/hematoma Haven Jean RT (R) Pulses Time Site Pre-Procedure Post-Procedure Note 3:26:00 PM Bilateral DP & PT 1+ Updated by RT Reginald (R) on 09/30/2017 3:37:11 PM RT Reginald electronically signed on 09/30/2017 3:38:24 PM with status of Final
[2017-09-30] MEDS ORDERED: ceFAZolin 2,000 MG in 0.9 % Sodium Chloride 100 ML IVPB ONE (15:45)
[2017-09-30] MEDS ORDERED: 0.9 % Sodium Chloride 500 ML ONE ×2 (16:01→16:40)
[2017-09-30] MEDS ORDERED: Water for inj. (sterile) 10 ML IV ONE (16:01)
[2017-09-30] MEDS ORDERED: D5% in Water 100 ML ONE (16:02)
--- NOTE | 2017-09-30 16:23 | Pre-Sedation Evaluation ---
Pre-sedation evaluation - Pre-sedation checklist Date of procedure: 09/30/17 Procedure: placement of temporary pacemaker Recent Vitals: Last Vital Signs Temp 97.3 F L 09/30/17 13:03 Pulse 70 09/30/17 14:38 Resp 28 09/30/17 14:38 BP 118/48 09/30/17 14:38 Pulse Ox 100 09/30/17 14:38 H&P (including ROS) documented in medical record: Yes Previous reaction to sedatives/anesthetics: No Dietary Status: NPO 6 hours prior to procedure Airway Assessment: Patient can open mouth completely, TMJ function normal, Micrognathia (under-bite, receding chin) absent Dentition: dentures removed Possible difficult airway: No ASA Classification *see protocol: CLASS III-Severe systemic disease Plan of Care: Pt appropriate candidate for procedure/moderate/conscious sedation , Risks/benefits of procedure/sedation discussed w/ patient/family
[2017-09-30] MEDS ORDERED: ISOVUE-370 200 ML INFUS..BTL IV ONE (16:40)
[2017-09-30 20:20] LABS: Basophils % 0.1 %; Eosinophils % 0.3 %; Hematocrit 33.2 % (35.3-44.9); Hemoglobin 10.8 g/dL (11.5-15.4); Immature Granulocytes % 0.5 % (0-4); Lymphocytes # 0.5 K/mcL (0.6-4.6); Lymphocytes % 4.8 %; Mean Corpuscular HGB Conc 32.5 g/dL (31.6-35.5); Mean Corpuscular Hemoglobin 31.9 pg (28.0-33.3); Mean Corpuscular Volume 97.9 fL (83.0-100.0); Mean Platelet Volume 10.3 fL (9.4-12.4); Monocytes # 0.8 K/mcL (0.0-1.3); Monocytes % 7.4 %; Neutrophils # 9.1 K/mcL (1.6-8.9); Platelet Count 202 K/mcL (140-400); Red Blood Count 3.39 M/mcL (3.82-4.97); Red Cell Distribution Width 14.5 % (11.5-14.5); Segmented Neutrophils % 86.9 %
[2017-09-30 20:21] LABS: INR 1.2; Prothrombin Time 13.1 Seconds (9.4-12.1)
[2017-09-30 20:34] LABS: BUN/Creatinine Ratio 23 (6-26); Blood Urea Nitrogen 17 mg/dL (8-23); Calcium 8.5 mg/dL (8.6-10.3); Carbon Dioxide 27 mEq/L (23-29); Chloride 107 mEq/L (98-107); Glucose 233 mg/dL (70-105); Osmolality,Calculated 297 (280-300); Sodium 139 mEq/L (136-145); eGFR For African Americans > 60 (> 60); eGFR For Non-African Americans > 60 (> 60)
[2017-09-30] MEDS: Insulin LISPRO 300 UNITS/3 ML VIAL SQ SCH (21:04)
[2017-10-01] MEDS: Insulin LISPRO 300 UNITS/3 ML VIAL SQ SCH ×5 (00:04→23:36)
[2017-10-01 04:00] LABS: Basophils % 0.1 %; Eosinophils # 0.1 K/mcL (0.0-0.6); Eosinophils % 0.8 %; Hematocrit 29.8 % (35.3-44.9); Hemoglobin 9.9 g/dL (11.5-15.4); Immature Granulocytes % 0.3 % (0-4); Lymphocytes # 0.8 K/mcL (0.6-4.6); Lymphocytes % 8.8 %; Mean Corpuscular HGB Conc 33.2 g/dL (31.6-35.5); Mean Corpuscular Hemoglobin 32.5 pg (28.0-33.3); Mean Corpuscular Volume 97.7 fL (83.0-100.0); Mean Platelet Volume 10.4 fL (9.4-12.4); Monocytes # 0.8 K/mcL (0.0-1.3); Neutrophils # 7.3 K/mcL (1.6-8.9); Platelet Count 186 K/mcL (140-400); Red Blood Count 3.05 M/mcL (3.82-4.97); Red Cell Distribution Width 14.5 % (11.5-14.5)
[2017-10-01 04:05] LABS: INR 1.2; Prothrombin Time 13.4 Seconds (9.4-12.1)
[2017-10-01 04:15] LABS: BUN/Creatinine Ratio 23 (6-26); Blood Urea Nitrogen 16 mg/dL (8-23); Calcium 8.4 mg/dL (8.6-10.3); Carbon Dioxide 26 mEq/L (23-29); Chloride 109 mEq/L (98-107); Glucose 155 mg/dL (70-105); Osmolality,Calculated 294 (280-300); Potassium 3.9 mEq/L (3.5-5.1); Sodium 140 mEq/L (136-145); eGFR For African Americans > 60 (> 60); eGFR For Non-African Americans > 60 (> 60)
--- NOTE | 2017-10-01 06:55 | Pulmonology Progress Note ---
<Silvio Cruz - Last Filed: 10/01/17 08:19> Date of Encounter: 10/01/17 Time of Encounter: 08:19 Assessment and Plan (1) Complete heart block Current Visit: Yes Status: Acute Presented as an outpatient today found to be in complete heart block. Report is that she refused ambulance transfer and subsequently collapsed and was taken to the nursing facility in arrest. Required transcutaneous pacing postarrest. Remains on dopamine infusion Cardiology consulted POD #1 biventricular pacemaker placement (2) Cardiomyopathy Current Visit: No Status: Chronic patient with history of ischemic cardiomyopathy with most recent ejection fraction of 35% on echo on 07/2017. Presents in complete heart block. POD #1 Biventricular pacemaker placement Qualifiers: Cardiomyopathy type: ischemic Qualified Code(s): I25.5 - Ischemic cardiomyopathy (3) CAD (coronary artery disease) Current Visit: No Status: Chronic History of coronary artery disease status post left heart catheterization . Multivessel coronary artery disease. PTCA/drug-eluting stent placed in the proximal RCA as well as the mid LAD. Currently on no antiplatelet therapy with aspirin and Plavix to be uninterrupted for one year. Qualifiers: Coronary Disease-Associated Artery/Lesion type: [place] artery [place] vs. transplanted heart: [place] heart Associated angina: with unspecified angina Qualified Code(s): I25.119 - Atherosclerotic heart disease of [place] coronary artery with unspecified angina pectoris (4) Paroxysmal a-fib Current Visit: No Status: Chronic No rate control antiarrhythmic on medication list. Not on anticoagulation as she has a history of GI bleed. Continue to monitor. (5) HTN (hypertension) Current Visit: No Status: Chronic On antihypertensives for marginal blood pressures. 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 Qualifiers: Hyperlipidemia type: mixed hyperlipidemia Qualified Code(s): E78.2 - Mixed hyperlipidemia (8) DVT prophylaxis Current Visit: No Status: Acute Heparin 5000 units every 12 hours Subjective Principal diagnosis: Complete heart block Interval history: Labs and hemodynamics reviewed over the last 24 hours. She is postoperative day 1 from biventricular pacemaker placement without complication. Patient is alert this morning. Family at bedside. Discussed CODE STATUS and they report she previously did not want any type of life support. Patient to be changed to DNR CCA DNI. Objective PUL Vital signs: Last Vital Signs Temp 98.8 F 10/01/17 04:00 Pulse 60 10/01/17 06:00 Resp 16 10/01/17 06:00 BP 97/53 10/01/17 06:00 Pulse Ox 100 10/01/17 06:00 General appearance: no acute distress Effort: normal Auscultation: bilateral: clear Cardiovascular: regular rate and rhythm Gastrointestinal: soft, non-tender, non-distended Integumentary: normal Extremities: no cyanosis, no edema Musculoskeletal: no deformities other (Alert. Moves all extremities.) Results - Laboratory Findings CBC and BMP: 10/01/17 03:35 10/01/17 03:35 PT/INR, D-dimer PT 13.4 Seconds (9.4-12.1) H 10/01/17 03:35 Abnormal lab findings: Abnormal lab results RBC 3.05 M/mcL (3.82-4.97) L 10/01/17 03:35 Hgb 9.9 g/dL (11.5-15.4) L 10/01/17 03:35 Hct 29.8 % (35.3-44.9) L 10/01/17 03:35 PT 13.4 Seconds (9.4-12.1) H 10/01/17 03:35 Chloride 109 mEq/L (98-107) H 10/01/17 03:35 Glucose 155 mg/dL (70-105) H 10/01/17 03:35 POC Glucose 182 mg/dL (70-99) H 09/30/17 23:50 Calcium 8.4 mg/dL (8.6-10.3) L 10/01/17 03:35 - Clinical Findings Intake & Output: Intake & Output 09/30/17 09/30/17 10/01/17 15:59 23:59 07:59 Intake Total 0 / 0 250 / 250 Output Total 75 / 75 1210 / 1210 450 / 450 Balance -75 / -75 -1210 / -1210 -200 / -200 Weight 61 kg 61 kg Consult Discharge Plan - Plan Referrals: Alanis Arvizu, IRRIGATION SYSTEM OPERATOR [Primary Care Provider] - <Zulay Guy - Last Filed: 10/01/17 09:32> Date of Encounter: 10/01/17 Objective PUL Vital signs: Last Vital Signs Temp 98.3 F 10/01/17 07:00 Pulse 60 10/01/17 08:00 Resp 20 10/01/17 08:00 BP 106/50 10/01/17 08:00 Pulse Ox 100 10/01/17 08:00 Results - Laboratory Findings CBC and BMP: 10/01/17 03:35 10/01/17 03:35 PT/INR, D-dimer PT 13.4 Seconds (9.4-12.1) H 10/01/17 03:35 Abnormal lab findings: Abnormal lab results RBC 3.05 M/mcL (3.82-4.97) L 10/01/17 03:35 Hgb 9.9 g/dL (11.5-15.4) L 10/01/17 03:35 Hct 29.8 % (35.3-44.9) L 10/01/17 03:35 PT 13.4 Seconds (9.4-12.1) H 10/01/17 03:35 Chloride 109 mEq/L (98-107) H 10/01/17 03:35 Glucose 155 mg/dL (70-105) H 10/01/17 03:35 POC Glucose 182 mg/dL (70-99) H 09/30/17 23:50 Calcium 8.4 mg/dL (8.6-10.3) L 10/01/17 03:35 - Clinical Findings Intake & Output: Intake & Output 09/30/17 10/01/17 10/01/17 23:59 07:59 15:59 Intake Total 0 / 0 250 / 250 Output Total 1210 / 1210 550 / 550 Balance -1210 / -1210 -300 / -300 Weight 61 kg - Attending Attestation I examined this patient and my medical decision-making was reviewed with the Resident Physician. I agree with the documented findings, disposition and treatment plan as described except to the extent set forth below. Patient seen and examined. Labs, radiology, chart personally reviewed. Agree with resident's history and physical, assessment, plan with following comments: DESIGN SPECIALIST: Patient follows commands, Pulmonary: Acceptable oxygenation and ventilation Cardiovascular: Status post pacemaker placement. Patient is still requiring low dose dopamine and we will try to wean it off. Discussed with the daughter at the bedside regarding the CODE STATUS and that was changed. GI: Nutrition per dietary and GI prophylaxis per routine Heme: DVT prophylaxis per routine Renal; urine out put and renal funtion reviewed Endorcine: blood glucose is monitored Lines: all lines checked and no evidence of infections Skin: skin care to prevent pressure ulcers per nursing routine care Patient is off vasopressor can be transferred out of the ICU.
[2017-10-01] MEDS: *HR* Heparin 5,000 UNIT/ML VIAL SQ SCH ×2 (08:52→17:28)
--- NOTE | 2017-10-01 12:10 | Cardiology Progress Note ---
Date of Encounter: 10/01/17 Time of Encounter: 11:00 Assessment and Plan (1) Complete heart block Current Visit: Yes Status: Acute Patient presented in the outpatient setting with complete heart block. Refused EMS transfer to hospital; collapsed in lobby and requiring CPR, had emergent temporary pacer, followed by permenent pacer late last night. Chest wall tenderness due to CPR x 3 rounds, . (2) Paroxysmal a-fib Current Visit: No Status: Chronic Hx of PAF, now AV sequentially paced. Not on AC d/t hx of GI bleed. (3) Non-STEMI (non-ST elevated myocardial infarction) Current Visit: No Status: Acute repeat troponins pending post emergent PCI , repeat EKG pending Discussion w patient/family: The assessment and plan as outlined above was discussed with the patient and/or family members who expressed understanding and agreement. All questions were answered. Thank you for involving us in the care of your patient. Please call with any questions. Subjective Principal diagnosis: Complete heart block Interval history: Pt complains of moderate chest tenderness, diffuse, worse with inspiration cough , and pain in right groin, non radiating, Chest pain much different than she experienced with AMI. She has little recall of yesterdays events, remembers being in the office, awoke in hospital. Objective Vital Signs, Last 4 Hours Temp Pulse Resp BP Pulse Ox 10/01/17 12:00 97.9 F 10/01/17 11:18 60 10/01/17 11:00 97.9 F 60 18 137/67 95 10/01/17 10:00 60 16 111/56 100 10/01/17 09:00 60 18 105/52 99 General: Conversant HEENT: Atraumatic, Normocephaly, Mucus Membranes Moist Neck: No JVD Cardiac: Reg Rate and Rhythm, Normal S1 and S2, Other (electronically paced rhythm on monitor) Lungs: Other (breath sounds decreased, poor inspiratory effort, scattered rhonchi) Neuro: Alert and responsive Abdomen: Soft, Non-Tender Skin: No rashes noted on visualized skin Musculoskeletal: Other (small local hematoma right groin) Extremities: No Clubbing, No Cyanosis, No Edema Results 10/01/17 03:35 10/01/17 03:35 Lab Results 09/30/17 09/30/17 09/30/17 19:56 19:56 19:56 WBC 10.5 Hgb 10.8 L Hct 33.2 L Plt Count 202 INR 1.2 Sodium 139 Potassium 4.0 Chloride 107 Carbon Dioxide 27 BUN 17 Creatinine 0.75 Glucose 233 H Calcium 8.5 L 10/01/17 10/01/17 10/01/17 03:35 03:35 03:35 WBC 9.0 Hgb 9.9 L Hct 29.8 L Plt Count 186 INR 1.2 Sodium 140 Potassium 3.9 Chloride 109 H Carbon Dioxide 26 BUN 16 Creatinine 0.69 Glucose 155 H Calcium 8.4 L Consult Discharge Plan - Plan Referrals: Alanis Arvizu, CELL BUILDER [Primary Care Provider] -
--- NOTE | 2017-10-01 12:52 | Event Note ---
Date of Encounter: 10/01/17 Time of Encounter: 12:30 - Cardiology Event Note Device check completed this AM per protocol for next day check. Concern for atrial lead dislodgment due to failed atrial lead position check. Discussed EGM with local [employer] rep, Madyson, who confirmed atrial lead dislodgment. Discussed findings with Dr. Marques who contacted EP, Dr. Slava Schaefer. Further recommendations to follow. Chest X-Ray 09/30/17 18:28 IMPRESSION: No pneumothorax status post device implantation. D/ / Edin Sneed / Edin Sneed Interpreting Provider: Edin Sneed Chest X-Ray 10/01/17 06:00 IMPRESSION: Cardiomegaly with pulmonary edema and small effusions. Lead placements are stable. No evidence of pneumothorax. Right IJ central line catheter placement as described. D/ / Reno Mercado MD / Reno Mercado MD Interpreting Provider: Reno Mercado MD
[2017-10-02 04:41] LABS: Basophils % 0.4 %; Eosinophils # 0.4 K/mcL (0.0-0.6); Eosinophils % 6.1 %; Hematocrit 28.2 % (35.3-44.9); Hemoglobin 9.2 g/dL (11.5-15.4); Immature Granulocytes % 0.3 % (0-4); Lymphocytes # 1.1 K/mcL (0.6-4.6); Lymphocytes % 15.1 %; Mean Corpuscular HGB Conc 32.6 g/dL (31.6-35.5); Mean Corpuscular Hemoglobin 32.4 pg (28.0-33.3); Mean Corpuscular Volume 99.3 fL (83.0-100.0); Mean Platelet Volume 10.1 fL (9.4-12.4); Monocytes # 0.7 K/mcL (0.0-1.3); Monocytes % 9.2 %; Neutrophils # 4.9 K/mcL (1.6-8.9); Platelet Count 163 K/mcL (140-400); Red Blood Count 2.84 M/mcL (3.82-4.97); Red Cell Distribution Width 14.7 % (11.5-14.5); Segmented Neutrophils % 68.9 %
[2017-10-02 04:57] LABS: BUN/Creatinine Ratio 26 (6-26); Blood Urea Nitrogen 17 mg/dL (8-23); Calcium 8.3 mg/dL (8.6-10.3); Carbon Dioxide 29 mEq/L (23-29); Chloride 107 mEq/L (98-107); Glucose 130 mg/dL (70-105); Osmolality,Calculated 297 (280-300); Potassium 3.7 mEq/L (3.5-5.1); Sodium 142 mEq/L (136-145); eGFR For African Americans > 60 (> 60); eGFR For Non-African Americans > 60 (> 60)
[2017-10-02] MEDS: *HR* Heparin 5,000 UNIT/ML VIAL SQ SCH ×2 (06:12→18:09)
[2017-10-02] MEDS: Insulin LISPRO 300 UNITS/3 ML VIAL SQ SCH ×3 (06:13→18:09)
--- NOTE | 2017-10-02 07:03 | Pulmonology Progress Note ---
<Silvio Cruz - Last Filed: 10/02/17 08:14> Date of Encounter: 10/02/17 Time of Encounter: 08:10 Assessment and Plan (1) Complete heart block Current Visit: Yes Status: Acute Presented as an outpatient today found to be in complete heart block. Report is that she refused ambulance transfer and subsequently collapsed and was taken to the nursing facility in arrest. Required transcutaneous pacing postarrest. Cardiology consulted POD #2 pacemaker placement (2) Cardiomyopathy Current Visit: No Status: Chronic patient with history of ischemic cardiomyopathy with most recent ejection fraction of 35% on echo on 07/2017. Presents in complete heart block. POD #2 pacemaker placement Qualifiers: Cardiomyopathy type: ischemic Qualified Code(s): I25.5 - Ischemic cardiomyopathy (3) CAD (coronary artery disease) Current Visit: No Status: Chronic History of coronary artery disease status post left heart catheterization . Multivessel coronary artery disease. PTCA/drug-eluting stent placed in the proximal RCA as well as the mid LAD. Currently on no antiplatelet therapy with aspirin and Plavix to be uninterrupted for one year. Qualifiers: Coronary Disease-Associated Artery/Lesion type: [place] artery [place] vs. transplanted heart: [place] heart Associated angina: with unspecified angina Qualified Code(s): I25.119 - Atherosclerotic heart disease of [place] coronary artery with unspecified angina pectoris (4) Paroxysmal a-fib Current Visit: No Status: Chronic No rate control antiarrhythmic on medication list. Not on anticoagulation as she has a history of GI bleed. Continue to monitor. 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 Qualifiers: Hyperlipidemia type: mixed hyperlipidemia Qualified Code(s): E78.2 - Mixed hyperlipidemia (8) DVT prophylaxis Current Visit: No Status: Acute Heparin 5000 units every 12 hours Subjective Principal diagnosis: Complete heart block Interval history: Labs and hemodynamics reviewed over the last 24 hours. She is postoperative day 2 from pacemaker placement. Of note yesterday it was observed that her atrial lead is not functioning. Cardiology aware. Otherwise no new changes. Off dopamine. Objective PUL Vital signs: Last Vital Signs Temp 99.3 F 10/02/17 02:58 Pulse 61 10/02/17 06:00 Resp 20 10/02/17 06:00 BP 133/67 10/02/17 06:00 Pulse Ox 99 10/02/17 06:00 General appearance: no acute distress Eyes: nonicteric Effort: normal Auscultation: bilateral: clear Cardiovascular: regular rate and rhythm Gastrointestinal: soft, non-tender, non-distended Integumentary: normal Extremities: no cyanosis, no edema Musculoskeletal: no deformities normal mental status Results - Laboratory Findings CBC and BMP: 10/02/17 04:25 10/02/17 04:25 PT/INR, D-dimer PT 13.4 Seconds (9.4-12.1) H 10/01/17 03:35 Abnormal lab findings: Abnormal lab results RBC 2.84 M/mcL (3.82-4.97) L 10/02/17 04:25 Hgb 9.2 g/dL (11.5-15.4) L 10/02/17 04:25 Hct 28.2 % (35.3-44.9) L 10/02/17 04:25 RDW 14.7 % (11.5-14.5) H 10/02/17 04:25 PT 13.4 Seconds (9.4-12.1) H 10/01/17 03:35 Glucose 130 mg/dL (70-105) H 10/02/17 04:25 POC Glucose 158 mg/dL (70-99) H 10/01/17 23:33 Calcium 8.3 mg/dL (8.6-10.3) L 10/02/17 04:25 - Clinical Findings Intake & Output: Intake & Output 10/01/17 10/01/17 10/02/17 15:59 23:59 07:59 Intake Total 390 / 390 480 / 480 240 / 240 Output Total 550 / 550 270 / 270 150 / 150 Balance -160 / -160 210 / 210 90 / 90 Weight 61.9 kg Consult Discharge Plan - Plan Referrals: Alanis Arvizu, AMBULATORY SERVICES REPRESENTATIVE [Primary Care Provider] - <Zulay Guy - Last Filed: 10/02/17 11:12> Date of Encounter: 10/02/17 Objective PUL Vital signs: Last Vital Signs Temp 98.3 F 10/02/17 07:40 Pulse 66 10/02/17 10:00 Resp 14 10/02/17 10:00 BP 140/68 10/02/17 10:00 Pulse Ox 97 10/02/17 10:00 Results - Laboratory Findings CBC and BMP: 10/02/17 04:25 10/02/17 04:25 PT/INR, D-dimer PT 13.4 Seconds (9.4-12.1) H 10/01/17 03:35 Abnormal lab findings: Abnormal lab results RBC 2.84 M/mcL (3.82-4.97) L 10/02/17 04:25 Hgb 9.2 g/dL (11.5-15.4) L 10/02/17 04:25 Hct 28.2 % (35.3-44.9) L 10/02/17 04:25 RDW 14.7 % (11.5-14.5) H 10/02/17 04:25 PT 13.4 Seconds (9.4-12.1) H 10/01/17 03:35 Glucose 130 mg/dL (70-105) H 10/02/17 04:25 POC Glucose 158 mg/dL (70-99) H 10/01/17 23:33 Calcium 8.3 mg/dL (8.6-10.3) L 10/02/17 04:25 - Clinical Findings Intake & Output: Intake & Output 10/01/17 10/02/17 10/02/17 23:59 07:59 15:59 Intake Total 480 / 480 240 / 240 Output Total 270 / 270 325 / 325 Balance 210 / 210 -85 / -85 Weight 61.9 kg - Attending Attestation I examined this patient and my medical decision-making was reviewed with the Resident Physician. I agree with the documented findings, disposition and treatment plan as described except to the extent set forth below. Patient seen and examined. Labs, radiology, chart personally reviewed. Agree with resident's history and physical, assessment, plan with following comments: STRAW BALER: Patient follows commands, Pulmonary: Acceptable oxygenation and ventilation Cardiovascular: stable and cardiology recommendation regarding the pacemaker. If no intervention by cardiology then she can be transferred to the floor. GI: Nutrition per dietary and GI prophylaxis per routine Heme: DVT prophylaxis per routine IRenal; urine out put and renal funtion reviewed Endorcine: blood glucose is monitored Lines: all lines checked and no evidence of infections Skin: skin care to prevent pressure ulcers per nursing routine care Overall prognosis is poor.
[2017-10-02] MEDS: Aspirin Enteric Coated 81 MG Tablet PO SCH (11:21)
--- NOTE | 2017-10-02 21:43 | Cardiology Progress Note ---
Date of Encounter: 10/02/17 Time of Encounter: 13:00 Assessment and Plan (1) Complete heart block Current Visit: Yes Status: Acute Has resolved with PPMK, will need atrial readjusted, not reliably capturing. (2) Paroxysmal a-fib Current Visit: No Status: Chronic Hx of PAF, not a candidate for systemic anticoagulation due to hx of GI bleed. (3) Non-STEMI (non-ST elevated myocardial infarction) Current Visit: No Status: Acute Continues to improve, anginal equilavent chest pain has resolved. Discussion w patient/family: The assessment and plan as outlined above was discussed with the patient and/or family members who expressed understanding and agreement. All questions were answered. Thank you for involving us in the care of your patient. Please call with any questions. Subjective Principal diagnosis: Complete heart block Interval history: Pt reports less chest tenderness, less short of breath. She has not been out of bed. Reports cough is better. Objective Vital Signs, Last 4 Hours Temp Pulse Resp BP Pulse Ox 10/02/17 20:30 62 20 125/65 95 10/02/17 20:14 98 F 10/02/17 19:30 75 22 133/59 94 10/02/17 18:00 65 22 132/53 95 General: Conversant, No Apparent Distress HEENT: Atraumatic, Normocephaly, Mucus Membranes Moist Neck: No JVD, Normal carotid pulses Cardiac: Reg Rate and Rhythm Lungs: Other (Decreased breath sounds, scattered rhonchi.) Neuro: Alert and responsive Abdomen: Soft Skin: No rashes noted on visualized skin Musculoskeletal: Other (Chest wall tender at pacer site, no hematoma. ) Extremities: No Clubbing, No Cyanosis, No Edema, Normal Pulses Results 10/02/17 04:25 10/02/17 04:25 Lab Results 10/02/17 10/02/17 04:25 04:25 WBC 7.1 Hgb 9.2 L Hct 28.2 L Plt Count 163 Sodium 142 Potassium 3.7 Chloride 107 Carbon Dioxide 29 BUN 17 Creatinine 0.66 Glucose 130 H Calcium 8.3 L Consult Discharge Plan - Plan Referrals: Alanis Arvizu, SAP BASIS [Primary Care Provider] -
[2017-10-03] MEDS: Insulin LISPRO 300 UNITS/3 ML VIAL SQ SCH ×5 (00:40→23:47)
[2017-10-03 04:29] LABS: Basophils % 0.3 %; Eosinophils # 0.4 K/mcL (0.0-0.6); Eosinophils % 5.9 %; Hematocrit 29.3 % (35.3-44.9); Hemoglobin 9.6 g/dL (11.5-15.4); Immature Granulocytes % 0.3 % (0-4); Lymphocytes # 1.4 K/mcL (0.6-4.6); Lymphocytes % 20.5 %; Mean Corpuscular HGB Conc 32.8 g/dL (31.6-35.5); Mean Corpuscular Hemoglobin 32.2 pg (28.0-33.3); Mean Corpuscular Volume 98.3 fL (83.0-100.0); Mean Platelet Volume 10.2 fL (9.4-12.4); Monocytes # 0.7 K/mcL (0.0-1.3); Monocytes % 10.2 %; Neutrophils # 4.1 K/mcL (1.6-8.9); Platelet Count 149 K/mcL (140-400); Red Blood Count 2.98 M/mcL (3.82-4.97); Red Cell Distribution Width 14.5 % (11.5-14.5); Segmented Neutrophils % 62.8 %
[2017-10-03 04:33] LABS: INR 1.3; Prothrombin Time 13.6 Seconds (9.4-12.1)
[2017-10-03 04:46] LABS: BUN/Creatinine Ratio 24 (6-26); Blood Urea Nitrogen 13 mg/dL (8-23); Calcium 8.2 mg/dL (8.6-10.3); Carbon Dioxide 32 mEq/L (23-29); Chloride 107 mEq/L (98-107); Glucose 160 mg/dL (70-105); Osmolality,Calculated 296 (280-300); Potassium 3.2 mEq/L (3.5-5.1); Sodium 141 mEq/L (136-145); eGFR For African Americans > 60 (> 60); eGFR For Non-African Americans > 60 (> 60)
[2017-10-03] MEDS: *HR* Heparin 5,000 UNIT/ML VIAL SQ SCH ×2 (06:12→18:30)
--- NOTE | 2017-10-03 08:16 | Pulmonology Progress Note ---
<YobanynathanDonovan de paz W - Last Filed: 10/03/17 10:00> Date of Encounter: 10/03/17 Objective PUL Vital signs: Last Vital Signs Temp 97.8 F 10/03/17 07:00 Pulse 67 10/03/17 09:00 Resp 16 10/03/17 09:00 BP 149/81 10/03/17 09:00 Pulse Ox 100 10/03/17 09:00 Results - Laboratory Findings CBC and BMP: 10/03/17 04:02 10/03/17 04:02 PT/INR, D-dimer PT 13.6 Seconds (9.4-12.1) H 10/03/17 04:02 Abnormal lab findings: Abnormal lab results RBC 2.98 M/mcL (3.82-4.97) L 10/03/17 04:02 Hgb 9.6 g/dL (11.5-15.4) L 10/03/17 04:02 Hct 29.3 % (35.3-44.9) L 10/03/17 04:02 PT 13.6 Seconds (9.4-12.1) H 10/03/17 04:02 Potassium 3.2 mEq/L (3.5-5.1) L 10/03/17 04:02 Carbon Dioxide 32 mEq/L (23-29) H 10/03/17 04:02 Creatinine 0.54 mg/dL (0.60-1.20) L 10/03/17 04:02 Glucose 160 mg/dL (70-105) H 10/03/17 04:02 POC Glucose 154 mg/dL (70-99) H 10/02/17 23:48 Calcium 8.2 mg/dL (8.6-10.3) L 10/03/17 04:02 - Clinical Findings Intake & Output: Intake & Output 10/02/17 10/03/17 10/03/17 23:59 07:59 15:59 Intake Total 480 / 480 0 / 0 Output Total 200 / 200 795 / 795 Balance 280 / 280 -795 / -795 Weight 63.3 kg Consult Discharge Plan - Plan Referrals: Alanis Arvizu, MACHINE SHOP APPRENTICE [Primary Care Provider] - - Attending Attestation I examined this patient and my medical decision-making was reviewed with the Resident Physician. I agree with the documented findings, disposition and treatment plan as described except to the extent set forth below. We independently had [id number] contact with the patient Patient seen and examined at bedside Labs, radiology, chart personally reviewed. Management was reviewed during multidisciplinary critical care rounds. SR. DIRECTOR: Awake and Alert cont to monitor for delirium Pulm: Acceptable oxygentation Cards: s/p Cardiac arrest s/t complete HB s/p PPM cardiology following. Revision of lead planned per EP. Hemodynamically stable today FEN-GI:ADAT if no procedure planned by cardiolgoy Renal: UOP monitored cont to trend sCr and electrolytes ID: no active issues Heme/Onc: DVT prophylaxis given. Endo: Glucose Monitored Integ/MSK: Skin Care per routine ICU Nursing Protocol to prevent ulcers. Lines: All lines examined without evidence of infection : Dispo: Transfer after seen by Cardiology CODE: DNAR/DNI <Wilner Harmon - Last Filed: 10/03/17 11:42> Date of Encounter: 10/03/17 Time of Encounter: 08:18 Assessment and Plan (1) Complete heart block Current Visit: Yes Status: Acute Complete heart block status post pacemaker insertion, postop day 3 Patient's pacer was interrogated and it was determined that the right atrial lead is misplaced Cardiology plans to take the patient to the [facility] for readjustment today She otherwise remains stable, heart rate has been regular and she is hemodynamically stable Appreciate cardiology recommendations (2) Cardiomyopathy Current Visit: No Status: Chronic patient with history of ischemic cardiomyopathy with most recent ejection fraction of 35% on echo on 07/2017. Presents in complete heart block Currently taking aspirin, Plavix, Lipitor, lisinopril. We will discuss beta nichole with cardiology following procedure Qualifiers: Cardiomyopathy type: ischemic Qualified Code(s): I25.5 - Ischemic cardiomyopathy (3) CAD (coronary artery disease) Current Visit: No Status: Chronic History of coronary artery disease status post left heart catheterization . Multivessel coronary artery disease. PTCA/drug-eluting stent placed in the proximal RCA as well as the mid LAD. Currently on no antiplatelet therapy with aspirin and Plavix to be uninterrupted for one year. Qualifiers: Coronary Disease-Associated Artery/Lesion type: [place] artery [place] vs. transplanted heart: [place] heart Associated angina: with unspecified angina Qualified Code(s): I25.119 - Atherosclerotic heart disease of [place] coronary artery with unspecified angina pectoris (4) Hypokalemia Current Visit: Yes Status: Acute Hypokalemia on labs We will give 40 potassium today Replete as needed (5) Paroxysmal a-fib Current Visit: No Status: Chronic Currently stable, not on anticoagulation due to history of GI bleed (6) DVT prophylaxis Current Visit: No Status: Acute Subcutaneous heparin has been held for procedure Plan to initiate treatment again after procedure Subjective Principal diagnosis: Complete heart block Interval history: The patient says that overall she's feeling very well. She does not remember the specific cause for her admission to the hospital, however at this time she has no real complaints. Her family is in the room and asks about information regarding today's procedure. Objective PUL Vital signs: Last Vital Signs Temp 97.8 F 10/03/17 07:00 Pulse 65 10/03/17 07:53 Resp 16 10/03/17 07:00 BP 115/54 10/03/17 07:00 Pulse Ox 98 10/03/17 07:00 Gen: Vitals noted. No acute distress. Somnolent but arousable. AAOx3 HEENT: oropharynx clear, Normocephalic, atraumatic Neck: Supple. No adenopathy. Cardiac: RRR, no murmur, +S1/S2 with prominent S2 Pulmonary: Equal chest expansion, bibasilar rales are noted on exam which improved with repeat breathing Abdomen: soft, nontender but minimal discomfort on palpation, BS noted, no guarding Back: Nontender throughout. MSK: ROM intact, no joint swelling noted Extremities: no BLE edema, nontender calf, no cyanosis or clubbing Neuro: moves all extremities, no focal deficits Psych: Appropriate mood and behavior Results - Laboratory Findings CBC and BMP: 10/03/17 04:02 10/03/17 04:02 PT/INR, D-dimer PT 13.6 Seconds (9.4-12.1) H 10/03/17 04:02 Abnormal lab findings: Abnormal lab results RBC 2.98 M/mcL (3.82-4.97) L 10/03/17 04:02 Hgb 9.6 g/dL (11.5-15.4) L 10/03/17 04:02 Hct 29.3 % (35.3-44.9) L 10/03/17 04:02 PT 13.6 Seconds (9.4-12.1) H 10/03/17 04:02 Potassium 3.2 mEq/L (3.5-5.1) L 10/03/17 04:02 Carbon Dioxide 32 mEq/L (23-29) H 10/03/17 04:02 Creatinine 0.54 mg/dL (0.60-1.20) L 10/03/17 04:02 Glucose 160 mg/dL (70-105) H 10/03/17 04:02 POC Glucose 154 mg/dL (70-99) H 10/02/17 23:48 Calcium 8.2 mg/dL (8.6-10.3) L 10/03/17 04:02 - Clinical Findings Intake & Output: Intake & Output 10/02/17 10/03/17 10/03/17 23:59 07:59 15:59 Intake Total 480 / 480 0 / 0 Output Total 200 / 200 795 / 795 Balance 280 / 280 -795 / -795 Weight 63.3 kg
[2017-10-03] MEDS ORDERED: CeFAZolin Syr 2,000MG/20 ML 2,000 MG/20 ML SYRINGE IVPB ONE (08:46)
[2017-10-03] MEDS: Potassium Chloride Elixir 20 MEQ/15 ML UDC PO SCH (08:52)
[2017-10-03] MEDS: Aspirin Enteric Coated 81 MG Tablet PO SCH (08:52)
--- NOTE | 2017-10-03 14:16 | Pre-Sedation Evaluation ---
Pre-sedation evaluation - Pre-sedation checklist Date of procedure: 09/30/17 Procedure: pacemaker wire replacement Recent Vitals: Last Vital Signs Temp 97.9 F 10/03/17 11:30 Pulse 68 10/03/17 14:00 Resp 16 10/03/17 14:00 BP 132/69 10/03/17 14:00 Pulse Ox 100 10/03/17 14:00 H&P (including ROS) documented in medical record: Yes Previous reaction to sedatives/anesthetics: No Dietary Status: NPO 6 hours prior to procedure Airway Assessment: Patient can open mouth completely, TMJ function normal, Micrognathia (under-bite, receding chin) absent Dentition: dentures removed Possible difficult airway: No ASA Classification *see protocol: CLASS II-Mild systemic disease Plan of Care: Pt appropriate candidate for procedure/moderate/conscious sedation , Risks/benefits of procedure/sedation discussed w/ patient/family
[2017-10-03] MEDS ORDERED: *HR* FentaNYL (PF) 100 MCG/2 ML VIAL ONE (14:56)
[2017-10-03] MEDS ORDERED: *HR* Midazolam HCl 2 MG/2 ML VIAL ONE (14:57)
[2017-10-03] MEDS ORDERED: Water for inj. (sterile) 10 ML IV ONE (14:57)
[2017-10-03] MEDS ORDERED: 0.9 % Sodium Chloride 500 ML ONE (14:57)
[2017-10-03] MEDS ORDERED: 0.9 % Sodium Chloride 1,000 ML ONE (14:58)
[2017-10-03] MEDS ORDERED: Acetaminophen 325 MG TABLET PO PRN (23:34)
[2017-10-04 03:36] LABS: Basophils % 0.3 %; Eosinophils # 0.5 K/mcL (0.0-0.6); Eosinophils % 8.1 %; Hematocrit 29.8 % (35.3-44.9); Hemoglobin 9.9 g/dL (11.5-15.4); Immature Granulocytes % 0.3 % (0-4); Lymphocytes # 1.1 K/mcL (0.6-4.6); Lymphocytes % 16.8 %; Mean Corpuscular HGB Conc 33.2 g/dL (31.6-35.5); Mean Corpuscular Hemoglobin 32.9 pg (28.0-33.3); Mean Platelet Volume 10.3 fL (9.4-12.4); Monocytes # 0.7 K/mcL (0.0-1.3); Monocytes % 10.3 %; Neutrophils # 4.1 K/mcL (1.6-8.9); Platelet Count 161 K/mcL (140-400); Red Blood Count 3.01 M/mcL (3.82-4.97); Red Cell Distribution Width 14.6 % (11.5-14.5); Segmented Neutrophils % 64.2 %
[2017-10-04 03:54] LABS: BUN/Creatinine Ratio 22 (6-26); Blood Urea Nitrogen 13 mg/dL (8-23); Calcium 8.4 mg/dL (8.6-10.3); Carbon Dioxide 32 mEq/L (23-29); Chloride 107 mEq/L (98-107); Glucose 141 mg/dL (70-105); Osmolality,Calculated 296 (280-300); Potassium 3.7 mEq/L (3.5-5.1); Sodium 142 mEq/L (136-145); eGFR For African Americans > 60 (> 60); eGFR For Non-African Americans > 60 (> 60)
[2017-10-04] MEDS: *HR* Heparin 5,000 UNIT/ML VIAL SQ SCH ×2 (05:01→16:09)
[2017-10-04] MEDS: Insulin LISPRO 300 UNITS/3 ML VIAL SQ SCH ×4 (05:01→19:39)
--- NOTE | 2017-10-04 07:23 | Pulmonology Progress Note ---
<CatamillieDonovan W - Last Filed: 10/04/17 11:06> Date of Encounter: 10/04/17 Objective PUL Vital signs: Last Vital Signs Temp 97.9 F 10/04/17 07:00 Pulse 75 10/04/17 07:00 Resp 13 10/04/17 07:00 BP 138/76 10/04/17 07:00 Pulse Ox 100 10/04/17 07:00 Results - Laboratory Findings CBC and BMP: 10/04/17 03:25 10/04/17 03:25 PT/INR, D-dimer PT 13.6 Seconds (9.4-12.1) H 10/03/17 04:02 Abnormal lab findings: Abnormal lab results RBC 3.01 M/mcL (3.82-4.97) L 10/04/17 03:25 Hgb 9.9 g/dL (11.5-15.4) L 10/04/17 03:25 Hct 29.8 % (35.3-44.9) L 10/04/17 03:25 RDW 14.6 % (11.5-14.5) H 10/04/17 03:25 PT 13.6 Seconds (9.4-12.1) H 10/03/17 04:02 Carbon Dioxide 32 mEq/L (23-29) H 10/04/17 03:25 Creatinine 0.59 mg/dL (0.60-1.20) L 10/04/17 03:25 Glucose 141 mg/dL (70-105) H 10/04/17 03:25 POC Glucose 215 mg/dL (70-99) H 10/03/17 23:30 Calcium 8.4 mg/dL (8.6-10.3) L 10/04/17 03:25 - Clinical Findings Intake & Output: Intake & Output 10/03/17 10/04/17 10/04/17 23:59 07:59 15:59 Intake Total 150 / 150 Output Total 900 / 900 200 / 200 Balance -750 / -750 -200 / -200 Weight 63.5 kg Consult Discharge Plan - Plan Additional Instructions: ACTIVITY: Moderate activity for the next 7 days. No lifting more than 5 pounds ( gallon of milk) for 4-6 weeks. Avoid lifting your arm on the same side as the device for 4 weeks. BATHING /SHOWERING: Do not remove the large bandage over the site for 2 days. Do not allow the device to get wet for 7-10 days. You may bathe/shower, but do not use soap and water on the site. When bathing, keep the site dry by covering with Saran wrap or a towel. WOUND CARE: The white steri-strips will start to peel away and come off after 14 days, or your doctor will remove them after [address] anything into or on top of the incision. Do not use cotton swabs. Do not use any antibiotic ointment or Vitamin E on the site. REMINDERS: You may use electrical devices, such as, microwaves, hair dryers, electric razors, electric blankets, etc. as long as they are in good condition and kept 6 -8 inches away from the device. It is recommended to use cell phones on the opposite side of your device. Notify security personnel at the airport that you have a device before you go through airport security screening. When at places with security monitors, such as a grocery store, do not linger near these monitors. It is fine to walk past them in a normal manner. Refer to your owners manual for more specific directions. CARRY YOUR PACEMAKER/ICD CARD WITH YOU AT ALL TIMES Return to work as instructed per physician Resume driving as instructed per physician Keep all scheduled follow up appointments Resume medications as instructed Contact [facility] ( ) if: You develop excessive bleeding from insertion or wound site not controlled by applying pressure You develop a fever greater than 101 degrees Fahrenheit Your incision becomes reddened at or around the site Your incision develops yellowish or greenish drainage or development of white pimple-like bumps You experience excessive pain You develop swelling in your ankles You experience muscle switching You develop excessive hiccupping If you experience chest pain, shortness of breath, dizziness, or extreme tiredness, stop the activity and rest. Please notify [facility] office if you experience any of these symptoms and they are not relieved by rest please call 911! Referrals: Slava Schaefer MD [Partnered Physician] - ([facility]---7-10 days for wound check [facility]-- 4-6 weeks for device check ) Alanis Arvizu, TELECOMMUNICATIONS CONSULTANT [Primary Care Provider] - - Attending Attestation I examined this patient and my medical decision-making was reviewed with the Resident Physician. I agree with the documented findings, disposition and treatment plan as described except to the extent set forth below. We independently had [id number] contact with the patient Patient seen and examined at bedside Labs, radiology, chart personally reviewed. Management was reviewed during multidisciplinary critical care rounds. PLAY LEADER: Awake and alert no deficits Pulm: Stable oxygenation Cards: s/p Cardiac arrest s/t complete HB s/p PPM cardiology following. Hemodynamically stable Dispo: Stable for tele CODE: DNAR/DNI <Wilner Harmon - Last Filed: 10/04/17 11:45> Date of Encounter: 10/04/17 Time of Encounter: 08:30 Assessment and Plan (1) Complete heart block Current Visit: Yes Status: Acute Complete heart block status post pacemaker insertion, postop day 4, Atrial lead replacement POD 1 Patient returns Yesterday for Replacement of Atrial Lead The procedure was apparently uneventful, and patient is feeling well today Heart rate and blood pressure was stable overnight The patient is stable for transfer to telemetry I spoke with Dr. Maria, admitting hospitalist, to transition care. He has accepted this patient to the hospitalist service (2) Cardiomyopathy Current Visit: Yes Status: Chronic patient with history of ischemic cardiomyopathy with most recent ejection fraction of 35% on echo on 07/2017. Presented with complete heart block, s/p pacer Currently taking aspirin, Plavix, Lipitor, lisinopril Started the patient on Low-dose BB with Coreg 3.125mg BID There are bibasilar lung crackles which may require some diuresis May consider restarting Imdur at later time Qualifiers: Cardiomyopathy type: ischemic Qualified Code(s): I25.5 - Ischemic cardiomyopathy (3) CAD (coronary artery disease) Current Visit: No Status: Chronic History of coronary artery disease status post left heart catheterization . Multivessel coronary artery disease. PTCA/drug-eluting stent placed in the proximal RCA as well as the mid LAD. Currently on antiplatelet therapy with aspirin and Plavix to be uninterrupted for one year. Qualifiers: Coronary Disease-Associated Artery/Lesion type: [place] artery [place] vs. transplanted heart: [place] heart Associated angina: with unspecified angina Qualified Code(s): I25.119 - Atherosclerotic heart disease of [place] coronary artery with unspecified angina pectoris (4) Hypokalemia Current Visit: Yes Status: Resolved Hypokalemia on labs which has since been corrected Replete as needed (5) Paroxysmal a-fib Current Visit: No Status: Chronic Currently stable, not on anticoagulation due to history of GI bleed (6) DVT prophylaxis Current Visit: No Status: Acute Subcutaneous heparin Subjective Principal diagnosis: Complete heart block Interval history: The patient is resting comfortably in bed at time of examination. She says that she is feeling well, and had no problems overnight. She does wish that her right central venous catheter was removed. Objective PUL Vital signs: Last Vital Signs Temp 98.4 F 10/04/17 04:00 Pulse 73 10/04/17 06:01 Resp 19 10/04/17 06:01 BP 133/90 10/04/17 06:01 Pulse Ox 100 10/04/17 06:01 Gen: Vitals noted. No acute distress. Somnolent but arousable. AAOx3 HEENT: oropharynx clear, Normocephalic, atraumatic Neck: Supple. No adenopathy. Right IJ CVC In place Cardiac: RRR, no murmur, +S1/S2 Pulmonary: Equal chest expansion, bibasilar rales are noted on exam which improved with repeat breathing however slightly worse than previous Abdomen: soft, nontender, BS noted, no guarding Extremities: no BLE edema, nontender calf, no cyanosis or clubbing Neuro: moves all extremities, no focal deficits Psych: Appropriate mood and behavior Results - Laboratory Findings CBC and BMP: 10/04/17 03:25 10/04/17 03:25 PT/INR, D-dimer PT 13.6 Seconds (9.4-12.1) H 10/03/17 04:02 Abnormal lab findings: Abnormal lab results RBC 3.01 M/mcL (3.82-4.97) L 10/04/17 03:25 Hgb 9.9 g/dL (11.5-15.4) L 10/04/17 03:25 Hct 29.8 % (35.3-44.9) L 10/04/17 03:25 RDW 14.6 % (11.5-14.5) H 10/04/17 03:25 PT 13.6 Seconds (9.4-12.1) H 10/03/17 04:02 Carbon Dioxide 32 mEq/L (23-29) H 10/04/17 03:25 Creatinine 0.59 mg/dL (0.60-1.20) L 10/04/17 03:25 Glucose 141 mg/dL (70-105) H 10/04/17 03:25 POC Glucose 215 mg/dL (70-99) H 10/03/17 23:30 Calcium 8.4 mg/dL (8.6-10.3) L 10/04/17 03:25 - Clinical Findings Intake & Output: Intake & Output 10/03/17 10/03/17 10/04/17 15:59 23:59 07:59 Intake Total 150 / 150 Output Total 200 / 200 900 / 900 200 / 200 Balance -200 / -200 -750 / -750 -200 / -200 Weight 63.5 kg
[2017-10-04] MEDS: Potassium Chloride Elixir 20 MEQ/15 ML UDC PO SCH (08:21)
[2017-10-04] MEDS: Aspirin Enteric Coated 81 MG Tablet PO SCH (08:22)
--- NOTE | 2017-10-04 09:22 | Electrophysiology ProgressNote ---
Date of Encounter: 10/04/17 Time of Encounter: 09:30 Assessment and Plan (1) Complete heart block Current Visit: Yes Status: Acute Complete heart block as outpatient on 09/30/17. s/p BiV-PPM on 09/30/[address] Slava Schaefer (EF 35%). RA lead dislodgement, underwent lead adjustment on 10/03/17. No complaints overnight except for mild soreness at site. Device check completed this morning, local rep will be at bedside to evaluate device at 1 PM. Post PPM implant instructions/limitations discussed. No further inpatient recommendations, will coordinate outpatient follow-up. (2) CAD (coronary artery disease) Current Visit: No Status: Chronic Recent PCI to RCA and LAD. Uninterrupted DAPT (asa + plavix) for a minimum of 1 year. Betablocker restarted this AM. Continue statin. Qualifiers: Coronary Disease-Associated Artery/Lesion type: [place] artery [place] vs. transplanted heart: [place] heart Associated angina: with unspecified angina Qualified Code(s): I25.119 - Atherosclerotic heart disease of [place] coronary artery with unspecified angina pectoris (3) Paroxysmal a-fib Current Visit: No Status: Chronic Hx of PAF, not a candidate for systemic anticoagulation due to hx of GI bleed. Discussion w patient/family: The assessment and plan as outlined above was discussed with the patient and/or family members who expressed understanding and agreement. All questions were answered. Thank you for involving us in the care of your patient. Please call with any questions. The patient was discussed and reviewed with Dr. Schaefer; Cardiology will sign-off , please call with questions. Subjective Principal diagnosis: Complete heart block Interval history: Seen and examined. s/p RA lead adjustment on 10/03/17. No complaints this morning except mild soreness at left shoulder implant site. Objective Vital Signs, Last 4 Hours Temp Pulse Resp BP Pulse Ox 10/04/17 09:00 86 16 137/69 93 10/04/17 08:00 74 16 133/88 99 10/04/17 07:00 97.9 F 87 13 138/76 99 10/04/17 06:01 73 19 133/90 100 General: Conversant HEENT: Atraumatic, Normocephaly Cardiac: Reg Rate and Rhythm, Normal S1 and S2 Lungs: Normal Breath Sounds Neuro: Alert and responsive Abdomen: Soft Skin: No rashes noted on visualized skin Musculoskeletal: No Chest Wall Tenderness Extremities: No Edema, Normal Pulses Other: left upper chest wall--dressing clean, dry, and intact. No bleeding, bruising noted. +2 radial pulses. Results 10/04/17 03:25 10/04/17 03:25 Lab Results 10/04/17 10/04/17 03:25 03:25 WBC 6.3 Hgb 9.9 L Hct 29.8 L Plt Count 161 Sodium 142 Potassium 3.7 Chloride 107 Carbon Dioxide 32 H BUN 13 Creatinine 0.59 L Glucose 141 H Calcium 8.4 L Active Medications Acetaminophen (Tylenol) 650 mg PO Q6H PRN PRN Reason: Pain Stop: 04/04/18 23:35 Last Admin: 10/03/17 23:53 Dose: 650 mg Aspirin (Aspirin Ec) 81 mg PO DAILY JOSE MIGUEL Stop: 04/03/18 09:01 Last Admin: 10/04/17 08:22 Dose: 81 mg Atorvastatin Calcium (Lipitor) 40 mg PO HS JOSE MIGUEL Stop: 04/02/18 21:01 Last Admin: 10/03/17 20:20 Dose: 40 mg Carvedilol (Coreg) 3.125 mg PO BIDWM JOSE MIGUEL PRN Reason: Protocol Stop: 04/05/18 08:01 Last Admin: 10/04/17 08:21 Dose: 3.125 mg Clopidogrel Bisulfate (Plavix) 75 mg PO DAILY JOSE MIGUEL Stop: 04/03/18 09:01 Last Admin: 10/04/17 08:21 Dose: 75 mg Dextrose/Water (Dextrose 50% (Syg)) 25 ml IVP AD PRN PRN Reason: Hypoglycemia Stop: 04/01/18 13:26 Glucagon (Glucagen) 1 mg IM ONCE PRN PRN Reason: Hypoglycemia Stop: 04/01/18 13:26 Glucose (Gluctose) 15 gm PO ONCE PRN PRN Reason: Hypoglycemia Stop: 04/01/18 13:26 Glucose (Gluctose) 30 gm PO ONCE PRN PRN Reason: Hypoglycemia Stop: 04/01/18 13:26 Heparin Sodium (Porcine) (Heparin) 5,000 unit SQ Q12HCO JOSE MIGUEL Stop: 04/02/18 08:01 Last Admin: 10/04/17 05:01 Dose: 5,000 unit Dextrose (Dextrose 5%) 1,000 mls @ 100 mls/hr IVC .Q10H PRN PRN Reason: HYPOGLYCEMIA Stop: 04/01/18 13:26 Insulin Human Lispro (Humalog) 0 units SQ HS JOSE MIGUEL PRN Reason: Protocol Stop: 04/05/18 21:01 Insulin Human Lispro (Humalog) 0 units SQ TIDAC JOSE MIGUEL PRN Reason: Protocol Stop: 04/05/18 11:31 Lisinopril (Zestril) 5 mg PO DAILY JOSE MIGUEL PRN Reason: Protocol Stop: 04/04/18 09:01 Last Admin: 10/04/17 08:22 Dose: 5 mg Naloxone HCl (Narcan) 0.4 mg IVP Q2MIN PRN PRN Reason: SEE COMMENTS Stop: 04/01/18 13:24 Omeprazole (Prilosec) 40 mg PO DAILY JOSE MIGUEL Stop: 04/03/18 09:01 Last Admin: 10/04/17 08:21 Dose: 40 mg Potassium Chloride (Potassium Chloride) 40 meq PO DAILY JOSE MIGUEL Stop: 04/04/18 09:01 Last Admin: 10/04/17 08:21 Dose: 40 meq - Imaging and Cardiology Echo: report reviewed Cardiac cath: report reviewed - EKG Interpretation EKG results cardiology: personally reviewed Consult Discharge Plan - Plan Additional Instructions: ACTIVITY: Moderate activity for the next 7 days. No lifting more than 5 pounds ( gallon of milk) for 4-6 weeks. Avoid lifting your arm on the same side as the device for 4 weeks. BATHING /SHOWERING: Do not remove the large bandage over the site for 2 days. Do not allow the device to get wet for 7-10 days. You may bathe/shower, but do not use soap and water on the site. When bathing, keep the site dry by covering with Saran wrap or a towel. WOUND CARE: The white steri-strips will start to peel away and come off after 14 days, or your doctor will remove them after [address] anything into or on top of the incision. Do not use cotton swabs. Do not use any antibiotic ointment or Vitamin E on the site. REMINDERS: You may use electrical devices, such as, microwaves, hair dryers, electric razors, electric blankets, etc. as long as they are in good condition and kept 6 -8 inches away from the device. It is recommended to use cell phones on the opposite side of your device. Notify security personnel at the airport that you have a device before you go through airport security screening. When at places with security monitors, such as a grocery store, do not linger near these monitors. It is fine to walk past them in a normal manner. Refer to your owners manual for more specific directions. CARRY YOUR PACEMAKER/ICD CARD WITH YOU AT ALL TIMES Return to work as instructed per physician Resume driving as instructed per physician Keep all scheduled follow up appointments Resume medications as instructed Contact [facility] ( ) if: You develop excessive bleeding from insertion or wound site not controlled by applying pressure You develop a fever greater than 101 degrees Fahrenheit Your incision becomes reddened at or around the site Your incision develops yellowish or greenish drainage or development of white pimple-like bumps You experience excessive pain You develop swelling in your ankles You experience muscle switching You develop excessive hiccupping If you experience chest pain, shortness of breath, dizziness, or extreme tiredness, stop the activity and rest. Please notify [facility] office if you experience any of these symptoms and they are not relieved by rest please call 911! Referrals: Alanis Arvizu CNP [Primary Care Provider] - Slava Schaefer MD [Partnered Physician] - ([facility]---7-10 days for wound check [facility]-- 4-6 weeks for device check )
[2017-10-04] MEDS ORDERED: *HR* Dextrose 50 % in Water (Syg) 50 ML SYRINGE IVP PRN (18:28)
[2017-10-04] MEDS ORDERED: Acetaminophen 325 MG TABLET PO PRN (18:28)
[2017-10-04] MEDS ORDERED: Dextrose Gel 15 GM/37.5 ML TUBE PO PRN ×2 (18:28)
[2017-10-04] MEDS ORDERED: Naloxone 0.4 MG/ML INJ IVP PRN (18:28)
[2017-10-04] MEDS ORDERED: D5% in Water 1,000 ML IVC PRN (18:28)
[2017-10-04] MEDS ORDERED: Insulin LISPRO 300 UNITS/3 ML VIAL SQ SCH (21:00)
[2017-10-05] MEDS: *HR* Heparin 5,000 UNIT/ML VIAL SQ SCH ×2 (05:47→18:23)
[2017-10-05] MEDS: Aspirin Enteric Coated 81 MG Tablet PO SCH (07:48)
[2017-10-05] MEDS: Insulin LISPRO 300 UNITS/3 ML VIAL SQ SCH ×4 (07:49→19:54)
--- NOTE | 2017-10-05 10:32 | Internal Med History&Physical ---
Date of Encounter: 10/06/17 Time of Encounter: 10:20 Internal Medicine - H&P: HPI Chief complaint: Weakness Admitted From: Intrahospital Transfer Plans for Post Hospital Care: Home History of present illness: Ms. Vilchis is a 87 year old female was admitted to the ICU for complete heart block, she is currently postop day #4 pacemaker insertion. She is postop day # 2 atrial lead replacement. Patient also has a history of chronic systolic CHF with most recent echo 35% on July 2017. She also has a history of coronary artery disease and had a left heart catheterization on 09/20/2017 which showed multivessel disease, at which 0.2 stents were placed. Continues on aspirin and Plavix. Patient is doing well. She is transferred to our service for further management. She currently denies any chest pain or shortness of breath. No nausea, vomiting, diarrhea. No fevers or chills. She remains afebrile and hemodynamically stable. She remains on 1 L of oxygen per nasal cannula and we are attempting to wean her off this. Past Med Surg Social Fam HX - Past Medical History Medical history: atrial fibrillation, cardiomyopathy, coronary artery disease, diabetes, hyperlipidemia, hypertension Psychiatric history: no psych history - Past Surgical History Surgical History: appendectomy, colectomy, colostomy, other - Social History Smoking Status: Never smoker Smokeless Tobacco Status: No Alcohol use: none Drug use: none Occupational status: retired Current living situation: Home - Independent Activity Level: Independent ambulation Recent Out of Country Travel Within the Last 8 Weeks: No Exposure or Possible Exposure to Illness During Travel: No - Family History Son Living Status: Daughter Adopted: No Family Member Ethnicity: Non- Living Status: Still Living Hx Family Cardiac Disorders: No Hx Family Respiratory Disorders: No Hx Family Cancer: Yes (Breast Cancer) Hx Family GI Disorders: No Hx Family Endocrine Disorder: No Hx Family Neuromuscular Disorders: No Hx Family Neurologic Disorders: No Hx Family HEENT Disorders: No Hx Family Autoimmune Disorders: No Father Living Status: Cause of : cancer Hx Family Cancer: Yes Mother Age at : 80 Cause of : old age - Additional Family History Additional family history: Family history reviewed and noncontributory Internal Medicine - H&P: Meds RX: Calcium Carbonate/Vitamin D3 [Liquid Calcium 600-Vit D3 Sfgl] 1 cap PO DAILY 05/28/17 [History] RX: Multivitamin [Multivitamins] 1 cap PO DAILY 05/28/17 [History] RX: Pantoprazole Sodium [Protonix] 40 mg PO DAILY 05/28/17 [History] RX: SitaGLIPtin [Januvia] 100 mg PO DAILY 05/28/17 [History] RX: Acetaminophen [Tylenol] 500 mg PO Q6H PRN 08/14/17 [History] RX: HydrOXYzine 5 - 10 mg PO TID 08/14/17 [History] RX: Magnesium Oxide [Mag-Ox] 400 mg PO DAILY #30 tablet 08/15/17 [Rx] RX: Aspirin [Lo-Dose Aspirin EC] 81 mg PO DAILY #30 tablet.dr 09/22/17 [Rx] RX: Atorvastatin [Lipitor] 40 mg PO HS #30 tablet 09/22/17 [Rx] RX: Clopidogrel [Plavix] 75 mg PO DAILY #30 tablet 09/22/17 [Rx] RX: Isosorbide MONOnitrate (24 HR) [Imdur] 60 mg PO BID #60 tab.er.24h 09/22/17 [Rx] RX: Nitroglycerin [Nitrostat] 0.4 mg SL Q5M PRN #30 tab.subl 09/22/17 [Rx] RX: Ranolazine [Ranexa] 1,000 mg PO BID #60 tab.er.12h 09/22/17 [Rx] RX: Lisinopril [Zestril] 5 mg PO DAILY 09/30/17 [History] RX: Carvedilol [Coreg] 3.125 mg PO BIDWM 30 Days #15 tablet 10/06/17 [Rx] 3 Allergy/AdvReac Type Severity Reaction Status Date / Time metformin Allergy See Verified 09/08/17 03:24 Comments Sulfa (Sulfonamide Allergy See Verified 09/08/17 03:24 Antibiotics) Comments All Systems PM: A 10-system review of systems was performed and is negative for pertinent findings except as documented above in the HPI. Review of systems: Other than history of present illness a 10 point review of systems is negative - Constitutional Vitals: Temp Pulse Resp BP Pulse Ox 98.3 F 73 16 98/78 95 10/05/17 08:00 10/05/17 07:57 10/05/17 07:57 10/05/17 07:57 10/05/17 07:57 General appearance: Present: A&O X 3, pleasant, no acute distress - Head Head exam: Present: atraumatic, normocephalic - Eye Eye exam: Present: PERRL, conjuntiva pink, sclera anicteric Pupils: Present: PERRL - Neck Neck exam general surgery: Present: supple, trachea midline. Absent: lymphadenopathy - Respiratory Respiratory exam: Present: decreased breath sounds. Absent: accessory muscle use, rales, rhonchi, wheezes - Cardiovascular Cardiovascular exam: Present: RRR, +S1, +S2. Absent: diastolic murmur, gallop, rubs, systolic murmur Additional comments: Left anterior chest wall pacemaker, incision intact - GI/Abdominal GI/Abdominal exam: Present: normal bowel sounds, soft, no peritoneal signs. Absent: distended, tenderness - Extremities Exam Extremities exam: Present: warm, radial pulses palpable and symmetrical. Absent : calf tenderness, cyanotic, pedal edema - Neurological Exam Neurological exam: Present: CN II-XII intact, oriented X3, no focal deficits. Absent: pronater drift, facial droop, speech deficit - Skin Skin exam: Present: dry, intact Internal Med - H&P Results - Labs CBC & Chem 7: 10/04/17 03:25 10/04/17 03:25 - Impressions ITS Impressions Chest X-Ray 09/30/17 18:28 IMPRESSION: No pneumothorax status post device implantation. D/ / Edin Sneed / Edin Sneed Interpreting Provider: Edin Sneed Chest X-Ray 10/01/17 06:00 IMPRESSION: Cardiomegaly with pulmonary edema and small effusions. Lead placements are stable. No evidence of pneumothorax. Right IJ central line catheter placement as described. D/ / Reno Mercado MD / Reno Mercado MD Interpreting Provider: Reno Mercado MD - Assessment and plan (1) Complete heart block Current Visit: Yes Status: Acute Assessment and plan: Status post pacemaker. Doing well. Anticipate discharge tomorrow after weaning off oxygen and increasing activity. (2) Cardiomyopathy Current Visit: Yes Status: Chronic Assessment and plan: She has chronic systolic congestive heart failure, not acutely decompensated at present. Management as per cardiology Qualifiers: Cardiomyopathy type: ischemic Qualified Code(s): I25.5 - Ischemic cardiomyopathy (3) CAD (coronary artery disease) Current Visit: No Status: Chronic Assessment and plan: Stable, continue current rx S/P stenting. On ASA/Plavix, BB Qualifiers: Coronary Disease-Associated Artery/Lesion type: [place] artery [place] vs. transplanted heart: [place] heart Associated angina: with unspecified angina Qualified Code(s): I25.119 - Atherosclerotic heart disease of [place] coronary artery with unspecified angina pectoris (4) Paroxysmal a-fib Current Visit: No Status: Chronic Assessment and plan: Rate controlled. Not on anticoag due to prior GIB - Time Spent With Patient Total time spent is greater than 50% in coordination of care (as documented) at patient's floor/unit and/or counseling patient: Greater than 35 minutes
[2017-10-06] MEDS: *HR* Heparin 5,000 UNIT/ML VIAL SQ SCH (06:07)
[2017-10-06] MEDS: Insulin LISPRO 300 UNITS/3 ML VIAL SQ SCH ×2 (07:55→12:00)
[2017-10-06] MEDS: Aspirin Enteric Coated 81 MG Tablet PO SCH (07:55)
--- NOTE | 2017-10-06 08:55 | Physician Discharge Referral ---
ExtendedCare Referral Info Provider in Charge after Transfer: PCP Institutional Level of Care: Skilled Prognosis: Fair Aware of Diagnosis: Patient Aware of Prognosis: Family - Transfer Medications Prescriptions: Carvedilol [Coreg] 3.125 mg PO BIDWM 30 Days #15 tablet Home Medications: Calcium Carbonate/Vitamin D3 [Liquid Calcium 600-Vit D3 Sfgl] 1 cap PO DAILY 03/06 [History] Multivitamin [Multivitamins] 1 cap PO DAILY 05/28/17 [History] Pantoprazole Sodium [Protonix] 40 mg PO DAILY 05/28/17 [History] SitaGLIPtin [Januvia] 100 mg PO DAILY 05/28/17 [History] Acetaminophen [Tylenol] 500 mg PO Q6H PRN 08/14/17 [History] HydrOXYzine 5 - 10 mg PO TID 08/14/17 [History] Magnesium Oxide [Mag-Ox] 400 mg PO DAILY #30 tablet 08/15/17 [Rx] Aspirin [Lo-Dose Aspirin EC] 81 mg PO DAILY #30 tablet. 09/22/17 [Rx] Atorvastatin [Lipitor] 40 mg PO HS #30 tablet 09/22/17 [Rx] Clopidogrel [Plavix] 75 mg PO DAILY #30 tablet 09/22/17 [Rx] Isosorbide MONOnitrate (24 HR) [Imdur] 60 mg PO BID #60 tab.er.24h 09/22/17 [Rx] Nitroglycerin [Nitrostat] 0.4 mg SL Q5M PRN #30 tab.subl 09/22/17 [Rx] Ranolazine [Ranexa] 1,000 mg PO BID #60 tab.er.12h 09/22/17 [Rx] Lisinopril [Zestril] 5 mg PO DAILY 09/30/17 [History] Carvedilol [Coreg] 3.125 mg PO BIDWM 30 Days #15 tablet 10/06/17 [Rx] Allergies/Adverse Reactions: 3 Allergy/AdvReac Type Severity Reaction Status Date / Time metformin Allergy See Verified 09/08/17 03:24 Comments Sulfa (Sulfonamide Allergy See Verified 09/08/17 03:24 Antibiotics) Comments - Respiratory Orders Smoking Cessation: Smoking cessation has been advised. For more information, call the [place] Tobacco Quit Line at 3-854-PDQP-NOW. - Advance Directives Code Status: DNR-Arrest/Don't Intubate - Rehabiliation Orders Rehab Orders: Evaluation for Physical Therapy, Evaluation for Occupational Therapy Other: cardiac rehab - Diet Orders Cardiac CERTIFICATION: I certify that the transfer of the above named patient to an Extended Care Facility is necessary for the continuing treatment of the diagnosis listed. The above information is true and accurate reflection of patient's current condition. Confidential - Redisclosure prohibited without a patient's written consent.
--- NOTE | 2017-10-06 09:07 | Discharge Summary ---
<Trevor Dan - Last Filed: 10/06/17 13:42> Orders not resulted at time of discharge: Pending orders 10/03/17 08:46 CL Lead Revision [CL] Routine Date of Encounter: 10/06/17 Time of Encounter: 08:58 - Discharge Diagnosis (1) Paroxysmal a-fib Priority: Secondary Status: Chronic (2) CAD (coronary artery disease) Priority: Secondary Status: Chronic Qualifiers: Coronary Disease-Associated Artery/Lesion type: [place] artery [place] vs. transplanted heart: benton heart Associated angina: with unspecified angina Qualified Code(s): I25.119 - Atherosclerotic heart disease of [place] coronary artery with unspecified angina pectoris (3) Cardiomyopathy Priority: Secondary Status: Chronic Qualifiers: Cardiomyopathy type: ischemic Qualified Code(s): I25.5 - Ischemic cardiomyopathy (4) Complete heart block Priority: Primary Status: Acute Hospital course: Ms. Vilchis is a 87 year old female who found to be in Complete heart block in outpatient on 09/30/17 and transferred to [facility]. EP was consulted and patient was admitted to ICU. Dr. Slava Schaefer placed a temporary bientricular pacemaker on day of admission. Post op day 3 patient was reevaluated by EP and found that right atrial lead was misplaced on CXR. [facility]just[facility]. All home meds restarted, and patient was started on Coreg 3.125 BID. Patient to be transferred to SNF for cardiac, PT/OT rehab. Patient was also found to have mild hypoK which was recorrected orally, and resolved during hospitalization. Patient to have follow up appointment with EP w/in 1 week of D/C, and also with PCP. Discharge discussed with: patient, family, social work Time spent discussing smoking cessation with patient: more than 10 minutes - Time Spent with Patient Total time spent providing and/or coordinating discharge services: Greater than 30 minutes - Discharge Medications Prescriptions: Carvedilol [Coreg] 3.125 mg PO BIDWM 30 Days #15 tablet Home Medications: Calcium Carbonate/Vitamin D3 [Liquid Calcium 600-Vit D3 Sfgl] 1 cap PO DAILY 03/06 [History] Multivitamin [Multivitamins] 1 cap PO DAILY 05/28/17 [History] Pantoprazole Sodium [Protonix] 40 mg PO DAILY 05/28/17 [History] SitaGLIPtin [Januvia] 100 mg PO DAILY 05/28/17 [History] Acetaminophen [Tylenol] 500 mg PO Q6H PRN 08/14/17 [History] HydrOXYzine 5 - 10 mg PO TID 08/14/17 [History] Magnesium Oxide [Mag-Ox] 400 mg PO DAILY #30 tablet 08/15/17 [Rx] Aspirin [Lo-Dose Aspirin EC] 81 mg PO DAILY #30 tablet.dr 09/22/17 [Rx] Atorvastatin [Lipitor] 40 mg PO HS #30 tablet 09/22/17 [Rx] Clopidogrel [Plavix] 75 mg PO DAILY #30 tablet 09/22/17 [Rx] Isosorbide MONOnitrate (24 HR) [Imdur] 60 mg PO BID #60 tab.er.24h 09/22/17 [Rx] Nitroglycerin [Nitrostat] 0.4 mg SL Q5M PRN #30 tab.subl 09/22/17 [Rx] Ranolazine [Ranexa] 1,000 mg PO BID #60 tab.er.12h 09/22/17 [Rx] Lisinopril [Zestril] 5 mg PO DAILY 09/30/17 [History] Carvedilol [Coreg] 3.125 mg PO BIDWM 30 Days #15 tablet 10/06/17 [Rx] Allergies/Adverse Reactions: 3 Allergy/AdvReac Type Severity Reaction Status Date / Time metformin Allergy See Verified 09/08/17 03:24 Comments Sulfa (Sulfonamide Allergy See Verified 09/08/17 03:24 Antibiotics) Comments Date of admission: 09/30/17 17:04 Primary care physician: Alanis Arvizu CNP Consults: 09/30/17 13:23 Consult to Cardiology [CONS] Routine Comment: Consulting Provider: [facility] Reason for Consult: heart block Call Completed: No 10/06/17 08:31 Consult to Physical Therapy [CONS] Routine Comment: Evaluate, develop and implement POC Reason for Consult: assess for function Does patient have active BEDREST order?: No Is patient medically & hemodynamically stable?: Yes Patient assessed for mobility or mobilized this visit?: Yes 10/06/17 08:32 Consult to Occupational Therapy [CONS] Routine Comment: Evaluate, develop and implement POC Reason for Consult: assess for function Does patient have active BEDREST order?: No Is patient medically & hemodynamically stable?: Yes Patient assessed for mobility or mobilized this visit?: Yes Discharging clinician: Trevor Dan Anticipated date of discharge: 10/06/17 - Constitutional Vitals: Temp Pulse Resp BP Pulse Ox 97.7 F 78 16 93/62 98 10/06/17 08:00 10/06/17 08:00 10/06/17 08:00 10/06/17 08:00 10/06/17 08:00 General appearance: Present: A&O X 3, pleasant, no acute distress - Head Head exam: Present: atraumatic, normocephalic - ENT ENT exam: Present: mucous membranes dry - Respiratory Respiratory exam: Present: CTAB - Cardiovascular Cardiovascular exam: Present: RRR - Extremities Exam Extremities exam: Absent: pedal edema - Patient Status Disposition: Transfer SNF Condition: Fair Overall status at discharge: patient is not back to baseline - Discharge Instructions Follow Up With: Slava Schaefer MD [Partnered Physician] - ([facility]---7-10 days for wound check [facility]-- 4-6 weeks for device check ) Alanis Arvizu CNP [Primary Care Provider] - Additional Instructions: ACTIVITY: Moderate activity for the next 7 days. No lifting more than 5 pounds ( gallon of milk) for 4-6 weeks. Avoid lifting your arm on the same side as the device for 4 weeks. BATHING /SHOWERING: Do not remove the large bandage over the site for 2 days. Do not allow the device to get wet for 7-10 days. You may bathe/shower, but do not use soap and water on the site. When bathing, keep the site dry by covering with Saran wrap or a towel. WOUND CARE: The white steri-strips will start to peel away and come off after 14 days, or your doctor will remove them after [address] into or on top of the incision. Do not use cotton swabs. Do not use any antibiotic ointment or Vitamin E on the site. REMINDERS: You may use electrical devices, such as, microwaves, hair dryers, electric razors, electric blankets, etc. as long as they are in good condition and kept 6 -8 inches away from the device. It is recommended to use cell phones on the opposite side of your device. Notify security personnel at the airport that you have a device before you go through airport security screening. When at places with security monitors, such as a grocery store, do not linger near these monitors. It is fine to walk past them in a normal manner. Refer to your owners manual for more specific directions. CARRY YOUR PACEMAKER/ICD CARD WITH YOU AT ALL TIMES Return to work as instructed per physician Resume driving as instructed per physician Keep all scheduled follow up appointments Resume medications as instructed Contact [facility] ( ) if: You develop excessive bleeding from insertion or wound site not controlled by applying pressure You develop a fever greater than 101 degrees Fahrenheit Your incision becomes reddened at or around the site Your incision develops yellowish or greenish drainage or development of white pimple-like bumps You experience excessive pain You develop swelling in your ankles You experience muscle switching You develop excessive hiccupping If you experience chest pain, shortness of breath, dizziness, or extreme tiredness, stop the activity and rest. Please notify [facility] office if you experience any of these symptoms and they are not relieved by rest please call 911! - Diet and Activity Activity: as per the cardiac rehab, as per physical therapy Diet: low salt diet <Neil Carpenter - Last Filed: 10/06/17 14:47> Date of Encounter: 10/06/17 - Discharge Diagnosis (1) Complete heart block Status: Acute (2) Cardiomyopathy Status: Chronic Qualifiers: Cardiomyopathy type: ischemic Qualified Code(s): I25.5 - Ischemic cardiomyopathy (3) CAD (coronary artery disease) Status: Chronic Qualifiers: Coronary Disease-Associated Artery/Lesion type: [place] artery [place] vs. transplanted heart: bent[place] heart Associated angina: with unspecified angina Qualified Code(s): I25.119 - Atherosclerotic heart disease of [place] coronary artery with unspecified angina pectoris (4) Paroxysmal a-fib Status: Chronic Hospital course: Ms. Vilchis is a 87 year old female - Time Spent with Patient Total time spent providing and/or coordinating discharge services: Date of admission: 09/30/17 17:04 Primary care physician: Alanis Arvizu CNP Consults: 09/30/17 13:23 Consult to Cardiology [CONS] Routine Comment: Consulting Provider: [facility] Reason for Consult: heart block Call Completed: No 10/06/17 08:31 Consult to Physical Therapy [CONS] Routine Comment: Evaluate, develop and implement POC Reason for Consult: assess for function Does patient have active BEDREST order?: No Is patient medically & hemodynamically stable?: Yes Patient assessed for mobility or mobilized this visit?: Yes 10/06/17 08:32 Consult to Occupational Therapy [CONS] Routine Comment: Evaluate, develop and implement POC Reason for Consult: assess for function Does patient have active BEDREST order?: No Is patient medically & hemodynamically stable?: Yes Patient assessed for mobility or mobilized this visit?: Yes - Constitutional Vitals: Temp Pulse Resp BP Pulse Ox 97.6 F 85 18 117/60 94 10/06/17 12:00 10/06/17 12:00 10/06/17 12:00 10/06/17 12:00 10/06/17 12:00 - Attending Attestation I performed an independent interview and examine this patient. 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 Patient is doing well. She is postop day #5 pacemaker insertion. She is on Coreg for blood pressure control. She has been ambulating but is recommended for her facility placement for physical therapy. We will further discuss with patient and with care management. Patient otherwise is doing well and stable for discharge once arranged. Her CHF appears to be compensated. All else as outlined above.
[2017-10-06 16:34] VITALS: BP 114/46
== END 2017-10-06 16:50 | DRG 243 ==
LOC: ICNU
PROVIDERS: ADMIT Internal Medicine Pulmonary Disease; ATTEND Internal Medicine Pulmonary Disease

== ENCOUNTER 2017-12-07 14:00 | Inpatient (IN) ==
--- NOTE | 2017-12-07 14:15 | Emergency Department Note ---
Disposition Clinical Impression: CHF exacerbation Qualifiers: Heart failure type: unspecified Qualified Code(s): I50.9 - Heart failure, unspecified Disposition: Admitted As Inpatient Condition: Good Referrals: Arlen Thomas MD [Primary Care Provider] - Forms: ED Satisfaction Letter Time of Disposition: 15:22 Chest Pain HPI - General Chief Complaint: ED Chest Pain Time Seen by Provider: 12/07/17 14:02 Source: patient Mode of arrival: ambulatory Limitations: no limitations Vital Signs Reviewed: Yes Nursing Notes Reviewed: Yes - History of Present Illness HPI Narrative: 87 year old allen presents to the ED with complaints of palpitations and just recently had a pacemaker placed. Luis Fernando states that she was at her house where she lives alone but has famili visit and mutliple times today she has felt palpitstions withoout chest pain, diaphoresis, or exertional dyspnea. Aundreanet states that she has no new complaints, no cough, no hemopytosis. Luis Fernando has no headache or neuro defecits. PAtient states that her palpitatsions have now resolved. Severity scale (1-10): 0 - Related Data Home Medications Medication Instructions Recorded Confirmed Calcium Carbonate/Vitamin D3 1 cap PO DAILY 05/28/17 11/25/17 [Liquid Calcium 600-Vit D3 Sfgl] Multivitamin [Multivitamins] 1 cap PO DAILY 05/28/17 11/25/17 Pantoprazole Sodium [Protonix] 40 mg PO DAILY 05/28/17 11/25/17 SitaGLIPtin [Januvia] 100 mg PO DAILY 05/28/17 11/25/17 Acetaminophen [Tylenol] 500 mg PO Q6H PRN 08/14/17 11/25/17 HydrOXYzine 10 mg PO TID 08/14/17 11/25/17 Lisinopril [Zestril] 5 mg PO DAILY 09/30/17 11/25/17 Isosorbide MONOnitrate (24 HR) 60 mg PO DAILY 10/20/17 11/25/17 [Imdur] Previous Rx's Medication Instructions Recorded Aspirin [Lo-Dose Aspirin EC] 81 mg PO DAILY #30 tablet. 09/22/17 Atorvastatin [Lipitor] 40 mg PO HS #30 tablet 09/22/17 Clopidogrel [Plavix] 75 mg PO DAILY #30 tablet 09/22/17 Nitroglycerin [Nitrostat] 0.4 mg SL Q5M PRN #30 tab.subl 09/22/17 Carvedilol [Coreg] 3.125 mg PO BIDWM 30 Days #15 10/06/17 tablet Levofloxacin [Levaquin] 750 mg PO DAILY 4 Days #4 tablet 11/23/17 Allergies Allergy/AdvReac Type Severity Reaction Status Date / Time metformin Allergy See Verified 11/25/17 14:33 Comments Sulfa (Sulfonamide Allergy See Verified 11/25/17 14:33 Antibiotics) Comments Constitutional: Denies: fever, chills, weakness, weight change Eyes: Denies: eye pain, eye discharge, vision change ENT ED: Denies: ear pain, throat pain, dental pain, hearing loss, epistaxis, congestion, dysphagia Cardiovascular: Reports: palpitations. Denies: chest pain, dyspnea on exertion , edema, syncope Respiratory: Denies: cough, dyspnea, wheezes, hemoptysis, stridor Gastrointestinal: Denies: abdominal pain, nausea, vomiting, diarrhea, constipation, hematemesis, melena, hematochezia Genitourinary: Denies: dysuria, frequency, hematuria, discharge Musculoskeletal: Denies: back pain, neck pain, arthralgia, myalgia Integumentary: Denies: rash, abrasion, lesions Neurological: Denies: headache, weakness, numbness, paresthesias, confusion, abnormal gait, vertigo Psychiatric: Denies: anxiety, depression, suicidal thoughts, homicidal thoughts , auditory hallucinations, visual hallucinations Endocrine: Denies: fatigue Hematological/Lymphatic: Denies: easy bleeding, easy bruising Allergic/Immunologic: Denies: facial swelling, urticaria Chest Pain PMH - Past Medical History Medical history: Reports: atrial fibrillation, cardiomyopathy, coronary artery disease, diabetes, hyperlipidemia, hypertension Surgical history: Reports: appendectomy, colectomy, colostomy, other Psychiatric history: Reports: no psych history RESIDENTIAL SUBSTANCE ABUSE COUNSELOR history: Reports: no RESIDENTIAL SUBSTANCE ABUSE COUNSELOR history - Social History Smoking Status: Never smoker Alcohol use: Reports: none Drug use: Reports: none Physical Exam - General Limitations: no limitations General appearance: alert, in no apparent distress - Head Head exam: atraumatic, normocephalic, normal inspection - Eye Eye exam: Present: normal appearance, PERRL, EOMI - Expanded Eye Exam Pupils: Left: reactive - ENT ENT exam: normal exam, normal oropharynx, mucous membranes moist - Expanded ENT Exam External ear exam: Present: normal external inspection Mouth exam: Present: normal external inspection Teeth exam: Present: normal inspection Throat exam: Present: normal inspection - Neck Neck exam: Present: normal inspection, full ROM, trachea midline - Chest Chest inspection: Present: normal inspection, symmetric chest wall rise - Respiratory Respiratory exam: Present: normal lung sounds bilaterally - Cardiovascular Cardiovascular exam: Present: regular rate, normal rhythm, normal heart sounds - Abdominal Exam Abdominal exam: Present: soft, Non-Tender. Absent: tenderness, distention, guarding, rebound, rigidity - Extremities Exam Extremities exam: Present: normal inspection, full ROM. Absent: tenderness, pedal edema - Expanded Upper Extremity Exam Shoulder exam: Present: normal inspection, full ROM Arm exam: Present: normal inspection, full ROM Elbow exam: Present: normal inspection, full ROM Forearm/Wrist exam: Present: normal inspection, full ROM Hand exam: Present: normal inspection, full ROM Vascular exam: Normal: capillary refill, radial pulse - Expanded Lower Extremity Exam Hip/Pelvis exam: Present: normal inspection, full ROM Upper leg exam: Present: normal inspection, full ROM Knee exam: Present: normal inspection, full ROM Lower leg exam: Present: normal inspection, full ROM Ankle exam: Present: normal inspection, full ROM Foot/toe exam: Present: normal inspection, full ROM Neurovascular/Tendon exam: Absent: motor deficit, sensory deficit, tendon deficit - Back Exam Back exam: Present: normal inspection, full ROM. Absent: tenderness - Neurological Exam Neurological exam: Present: alert, oriented X3 - Expanded Neurological Exam Patient oriented to: Present: person, place, time Coma Scale Eye Opening: Spontaneous Coma Scale Motor Response: Obeys Commands Coma Scale Verbal Response: Oriented Coma Scale Total: 15 - Psychiatric Psychiatric exam: Present: normal affect, normal mood - Skin Skin exam: Present: warm, dry, intact, normal color Course Course Narrative: we will do cardiopulmonary workup on patient and then when son arrives ask about the type of pacemaker that paatient has. Vital Signs Temperature 97.8 F 12/07/17 14:02 Pulse Rate 100 12/07/17 14:02 Respiratory Rate 18 12/07/17 14:02 Blood Pressure 139/93 12/07/17 14:02 O2 Sat by Pulse Oximetry 95 12/07/17 14:02 Temperature 97.8 F 12/07/17 14:02 Pulse Rate 43 12/07/17 15:09 Respiratory Rate 18 12/07/17 15:09 Blood Pressure 135/76 12/07/17 15:09 O2 Sat by Pulse Oximetry 95 12/07/17 15:09 Oxygen Delivery Oxygen Delivery Room Air Chest Pain - Medical Records Medical records reviewed: Yes I reviewed the patient's medical records. - Lab Data Lab results reviewed: Yes I reviewed the patient's lab results. Result diagrams: 12/07/17 14:18 12/07/17 14:18 Lab Results 12/07/17 12/07/17 12/07/17 Range/Units 14:18 14:18 14:18 WBC (4.3-11.1) K/mcL RBC (3.82-4.97) M/mcL Hgb (11.5-15.4) g/dL Hct (35.3-44.9) % MCV (83.0-100.0) fL MCH (28.0-33.3) pg MCHC (31.6-35.5) g/dL RDW (11.5-14.5) % Plt Count (140-400) K/mcL MPV (9.4-12.4) fL Immature Gran % (0-4) % Seg Neutrophils % % Lymphocytes % % Monocytes % % Eosinophils % % Basophils % % Neutrophils # (1.6-8.9) K/mcL Lymphocytes # (0.6-4.6) K/mcL Monocytes # (0.0-1.3) K/mcL Eosinophils # (0.0-0.6) K/mcL Basophils # (0.0-0.2) K/mcL PT 13.9 H (9.4-12.1) Seconds INR 1.3 APTT 33.5 (26.0-36.0) Seconds Sodium (136-145) mEq/L Potassium (3.5-5.1) mEq/L Chloride (98-107) mEq/L Carbon Dioxide (23-29) mEq/L BUN (8-23) mg/dL Creatinine (0.60-1.20) mg/dL Est GFR ( Amer) (> 60) Est GFR (Non-Af Amer) (> 60) BUN/Creatinine Ratio (6-26) Glucose (70-105) mg/dL Calculated Osmolality (280-300) Calcium (8.6-10.3) mg/dL Total Bilirubin 0.6 (0.3-1.0) mg/dL Direct Bilirubin 0.3 H (0.0-0.2) mg/dL Indirect Bilirubin 0.3 (0.0-1.2) mg/dL AST 92 H (13-39) Units/L ALT 62 H (7-52) Units/L Alkaline Phosphatase 104 (34-104) Units/L Troponin I (< 0.04) ng/mL B-Natriuretic Peptide 1551 H (Less than 100) pg/mL Serum Total Protein 5.8 L (6.4-8.9) g/dL Albumin 3.5 (3.5-5.7) g/dL Globulin 2.3 L (2.4-3.5) g/dL Albumin/Globulin Ratio 1.5 (1.1-2.2) Lipase (11-82) Units/L 12/07/17 12/07/17 12/07/17 Range/Units 14:18 14:18 14:18 WBC 9.2 (4.3-11.1) K/mcL RBC 4.10 (3.82-4.97) M/mcL Hgb 13.1 (11.5-15.4) g/dL Hct 39.1 (35.3-44.9) % MCV 95.4 (83.0-100.0) fL MCH 32.0 (28.0-33.3) pg MCHC 33.5 (31.6-35.5) g/dL RDW 13.0 (11.5-14.5) % Plt Count 252 (140-400) K/mcL MPV 10.3 (9.4-12.4) fL Immature Gran % 0.3 (0-4) % Seg Neutrophils % 75.1 % Lymphocytes % 14.2 % Monocytes % 6.5 % Eosinophils % 3.5 % Basophils % 0.4 % Neutrophils # 6.9 (1.6-8.9) K/mcL Lymphocytes # 1.3 (0.6-4.6) K/mcL Monocytes # 0.6 (0.0-1.3) K/mcL Eosinophils # 0.3 (0.0-0.6) K/mcL Basophils # 0.0 (0.0-0.2) K/mcL PT (9.4-12.1) Seconds INR APTT (26.0-36.0) Seconds Sodium 144 (136-145) mEq/L Potassium 3.4 L (3.5-5.1) mEq/L Chloride 107 (98-107) mEq/L Carbon Dioxide 30 H (23-29) mEq/L BUN 11 (8-23) mg/dL Creatinine 0.66 (0.60-1.20) mg/dL Est GFR ( Amer) > 60 (> 60) Est GFR (Non-Af Amer) > 60 (> 60) BUN/Creatinine Ratio 17 (6-26) Glucose 196 H (70-105) mg/dL Calculated Osmolality 303 H (280-300) Calcium 8.8 (8.6-10.3) mg/dL Total Bilirubin (0.3-1.0) mg/dL Direct Bilirubin (0.0-0.2) mg/dL Indirect Bilirubin (0.0-1.2) mg/dL AST (13-39) Units/L ALT (7-52) Units/L Alkaline Phosphatase (34-104) Units/L Troponin I < 0.03 (< 0.04) ng/mL B-Natriuretic Peptide (Less than 100) pg/mL Serum Total Protein (6.4-8.9) g/dL Albumin (3.5-5.7) g/dL Globulin (2.4-3.5) g/dL Albumin/Globulin Ratio (1.1-2.2) Lipase 29 (11-82) Units/L - Radiology Data Radiology results reviewed: Yes I reviewed the patient's radiology results. - EKG Data EKG attestation: Yes I reviewed and interpreted this EKG. EKG results narrative: ekectronically paced at 97. NO STEMI. gurinder intevals. no old ekg 1410
[2017-12-07 14:33] LABS: Basophils % 0.4 %; Eosinophils # 0.3 K/mcL (0.0-0.6); Eosinophils % 3.5 %; Hematocrit 39.1 % (35.3-44.9); Hemoglobin 13.1 g/dL (11.5-15.4); Immature Granulocytes % 0.3 % (0-4); Lymphocytes # 1.3 K/mcL (0.6-4.6); Lymphocytes % 14.2 %; Mean Corpuscular HGB Conc 33.5 g/dL (31.6-35.5); Mean Corpuscular Volume 95.4 fL (83.0-100.0); Mean Platelet Volume 10.3 fL (9.4-12.4); Monocytes # 0.6 K/mcL (0.0-1.3); Monocytes % 6.5 %; Neutrophils # 6.9 K/mcL (1.6-8.9); Platelet Count 252 K/mcL (140-400); Segmented Neutrophils % 75.1 %
--- NOTE | 2017-12-07 14:39 | Emergency Department Note ---
Disposition Clinical Impression: CHF exacerbation Qualifiers: Heart failure type: unspecified Qualified Code(s): I50.9 - Heart failure, unspecified Disposition: Admitted As Inpatient Condition: Fair Referrals: Arlen Thomas MD [Primary Care Provider] - Forms: ED Satisfaction Letter Time of Disposition: 15:29 General Adult HPI - General Chief complaint: ED Chest Pain Stated complaint: Palpitations Time Seen by Provider: 12/07/17 14:02 Source: patient Mode of arrival: ambulatory Limitations: no limitations Nursing Notes Reviewed: Yes Vital Signs Reviewed: Yes - History of Present Illness HPI Narrative: 87-year-old female presents from home via EMS for evaluation of palpitations. This occurred at approximate 7 AM shortly after awakening. She describes a fast racing heartbeat with generalized weakness. She sat down until the symptoms spontaneously resolved after about 30 minutes. At this time, she feels fine and has no complaints. PMH: Atrial fibrillation, CAD status post stents, diabetes, hyperlipidemia, hypertension ROS: Positive: As above Negative: Fever, chills, nausea, vomiting, chest pain including no chest pain during her palpitations, dyspnea, diaphoresis, unusual back pain, lightheadedness including no lightheadedness during her palpitations. Pain Scale: 0 - Related Data Home Medications Medication Instructions Recorded Confirmed Calcium Carbonate/Vitamin D3 1 cap PO DAILY 05/28/17 11/25/17 [Liquid Calcium 600-Vit D3 Sfgl] Multivitamin [Multivitamins] 1 cap PO DAILY 05/28/17 11/25/17 Pantoprazole Sodium [Protonix] 40 mg PO DAILY 05/28/17 11/25/17 SitaGLIPtin [Januvia] 100 mg PO DAILY 05/28/17 11/25/17 Acetaminophen [Tylenol] 500 mg PO Q6H PRN 08/14/17 11/25/17 HydrOXYzine 10 mg PO TID 08/14/17 11/25/17 Lisinopril [Zestril] 5 mg PO DAILY 09/30/17 11/25/17 Isosorbide MONOnitrate (24 HR) 60 mg PO DAILY 10/20/17 11/25/17 [Imdur] Previous Rx's Medication Instructions Recorded Aspirin [Lo-Dose Aspirin EC] 81 mg PO DAILY #30 tablet. 09/22/17 Atorvastatin [Lipitor] 40 mg PO HS #30 tablet 09/22/17 Clopidogrel [Plavix] 75 mg PO DAILY #30 tablet 09/22/17 Nitroglycerin [Nitrostat] 0.4 mg SL Q5M PRN #30 tab.subl 09/22/17 Carvedilol [Coreg] 3.125 mg PO BIDWM 30 Days #15 10/06/17 tablet Levofloxacin [Levaquin] 750 mg PO DAILY 4 Days #4 tablet 11/23/17 Allergies Allergy/AdvReac Type Severity Reaction Status Date / Time metformin Allergy See Verified 11/25/17 14:33 Comments Sulfa (Sulfonamide Allergy See Verified 11/25/17 14:33 Antibiotics) Comments All systems ED: reviewed and negative except as stated. Review of Systems: As Per HPI Constitutional: Denies: fever, chills, weakness, weight change Eyes: Denies: eye pain, eye discharge, vision change ENT ED: Denies: ear pain, throat pain, dental pain, hearing loss, epistaxis, congestion, dysphagia Cardiovascular: Reports: palpitations. Denies: chest pain, dyspnea on exertion , edema, syncope Respiratory: Denies: cough, dyspnea, wheezes, hemoptysis, stridor Gastrointestinal: Denies: abdominal pain, nausea, vomiting, diarrhea, constipation, hematemesis, melena, hematochezia Genitourinary: Denies: dysuria, frequency, hematuria, discharge Musculoskeletal: Denies: back pain, neck pain, arthralgia, myalgia Integumentary: Denies: rash, abrasion, lesions Neurological: Denies: headache, weakness, numbness, paresthesias, confusion, abnormal gait, vertigo Psychiatric: Denies: anxiety, depression, suicidal thoughts, homicidal thoughts , auditory hallucinations, visual hallucinations Endocrine: Denies: fatigue Hematological/Lymphatic: Denies: easy bleeding, easy bruising Allergic/Immunologic: Denies: facial swelling, urticaria Past Medical History - Past Medical History Medical history: Reports: atrial fibrillation, cardiomyopathy, coronary artery disease, diabetes, hyperlipidemia, hypertension Surgical history: Reports: appendectomy, colectomy, colostomy, other Psychiatric history: Reports: no psych history SYSTEM SUPPORT SPECIALIST history: Reports: no SYSTEM SUPPORT SPECIALIST history - Social History Smoking Status: Never smoker Smokeless Tobacco Status: No Alcohol use: Reports: none Drug use: Reports: none Physical Exam Vital Signs Reviewed General: Patient is alert, oriented, and in no acute distress. She appears stated age. Head: atraumatic, normocephalic Eye: normal appearance, no scleral icterus, no conjunctival injection ENT: mucous membranes moist, normal external ear exam Neck: normal inspection, trachea midline, full ROM Chest: normal inspection, symmetric chest rise. Pacemaker palpable in left upper chest wall. Respiratory: Thoracic kyphosis. Poor respiratory effort. Bilateral breath sounds are clear without wheezing, crackles, or rhonchi. Cardiovascular: Regular rate and rhythm. No clicks, rubs, gallops, or murmors. Normal heart sounds. Bilateral radial pulses 2/4 equal. No pedal edema. Abdomen: Bowel sounds present normoactive x-4 quadrants. Abdomen is soft, nondistended, and nontender. No guarding or rebound. Musculoskeletal: Spontaneously moving all extremities. Skin: warm, dry, intact. Neuro: Alert and oriented x4. Sensation light touch intact. Psych: Patient's affect is appropriate for situation. - General Limitations: no limitations General appearance: alert, in no apparent distress Course Course Narrative: Patient is resting comfortably and asymptomatic at this time. 03:10 Bedside monitor showing patient was bradycardic to the 30s. The patient at bedside, the bedside monitor was jumping from 30s to 80s to 50s. I manually palpated her radial pulse and counted her heart rate to 84; this was walled to monitor was alarming is bradycardic. She is ventricularly paced. Suspect monitors erroneously measuring patient's heart rate secondary to pacemaker appearance. Chest x-ray concerning for pulmonary edema. Serum hematology is unremarkable. Serum chemistry concerning for elevated BNP of 1500. Patient is not hypoxic on room air and she does not have rails or pedal edema. Patient does have elevated AST and ALT of uncertain etiology. Patient provided 40 mg IV Lasix. Discussed the above the patient. He agrees for admission for continued evaluation and management. I discussed the patient with the admitting hospitalist, Dr. Rodriguez, who agrees to accept patient for continued evaluation and management for acute exacerbation of CHF. EKG #1 EKG dated 12/07/17 at 14:10 interpreted as ventricularly paced with a rate of 97. Left axis. Nonspecific ST-T changes. Compared to previous EKG dated 11/23 showing no acute ischemic changes or comparison. EKG #2 EKG dated 12/07/17 at 15:11 interpreted as ventricularly paced with rate of 94. Left axis. Nonspecific ST-T changes. Unchanged from previous EKG. Chest X-Ray 12/07/17 14:05 IMPRESSION: New pulmonary edema and small pleural effusions compatible with CHF. D/ / Larisa Guillen MD / Larisa Guillen MD Interpreting Provider: Larisa Guillen MD Vital Signs Temperature 97.8 F 12/07/17 14:02 Pulse Rate 100 12/07/17 14:02 Respiratory Rate 18 12/07/17 14:02 Blood Pressure 139/93 12/07/17 14:02 O2 Sat by Pulse Oximetry 95 12/07/17 14:02 Temperature 97.8 F 12/07/17 14:02 Pulse Rate 43 12/07/17 15:09 Respiratory Rate 18 12/07/17 15:09 Blood Pressure 135/76 12/07/17 15:09 O2 Sat by Pulse Oximetry 95 12/07/17 15:09 Oxygen Delivery Oxygen Delivery Room Air Medical Decision Making - Lab Data Result diagrams: 12/07/17 14:18 12/07/17 14:18 Lab Results 12/07/17 12/07/17 12/07/17 Range/Units 14:18 14:18 14:18 WBC (4.3-11.1) K/mcL RBC (3.82-4.97) M/mcL Hgb (11.5-15.4) g/dL Hct (35.3-44.9) % MCV (83.0-100.0) fL MCH (28.0-33.3) pg MCHC (31.6-35.5) g/dL RDW (11.5-14.5) % Plt Count (140-400) K/mcL MPV (9.4-12.4) fL Immature Gran % (0-4) % Seg Neutrophils % % Lymphocytes % % Monocytes % % Eosinophils % % Basophils % % Neutrophils # (1.6-8.9) K/mcL Lymphocytes # (0.6-4.6) K/mcL Monocytes # (0.0-1.3) K/mcL Eosinophils # (0.0-0.6) K/mcL Basophils # (0.0-0.2) K/mcL PT 13.9 H (9.4-12.1) Seconds INR 1.3 APTT 33.5 (26.0-36.0) Seconds Sodium (136-145) mEq/L Potassium (3.5-5.1) mEq/L Chloride (98-107) mEq/L Carbon Dioxide (23-29) mEq/L BUN (8-23) mg/dL Creatinine (0.60-1.20) mg/dL Est GFR ( Amer) (> 60) Est GFR (Non-Af Amer) (> 60) BUN/Creatinine Ratio (6-26) Glucose (70-105) mg/dL Calculated Osmolality (280-300) Calcium (8.6-10.3) mg/dL Total Bilirubin 0.6 (0.3-1.0) mg/dL Direct Bilirubin 0.3 H (0.0-0.2) mg/dL Indirect Bilirubin 0.3 (0.0-1.2) mg/dL AST 92 H (13-39) Units/L ALT 62 H (7-52) Units/L Alkaline Phosphatase 104 (34-104) Units/L Troponin I (< 0.04) ng/mL B-Natriuretic Peptide 1551 H (Less than 100) pg/mL Serum Total Protein 5.8 L (6.4-8.9) g/dL Albumin 3.5 (3.5-5.7) g/dL Globulin 2.3 L (2.4-3.5) g/dL Albumin/Globulin Ratio 1.5 (1.1-2.2) Lipase (11-82) Units/L 12/07/17 12/07/17 12/07/17 Range/Units 14:18 14:18 14:18 WBC 9.2 (4.3-11.1) K/mcL RBC 4.10 (3.82-4.97) M/mcL Hgb 13.1 (11.5-15.4) g/dL Hct 39.1 (35.3-44.9) % MCV 95.4 (83.0-100.0) fL MCH 32.0 (28.0-33.3) pg MCHC 33.5 (31.6-35.5) g/dL RDW 13.0 (11.5-14.5) % Plt Count 252 (140-400) K/mcL MPV 10.3 (9.4-12.4) fL Immature Gran % 0.3 (0-4) % Seg Neutrophils % 75.1 % Lymphocytes % 14.2 % Monocytes % 6.5 % Eosinophils % 3.5 % Basophils % 0.4 % Neutrophils # 6.9 (1.6-8.9) K/mcL Lymphocytes # 1.3 (0.6-4.6) K/mcL Monocytes # 0.6 (0.0-1.3) K/mcL Eosinophils # 0.3 (0.0-0.6) K/mcL Basophils # 0.0 (0.0-0.2) K/mcL PT (9.4-12.1) Seconds INR APTT (26.0-36.0) Seconds Sodium 144 (136-145) mEq/L Potassium 3.4 L (3.5-5.1) mEq/L Chloride 107 (98-107) mEq/L Carbon Dioxide 30 H (23-29) mEq/L BUN 11 (8-23) mg/dL Creatinine 0.66 (0.60-1.20) mg/dL Est GFR ( Amer) > 60 (> 60) Est GFR (Non-Af Amer) > 60 (> 60) BUN/Creatinine Ratio 17 (6-26) Glucose 196 H (70-105) mg/dL Calculated Osmolality 303 H (280-300) Calcium 8.8 (8.6-10.3) mg/dL Total Bilirubin (0.3-1.0) mg/dL Direct Bilirubin (0.0-0.2) mg/dL Indirect Bilirubin (0.0-1.2) mg/dL AST (13-39) Units/L ALT (7-52) Units/L Alkaline Phosphatase (34-104) Units/L Troponin I < 0.03 (< 0.04) ng/mL B-Natriuretic Peptide (Less than 100) pg/mL Serum Total Protein (6.4-8.9) g/dL Albumin (3.5-5.7) g/dL Globulin (2.4-3.5) g/dL Albumin/Globulin Ratio (1.1-2.2) Lipase 29 (11-82) Units/L
[2017-12-07 14:46] LABS: INR 1.3; Prothrombin Time 13.9 Seconds (9.4-12.1)
[2017-12-07 14:48] LABS: Activated Partial Thrombo Time 33.5 Seconds (26.0-36.0)
[2017-12-07 14:57] LABS: Troponin I < 0.03 ng/mL (< 0.04)
[2017-12-07 15:08] LABS: Albumin 3.5 g/dL (3.5-5.7); Albumin/Globulin Ratio 1.5 (1.1-2.2); Bilirubin,Direct 0.3 mg/dL (0.0-0.2); Bilirubin,Indirect 0.3 mg/dL (0.0-1.2); Bilirubin,Total 0.6 mg/dL (0.3-1.0); Globulin 2.3 g/dL (2.4-3.5); Total Protein 5.8 g/dL (6.4-8.9)
[2017-12-07 15:09] LABS: BUN/Creatinine Ratio 17 (6-26); Blood Urea Nitrogen 11 mg/dL (8-23); Calcium 8.8 mg/dL (8.6-10.3); Carbon Dioxide 30 mEq/L (23-29); Chloride 107 mEq/L (98-107); Glucose 196 mg/dL (70-105); Osmolality,Calculated 303 (280-300); Potassium 3.4 mEq/L (3.5-5.1); Sodium 144 mEq/L (136-145); eGFR For African Americans > 60 (> 60); eGFR For Non-African Americans > 60 (> 60)
[2017-12-07] MEDS ORDERED: Furosemide 40 MG/4 ML VIAL IVP ONE (15:20)
--- NOTE | 2017-12-07 15:56 | Electrocardiograph Report ---
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
--- NOTE | 2017-12-07 18:31 | Internal Med History&Physical ---
Date of Encounter: 12/07/17 Time of Encounter: 18:00 Internal Medicine - H&P: HPI Chief complaint: Shortness of breath Admitted From: Home Plans for Post Hospital Care: Home History of present illness: Patient is an 87-year-old female with past medical history significant for ischemic cardiomyopathy with LVEF of 35% who presents to the ER on 12/07/17 due to shortness of breath and having a funny feeling in her chest. Patient reports while walking in her house today she experienced a funny feeling substernally which lasted for minutes without any radiation or provoking/relieving factors. Patient reported of a second episode also lasting for minutes that resolved. Patient decided to come into the ER for evaluation. In the ER, she was found to have an elevated BNP of 1551 and chest x-ray showed pulmonary edema with small pleural effusions compatible with CHF; first set of cardiac biomarkers negative Echocardiogram on 08/15/17 showed mobile left ventricular systolic dysfunction with LVEF of 35% and moderate left ventricular diastolic dysfunction with moderate pulmonary hypertension. She will be admitted to the medical surgical floor for acute on chronic systolic /diastolic heart failure. Past Med Surg Social Fam HX - Past Medical History Medical history: atrial fibrillation, cardiomyopathy, coronary artery disease, diabetes, hyperlipidemia, hypertension Additional medical history: Stent x1 September 2016, Psychiatric history: no psych history - Past Surgical History Surgical History: appendectomy, colectomy, colostomy, other Additional surgical history: Coronary Stent x1 - Social History Smoking Status: Never smoker Smokeless Tobacco Status: No Alcohol use: none Drug use: none - Family History Son Living Status: Daughter Adopted: No Family Member Ethnicity: Non- Living Status: Still Living Hx Family Cardiac Disorders: Yes Hx Family Respiratory Disorders: No Hx Family Cancer: Yes (Breast Cancer) Hx Family GI Disorders: No Hx Family Endocrine Disorder: No Hx Family Neuromuscular Disorders: No Hx Family Neurologic Disorders: No Hx Family HEENT Disorders: No Hx Family Autoimmune Disorders: No Father Living Status: Hx Family Cancer: Yes Sister Hx Family Cardiac Disorders: Yes Internal Medicine - H&P: Meds Calcium Carbonate/Vitamin D3 [Liquid Calcium 600-Vit D3 Sfgl] 1 cap PO DAILY 03/06 [History] Multivitamin [Multivitamins] 1 cap PO DAILY 05/28/17 [History] Pantoprazole Sodium [Protonix] 40 mg PO DAILY 05/28/17 [History] SitaGLIPtin [Januvia] 100 mg PO DAILY 05/28/17 [History] Acetaminophen [Tylenol] 500 mg PO Q6H PRN 08/14/17 [History] HydrOXYzine 10 mg PO TID 08/14/17 [History] Aspirin [Lo-Dose Aspirin EC] 81 mg PO DAILY #30 tablet. 09/22/17 [Rx] Atorvastatin [Lipitor] 40 mg PO HS #30 tablet 09/22/17 [Rx] Clopidogrel [Plavix] 75 mg PO DAILY #30 tablet 09/22/17 [Rx] Nitroglycerin [Nitrostat] 0.4 mg SL Q5M PRN #30 tab.subl 09/22/17 [Rx] Lisinopril [Zestril] 5 mg PO DAILY 09/30/17 [History] Carvedilol [Coreg] 3.125 mg PO BIDWM 30 Days #15 tablet 10/06/17 [Rx] Isosorbide MONOnitrate (24 HR) [Imdur] 60 mg PO DAILY 10/20/17 [History] 3 Allergy/AdvReac Type Severity Reaction Status Date / Time metformin Allergy See Verified 11/25/17 14:33 Comments Sulfa (Sulfonamide Allergy See Verified 11/25/17 14:33 Antibiotics) Comments All Systems PM: A 10-system review of systems was performed and is negative for pertinent findings except as documented above in the HPI. - Constitutional Vitals: Temp Pulse Resp BP Pulse Ox 97.4 F L 94 16 133/81 93 12/07/17 17:14 12/07/17 17:14 12/07/17 17:14 12/07/17 17:14 12/07/17 17:14 General appearance: Present: A&O X 3, no acute distress - Eye Eye exam: Present: normal appearance - ENT ENT exam: Present: mucous membranes moist - Respiratory Respiratory exam: Present: CTAB. Absent: accessory muscle use, rales, rhonchi, wheezes - Cardiovascular Cardiovascular exam: Present: RRR, +S1, +S2. Absent: diastolic murmur, gallop, rubs, systolic murmur - GI/Abdominal GI/Abdominal exam: Present: soft. Absent: tenderness - Extremities Exam Extremities exam: Absent: pedal edema - Neurological Exam Neurological exam: Present: oriented X3 - Psychiatric Psychiatric exam: Present: normal mood - Skin Skin exam: Present: normal color Internal Med - H&P Results - Labs CBC & Chem 7: 12/07/17 14:18 12/07/17 14:18 - Assessment and plan (1) CHF exacerbation Current Visit: Yes Status: Acute Assessment and plan: In the ER, she was found to have an elevated BNP of 1551 and chest x-ray showed pulmonary edema with small pleural effusions compatible with CHF Will continue IV diuresis with 40 mg of Lasix twice daily Qualifiers: Heart failure type: combined systolic and diastolic Qualified Code(s): I50.43 - Acute on chronic combined systolic (congestive) and diastolic ( congestive) heart failure (2) Combined systolic and diastolic congestive heart failure Current Visit: No Status: Chronic Assessment and plan: Echocardiogram on 08/15/17 showed mobile left ventricular systolic dysfunction with LVEF of 35% and moderate left ventricular diastolic dysfunction with moderate pulmonary hypertension. Decompensated as above Qualifiers: Heart failure chronicity: chronic Qualified Code(s): I50.42 - Chronic combined systolic (congestive) and diastolic (congestive) heart failure (3) Cardiomyopathy Current Visit: No Status: Chronic Assessment and plan: Patient with history of pacemaker/AICD with cardiac stents We will continue him door with JORDAN inhibitor, aspirin, Plavix and statin and beta nichole Qualifiers: Cardiomyopathy type: ischemic Qualified Code(s): I25.5 - Ischemic cardiomyopathy (4) Diabetes Current Visit: No Status: Chronic Assessment and plan: Continue home medications Qualifiers: Diabetes mellitus type: type [address] judge insulin use: unspecified group home insulin use status Diabetes mellitus complication status : without complication Qualified Code(s): E11.9 - Type 2 diabetes mellitus without complications (5) DVT prophylaxis Current Visit: No Status: Acute Assessment and plan: Heparin subcutaneous - Time Spent With Patient Total time spent is greater than 50% in coordination of care (as documented) at patient's floor/unit and/or counseling patient:
[2017-12-07] MEDS ORDERED: Naloxone 0.4 MG/ML INJ IVP PRN (18:41)
[2017-12-07] MEDS ORDERED: Nitroglycerin 0.4 MG TAB.SUBL SL PRN (18:44)
[2017-12-07] MEDS: Furosemide 40 MG/4 ML VIAL IVP SCH (20:03)
[2017-12-07] MEDS: *HR* Heparin 5,000 UNIT/ML VIAL SQ SCH (20:06)
[2017-12-08 01:26] LABS: Basophils # 0.1 K/mcL (0.0-0.2); Basophils % 0.4 %; Eosinophils # 0.5 K/mcL (0.0-0.6); Eosinophils % 4.3 %; Hematocrit 41.1 % (35.3-44.9); Hemoglobin 13.5 g/dL (11.5-15.4); Immature Granulocytes % 0.4 % (0-4); Lymphocytes # 1.8 K/mcL (0.6-4.6); Lymphocytes % 16.2 %; Mean Corpuscular HGB Conc 32.8 g/dL (31.6-35.5); Mean Corpuscular Hemoglobin 31.5 pg (28.0-33.3); Mean Corpuscular Volume 95.8 fL (83.0-100.0); Mean Platelet Volume 10.6 fL (9.4-12.4); Monocytes # 0.9 K/mcL (0.0-1.3); Monocytes % 8.3 %; Neutrophils # 7.8 K/mcL (1.6-8.9); Platelet Count 246 K/mcL (140-400); Red Blood Count 4.29 M/mcL (3.82-4.97); Red Cell Distribution Width 13.2 % (11.5-14.5); Segmented Neutrophils % 70.4 %
[2017-12-08 01:32] LABS: BUN/Creatinine Ratio 17 (6-26); Blood Urea Nitrogen 15 mg/dL (8-23); Carbon Dioxide 35 mEq/L (23-29); Chloride 101 mEq/L (98-107); Glucose 197 mg/dL (70-105); Osmolality,Calculated 306 (280-300); Potassium 3.2 mEq/L (3.5-5.1); Sodium 145 mEq/L (136-145); eGFR For African Americans > 60 (> 60); eGFR For Non-African Americans > 60 (> 60)
[2017-12-08] MEDS: *HR* Heparin 5,000 UNIT/ML VIAL SQ SCH ×3 (05:14→21:03)
[2017-12-08] MEDS: Aspirin Enteric Coated 81 MG Tablet PO SCH (07:47)
[2017-12-08] MEDS: Furosemide 40 MG/4 ML VIAL IVP SCH ×2 (07:47→16:18)
[2017-12-08] MEDS: Cholecalciferol (D-3) 1,000 UNIT TABLET PO SCH (07:47)
[2017-12-08] MEDS: Isosorbide MONOnitrate (24 HR) 60 MG TAB.ER.24H PO SCH (07:47)
[2017-12-08] MEDS ORDERED: *HR* SitaGLIPtin 100 MG TABLET PO SCH (09:00)
--- NOTE | 2017-12-08 17:54 | Electrocardiograph Report ---
[place] [id number] Test Date: 2017-12-07 Pat Name: Florina Vilchis Department: 103 Room: 3B Gender: F Forecast Analyst: JONELLE : 1930 Requested By: Anthony Crowley Order Number: [id number] Reading MD: Saúl Cid Measurements Intervals [place] Rate: 94 P: [place]: 0 QRS: 50 QRSD: 144 T: 151 QT: 436 QTc: 488 Interpretive Statements ELECTRONIC VENTRICULAR PACEMAKER ABNORMAL RHYTHM ECG Electronically Signed On 12-08-2017 17:52:54 EDT by Saúl Cid
--- NOTE | 2017-12-08 17:55 | Internal Med Progress Note ---
Date of Encounter: 12/08/17 Time of Encounter: 10:30 - Assessment and plan (1) Diabetes Current Visit: Yes Status: Chronic Assessment and plan: Home medications have been continued. Poorly controlled with A1c 7.4% in August. Continue Accu-Cheks and diabetic diet. Qualifiers: Diabetes mellitus type: type 2 Diabetes mellitus terminal computer operator insulin use: unspecified terminal computer operator insulin use status Diabetes mellitus complication status : without complication Qualified Code(s): E11.9 - Type 2 diabetes mellitus without complications (2) DVT prophylaxis Current Visit: Yes Status: Acute Assessment and plan: Heparin sq (3) Combined systolic and diastolic congestive heart failure Current Visit: Yes Status: Chronic Assessment and plan: Acute exacerbation. Echocardiogram July, shows LVEF of 35%, mild concentric LVH, global LV systolic dysfunction, moderate LV DD, severely dilated left atrium, mildly sclerotic aortic valve leaflets, mild to moderate MR, mild TR. The patient had pacemaker placed 09/30/2017. We will discuss with cardiology in the morning the benefit from repeat EKG to assess EF status post pacemaker placement. Patient reports shortness of breath, becoming increasingly worse over the last week. Patient reports exertional dyspnea. She denies new cough for peripheral edema. BNP elevated at 1551, chest x-ray shows no pulmonary edema and small pleural effusions compatible with CHF. Patient appears to be euvolemic, not requiring supplemental O2, lungs are clear and diminished. Continue Lasix IV 40 mg twice a day Continue strict intake and output, daily weights, 1.5 L fluid restriction Continue telemetry Continue O2 as needed to maintain sats greater than 92%. Qualifiers: Heart failure chronicity: chronic Qualified Code(s): I50.42 - Chronic combined systolic (congestive) and diastolic (congestive) heart failure (4) Cardiomyopathy Current Visit: Yes Status: Chronic Assessment and plan: Patient with history of pacemaker/AICD with cardiac stents as above Continue JORDAN inhibitor, aspirin, Plavix and statin and beta nichole Qualifiers: Cardiomyopathy type: ischemic Qualified Code(s): I25.5 - Ischemic cardiomyopathy (5) CHF exacerbation Current Visit: Yes Status: Acute Assessment and plan: Plan as above. Qualifiers: Heart failure type: combined systolic and diastolic Qualified Code(s): I50.43 - Acute on chronic combined systolic (congestive) and diastolic ( congestive) heart failure (6) CAD (coronary artery disease) Current Visit: Yes Status: Chronic Assessment and plan: Patient denies chest pain. Plan as above. Qualifiers: Coronary Disease-Associated Artery/Lesion type: [place] artery [place] vs. transplanted heart: [place] heart Associated angina: with unspecified angina Qualified Code(s): I25.119 - Atherosclerotic heart disease of [place] coronary artery with unspecified angina pectoris (7) HTN (hypertension) Current Visit: Yes Status: Chronic Assessment and plan: Chronic. Well controlled. Continue home medications. Qualifiers: Hypertension type: essential hypertension Qualified Code(s): I10 - Essential (primary) hypertension (8) Hyperlipemia Current Visit: Yes Status: Chronic Assessment and plan: Chronic. Patient takes Lipitor at home. Qualifiers: Hyperlipidemia type: mixed hyperlipidemia Qualified Code(s): E78.2 - Mixed hyperlipidemia - Time Spent With Patient Total time spent is greater than 50% in coordination of care (as documented) at patient's floor/unit and/or counseling patient: less than 15 minutes - Subjective Interval history: Pt was seen and assessed at bedside at 1030. Daughter was at bedside. Patient reports shortness of breath, daughter reports that she has difficulty ambulating to and from the bathroom without dyspnea having depressed. Patient denies any chest pain. She denies headache, dizziness, nausea vomiting, diarrhea. She denies any new or increased peripheral edema, no abdominal pain. - Constitutional Vitals: Temp Pulse Resp BP Pulse Ox 97.8 F 83 16 98/66 91 12/08/17 15:44 12/08/17 15:44 12/08/17 15:44 12/08/17 15:44 12/08/17 15:44 General appearance: Present: cooperative, A&O X 3, pleasant, no acute distress, answers questions appropriately - Head Head exam: Present: atraumatic, normal inspection, normocephalic - Eye Eye exam: Present: normal appearance, conjuntiva pink, sclera anicteric - Neck Neck exam general surgery: Present: supple, trachea midline. Absent: lymphadenopathy, tenderness - Respiratory Respiratory exam: Present: decreased breath sounds, CTAB. Absent: accessory muscle use, chest wall tenderness, rales, respiratory distress, rhonchi, wheezes - Cardiovascular Cardiovascular exam: Present: RRR, +S1, +S2. Absent: bradycardia, diastolic murmur, gallop, rubs, systolic murmur, tachycardia - GI/Abdominal GI/Abdominal exam: Present: normal bowel sounds, soft. Absent: distended, hepatomegaly, tenderness - Extremities Exam Extremities exam: Present: normal capillary refill, normal inspection, warm, radial pulses palpable and symmetrical. Absent: calf tenderness, cyanotic, pedal edema, tenderness - Neurological Exam Neurological exam: Present: alert, oriented X3, no focal deficits. Absent: facial droop, speech deficit - Skin Skin exam: Present: dry, intact, normal color, warm. Absent: rash Internal Medicine: Result - Labs CBC & Chem 7: 12/08/17 00:54 12/08/17 00:54 - ABG Interpretation ABG results: PT/INR, D-dimer PT 13.9 Seconds (9.4-12.1) H 12/07/17 14:18 Consult Discharge Plan - Plan Referrals: Arlen Thomas MD [Primary Care Provider] - 12/13/17 10:45 am
[2017-12-09] MEDS: *HR* Heparin 5,000 UNIT/ML VIAL SQ SCH ×3 (05:37→21:20)
[2017-12-09] MEDS: Furosemide 40 MG/4 ML VIAL IVP SCH ×2 (08:29→15:18)
[2017-12-09] MEDS: Isosorbide MONOnitrate (24 HR) 60 MG TAB.ER.24H PO SCH (08:29)
[2017-12-09] MEDS: Cholecalciferol (D-3) 1,000 UNIT TABLET PO SCH (08:29)
[2017-12-09] MEDS: Aspirin Enteric Coated 81 MG Tablet PO SCH (08:29)
[2017-12-09] MEDS: *HR* SitaGLIPtin 25 MG TABLET PO SCH (08:29)
--- NOTE | 2017-12-09 16:52 | Internal Med Progress Note ---
Date of Encounter: 12/09/17 Time of Encounter: 10:15 - Assessment and plan (1) Diabetes Current Visit: Yes Status: Chronic Assessment and plan: Poorly controlled with A1c 7.4% in August,. Continue Accu-Cheks and diabetic diet. 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 Fluid deficit -3.8 liters. Family and I discussed continuing daily weights and fluid restriction at home, all verbalized understanding. Continue Lasix IV 40 mg twice a day Continue strict intake and output, daily weights, 1.5 L fluid restriction Continue telemetry Continue O2 as needed to maintain sats greater than 92%. Qualifiers: Heart failure chronicity: chronic Qualified Code(s): I50.42 - Chronic combined systolic (congestive) and diastolic (congestive) heart failure (4) Cardiomyopathy Current Visit: Yes Status: Chronic Assessment and plan: Patient with history of pacemaker/AICD with cardiac stents as above Continue JORDAN inhibitor, aspirin, Plavix and statin and beta nichole Qualifiers: Cardiomyopathy type: ischemic Qualified Code(s): I25.5 - Ischemic cardiomyopathy (5) CHF exacerbation Current Visit: Yes Status: Acute Assessment and plan: Plan as above. Pt reports improvement in SOB, negative fluid deficit. Likely can discharge tomorrow if continued improvement. Qualifiers: Heart failure type: combined systolic and diastolic Qualified Code(s): I50.43 - Acute on chronic combined systolic (congestive) and diastolic ( congestive) heart failure (6) CAD (coronary artery disease) Current Visit: Yes Status: Chronic Assessment and plan: Patient denies chest pain. Plan as above. Continue telemetry. Qualifiers: Coronary Disease-Associated Artery/Lesion type: [place] artery [place] vs. transplanted heart: [place] heart Associated angina: with unspecified angina Qualified Code(s): I25.119 - Atherosclerotic heart disease of [place] coronary artery with unspecified angina pectoris (7) HTN (hypertension) Current Visit: Yes Status: Chronic Assessment and plan: Chronic. Well controlled. Continue home medications. Mild hypertension today, hold BP medications. Qualifiers: Hypertension type: essential hypertension Qualified Code(s): I10 - Essential (primary) hypertension (8) Hyperlipemia Current Visit: Yes Status: Chronic Assessment and plan: Chronic. Continue home medications Qualifiers: Hyperlipidemia type: mixed hyperlipidemia Qualified Code(s): E78.2 - Mixed hyperlipidemia - Time Spent With Patient Total time spent is greater than 50% in coordination of care (as documented) at patient's floor/unit and/or counseling patient: less than 15 minutes - Subjective Interval history: Pt was seen and assessed at bedside at 1015. Daughter was at bedside, all questions answered. Patient reports shortness of breath is improving. Patient denies any chest pain. She denies headache, dizziness, nausea vomiting, diarrhea. She denies any new or increased peripheral edema, no abdominal pain. Patient is agreeable to stay for continued diuresis overnight, likely will be discharged tomorrow. - Constitutional Vitals: Temp Pulse Resp BP Pulse Ox 97.9 F 99 13 98/65 98 12/09/17 15:10 12/09/17 15:10 12/09/17 15:10 12/09/17 15:10 12/09/17 15:10 General appearance: Present: cooperative, A&O X 3, pleasant, no acute distress, answers questions appropriately - Head Head exam: Present: atraumatic, normal inspection, normocephalic - Eye Eye exam: Present: normal appearance, conjuntiva pink, sclera anicteric - Neck Neck exam general surgery: Present: supple, trachea midline. Absent: lymphadenopathy - Respiratory Respiratory exam: Present: CTAB. Absent: accessory muscle use, rales, rhonchi, wheezes - Cardiovascular Cardiovascular exam: Present: RRR, +S1, +S2. Absent: diastolic murmur, gallop, rubs, systolic murmur - GI/Abdominal GI/Abdominal exam: Present: normal bowel sounds, soft. Absent: distended, hepatomegaly, tenderness - Extremities Exam Extremities exam: Present: normal capillary refill, normal inspection, warm, radial pulses palpable and symmetrical. Absent: calf tenderness, cyanotic, pedal edema, tenderness - Neurological Exam Neurological exam: Present: alert, oriented X3, no focal deficits. Absent: facial droop, speech deficit - Skin Skin exam: Present: dry, intact, normal color, warm. Absent: rash Internal Medicine: Result - Labs CBC & Chem 7: 12/08/17 00:54 12/08/17 00:54 - ABG Interpretation ABG results: PT/INR, D-dimer PT 13.9 Seconds (9.4-12.1) H 12/07/17 14:18 Consult Discharge Plan - Plan Referrals: Arlen Thomas MD [Primary Care Provider] - 12/13/17 10:45 am
[2017-12-10] MEDS: *HR* Heparin 5,000 UNIT/ML VIAL SQ SCH ×3 (05:17→20:53)
[2017-12-10] MEDS: Cholecalciferol (D-3) 1,000 UNIT TABLET PO SCH (09:07)
[2017-12-10] MEDS: *HR* SitaGLIPtin 25 MG TABLET PO SCH (09:07)
[2017-12-10] MEDS: Isosorbide MONOnitrate (24 HR) 60 MG TAB.ER.24H PO SCH (09:07)
[2017-12-10] MEDS: Aspirin Enteric Coated 81 MG Tablet PO SCH (09:07)
[2017-12-10] MEDS: Furosemide 40 MG/4 ML VIAL IVP SCH ×2 (09:09→16:14)
[2017-12-10 09:12] LABS: Basophils % 0.5 %; Eosinophils # 0.4 K/mcL (0.0-0.6); Eosinophils % 5.7 %; Hematocrit 40.7 % (35.3-44.9); Hemoglobin 13.3 g/dL (11.5-15.4); Immature Granulocytes % 0.3 % (0-4); Lymphocytes # 1.2 K/mcL (0.6-4.6); Lymphocytes % 18.6 %; Mean Corpuscular HGB Conc 32.7 g/dL (31.6-35.5); Mean Corpuscular Hemoglobin 31.8 pg (28.0-33.3); Mean Corpuscular Volume 97.4 fL (83.0-100.0); Mean Platelet Volume 10.5 fL (9.4-12.4); Monocytes # 0.7 K/mcL (0.0-1.3); Monocytes % 10.2 %; Neutrophils # 4.3 K/mcL (1.6-8.9); Platelet Count 228 K/mcL (140-400); Red Blood Count 4.18 M/mcL (3.82-4.97); Red Cell Distribution Width 12.9 % (11.5-14.5); Segmented Neutrophils % 64.7 %
[2017-12-10 09:34] LABS: BUN/Creatinine Ratio 26 (6-26); Blood Urea Nitrogen 20 mg/dL (8-23); Calcium 8.8 mg/dL (8.6-10.3); Carbon Dioxide 32 mEq/L (23-29); Chloride 105 mEq/L (98-107); Glucose 176 mg/dL (70-105); Osmolality,Calculated 307 (280-300); Potassium 4.1 mEq/L (3.5-5.1); Sodium 145 mEq/L (136-145); eGFR For African Americans > 60 (> 60); eGFR For Non-African Americans > 60 (> 60)
--- NOTE | 2017-12-10 15:14 | Discharge Summary ---
- NOTES TO OUTPATIENT PROVIDER Notes to Outpatient Provider: Pt admitted for SOB. Pt diagnosed with AECHF. Pt was diuresed and showed improvement and is stable for discharge. Pt has been given extensive education on fluid restriciton, daily weights, and will be sent home with rx for Lasix 20mg po daily prn weight gain. Will defer to PCP to determine if Lasix is needed or warranted daily. Date of Encounter: 12/10/17 Time of Encounter: 09:00 - Discharge Diagnosis (1) Diabetes Priority: Secondary Status: Chronic Assessment and Plan: Poorly controlled with A1c 7.4% in August,. Continue Accu-Cheks and home medications. 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 (3) Combined systolic and diastolic congestive heart failure Priority: Primary Status: Chronic Assessment and Plan: Acute exacerbation Patient appears to be euvolemic, lungs are clear and diminished, she reports improvement in SOB and COLE. Pt has been weaned from 02 an is able to ambulate in the hallway without distress. Fluid deficit -3.8 liters. Family and I discussed continuing daily weights and fluid restriction at home, all verbalized understanding. Family has requested Lasix rx for home, will give prn for weight gain and defer to PCP to determine if it is needed daily. Continue daily weights, fluid restriction at home. Lasix 20mg po dailiy prn. Qualifiers: Heart failure chronicity: chronic Qualified Code(s): I50.42 - Chronic combined systolic (congestive) and diastolic (congestive) heart failure (4) Cardiomyopathy Priority: Secondary Status: Chronic Assessment and Plan: Patient with history of pacemaker/AICD with cardiac stents as above Continue JORDAN inhibitor, aspirin, Plavix and statin and beta nichole Qualifiers: Cardiomyopathy type: ischemic Qualified Code(s): I25.5 - Ischemic cardiomyopathy (5) CHF exacerbation Priority: Secondary Status: Acute Assessment and Plan: Plan as above. Pt reports improvement in SOB, negative 3.8 liter fluid deficit. Plan as above. Qualifiers: Heart failure type: combined systolic and diastolic Qualified Code(s): I50.43 - Acute on chronic combined systolic (congestive) and diastolic ( congestive) heart failure (6) CAD (coronary artery disease) Priority: Secondary Status: Chronic Assessment and Plan: Patient denies chest pain. Plan as above. Continue aspirin, statin, beta nichole, Plavix, Imdur, lisinopril. Continue telemetry. Qualifiers: Coronary Disease-Associated Artery/Lesion type: [place] artery [place] vs. transplanted heart: [place] heart Associated angina: with unspecified angina Qualified Code(s): I25.119 - Atherosclerotic heart disease of [place] coronary artery with unspecified angina pectoris (7) HTN (hypertension) Priority: Secondary Status: Chronic Assessment and Plan: Well-controlled. Continue home medications. Qualifiers: Hypertension type: essential hypertension Qualified Code(s): I10 - Essential (primary) hypertension (8) Hyperlipemia Priority: Secondary Status: Chronic Assessment and Plan: Chronic. Continue statin Qualifiers: Hyperlipidemia type: mixed hyperlipidemia Qualified Code(s): E78.2 - Mixed hyperlipidemia Hospital course: Ms. Vilchis is a 87 year old female Discharge discussed with: patient, family - Time Spent with Patient Total time spent providing and/or coordinating discharge services: Less than 30 minutes - Discharge Medications Prescriptions: Furosemide [Lasix] 20 mg PO DAILY #15 tablet Home Medications: Calcium Carbonate/Vitamin D3 [Liquid Calcium 600-Vit D3 Sfgl] 1 cap PO DAILY 03/06 [History] Multivitamin [Multivitamins] 1 cap PO DAILY 05/28/17 [History] Pantoprazole Sodium [Protonix] 40 mg PO DAILY 05/28/17 [History] SitaGLIPtin [Januvia] 100 mg PO DAILY 05/28/17 [History] Acetaminophen [Tylenol] 500 mg PO Q6H PRN 08/14/17 [History] HydrOXYzine 10 mg PO TID 08/14/17 [History] Aspirin [Lo-Dose Aspirin EC] 81 mg PO DAILY #30 tablet.dr 09/22/17 [Rx] Atorvastatin [Lipitor] 40 mg PO HS #30 tablet 09/22/17 [Rx] Clopidogrel [Plavix] 75 mg PO DAILY #30 tablet 09/22/17 [Rx] Nitroglycerin [Nitrostat] 0.4 mg SL Q5M PRN #30 tab.subl 09/22/17 [Rx] Lisinopril [Zestril] 5 mg PO DAILY 09/30/17 [History] Carvedilol [Coreg] 3.125 mg PO BIDWM 30 Days #15 tablet 10/06/17 [Rx] Isosorbide MONOnitrate (24 HR) [Imdur] 60 mg PO DAILY 10/20/17 [History] Furosemide [Lasix] 20 mg PO DAILY #15 tablet 12/10/17 [Rx] Allergies/Adverse Reactions: 3 Allergy/AdvReac Type Severity Reaction Status Date / Time metformin Allergy See Verified 11/25/17 14:33 Comments Sulfa (Sulfonamide Allergy See Verified 11/25/17 14:33 Antibiotics) Comments Date of admission: 12/08/17 08:21 Primary care physician: Arlen Thomas Consults: 12/08/17 09:14 Consult to Nurse Navigator [CONS] Routine Comment: CHF Discharging clinician: Amy Rodriguez Anticipated date of discharge: 12/10/17 - Constitutional Vitals: Temp Pulse Resp BP Pulse Ox 98.1 F 87 14 103/68 94 12/10/17 11:43 12/10/17 11:43 12/10/17 11:43 12/10/17 11:43 12/10/17 11:43 General appearance: Present: cooperative, A&O X 3, pleasant, no acute distress, answers questions appropriately - Head Head exam: Present: atraumatic, normal inspection, normocephalic - Eye Eye exam: Present: normal appearance, conjuntiva pink, sclera anicteric - Neck Neck exam general surgery: Present: supple, trachea midline. Absent: lymphadenopathy, tenderness - Respiratory Respiratory exam: Present: CTAB. Absent: accessory muscle use, rales, rhonchi, wheezes - Cardiovascular Cardiovascular exam: Present: RRR, +S1, +S2. Absent: diastolic murmur, gallop, rubs, systolic murmur - GI/Abdominal GI/Abdominal exam: Present: normal bowel sounds, soft. Absent: distended, hepatomegaly, tenderness - Extremities Exam Extremities exam: Present: normal capillary refill, normal inspection, warm, radial pulses palpable and symmetrical. Absent: calf tenderness, cyanotic, pedal edema, tenderness - Neurological Exam Neurological exam: Present: alert, oriented X3, no focal deficits. Absent: facial droop, speech deficit - Skin Skin exam: Present: dry, intact, normal color, warm. Absent: rash - Patient Status Disposition: Home, Self-Care Condition: Good Functional capacity at discharge: uses cane/walker Overall status at discharge: patient is progressing back to baseline - Discharge Instructions Follow Up With: Arlen Thomas MD [Primary Care Provider] - 12/13/17 10:45 am Additional Instructions: Please follow-up with your primary care provider on Tuesday as scheduled. Return to the emergency department as needed for any other problems or concerns , or if your symptoms return or worsen. Prescription for Lasix has been called to [place] pharmacy. Take the Lasix a few notice more than a 4 pound weight gain. Do not take for more than 3 days. He will need to call your primary care provider if you noticed the weight gain. Resume your normal medications. Remember to follow your fluid restriction at home, and follow a low-sodium diet. Weight yourself daily and record your weights daily on the calendar in your bathroom. - Diet and Activity Activity: increase activity as tolerated Diet: low salt diet
[2017-12-11] MEDS: *HR* Heparin 5,000 UNIT/ML VIAL SQ SCH (05:21)
[2017-12-11 05:26] LABS: Basophils % 0.5 %; Eosinophils # 0.4 K/mcL (0.0-0.6); Eosinophils % 7.1 %; Hematocrit 38.2 % (35.3-44.9); Hemoglobin 12.5 g/dL (11.5-15.4); Immature Granulocytes % 0.2 % (0-4); Lymphocytes # 1.8 K/mcL (0.6-4.6); Lymphocytes % 28.8 %; Mean Corpuscular HGB Conc 32.7 g/dL (31.6-35.5); Mean Corpuscular Hemoglobin 31.9 pg (28.0-33.3); Mean Corpuscular Volume 97.4 fL (83.0-100.0); Mean Platelet Volume 10.7 fL (9.4-12.4); Monocytes # 0.7 K/mcL (0.0-1.3); Monocytes % 10.5 %; Neutrophils # 3.3 K/mcL (1.6-8.9); Platelet Count 208 K/mcL (140-400); Red Blood Count 3.92 M/mcL (3.82-4.97); Red Cell Distribution Width 12.9 % (11.5-14.5); Segmented Neutrophils % 52.9 %
[2017-12-11 05:44] LABS: BUN/Creatinine Ratio 21 (6-26); Blood Urea Nitrogen 15 mg/dL (8-23); Calcium 8.6 mg/dL (8.6-10.3); Carbon Dioxide 31 mEq/L (23-29); Chloride 104 mEq/L (98-107); Glucose 144 mg/dL (70-105); Osmolality,Calculated 295 (280-300); Potassium 4.2 mEq/L (3.5-5.1); Sodium 141 mEq/L (136-145); eGFR For African Americans > 60 (> 60); eGFR For Non-African Americans > 60 (> 60)
[2017-12-11] MEDS: Aspirin Enteric Coated 81 MG Tablet PO SCH (09:48)
[2017-12-11] MEDS: Furosemide 40 MG/4 ML VIAL IVP SCH (09:48)
[2017-12-11] MEDS: Isosorbide MONOnitrate (24 HR) 60 MG TAB.ER.24H PO SCH (09:48)
[2017-12-11] MEDS: Cholecalciferol (D-3) 1,000 UNIT TABLET PO SCH (09:49)
[2017-12-11] MEDS: *HR* SitaGLIPtin 25 MG TABLET PO SCH (09:49)
--- NOTE | 2017-12-11 11:08 | Internal Med Progress Note ---
Date of Encounter: 12/11/17 Time of Encounter: 10:30 - Assessment and plan (1) Diabetes Current Visit: Yes Status: Chronic Assessment and plan: Poorly controlled with A1c 7.4% in August,. Continue Accu-Cheks per home regimen and home medications. 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 Pt was ambulatory in the room. (3) Combined systolic and diastolic congestive heart failure Current Visit: Yes Status: Chronic Assessment and plan: Acute exacerbation Patient appears to be euvolemic, lungs are clear and diminished, no peripheral edema. Fluid deficit -4.4 liters. Family and I discussed continuing daily weights and fluid restriction at home, all verbalized understanding. Family has requested Lasix rx for home, will give prn for weight gain and defer to PCP to determine if it is needed daily. Continue daily weights, fluid restriction at home. Lasix 20mg po dailiy prn. Will defer to PCP to decide if Lasix daily is warranted. Qualifiers: Heart failure chronicity: chronic Qualified Code(s): I50.42 - Chronic combined systolic (congestive) and diastolic (congestive) heart failure (4) Cardiomyopathy Current Visit: Yes Status: Chronic Assessment and plan: Patient with history of pacemaker/AICD with cardiac stents as above Continue JORDAN inhibitor, aspirin, Plavix and statin and beta nichole Qualifiers: Cardiomyopathy type: ischemic Qualified Code(s): I25.5 - Ischemic cardiomyopathy (5) CHF exacerbation Current Visit: Yes Status: Acute Assessment and plan: Acute exacerbation of chronic systolic and diastolic. Plan as above. Pt reports improvement in SOB, negative 4.4 liter fluid deficit. Qualifiers: Heart failure type: combined systolic and diastolic Qualified Code(s): I50.43 - Acute on chronic combined systolic (congestive) and diastolic ( congestive) heart failure (6) CAD (coronary artery disease) Current Visit: Yes Status: Chronic Assessment and plan: Patient denies chest pain. Continue aspirin, statin, beta nichole, Plavix, Imdur, lisinopril. Qualifiers: Coronary Disease-Associated Artery/Lesion type: [place] artery [place] vs. transplanted heart: [place] heart Associated angina: with unspecified angina Qualified Code(s): I25.119 - Atherosclerotic heart disease of [place] coronary artery with unspecified angina pectoris (7) HTN (hypertension) Current Visit: Yes Status: Chronic Assessment and plan: Well-controlled. Continue home medications. Qualifiers: Hypertension type: essential hypertension Qualified Code(s): I10 - Essential (primary) hypertension (8) Hyperlipemia Current Visit: Yes Status: Chronic Assessment and plan: Chronic. Continue home dose of statin Qualifiers: Hyperlipidemia type: mixed hyperlipidemia Qualified Code(s): E78.2 - Mixed hyperlipidemia - Time Spent With Patient Total time spent is greater than 50% in coordination of care (as documented) at patient's floor/unit and/or counseling patient: less than 15 minutes - Subjective Interval history: Pt was seen and assessed at bedside at 1010. Daughter was at bedside, all questions answered. Patient states that she didn't ever even have shortness of breath. Patient denies any chest pain. She denies headache, dizziness, nausea vomiting, diarrhea. She denies any new or increased peripheral edema, no abdominal pain. Pt states that she is ambulating well and walked around the unit without difficulty, per primary RN, she did not qualify for home 02. - Constitutional Vitals: Temp Pulse Resp BP Pulse Ox 97.9 F 74 18 125/78 96 12/11/17 07:22 12/11/17 07:22 12/11/17 07:22 12/11/17 07:22 12/11/17 07:22 General appearance: Present: cooperative, A&O X 3, pleasant, no acute distress, answers questions appropriately - Head Head exam: Present: atraumatic, normocephalic - Eye Eye exam: Present: PERRL, conjuntiva pink, sclera anicteric Pupils: Present: PERRL - Neck Neck exam general surgery: Present: supple, trachea midline. Absent: lymphadenopathy - Respiratory Respiratory exam: Present: CTAB. Absent: accessory muscle use, rales, rhonchi, wheezes - Cardiovascular Cardiovascular exam: Present: RRR, +S1, +S2. Absent: diastolic murmur, gallop, rubs, systolic murmur - GI/Abdominal GI/Abdominal exam: Present: normal bowel sounds, soft, no peritoneal signs. Absent: distended, tenderness - Extremities Exam Extremities exam: Present: warm, radial pulses palpable and symmetrical. Absent : calf tenderness, cyanotic, pedal edema - Neurological Exam Neurological exam: Present: CN II-XII intact, oriented X3, no focal deficits. Absent: pronater drift, facial droop, speech deficit - Skin Skin exam: Present: dry, intact Internal Medicine: Result - Labs CBC & Chem 7: 12/11/17 04:43 12/11/17 04:43 Labs: Short CBC 12/11/17 Range/Units 04:43 WBC 6.2 (4.3-11.1) K/mcL Hgb 12.5 (11.5-15.4) g/dL Hct 38.2 (35.3-44.9) % Plt Count 208 (140-400) K/mcL Neutrophils # 3.3 (1.6-8.9) K/mcL BMP 12/11/17 04:43 Sodium 141 Potassium 4.2 Chloride 104 Carbon Dioxide 31 H BUN 15 Creatinine 0.73 Glucose 144 H Calcium 8.6 - ABG Interpretation ABG results: PT/INR, D-dimer PT 13.9 Seconds (9.4-12.1) H 12/07/17 14:18 Consult Discharge Plan - Plan Additional Instructions: Please follow-up with your primary care provider on Tuesday as scheduled. Return to the emergency department as needed for any other problems or concerns , or if your symptoms return or worsen. Prescription for Lasix has been called to [place]'s pharmacy. Take the Lasix a few notice more than a 4 pound weight gain. Do not take for more than 3 days. He will need to call your primary care provider if you noticed the weight gain. Resume your normal medications. Remember to follow your fluid restriction at home, and follow a low-sodium diet. Weight yourself daily and record your weights daily on the calendar in your bathroom. Referrals: Arlen Thomas MD [Primary Care Provider] - 12/13/17 10:45 am Prescriptions: Furosemide [Lasix] 20 mg PO DAILY #15 tablet
[2017-12-11 11:32] VITALS: BP 118/70
== END 2017-12-11 14:18 | disposition home or self-care (01) | DRG 293 ==
LOC: 3BNU 14:00 → EMEROO 14:00 → 3BNU 17:18
PROVIDERS: ADMIT Hospitalist; ATTEND Hospitalist

== ENCOUNTER 2017-12-20 13:27 | Observation (INO) ==
--- NOTE | 2017-12-20 13:37 | Emergency Department Note ---
Disposition Clinical Impression: Chest pain Disposition: Admitted As Inpatient General Adult HPI - General Stated complaint: "CP,SOB" Time Seen by Provider: 12/20/17 13:34 - Related Data Home Medications Medication Instructions Recorded Confirmed Calcium Carbonate/Vitamin D3 1 cap PO DAILY 05/28/17 12/20/17 [Liquid Calcium 600-Vit D3 Sfgl] Multivitamin [Multivitamins] 1 cap PO DAILY 05/28/17 12/20/17 Pantoprazole Sodium [Protonix] 40 mg PO DAILY 05/28/17 12/20/17 SitaGLIPtin [Januvia] 100 mg PO DAILY 05/28/17 12/20/17 Acetaminophen [Tylenol] 500 mg PO Q6H PRN 08/14/17 12/20/17 HydrOXYzine 10 mg PO TID 08/14/17 12/20/17 Lisinopril [Zestril] 5 mg PO DAILY 09/30/17 12/20/17 Isosorbide MONOnitrate (24 HR) 60 mg PO DAILY 10/20/17 12/20/17 [Imdur] Previous Rx's Medication Instructions Recorded Aspirin [Lo-Dose Aspirin EC] 81 mg PO DAILY #30 tablet. 09/22/17 Atorvastatin [Lipitor] 40 mg PO HS #30 tablet 09/22/17 Clopidogrel [Plavix] 75 mg PO DAILY #30 tablet 09/22/17 Nitroglycerin [Nitrostat] 0.4 mg SL Q5M PRN #30 tab.subl 09/22/17 Carvedilol [Coreg] 3.125 mg PO BIDWM 30 Days #15 10/06/17 tablet Furosemide [Lasix] 20 mg PO DAILY #15 tablet 12/10/17 Allergies Allergy/AdvReac Type Severity Reaction Status Date / Time metformin Allergy See Verified 12/20/17 15:36 Comments Sulfa (Sulfonamide Allergy See Verified 12/20/17 15:36 Antibiotics) Comments Past Medical History - Past Medical History Medical history: Reports: atrial fibrillation, cardiomyopathy, coronary artery disease, diabetes, hyperlipidemia, hypertension Surgical history: Reports: appendectomy, colectomy, colostomy, other Psychiatric history: Reports: no psych history ENVIRONMENTAL PROFESSIONAL history: Reports: no ENVIRONMENTAL PROFESSIONAL history - Social History Smoking Status: Never smoker Smokeless Tobacco Status: No Alcohol use: Reports: none Drug use: Reports: none Course Vital Signs Temperature 98.1 F 12/20/17 14:15 Pulse Rate 75 12/20/17 14:15 Respiratory Rate 79 12/20/17 14:15 Blood Pressure 115/82 12/20/17 14:15 O2 Sat by Pulse Oximetry 95 12/20/17 14:15 Temperature 98.4 F 12/21/17 11:41 Pulse Rate 82 12/21/17 11:41 Respiratory Rate 17 12/21/17 11:41 Blood Pressure 110/58 12/21/17 11:41 O2 Sat by Pulse Oximetry 97 12/21/17 11:41 Oxygen Delivery Oxygen Delivery Room Air Medical Decision Making - Lab Data Result diagrams: 12/21/17 03:37 12/21/17 03:37 Lab Results 12/20/17 12/20/17 12/20/17 Range/Units 14:16 14:16 14:16 WBC 6.8 (4.3-11.1) K/mcL RBC 4.14 (3.82-4.97) M/mcL Hgb 13.2 (11.5-15.4) g/dL Hct 39.3 (35.3-44.9) % MCV 94.9 (83.0-100.0) fL MCH 31.9 (28.0-33.3) pg MCHC 33.6 (31.6-35.5) g/dL RDW 12.9 (11.5-14.5) % Plt Count 144 (140-400) K/mcL MPV 11.3 (9.4-12.4) fL Immature Gran % 0.1 (0-4) % Seg Neutrophils % 57.7 % Lymphocytes % 22.3 % Monocytes % 11.2 % Eosinophils % 8.3 % Basophils % 0.4 % Neutrophils # 3.9 (1.6-8.9) K/mcL Lymphocytes # 1.5 (0.6-4.6) K/mcL Monocytes # 0.8 (0.0-1.3) K/mcL Eosinophils # 0.6 (0.0-0.6) K/mcL Basophils # 0.0 (0.0-0.2) K/mcL Sodium 143 (136-145) mEq/L Potassium 3.4 L (3.5-5.1) mEq/L Chloride 106 (98-107) mEq/L Carbon Dioxide 31 H (23-29) mEq/L BUN 12 (8-23) mg/dL Creatinine 0.82 (0.60-1.20) mg/dL Est GFR ( Amer) > 60 (> 60) Est GFR (Non-Af Amer) > 60 (> 60) BUN/Creatinine Ratio 15 (6-26) Glucose 141 H (70-105) mg/dL Calculated Osmolality 298 (280-300) Calcium 8.5 L (8.6-10.3) mg/dL Troponin I < 0.03 (< 0.04) ng/mL B-Natriuretic Peptide 585 H (Less than 100) pg/mL Attestation Statement - Attestation Attestation: I examined this patient and my medical decision-making was reviewed with the Resident Physician. I agree with the documented findings, disposition and treatment plan as described except to the extent set forth below. [id number] time provided Patient arrives complaining of dyspnea. She appears in no acute distress upon arrival. Family at bedside. Evaluated in conjunction with resident physician
[2017-12-20] MEDS ORDERED: Aspirin 81 MG TAB.CHEW PO ONE (13:56)
--- NOTE | 2017-12-20 14:16 | Emergency Department Note ---
Disposition Clinical Impression: Chest pain Disposition: Admitted As Inpatient Time of Disposition: 17:13 Chest Pain HPI - General Chief Complaint: ED Chest Pain Stated Complaint: "CP,SOB" Time Seen by Provider: 12/20/17 13:34 Source: patient, family Mode of arrival: private vehicle Limitations: no limitations - History of Present Illness HPI Narrative: Patient is an 87-year-old female presenting for one hour of left sided chest pain and shortness of breath. The patient is alert and oriented and appears to be in no acute distress. She answers questions appropriately and is pleasant and conversational. Patient states that her pain is provoked by exertion and describes the pain as sharp, non-radiating in nature, 1 or 2 out of 10, waxing and waning in nature and associated with exertional dyspnea. The patient admits to significant past medical history of stent placements in 2016 and 2017 as well as pacemaker placement in September 2017. The patient also admits to a history of colon cancer with colostomy placement in 2011 Patient admits to allergies to sulfa drugs as well as metformin. On review of system patient admits to chest pain shortness of breath and some lightheadedness upon initial experience of pain which has since subsided. The patient denies current lightheadedness, dizziness, or abdominal pain. - Related Data Home Medications Medication Instructions Recorded Confirmed Calcium Carbonate/Vitamin D3 1 cap PO DAILY 05/28/17 12/20/17 [Liquid Calcium 600-Vit D3 Sfgl] Multivitamin [Multivitamins] 1 cap PO DAILY 05/28/17 12/20/17 Pantoprazole Sodium [Protonix] 40 mg PO DAILY 05/28/17 12/20/17 SitaGLIPtin [Januvia] 100 mg PO DAILY 05/28/17 12/20/17 Acetaminophen [Tylenol] 500 mg PO Q6H PRN 08/14/17 12/20/17 HydrOXYzine 10 mg PO TID 08/14/17 12/20/17 Lisinopril [Zestril] 5 mg PO DAILY 09/30/17 12/20/17 Isosorbide MONOnitrate (24 HR) 60 mg PO DAILY 10/20/17 12/20/17 [Imdur] Previous Rx's Medication Instructions Recorded Aspirin [Lo-Dose Aspirin EC] 81 mg PO DAILY #30 tablet. 09/22/17 Atorvastatin [Lipitor] 40 mg PO HS #30 tablet 09/22/17 Clopidogrel [Plavix] 75 mg PO DAILY #30 tablet 09/22/17 Nitroglycerin [Nitrostat] 0.4 mg SL Q5M PRN #30 tab.subl 09/22/17 Carvedilol [Coreg] 3.125 mg PO BIDWM 30 Days #15 10/06/17 tablet Furosemide [Lasix] 20 mg PO DAILY #15 tablet 12/10/17 Allergies Allergy/AdvReac Type Severity Reaction Status Date / Time metformin Allergy See Verified 12/20/17 15:36 Comments Sulfa (Sulfonamide Allergy See Verified 12/20/17 15:36 Antibiotics) Comments All systems ED: reviewed and negative except as stated. Constitutional: Reports: as per HPI Cardiovascular: Reports: chest pain, dyspnea on exertion Respiratory: Reports: dyspnea Gastrointestinal: Denies: abdominal pain Neurological: Denies: weakness, numbness, paresthesias Chest Pain PMH - Past Medical History Medical history: Reports: atrial fibrillation, cardiomyopathy, coronary artery disease (Stent placement in 2017 and 2018 with pacemaker placement 2018), diabetes, hyperlipidemia, hypertension, other (Congestive heart failure) Reports: Other (Colon cancer) Surgical history: Reports: appendectomy, colectomy, colostomy, other Psychiatric history: Reports: no psych history Prior Cardiac Testing/Procedures: Echocardiogram, Stenting 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: Reports: no 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 - Social History Smoking Status: Never smoker Alcohol use: Reports: none Drug use: Reports: none Physical Exam - General Limitations: no limitations General appearance: alert, in no apparent distress - Head Head exam: atraumatic, normocephalic - Eye Eye exam: Present: normal appearance, PERRL, EOMI - Respiratory Respiratory exam: Present: other (Fine crackles noted in bilateral lung bases) - Cardiovascular Cardiovascular exam: Present: irregular rhythm, diastolic murmur - Abdominal Exam Abdominal exam: Present: soft, Non-Tender - Neurological Exam Neurological exam: Present: alert, oriented X3 - Psychiatric Psychiatric exam: Present: normal affect, normal mood - Skin Skin exam: Present: warm, dry, normal color Course Course Narrative: Patient is being admitted for multiple risk factors for ACS in the context of her new onset chest pain and shortness of breath. Patient's chest x-ray showed diffuse infiltrates, along with a BNP of 585 and fine crackles noted in bilateral lung bases. Patient appeared alert and oriented, nontoxic appearing, non-hypoxic and in no acute distress. Did not appear to have increased work of breathing. Patient to be observed for concern over congestive heart failure symptoms as related to the above findings in the setting of chest pain and exertional dyspnea Vital Signs Temperature 98.1 F 12/20/17 14:15 Pulse Rate 75 12/20/17 14:15 Respiratory Rate 79 12/20/17 14:15 Blood Pressure 115/82 12/20/17 14:15 O2 Sat by Pulse Oximetry 95 12/20/17 14:15 Temperature 98.1 F 12/20/17 14:15 Pulse Rate 72 12/20/17 15:59 Respiratory Rate 18 12/20/17 15:59 Blood Pressure 118/75 12/20/17 15:59 O2 Sat by Pulse Oximetry 96 12/20/17 15:59 Oxygen Delivery Oxygen Delivery Room Air Chest Pain - Lab Data Result diagrams: 12/20/17 14:16 12/20/17 14:16 Lab Results 12/20/17 12/20/17 12/20/17 Range/Units 14:16 14:16 14:16 WBC 6.8 (4.3-11.1) K/mcL RBC 4.14 (3.82-4.97) M/mcL Hgb 13.2 (11.5-15.4) g/dL Hct 39.3 (35.3-44.9) % MCV 94.9 (83.0-100.0) fL MCH 31.9 (28.0-33.3) pg MCHC 33.6 (31.6-35.5) g/dL RDW 12.9 (11.5-14.5) % Plt Count 144 (140-400) K/mcL MPV 11.3 (9.4-12.4) fL Immature Gran % 0.1 (0-4) % Seg Neutrophils % 57.7 % Lymphocytes % 22.3 % Monocytes % 11.2 % Eosinophils % 8.3 % Basophils % 0.4 % Neutrophils # 3.9 (1.6-8.9) K/mcL Lymphocytes # 1.5 (0.6-4.6) K/mcL Monocytes # 0.8 (0.0-1.3) K/mcL Eosinophils # 0.6 (0.0-0.6) K/mcL Basophils # 0.0 (0.0-0.2) K/mcL Sodium 143 (136-145) mEq/L Potassium 3.4 L (3.5-5.1) mEq/L Chloride 106 (98-107) mEq/L Carbon Dioxide 31 H (23-29) mEq/L BUN 12 (8-23) mg/dL Creatinine 0.82 (0.60-1.20) mg/dL Est GFR ( Amer) > 60 (> 60) Est GFR (Non-Af Amer) > 60 (> 60) BUN/Creatinine Ratio 15 (6-26) Glucose 141 H (70-105) mg/dL Calculated Osmolality 298 (280-300) Calcium 8.5 L (8.6-10.3) mg/dL Troponin I < 0.03 (< 0.04) ng/mL B-Natriuretic Peptide 585 H (Less than 100) pg/mL - EKG Data EKG results narrative: EKG shows a paced ventricular rhythm at a rate of 81 bpm NM interval is 146 ms QRS duration 152 QT/QTC of 453/490 ms, there are no acute ST segment changes as per sgarbossa's criteria EKG is consistent with old EKG performed on December 072017. Heart Score - Score History: Moderately Suspicious EKG: Normal Age: Greater than 65 Risk Factors: No risk factors known Troponin: Less than normal limit HEART Score Total: 3
[2017-12-20 14:34] LABS: Basophils % 0.4 %; Eosinophils # 0.6 K/mcL (0.0-0.6); Eosinophils % 8.3 %; Hematocrit 39.3 % (35.3-44.9); Hemoglobin 13.2 g/dL (11.5-15.4); Immature Granulocytes % 0.1 % (0-4); Lymphocytes # 1.5 K/mcL (0.6-4.6); Lymphocytes % 22.3 %; Mean Corpuscular HGB Conc 33.6 g/dL (31.6-35.5); Mean Corpuscular Hemoglobin 31.9 pg (28.0-33.3); Mean Corpuscular Volume 94.9 fL (83.0-100.0); Mean Platelet Volume 11.3 fL (9.4-12.4); Monocytes # 0.8 K/mcL (0.0-1.3); Monocytes % 11.2 %; Neutrophils # 3.9 K/mcL (1.6-8.9); Platelet Count 144 K/mcL (140-400); Red Blood Count 4.14 M/mcL (3.82-4.97); Red Cell Distribution Width 12.9 % (11.5-14.5); Segmented Neutrophils % 57.7 %
[2017-12-20 14:51] LABS: BUN/Creatinine Ratio 15 (6-26); Blood Urea Nitrogen 12 mg/dL (8-23); Calcium 8.5 mg/dL (8.6-10.3); Carbon Dioxide 31 mEq/L (23-29); Chloride 106 mEq/L (98-107); Glucose 141 mg/dL (70-105); Osmolality,Calculated 298 (280-300); Potassium 3.4 mEq/L (3.5-5.1); Sodium 143 mEq/L (136-145); eGFR For African Americans > 60 (> 60); eGFR For Non-African Americans > 60 (> 60)
[2017-12-20 14:52] LABS: Troponin I < 0.03 ng/mL (< 0.04)
[2017-12-20] MEDS ORDERED: Naloxone 0.4 MG/ML INJ IVP PRN (16:58)
[2017-12-20] MEDS ORDERED: Nitroglycerin 0.4 MG TAB.SUBL SL PRN (17:04)
--- NOTE | 2017-12-20 18:34 | Internal Med History&Physical ---
Date of Encounter: 12/20/17 Time of Encounter: 16:00 Internal Medicine - H&P: HPI Chief complaint: chest pain Admitted From: Home Plans for Post Hospital Care: Home History of present illness: Ms. Vilchis is a 87 year old female with PMHx of CAD s/p RCA, LAD stents in 2017, complete heart block s/p BiV pacemaker insertion 09/2017, DM, HTN, HLD, presented to the ED with acute onset of chest pain. Started at 1245pm while walking, sudden in onset, sharp, non-radiating, associated with mild SOB. It lasted for about 20 mins but resolved and did not recur. She had echocardiogram earlier in the day and was feeling fine. No palpitation, diaphoresis, orthopnea , PND, LE swelling. Denies fever/chills, cough, sputum production. No GI/ symptoms. Pt's daughter states that her dose of Imdur was switched from BID to daily. Last cath she had in 09/2017 showed 1st diagonal 70% stenosis and 50% stenosis in distal RCA apart from the prox-mid LAD and prox-mid RCA lesions that were stented. On presentation, she was afebrile and hemodynamically stable. Troponin -ve x 1, EKG ventricular paced rhythm with no significant changes from 12/07. Echo done earlier in the day was largely unchanged from 2017 (EF 30-35%, severe global and segmental LV systolic dysfunction. Patient was admitted for further management. Past Med Surg Social Fam HX - Past Medical History Medical history: atrial fibrillation, cardiomyopathy, coronary artery disease, diabetes, hyperlipidemia, hypertension, other Additional medical history: Colon Ca Psychiatric history: no psych history - Past Surgical History Surgical History: appendectomy, colectomy, colostomy, other Additional surgical history: Coronary Stent x3 - Social History Smoking Status: Never smoker Smokeless Tobacco Status: No Alcohol use: none Drug use: none - Family History Son Living Status: Daughter Adopted: No Family Member Ethnicity: Non- Living Status: Still Living Hx Family Cardiac Disorders: Yes Hx Family Respiratory Disorders: No Hx Family Cancer: Yes (Breast Cancer) Hx Family GI Disorders: No Hx Family Endocrine Disorder: No Hx Family Neuromuscular Disorders: No Hx Family Neurologic Disorders: No Hx Family HEENT Disorders: No Hx Family Autoimmune Disorders: No Father Living Status: Hx Family Cancer: Yes Sister Hx Family Cardiac Disorders: Yes Internal Medicine - H&P: Meds Calcium Carbonate/Vitamin D3 [Liquid Calcium 600-Vit D3 Sfgl] 1 cap PO DAILY 03/06 [History] Multivitamin [Multivitamins] 1 cap PO DAILY 05/28/17 [History] Pantoprazole Sodium [Protonix] 40 mg PO DAILY 05/28/17 [History] SitaGLIPtin [Januvia] 100 mg PO DAILY 05/28/17 [History] Acetaminophen [Tylenol] 500 mg PO Q6H PRN 08/14/17 [History] HydrOXYzine 10 mg PO TID 08/14/17 [History] Aspirin [Lo-Dose Aspirin EC] 81 mg PO DAILY #30 tablet.dr 09/22/17 [Rx] Atorvastatin [Lipitor] 40 mg PO HS #30 tablet 09/22/17 [Rx] Clopidogrel [Plavix] 75 mg PO DAILY #30 tablet 09/22/17 [Rx] Nitroglycerin [Nitrostat] 0.4 mg SL Q5M PRN #30 tab.subl 09/22/17 [Rx] Lisinopril [Zestril] 5 mg PO DAILY 09/30/17 [History] Carvedilol [Coreg] 3.125 mg PO BIDWM 30 Days #15 tablet 10/06/17 [Rx] Isosorbide MONOnitrate (24 HR) [Imdur] 60 mg PO DAILY 10/20/17 [History] Furosemide [Lasix] 20 mg PO DAILY #15 tablet 12/10/17 [Rx] 3 Allergy/AdvReac Type Severity Reaction Status Date / Time metformin Allergy See Verified 12/20/17 15:36 Comments Sulfa (Sulfonamide Allergy See Verified 12/20/17 15:36 Antibiotics) Comments All Systems PM: A 10-system review of systems was performed and is negative for pertinent findings except as documented above in the HPI. - Constitutional Vitals: Temp Pulse Resp BP Pulse Ox 98.1 F 72 18 118/75 96 12/20/17 14:15 12/20/17 15:59 12/20/17 15:59 12/20/17 15:59 12/20/17 15:59 Exam: General: Alert and oriented HEENT:EOM, pupils equal, round, and reactive. Cardiovascular:Normal rate and rhythm, no JVD. L upper chest PM insertion site appears unremarkable without erythema or discharge. Lungs:Normal breath sounds, no wheezes or crackles. Abdomen:Soft, non-tender, no rigidity. Extremities:No deformity, no edema or tenderness, no joint swelling. Neurological:Normal cognition and motor skills. Skin:Normal color, no rash, no lesions. Pulses:Carotid and radial pulses normal +2. Rest of the physical exam is non-contributory Internal Med - H&P Results - Labs CBC & Chem 7: 12/20/17 14:16 12/20/17 14:16 - EKG Data -: EKG Interpreted by Myself - EKG Data Prior EKG available for review: yes When compared to previous EKG: there is no significant change - Diagnostic Studies Chest x-ray Additional comments: unremarkable - Assessment and plan (1) Chest pain Current Visit: Yes Status: Acute Assessment and plan: ?related to decreased dosage of Imdur, pain did not recur thereafter and currently asymptomatic 1st troponin -ve, will trend If symptoms recur or troponin rises, will consult cardiology Continue DAPT, statin, imdur, subligunal nitro PRN Has an outpatient appointment with cardiology later this month Qualifiers: Chest pain type: unspecified Qualified Code(s): R07.9 - Chest pain, unspecified (2) Hypokalemia Current Visit: Yes Status: Acute Assessment and plan: repleted with 40meq of PO potassium Check tomorrow (3) Systolic dysfunction, left ventricle Current Visit: No Status: Chronic Assessment and plan: Echo today showed stable LV function BNP 585, around her baseline Continue bb, JORDAN-i, lasix follow up outpatient (4) Diabetes Current Visit: No Status: Chronic Assessment and plan: Will likely be discharged if symptoms does not recur or troponin remains stable so continue with januvia Qualifiers: Diabetes mellitus type: type 2 Diabetes mellitus [facility]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
[2017-12-21 03:55] LABS: Basophils % 0.5 %; Eosinophils # 0.6 K/mcL (0.0-0.6); Eosinophils % 8.7 %; Hematocrit 41.9 % (35.3-44.9); Hemoglobin 13.8 g/dL (11.5-15.4); Immature Granulocytes % 0.1 % (0-4); Lymphocytes # 2.1 K/mcL (0.6-4.6); Lymphocytes % 28.6 %; Mean Corpuscular HGB Conc 32.9 g/dL (31.6-35.5); Mean Corpuscular Hemoglobin 31.5 pg (28.0-33.3); Mean Corpuscular Volume 95.7 fL (83.0-100.0); Mean Platelet Volume 11.2 fL (9.4-12.4); Monocytes # 0.7 K/mcL (0.0-1.3); Neutrophils # 3.8 K/mcL (1.6-8.9); Platelet Count 138 K/mcL (140-400); Red Blood Count 4.38 M/mcL (3.82-4.97); Segmented Neutrophils % 52.1 %
[2017-12-21 04:17] LABS: BUN/Creatinine Ratio 15 (6-26); Blood Urea Nitrogen 13 mg/dL (8-23); Calcium 8.9 mg/dL (8.6-10.3); Carbon Dioxide 32 mEq/L (23-29); Chloride 105 mEq/L (98-107); Glucose 158 mg/dL (70-105); Osmolality,Calculated 301 (280-300); Potassium 3.7 mEq/L (3.5-5.1); Sodium 144 mEq/L (136-145); eGFR For African Americans > 60 (> 60); eGFR For Non-African Americans > 60 (> 60)
[2017-12-21] MEDS: *HR* Heparin 5,000 UNIT/ML VIAL SQ SCH ×2 (05:53→17:11)
[2017-12-21] MEDS: Multivit/Ca/Min/Fe/FA 1 TAB TABLET PO SCH (07:33)
[2017-12-21] MEDS: Isosorbide MONOnitrate (24 HR) 60 MG TAB.ER.24H PO SCH (07:33)
[2017-12-21] MEDS: *HR* SitaGLIPtin 25 MG TABLET PO SCH (07:34)
[2017-12-21] MEDS: Cholecalciferol (D-3) 1,000 UNIT TABLET PO SCH (07:34)
[2017-12-21] MEDS: Furosemide 20 MG TABLET PO SCH (07:34)
[2017-12-21] MEDS: Aspirin Enteric Coated 81 MG Tablet PO SCH (07:34)
--- NOTE | 2017-12-21 16:31 | Internal Med Progress Note ---
Date of Encounter: 12/21/17 Time of Encounter: 16:29 - Assessment and plan (1) Chest pain Current Visit: Yes Status: Acute Assessment and plan: Currently chest pain-free Troponins are negative 3 Continue with statin DAPT Imdur nitroglycerin as needed for chest pain Cardiology appointment later on this month Consult cardiology as needed History PCI to RCA and LAD Qualifiers: Chest pain type: unspecified Qualified Code(s): R07.9 - Chest pain, unspecified (2) DVT prophylaxis Current Visit: Yes Status: Acute Assessment and plan: Heparin subcutaneous (3) Hypokalemia Current Visit: Yes Status: Acute (4) Diabetes Current Visit: No Status: Chronic Assessment and plan: Expected discharge patient in the a.m. 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 Diabetes mellitus complication status : without complication Qualified Code(s): E11.9 - Type 2 diabetes mellitus without complications (5) Systolic dysfunction, left ventricle Current Visit: No Status: Chronic Assessment and plan: Does not appear to be fluid overloaded no lower extremity swelling BNP 585 Chest x-ray with no acute process Patient does have shortness of breath on exertion continues oxygen as needed (6) Paroxysmal a-fib Current Visit: No Status: Chronic Assessment and plan: History of PAF candidate for systemic anticoagulation due to history of GI bleed History of complete heart block with pacemaker placement (7) SOB (shortness of breath) on exertion Current Visit: Yes Status: Acute Assessment and plan: Experiencing shortness of breath on exertion no chest pain voiced oxygen saturation down to 90% during ambulation-does not appear to be fluid overloaded does have history of anxiety which may be contributing to symptoms Currently V paced on monitor-controlled rate Continue cardiac monitoring [place] as needed maintaining oxygen saturation greater 90% Chest x-ray with no acute process this time PT OT evaluation - Time Spent With Patient Total time spent is greater than 50% in coordination of care (as documented) at patient's floor/unit and/or counseling patient: - Subjective Interval history: Patient seen and examined at bedside. Presently denies any chest pain does complain of stress of breath on exertion. She is hemodynamically stable at this time, sats stable at this time - Constitutional Vitals: Temp Pulse Resp BP Pulse Ox 97.8 F 79 16 103/61 94 12/21/17 15:22 12/21/17 15:22 12/21/17 15:22 12/21/17 15:22 12/21/17 15:22 General appearance: Present: A&O X 3 - Head Head exam: Present: atraumatic, normocephalic - Eye Eye exam: Present: PERRL, conjuntiva pink, sclera anicteric Pupils: Present: PERRL - Neck Neck exam general surgery: Present: supple, trachea midline. Absent: lymphadenopathy - Respiratory Respiratory exam: Present: CTAB. Absent: accessory muscle use, rales, rhonchi, wheezes - Cardiovascular Cardiovascular exam: Present: RRR, +S1, +S2. Absent: diastolic murmur, gallop, rubs, systolic murmur - GI/Abdominal GI/Abdominal exam: Present: normal bowel sounds, soft, no peritoneal signs. Absent: distended, tenderness - Extremities Exam Extremities exam: Present: warm, radial pulses palpable and symmetrical. Absent : calf tenderness, cyanotic, pedal edema - Neurological Exam Neurological exam: Present: CN II-XII intact, oriented X3, no focal deficits. Absent: pronater drift, facial droop, speech deficit - Skin Skin exam: Present: dry, intact Internal Medicine: Result - Labs CBC & Chem 7: 12/21/17 03:37 12/21/17 03:37 Labs: Short CBC 12/21/17 Range/Units 03:37 WBC 7.3 (4.3-11.1) K/mcL Hgb 13.8 (11.5-15.4) g/dL Hct 41.9 (35.3-44.9) % Plt Count 138 L (140-400) K/mcL Neutrophils # 3.8 (1.6-8.9) K/mcL BMP 12/21/17 03:37 Sodium 144 Potassium 3.7 Chloride 105 Carbon Dioxide 32 H BUN 13 Creatinine 0.85 Glucose 158 H Calcium 8.9 Cardiac Enzymes 12/20/17 12/21/17 Range/Units 20:23 03:37 Troponin I < 0.03 < 0.03 (< 0.04) ng/mL Consult Discharge Plan - Plan Referrals: Arlen Thomas MD [Primary Care Provider] - 01/13/18 1:00 pm
[2017-12-22] MEDS: *HR* Heparin 5,000 UNIT/ML VIAL SQ SCH (05:17)
[2017-12-22 06:51] LABS: Basophils % 0.5 %; Eosinophils # 0.6 K/mcL (0.0-0.6); Hematocrit 40.2 % (35.3-44.9); Hemoglobin 13.3 g/dL (11.5-15.4); Immature Granulocytes % 0.2 % (0-4); Lymphocytes # 1.8 K/mcL (0.6-4.6); Lymphocytes % 27.2 %; Mean Corpuscular HGB Conc 33.1 g/dL (31.6-35.5); Mean Corpuscular Hemoglobin 31.1 pg (28.0-33.3); Mean Corpuscular Volume 93.9 fL (83.0-100.0); Mean Platelet Volume 11.2 fL (9.4-12.4); Monocytes # 0.7 K/mcL (0.0-1.3); Monocytes % 10.1 %; Neutrophils # 3.5 K/mcL (1.6-8.9); Platelet Count 136 K/mcL (140-400); Red Blood Count 4.28 M/mcL (3.82-4.97); Red Cell Distribution Width 13.2 % (11.5-14.5)
[2017-12-22 07:12] LABS: BUN/Creatinine Ratio 19 (6-26); Blood Urea Nitrogen 14 mg/dL (8-23); Carbon Dioxide 31 mEq/L (23-29); Chloride 105 mEq/L (98-107); Glucose 161 mg/dL (70-105); Osmolality,Calculated 300 (280-300); Potassium 3.5 mEq/L (3.5-5.1); Sodium 143 mEq/L (136-145); eGFR For African Americans > 60 (> 60); eGFR For Non-African Americans > 60 (> 60)
--- NOTE | 2017-12-22 08:37 | Electrocardiograph Report ---
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
[2017-12-22] MEDS: Aspirin Enteric Coated 81 MG Tablet PO SCH (10:36)
[2017-12-22] MEDS: *HR* SitaGLIPtin 25 MG TABLET PO SCH (10:36)
[2017-12-22] MEDS: Cholecalciferol (D-3) 1,000 UNIT TABLET PO SCH (10:36)
[2017-12-22] MEDS: Furosemide 20 MG TABLET PO SCH (10:36)
[2017-12-22] MEDS: Isosorbide MONOnitrate (24 HR) 60 MG TAB.ER.24H PO SCH (10:36)
[2017-12-22] MEDS: Multivit/Ca/Min/Fe/FA 1 TAB TABLET PO SCH (10:37)
[2017-12-22 11:52] VITALS: BP 121/68
--- NOTE | 2017-12-22 13:33 | Discharge Summary ---
- NOTES TO OUTPATIENT PROVIDER Notes to Outpatient Provider: Supplied education concerning congestive heart failure advised patient to monitor daily weight Date of Encounter: 12/22/17 Time of Encounter: 13:11 - Discharge Diagnosis (1) Chest pain Priority: Primary Status: Acute Assessment and Plan: Currently chest pain-free Troponins are negative 3 Continue with statin DAPT Imdur nitroglycerin as needed for chest pain Cardiology appointment later on this month Consult cardiology as needed History PCI to RCA and LAD Qualifiers: Chest pain type: unspecified Qualified Code(s): R07.9 - Chest pain, unspecified (2) Hypokalemia Priority: Secondary Status: Acute (3) Diabetes Priority: Secondary Status: Chronic Qualifiers: Diabetes mellitus type: type 2 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 Vilchis is a 87 year old female past medical history of CAD status post RCA LAD stents in 09/2017 complete heart block suspect thisBIV pacemaker insertion 09/2017 diabetes hypertension hyperlipidemia she presented to the emergency department with complaints of chest pain is started while she was walking she did experience some shortness of breath and that lasted approximately 20 minutes and resolved. Troponins were negative 3 echocardiogram completed which was unchanged from previous echo completed in July. EKG with paced rhythm. Chest x-ray with no acute process no signs and symptoms of fluid overload BNP okay patient was evaluated by physical therapy who had no recommendations. She was also ambulated by nursing oxygen saturation maintained around 95%. No chest pain voiced during ambulation. I did review monitor strips overnight no arrhythmias noted. I did advise the patient and daughter to follow-up with cardiology and to return to the ER if any more chest pain. Also advised to follow-up with primary care provider since this provider knows her best and can adjust medications accordingly. Daughter and patient verbalized understanding, I did answer questions asked by family Patient is hemodynamically stable at this time she is ready for discharge Discharge discussed with: patient - Time Spent with Patient Total time spent providing and/or coordinating discharge services: - Discharge Medications Home Medications: Calcium Carbonate/Vitamin D3 [Liquid Calcium 600-Vit D3 Sfgl] 1 cap PO DAILY 03/06 [History] Multivitamin [Multivitamins] 1 cap PO DAILY 05/28/17 [History] Pantoprazole Sodium [Protonix] 40 mg PO DAILY 05/28/17 [History] SitaGLIPtin [Januvia] 100 mg PO DAILY 05/28/17 [History] Acetaminophen [Tylenol] 500 mg PO Q6H PRN 08/14/17 [History] HydrOXYzine 10 mg PO TID 08/14/17 [History] Aspirin [Lo-Dose Aspirin EC] 81 mg PO DAILY #30 tablet.dr 09/22/17 [Rx] Atorvastatin [Lipitor] 40 mg PO HS #30 tablet 09/22/17 [Rx] Clopidogrel [Plavix] 75 mg PO DAILY #30 tablet 09/22/17 [Rx] Nitroglycerin [Nitrostat] 0.4 mg SL Q5M PRN #30 tab.subl 09/22/17 [Rx] Lisinopril [Zestril] 5 mg PO DAILY 09/30/17 [History] Carvedilol [Coreg] 3.125 mg PO BIDWM 30 Days #15 tablet 10/06/17 [Rx] Isosorbide MONOnitrate (24 HR) [Imdur] 60 mg PO DAILY 10/20/17 [History] Furosemide [Lasix] 20 mg PO DAILY #15 tablet 12/10/17 [Rx] Allergies/Adverse Reactions: 3 Allergy/AdvReac Type Severity Reaction Status Date / Time metformin Allergy See Verified 12/20/17 15:36 Comments Sulfa (Sulfonamide Allergy See Verified 12/20/17 15:36 Antibiotics) Comments Date of admission: 12/20/17 15:46 Primary care physician: Arlen Thomas Discharging clinician: Kavya Duarte Anticipated date of discharge: 12/22/17 - Constitutional Vitals: Temp Pulse Resp BP Pulse Ox 98.2 F 79 15 121/68 96 12/22/17 11:51 12/22/17 11:51 12/22/17 11:51 12/22/17 11:51 12/22/17 12:29 General appearance: Present: A&O X 3 - Head Head exam: Present: atraumatic, normocephalic - Eye Eye exam: Present: PERRL, conjuntiva pink, sclera anicteric Pupils: Present: PERRL - Neck Neck exam general surgery: Present: supple, trachea midline. Absent: lymphadenopathy - Respiratory Respiratory exam: Present: CTAB. Absent: accessory muscle use, rales, rhonchi, wheezes - Cardiovascular Cardiovascular exam: Present: RRR, +S1, +S2. Absent: diastolic murmur, gallop, rubs, systolic murmur - GI/Abdominal GI/Abdominal exam: Present: normal bowel sounds, soft, no peritoneal signs. Absent: distended, tenderness - Extremities Exam Extremities exam: Present: warm, radial pulses palpable and symmetrical. Absent : calf tenderness, cyanotic, pedal edema - Neurological Exam Neurological exam: Present: CN II-XII intact, oriented X3, no focal deficits. Absent: pronater drift, facial droop, speech deficit - Skin Skin exam: Present: dry, intact - Patient Status Disposition: Home, Self-Care Condition: Good Functional capacity at discharge: independent ambulation Overall status at discharge: patient is back to baseline - Discharge Instructions Instructions: Chest Pain (DC) Follow Up With: Arlen Thomas MD [Primary Care Provider] - 01/13/18 1:00 pm - Diet and Activity Activity: resume usual activities as tolerated Diet: advance to your usual diet
--- NOTE | 2017-12-22 15:03 | Physician Discharge Referral ---
Home Health/Hosp Referral Info Transfer to: Home Health Attending Provider: Kavya Duarte Provider in Charge Post Discharge: PCP - Diagnosis (1) Chest pain Priority: Primary Status: Acute (2) Hypokalemia Priority: Secondary Status: Acute (3) Diabetes Priority: Secondary Status: Chronic (4) Systolic dysfunction, left ventricle Priority: Secondary Status: Chronic (5) Paroxysmal a-fib Priority: Secondary Status: Chronic (6) SOB (shortness of breath) on exertion Priority: Secondary Status: Acute - Respiratory Orders Smoking Cessation: Smoking cessation has been advised. For more information, call the [place] Tobacco Quit Line at 0-904-CZUI-NOW. - Services Needed Following services are medically necessary services: Nursing - Transfer Medications Home Medications: Calcium Carbonate/Vitamin D3 [Liquid Calcium 600-Vit D3 Sfgl] 1 cap PO DAILY 03/06 [History] Multivitamin [Multivitamins] 1 cap PO DAILY 05/28/17 [History] Pantoprazole Sodium [Protonix] 40 mg PO DAILY 05/28/17 [History] SitaGLIPtin [Januvia] 100 mg PO DAILY 05/28/17 [History] Acetaminophen [Tylenol] 500 mg PO Q6H PRN 08/14/17 [History] HydrOXYzine 10 mg PO TID 08/14/17 [History] Aspirin [Lo-Dose Aspirin EC] 81 mg PO DAILY #30 tablet.dr 09/22/17 [Rx] Atorvastatin [Lipitor] 40 mg PO HS #30 tablet 09/22/17 [Rx] Clopidogrel [Plavix] 75 mg PO DAILY #30 tablet 09/22/17 [Rx] Nitroglycerin [Nitrostat] 0.4 mg SL Q5M PRN #30 tab.subl 09/22/17 [Rx] Lisinopril [Zestril] 5 mg PO DAILY 09/30/17 [History] Carvedilol [Coreg] 3.125 mg PO BIDWM 30 Days #15 tablet 10/06/17 [Rx] Isosorbide MONOnitrate (24 HR) [Imdur] 60 mg PO DAILY 10/20/17 [History] Furosemide [Lasix] 20 mg PO DAILY #15 tablet 12/10/17 [Rx] Allergies/Adverse Reactions: 3 Allergy/AdvReac Type Severity Reaction Status Date / Time metformin Allergy See Verified 12/20/17 15:36 Comments Sulfa (Sulfonamide Allergy See Verified 12/20/17 15:36 Antibiotics) Comments Certification: Further, I certify that my clinical findings support that this patient is homebound (i.e. absences from home require considerable and taxing effort and are for medical reasons or orthodoxy services or infrequently or short duration when for other reasons) because: Homebound Reason: Severity of cardiac or pulmonary status limits activity tolerance Attestation: My signature below is to certify that this patient is under my care and that I, or nurse practitioner, or a physician's environmental engineering assistant working with me, has a face-to -face encounter with this patient.
== END 2017-12-22 15:26 | disposition home or self-care (01) ==
LOC: 3BNU 13:27 → EMEROO 13:27 → 3BNU 16:27
PROVIDERS: ADMIT Student in an Organized Health Care Education/Training Program; ATTEND Student in an Organized Health Care Education/Training Program

== ENCOUNTER 2019-01-08 11:18 | Observation (INO) ==
[2019-01-08] MEDS ORDERED: 0.9 % Sodium Chloride 1,000 ML IVC ONE (11:29)
[2019-01-08] MEDS ORDERED: Isovue-370 500 ML BOTTLE IVP ONE (11:31)
--- NOTE | 2019-01-08 11:31 | Emergency Department Note ---
Disposition Clinical Impression: CAD (coronary artery disease), Confusion, Colostomy in place, Cardiac pacemaker in situ, Dehydration, Hypoxemia, Altered mental status, Frail elderly, Cholelithiasis, Anemia, History of diabetes mellitus, History of atrial fibrillation Disposition: Admitted As Inpatient Time of Disposition: 16:13 General Adult HPI - General Stated complaint: lethergy - History of Present Illness HPI Narrative: 88-year-old female status post cardiac catheterization per Dr. Blanco about a week ago reports to the emergency department via EMS. There is concern for weakness. The patient's female relative states that the patient has been weaker and weaker since the heart catheterization. She is usually active and gets up and around and usually takes care of herself. This morning the patient was extremely weak so EMS was notified and they brought her in for even evaluation at the behest of relatives.. There is no history of fall or injury. The patient denies any chest pain or shortness of breath. The patient has a colostomy. No history of bleeding. She is currently not anticoagulated. There is no history unilateral arm or leg weakness or numbness slurred speech speech facial drooping convulsion or trouble speaking. The patient is diabetic. EMS reports her blood glucose was in the 200 range. EKG was a paced rhythm. She has a known pacemaker. - Related Data Home Medications Medication Instructions Recorded Confirmed Multivitamin [Multivitamins] 1 cap PO DAILY 05/28/17 01/08/19 Pantoprazole Sodium [Protonix] 40 mg PO DAILY 05/28/17 01/08/19 SitaGLIPtin [Januvia] 100 mg PO DAILY 05/28/17 01/08/19 Acetaminophen [Tylenol] 500 mg PO Q6H PRN 08/14/17 01/08/19 Lisinopril [Zestril] 5 mg PO DAILY 09/30/17 01/08/19 Furosemide [Lasix] 40 mg PO DAILY 02/02/18 01/08/19 Metformin HCl [Glucophage Xr] 750 mg PO QPM 12/28/18 01/08/19 Carvedilol 3.125 mg PO BID 12/29/18 01/08/19 HydrOXYzine [Atarax] 10 mg PO TID PRN 12/29/18 01/08/19 Mupirocin [Bactroban Oint] 1 appl TP BID PRN 12/29/18 01/08/19 Isosorbide MONOnitrate (24 HR) 60 mg PO DAILY 01/08/19 01/08/19 [Imdur] Previous Rx's Medication Instructions Recorded Aspirin [Lo-Dose Aspirin EC] 81 mg PO DAILY #30 tablet. 09/22/17 Atorvastatin [Lipitor] 40 mg PO HS #30 tablet 09/22/17 Clopidogrel [Plavix] 75 mg PO DAILY #30 tablet 09/22/17 Nitroglycerin [Nitrostat] 0.4 mg SL Q5M PRN #30 tab.subl 09/22/17 Calcium Carbonate [Tums] 1,000 mg PO BID #60 tab.chew 01/02/19 Magnesium Oxide [Mag-Ox] 400 mg PO BID #60 tablet 01/02/19 Ranolazine [Ranexa] 1,000 mg PO BID #60 tab.er.12h 01/02/19 Allergies Allergy/AdvReac Type Severity Reaction Status Date / Time metformin Allergy See Verified 12/29/18 19:11 Comments Sulfa (Sulfonamide Allergy See Verified 12/29/18 19:11 Antibiotics) Comments All systems ED: reviewed and negative except as stated. Past Medical History - Past Medical History Medical history: Reports: atrial fibrillation, cancer, cardiomyopathy, CHF, coronary artery disease, diabetes, GI bleed, hyperlipidemia, hypertension Surgical history: Reports: appendectomy, colectomy, colostomy, other Psychiatric history: Reports: no psych history LEGAL EXECUTIVE history: Reports: no LEGAL EXECUTIVE history - Social History Smoking Status: Never smoker Smokeless Tobacco Status: No Alcohol use: Reports: none Drug use: Reports: none Physical Exam - General Limitations: altered mental status, age General appearance: alert, in no apparent distress, other (Slow to respond but can answer basic questions properly and follow basic commands properly.) - Head Head exam: atraumatic, normocephalic, normal inspection - Eye Eye exam: Present: normal appearance, PERRL, EOMI - ENT ENT exam: normal exam, normal oropharynx, mucous membranes moist - Neck Neck exam: Present: normal inspection, full ROM, trachea midline. Absent: tenderness - Chest Chest inspection: Present: symmetric chest wall rise. Absent: tenderness - Respiratory Respiratory exam: Present: normal lung sounds bilaterally. Absent: respiratory distress, prolonged expiratory phase - Cardiovascular Cardiovascular exam: Present: regular rate, normal rhythm, normal heart sounds - Abdominal Exam Abdominal exam: Present: soft, other (Distended abdomen, colostomy in place with normal appearing stool. Bruising throughout the pelvis.). Absent: tenderness, distention, guarding, rebound, rigidity - Extremities Exam Extremities exam: Present: normal inspection, full ROM, normal capillary refill. Absent: tenderness, pedal edema, joint swelling, calf tenderness - Expanded Lower Extremity Exam Neurovascular/Tendon exam: Present: extremity cold to touch. Absent: normal capillary refill, motor deficit, sensory deficit, tendon deficit, pallor - Back Exam Back exam: Present: normal inspection, full ROM. Absent: tenderness, CVA tenderness (R), CVA tenderness (L) - Neurological Exam Neurological exam: Present: alert, CN II-XII intact. Absent: motor sensory deficit - Psychiatric Psychiatric exam: Present: normal affect, normal mood - Skin Skin exam: Present: warm, dry, intact, normal color Course Vital Signs Temperature 97.7 F 01/08/19 11:27 Pulse Rate 77 01/08/19 11:27 Respiratory Rate 16 01/08/19 11:27 Blood Pressure 135/75 01/08/19 11:27 O2 Sat by Pulse Oximetry 100 01/08/19 11:27 Temperature 97.7 F 01/08/19 11:27 Pulse Rate 71 01/08/19 14:00 Respiratory Rate 20 01/08/19 14:00 Blood Pressure 114/89 01/08/19 14:00 O2 Sat by Pulse Oximetry 100 01/08/19 14:00 Oxygen Delivery Oxygen Delivery Nasal Cannula Medical Decision Making - [facility] Narrative Medical decision making narrative: The patient was brought in by EMS for concerns regarding weakness. She has an elevated BUN/creatinine compared to prior, an element of dehydration is likely. The family reports she is usually active and takes care of herself that she has been extremely weak and unable to get out of bed. The patient has some abdominal bruising likely secondary from the cardiac catheterization. She appears to be stable, nursing reports when the patient's oxygen was removed her oxygen saturation when the 50s. She does not usually require oxygen. Blood cultures are pending. IV fluid was given. The patient appears to be stable, based on her age, weakness, apparent inability for self-care, dehydration, and multiple medical comorbidities, I thought it would be appropriate to admit the patient to the hospital. I discussed the case with the hospitalist on-call who has accepted the patient to their care. The patient is currently stable pending admission. ABG was ordered, hypercarbia and/or hypoxemia may be detectable. Perhaps further chest imaging and/or V/Q scan could be considered regarding the patient's hypoxemia. The family is highly agreeable to hospitalization. - Lab Data Lab results reviewed: Yes I reviewed the patient's lab results. Result diagrams: 01/08/19 11:35 01/08/19 11:35 Lab Results 01/08/19 01/08/19 01/08/19 Range/Units 11:35 11:35 11:35 WBC 10.0 (4.3-11.1) K/mcL RBC 3.48 L (3.82-4.97) M/mcL Hgb 11.1 L (11.5-15.4) g/dL Hct 33.8 L (35.3-44.9) % MCV 97.1 (83.0-100.0) fL MCH 31.9 (28.0-33.3) pg MCHC 32.8 (31.6-35.5) g/dL RDW 14.6 H (11.5-14.5) % Plt Count 203 (140-400) K/mcL MPV 10.2 (9.4-12.4) fL Immature Gran % 0.4 (0-4) % Seg Neutrophils % 86.3 % Lymphocytes % 7.3 % Monocytes % 5.3 % Eosinophils % 0.5 % Basophils % 0.2 % Neutrophils # 8.6 (1.6-8.9) K/mcL Lymphocytes # 0.7 (0.6-4.6) K/mcL Monocytes # 0.5 (0.0-1.3) K/mcL Eosinophils # 0.1 (0.0-0.6) K/mcL Basophils # 0.0 (0.0-0.2) K/mcL PT 12.5 H (9.4-12.1) Seconds INR 1.1 Sodium 133 L (136-145) mEq/L Potassium 4.6 (3.5-5.1) mEq/L Chloride 98 (98-107) mEq/L Carbon Dioxide 29 (23-29) mEq/L BUN 31 H (8-23) mg/dL Creatinine 1.35 H (0.60-1.20) mg/dL Est GFR ( Amer) 45 L (> 60) Est GFR (Non-Af Amer) 37 L (> 60) BUN/Creatinine Ratio 23 (6-26) Glucose 215 H (70-105) mg/dL Calculated Osmolality 289 (280-300) Lactic Acid (0.5-2.2) mmol/L Calcium 9.1 (8.6-10.3) mg/dL Magnesium 1.7 (1.6-2.6) mg/dL Total Bilirubin 0.8 (0.3-1.0) mg/dL AST 20 (13-39) Units/L ALT 14 (7-52) Units/L Alkaline Phosphatase 66 (34-104) Units/L Creatine Kinase 21 L (30-223) Units/L Troponin I < 0.03 (< 0.04) ng/mL C-Reactive Protein (Less than 10) mg/L Serum Total Protein 5.7 L (6.4-8.9) g/dL Albumin 3.6 (3.5-5.7) g/dL Globulin 2.1 L (2.4-3.5) g/dL Albumin/Globulin Ratio 1.7 (1.1-2.2) Urine Color (Yellow) Urine Clarity (Clear) Urine pH (5.0-8.0) pH Units Ur Specific Briggs (1.010-1.025) Urine Protein (Neg-Trace) mg/dL Urine Glucose (UA) (Normal) mg/dL Urine Ketones (Negative) mg/dL Urine Blood (Negative) Urine Nitrite (Negative) Urine Bilirubin (Negative) Urine Urobilinogen (Normal) mg/dL Ur Leukocyte Esterase (Negative) Ur Culture Indicated? (NO) Urine Opiates Screen (Xpvciy=356) ng/mL Ur Buprenorphine Scrn (Cutoff=5) ng/mL Ur Barbiturates Screen (Tzszvy=225) ng/mL Ur Phencyclidine Scrn (Cutoff=25) ng/mL Ur Amphetamines Screen (Afrzwk=8070) ng/mL U Benzodiazepines Scrn (Tqxmvr=764) ng/mL Urine Cocaine Screen (Cutoff= 300) ng/mL U Marijuana (THC) Screen (Cutoff = 50) ng/mL Ur Drug Screen Interp 01/08/19 01/08/19 01/08/19 Range/Units 11:35 11:35 11:57 WBC (4.3-11.1) K/mcL RBC (3.82-4.97) M/mcL Hgb (11.5-15.4) g/dL Hct (35.3-44.9) % MCV (83.0-100.0) fL MCH (28.0-33.3) pg MCHC (31.6-35.5) g/dL RDW (11.5-14.5) % Plt Count (140-400) K/mcL MPV (9.4-12.4) fL Immature Gran % (0-4) % Seg Neutrophils % % Lymphocytes % % Monocytes % % Eosinophils % % Basophils % % Neutrophils # (1.6-8.9) K/mcL Lymphocytes # (0.6-4.6) K/mcL Monocytes # (0.0-1.3) K/mcL Eosinophils # (0.0-0.6) K/mcL Basophils # (0.0-0.2) K/mcL PT (9.4-12.1) Seconds INR Sodium (136-145) mEq/L Potassium (3.5-5.1) mEq/L Chloride (98-107) mEq/L Carbon Dioxide (23-29) mEq/L BUN (8-23) mg/dL Creatinine (0.60-1.20) mg/dL Est GFR ( Amer) (> 60) Est GFR (Non-Af Amer) (> 60) BUN/Creatinine Ratio (6-26) Glucose (70-105) mg/dL Calculated Osmolality (280-300) Lactic Acid 1.1 (0.5-2.2) mmol/L Calcium (8.6-10.3) mg/dL Magnesium (1.6-2.6) mg/dL Total Bilirubin (0.3-1.0) mg/dL AST (13-39) Units/L ALT (7-52) Units/L Alkaline Phosphatase (34-104) Units/L Creatine Kinase (30-223) Units/L Troponin I (< 0.04) ng/mL C-Reactive Protein < 5 (Less than 10) mg/L Serum Total Protein (6.4-8.9) g/dL Albumin (3.5-5.7) g/dL Globulin (2.4-3.5) g/dL Albumin/Globulin Ratio (1.1-2.2) Urine Color Yellow (Yellow) Urine Clarity Clear (Clear) Urine pH 7.5 (5.0-8.0) pH Units Ur Specific Briggs 1.016 (1.010-1.025) Urine Protein Negative (Neg-Trace) mg/dL Urine Glucose (UA) 250 H (Normal) mg/dL Urine Ketones Negative (Negative) mg/dL Urine Blood Negative (Negative) Urine Nitrite Negative (Negative) Urine Bilirubin Negative (Negative) Urine Urobilinogen Normal (Normal) mg/dL Ur Leukocyte Esterase Negative (Negative) Ur Culture Indicated? NO (NO) Urine Opiates Screen (Cgkusk=837) ng/mL Ur Buprenorphine Scrn (Cutoff=5) ng/mL Ur Barbiturates Screen (Zkagmf=269) ng/mL Ur Phencyclidine Scrn (Cutoff=25) ng/mL Ur Amphetamines Screen (Pdfltk=3118) ng/mL U Benzodiazepines Scrn (Totuxo=031) ng/mL Urine Cocaine Screen (Cutoff= 300) ng/mL U Marijuana (THC) Screen (Cutoff = 50) ng/mL Ur Drug Screen Interp 01/08/19 Range/Units 11:57 WBC (4.3-11.1) K/mcL RBC (3.82-4.97) M/mcL Hgb (11.5-15.4) g/dL Hct (35.3-44.9) % MCV (83.0-100.0) fL MCH (28.0-33.3) pg MCHC (31.6-35.5) g/dL RDW (11.5-14.5) % Plt Count (140-400) K/mcL MPV (9.4-12.4) fL Immature Gran % (0-4) % Seg Neutrophils % % Lymphocytes % % Monocytes % % Eosinophils % % Basophils % % Neutrophils # (1.6-8.9) K/mcL Lymphocytes # (0.6-4.6) K/mcL Monocytes # (0.0-1.3) K/mcL Eosinophils # (0.0-0.6) K/mcL Basophils # (0.0-0.2) K/mcL PT (9.4-12.1) Seconds INR Sodium (136-145) mEq/L Potassium (3.5-5.1) mEq/L Chloride (98-107) mEq/L Carbon Dioxide (23-29) mEq/L BUN (8-23) mg/dL Creatinine (0.60-1.20) mg/dL Est GFR ( Amer) (> 60) Est GFR (Non-Af Amer) (> 60) BUN/Creatinine Ratio (6-26) Glucose (70-105) mg/dL Calculated Osmolality (280-300) Lactic Acid (0.5-2.2) mmol/L Calcium (8.6-10.3) mg/dL Magnesium (1.6-2.6) mg/dL Total Bilirubin (0.3-1.0) mg/dL AST (13-39) Units/L ALT (7-52) Units/L Alkaline Phosphatase (34-104) Units/L Creatine Kinase (30-223) Units/L Troponin I (< 0.04) ng/mL C-Reactive Protein (Less than 10) mg/L Serum Total Protein (6.4-8.9) g/dL Albumin (3.5-5.7) g/dL Globulin (2.4-3.5) g/dL Albumin/Globulin Ratio (1.1-2.2) Urine Color (Yellow) Urine Clarity (Clear) Urine pH (5.0-8.0) pH Units Ur Specific Briggs (1.010-1.025) Urine Protein (Neg-Trace) mg/dL Urine Glucose (UA) (Normal) mg/dL Urine Ketones (Negative) mg/dL Urine Blood (Negative) Urine Nitrite (Negative) Urine Bilirubin (Negative) Urine Urobilinogen (Normal) mg/dL Ur Leukocyte Esterase (Negative) Ur Culture Indicated? (NO) Urine Opiates Screen Negative (Xdmtyr=059) ng/mL Ur Buprenorphine Scrn Negative (Cutoff=5) ng/mL Ur Barbiturates Screen Negative (Uqnllr=719) ng/mL Ur Phencyclidine Scrn Negative (Cutoff=25) ng/mL Ur Amphetamines Screen Negative (Nhgjmk=2824) ng/mL U Benzodiazepines Scrn Negative (Poumdq=671) ng/mL Urine Cocaine Screen Negative (Cutoff= 300) ng/mL U Marijuana (THC) Screen Negative (Cutoff = 50) ng/mL Ur Drug Screen Interp See Below - Radiology Data Radiology results reviewed: Yes I reviewed the patient's radiology results.
[2019-01-08 11:54] LABS: Basophils % 0.2 %; Eosinophils # 0.1 K/mcL (0.0-0.6); Eosinophils % 0.5 %; Hematocrit 33.8 % (35.3-44.9); Hemoglobin 11.1 g/dL (11.5-15.4); Immature Granulocytes % 0.4 % (0-4); Lymphocytes # 0.7 K/mcL (0.6-4.6); Lymphocytes % 7.3 %; Mean Corpuscular HGB Conc 32.8 g/dL (31.6-35.5); Mean Corpuscular Hemoglobin 31.9 pg (28.0-33.3); Mean Corpuscular Volume 97.1 fL (83.0-100.0); Mean Platelet Volume 10.2 fL (9.4-12.4); Monocytes # 0.5 K/mcL (0.0-1.3); Monocytes % 5.3 %; Neutrophils # 8.6 K/mcL (1.6-8.9); Platelet Count 203 K/mcL (140-400); Red Blood Count 3.48 M/mcL (3.82-4.97); Red Cell Distribution Width 14.6 % (11.5-14.5); Segmented Neutrophils % 86.3 %
[2019-01-08 12:04] LABS: INR 1.1; Prothrombin Time 12.5 Seconds (9.4-12.1)
[2019-01-08 12:19] LABS: Alanine Aminotransferase 14 Units/L (7-52); Albumin 3.6 g/dL (3.5-5.7); Albumin/Globulin Ratio 1.7 (1.1-2.2); Alkaline Phosphatase 66 Units/L (34-104); Aspartate Amino Transferase 20 Units/L (13-39); BUN/Creatinine Ratio 23 (6-26); Bilirubin,Total 0.8 mg/dL (0.3-1.0); Blood Urea Nitrogen 31 mg/dL (8-23); Calcium 9.1 mg/dL (8.6-10.3); Carbon Dioxide 29 mEq/L (23-29); Chloride 98 mEq/L (98-107); Creatine Kinase 21 Units/L (30-223); Globulin 2.1 g/dL (2.4-3.5); Glucose 215 mg/dL (70-105); Magnesium 1.7 mg/dL (1.6-2.6); Osmolality,Calculated 289 (280-300); Potassium 4.6 mEq/L (3.5-5.1); Sodium 133 mEq/L (136-145); Total Protein 5.7 g/dL (6.4-8.9); Troponin I < 0.03 ng/mL (< 0.04); eGFR For African Americans 45 (> 60); eGFR For Non-African Americans 37 (> 60)
[2019-01-08 12:29] LABS: Bilirubin,Urine Negative (Negative); Blood,Urine Negative (Negative); Clarity,Urine Clear (Clear); Color,Urine Yellow (Yellow); Glucose,Urine (UA) 250 mg/dL (Normal); Ketones,Urine Negative (Negative); Leukocyte Esterase,Urine Negative (Negative); Nitrite,Urine Negative (Negative); PH,Urine 7.5 pH Units (5.0-8.0); Protein,Urine Negative (Neg-Trace); Specific Gravity,Urine 1.016 (1.010-1.025); Urobilinogen,Urine Normal (Normal)
[2019-01-08 12:38] LABS: Amphetamine Screen,Urine Negative ng/mL (Cutoff=1000); Barbiturate Screen,Urine Negative ng/mL (Cutoff=200); Benzodiazepines Screen,Urine Negative ng/mL (Cutoff=200); Cannabinoid Screen,Urine Negative ng/mL (Cutoff = 50); Cocaine Screen,Urine Negative ng/mL (Cutoff= 300); Opiate Screen,Urine Negative ng/mL (Cutoff=300); Phencyclidine Screen,Urine Negative ng/mL (Cutoff=25)
[2019-01-08 16:17] LABS: ABG Base Excess 6 mEq/L (-2 to 3); ABG HCO3 31 mEq/L (21-27); ABG Oxygen Saturation 98 % (95-98); ABG PCO2 52 mmHg (35-45); ABG PH 7.39 pH Units (7.32-7.45); ABG PO2 109 mmHg (85-104); ABG TCO2 33 mEq/L (20-26)
[2019-01-08] MEDS ORDERED: Acetaminophen 325 MG TABLET PO PRN (17:06)
[2019-01-08] MEDS ORDERED: Naloxone 0.4 MG/ML INJ IVP PRN (17:06)
[2019-01-08] MEDS ORDERED: Dextrose Gel 15 GM/37.5 ML TUBE PO PRN ×2 (17:15)
[2019-01-08] MEDS ORDERED: *HR* Dextrose 50 % in Water (Syg) 50 ML SYRINGE IVP PRN (17:15)
[2019-01-08] MEDS ORDERED: D5% in Water 1,000 ML IVC PRN (17:15)
[2019-01-08 17:49] LABS: Estimated Average Glucose 163 mg/dl
[2019-01-08] MEDS: 0.9 % Sodium Chloride 1,000 ML IVC SCH (18:13)
[2019-01-08] MEDS ORDERED: Nitroglycerin 0.4 MG TAB.SUBL SL PRN (19:17)
--- NOTE | 2019-01-08 19:28 | Internal Med History&Physical ---
Date of Encounter: 01/08/19 Time of Encounter: 18:00 Internal Medicine - H&P: HPI Chief complaint: Generalized weakness Admitted From: Emergency Dept Plans for Post Hospital Care: Transfer Inp Rehab Fac History of present illness: Ms. Vilchis is a 88 year old female past medical history for CAD that is post left heart cath about a week ago was brought in by her family is focal signs generalized weakness patient stated that she does not really tell her family was going on this stated that she has been feeling lightheaded since the procedure but denies any vertigo-like symptoms. Her daughter and POA stated that she was pretty much ambulatory prior to the left heart cath and as soon as the procedure she basically just laid in bed. She has a reported patient has not poor oral intake over the patient denies any dysphagia she showed disc denies being depressed but does admit to being lonely. She currently denies any chest pain any falls from her episodes of lightheadedness. I will like to go to an ECF for rehabilitation stated that she tried to convince her mother to go to cardiac rehabilitation post the left heart cath but the patient adamantly refused. Amounts A woke up was unremarkable CBC, mild hyponatremia noted in BMP, slightly elevated serum creatinine, serum calcium was unremarkable as well as LFTs and magnesium, initial troponin was negative Past Med Surg Social Fam HX - Past Medical History Medical history: atrial fibrillation, cancer, cardiomyopathy, CHF, COPD, coronary artery disease, diabetes, GI bleed, hyperlipidemia, hypertension Additional medical history: colon cancer Psychiatric history: no psych history - Past Surgical History Surgical History: colostomy Additional surgical history: Stents x 4 - Social History Smoking Status: Never smoker Smokeless Tobacco Status: No Alcohol use: none Drug use: none - Family History Son Living Status: Daughter Adopted: No Family Member Ethnicity: Non- Living Status: Still Living Hx Family Cardiac Disorders: Yes Hx Family Respiratory Disorders: No Hx Family Cancer: Yes (Breast Cancer) Hx Family GI Disorders: No Hx Family Endocrine Disorder: No Hx Family Neuromuscular Disorders: No Hx Family Neurologic Disorders: No Hx Family HEENT Disorders: No Hx Family Autoimmune Disorders: No Father Living Status: Hx Family Cardiac Disorders: Yes Hx Family Respiratory Disorders: No Hx Family Cancer: Yes (father, sister) Hx Family GI Disorders: No Hx Family Endocrine Disorder: No Hx Family Neuromuscular Disorders: No Hx Family Neurologic Disorders: No Hx Family HEENT Disorders: No Hx Family Autoimmune Disorders: No Sister Hx Family Cardiac Disorders: Yes Internal Medicine - H&P: Meds Multivitamin [Multivitamins] 1 cap PO DAILY 05/28/17 [History] Pantoprazole Sodium [Protonix] 40 mg PO DAILY 05/28/17 [History] SitaGLIPtin [Januvia] 100 mg PO DAILY 05/28/17 [History] Acetaminophen [Tylenol] 500 mg PO Q6H PRN 08/14/17 [History] Aspirin [Lo-Dose Aspirin EC] 81 mg PO DAILY #30 tablet.dr 09/22/17 [Rx] Atorvastatin [Lipitor] 40 mg PO HS #30 tablet 09/22/17 [Rx] Clopidogrel [Plavix] 75 mg PO DAILY #30 tablet 09/22/17 [Rx] Nitroglycerin [Nitrostat] 0.4 mg SL Q5M PRN #30 tab.subl 09/22/17 [Rx] Lisinopril [Zestril] 5 mg PO DAILY 09/30/17 [History] Furosemide [Lasix] 40 mg PO DAILY 02/02/18 [History] Metformin HCl [Glucophage Xr] 750 mg PO QPM 12/28/18 [History] Carvedilol 3.125 mg PO BID 12/29/18 [History] HydrOXYzine [Atarax] 10 mg PO TID PRN 12/29/18 [History] Mupirocin [Bactroban Oint] 1 appl TP BID PRN 12/29/18 [History] Calcium Carbonate [Tums] 1,000 mg PO BID #60 tab.chew 01/02/19 [Rx] Magnesium Oxide [Mag-Ox] 400 mg PO BID #60 tablet 01/02/19 [Rx] Ranolazine [Ranexa] 1,000 mg PO BID #60 tab.er.12h 01/02/19 [Rx] Isosorbide MONOnitrate (24 HR) [Imdur] 60 mg PO DAILY 01/08/19 [History] Allergy/AdvReac Type Severity Reaction Status Date / Time metformin Allergy See Verified 12/29/18 19:11 Comments Sulfa (Sulfonamide Allergy See Verified 12/29/18 19:11 Antibiotics) Comments All Systems PM: A 10-system review of systems was performed and is negative for pertinent findings except as documented above in the HPI. Review of systems: GENERAL: Denies fever, chills, fatigue or night sweats. report generalized weakness DERMATOLOGIC: Denies itch, rash or lesions HEENT: Denies headache, blurriness, diplopia or decreased visual acuity, ear pain, tinnitus, rhinorrhea, sinus tenderness or sore throat RESPIRATORY: Denies SOB, cough, hemoptysis or pleuritic chest pain CARDIOVASCULAR: Denies chest pain, LE edema, palpitation or syncope GASTRO INTESTINAL: Denies cramps, nausea/vomiting, diarrhea or constipation, melena MUSCULOSKELATAL: Denies muscle pain, but report weakness, denies joint tenderness/pain or swelling PSYCH: Denies worsening anxiety, or depression but admits to being lonely GENITURINARY: Denies dysuria, nocturia or urinary incontinence - Constitutional Vitals: Temp Pulse Resp BP Pulse Ox 98.0 F 64 18 122/70 98 01/08/19 17:30 01/08/19 17:30 01/08/19 17:30 01/08/19 17:30 01/08/19 17:30 Exam: GENERAL: NAD, A&O x3, pleasant and conversant, daughter, younger sister, granddaughter as well as a male relative and a younger male-child were at the bedside SKIN: No skin lesions or rashes, non-jaundiced EYES: EOMI, PERRLA, no sclera icterus HENT: Head atraumatic, no facial asymmetry, frontal and maxillary sinus non- tender, normal hearing, oropharynx and mucosa moist and without any exudates NECK: No cervical lymphadenopathy, trachea midline, thyroid is palpable does not appear enlarged LUNGS: vesicular breath sounds, clear to auscultation, no wheeze, rhonchi, rales or crackles. Non labored respirations HEART: Normal rate and rhythm, no murmurs or rubs ABDOMEN: soft, non-tender, non-distended, bowel sounds x 4 normoactive EXTRMITIES: No LE asymmetry, No LE edema, pedal pulses 1+ and radial pulses 2 + and equal bilaterally NEURO: Speech and comprehension appears intact. Muscle strength testing 3/5 equal bilaterally upper and lower extremities PSYCH: Cooperative, non- anxious or irritable, mood and affect is appropriate Internal Med - H&P Results - Labs CBC & Chem 7: 01/08/19 11:35 01/08/19 11:35 Labs: Short CBC 01/08/19 Range/Units 11:35 WBC 10.0 (4.3-11.1) K/mcL Hgb 11.1 L (11.5-15.4) g/dL Hct 33.8 L (35.3-44.9) % Plt Count 203 (140-400) K/mcL Neutrophils # 8.6 (1.6-8.9) K/mcL BMP 01/08/19 11:35 Sodium 133 L Potassium 4.6 Chloride 98 Carbon Dioxide 29 BUN 31 H Creatinine 1.35 H Glucose 215 H Calcium 9.1 Cardiac Enzymes 01/08/19 Range/Units 11:35 Troponin I < 0.03 (< 0.04) ng/mL Liver Function 01/08/19 Range/Units 11:35 Total Bilirubin 0.8 (0.3-1.0) mg/dL AST 20 (13-39) Units/L ALT 14 (7-52) Units/L Alkaline Phosphatase 66 (34-104) Units/L Albumin 3.6 (3.5-5.7) g/dL Urine 01/08/19 Range/Units 11:57 Urine Color Yellow (Yellow) Urine Clarity Clear (Clear) Urine pH 7.5 (5.0-8.0) pH Units Ur Specific [place] 1.016 (1.010-1.025) Urine Protein Negative (Neg-Trace) mg/dL Urine Glucose (UA) 250 H (Normal) mg/dL - ABG Interpretation ABG results: 01/08/19 16:13 ABG pH 7.39 ABG pCO2 52 H ABG pO2 109 H ABG HCO3 31 H ABG Total CO2 33 H ABG O2 Saturation 98 ABG Base Excess 6 H - Impressions ITS Impressions Chest X-Ray 01/08/19 11:29 IMPRESSION: Cardiomegaly. No acute pulmonary disease. D/ /08/2019 12:01:32 Jh Farias MD / Gretchen Medrano Interpreting Provider: Jh Farias MD Head CT 01/08/19 11:30 IMPRESSION: No acute intracranial abnormality. Sequela of chronic small vessel ischemic change. D/ / 01/08/2019 13:28:35 Jh Farias MD / golden Interpreting Provider: Jh Farias MD Abdomen/Pelvis CT 01/08/19 11:31 IMPRESSION: 1. No retroperitoneal or anterior abdominal wall hemorrhage is seen. 2. Cholelithiasis. 3. Diverticulosis without obvious inflammation. 4. Cardiomegaly with lower lobe bronchiectasis. 5. Soft tissue nodule within the right lateral anterior abdominal wall measuring 1.7 cm. This has the appearance of an enlarged lymph node and may be reactive. This of doubtful clinical significance in a patient of this age. D/ / Poli Delgado MD / Poli Delgado MD Interpreting Provider: Poli Delgado MD - Assessment and Plan (1) Physical deconditioning Current Visit: Yes Status: Acute Assessment and plan: Patient is complaining of generalized weakness physical exam is unremarkable suspect physical deconditioning PT OT pending. plan is to transion patient to [facility] for rehabilitation. She denies depression but admits to being lonely. Minute outpatient follow-up for underlying undiagnosed depression (2) Type 2 diabetes mellitus Current Visit: Yes Status: Acute Assessment and plan: Check A1c in the morning to evaluate glycemic control hold oral meds place patient on insulin Qualifiers: Diabetes mellitus half-way insulin use: without intermediate designer use Diabetes mellitus complication status: without complication Qualified Code(s): E11.9 - Type 2 diabetes mellitus without complications (3) CAD (coronary artery disease) Current Visit: Yes Status: Chronic Assessment and plan: Troponin was negative. Chest pain and cardiology consult is pending, resume Plavix, atorvastatin carvedilol aspirin Qualifiers: Coronary Disease-Associated Artery/Lesion type: [place] artery Associated angina: without angina Qualified Code(s): I25.10 - Atherosclerotic heart disease of [place] coronary artery without angina pectoris (4) EDNA (acute kidney injury) Current Visit: Yes Status: Acute Assessment and plan: Her creatinine slightly elevated with initiate gentle IV saline hydration (5) Hypothyroid Current Visit: Yes Status: Acute Assessment and plan: She is complaining of generalized weakness will obtain TSH Qualifiers: Hypothyroidism type: unspecified Qualified Code(s): E03.9 - Hypothyroidism, unspecified (6) DVT prophylaxis Current Visit: Yes Status: Acute Assessment and plan: SCDs - Time Spent With Patient Total time spent is greater than 50% in coordination of care (as documented) at patient's floor/unit and/or counseling patient:
[2019-01-08] MEDS: Ranolazine 500 MG TAB.ER.12H PO SCH (20:56)
[2019-01-09 07:38] LABS: Basophils % 0.3 %; Eosinophils # 0.5 K/mcL (0.0-0.6); Eosinophils % 5.9 %; Hematocrit 34.2 % (35.3-44.9); Hemoglobin 10.8 g/dL (11.5-15.4); Immature Granulocytes % 0.2 % (0-4); Lymphocytes # 1.5 K/mcL (0.6-4.6); Lymphocytes % 16.6 %; Mean Corpuscular HGB Conc 31.6 g/dL (31.6-35.5); Mean Corpuscular Hemoglobin 31.9 pg (28.0-33.3); Mean Corpuscular Volume 100.9 fL (83.0-100.0); Mean Platelet Volume 10.2 fL (9.4-12.4); Monocytes # 0.9 K/mcL (0.0-1.3); Monocytes % 10.6 %; Neutrophils # 5.8 K/mcL (1.6-8.9); Platelet Count 209 K/mcL (140-400); Red Blood Count 3.39 M/mcL (3.82-4.97); Red Cell Distribution Width 14.5 % (11.5-14.5); Segmented Neutrophils % 66.4 %; White Blood Count 8.7 K/mcL (4.3-11.1)
[2019-01-09 07:54] LABS: Calcium 9.1 mg/dL (8.6-10.3); Magnesium 1.7 mg/dL (1.6-2.6)
[2019-01-09] MEDS: Ranolazine 500 MG TAB.ER.12H PO SCH ×2 (08:08→20:02)
[2019-01-09] MEDS: Multivit/Ca/Min/Fe/FA 1 TAB TABLET PO SCH (08:08)
[2019-01-09] MEDS: Furosemide 20 MG TABLET PO SCH (08:08)
[2019-01-09] MEDS: Aspirin Enteric Coated 81 MG Tablet PO SCH (08:09)
[2019-01-09] MEDS: Isosorbide MONOnitrate (24 HR) 60 MG TAB.ER.24H PO SCH (08:09)
[2019-01-09] MEDS: Insulin LISPRO 300 UNITS/3 ML VIAL SQ SCH ×3 (08:34→17:00)
[2019-01-09 11:26] LABS: % Iron Saturation 35 % (15-50); Iron 89 mcg/dL (50-170); Transferrin 184 mg/dL (203-362)
[2019-01-09] MEDS ORDERED: Cyanocobalamin (B-12) 1,000 MCG/ML VIAL IM ONE (11:43)
[2019-01-09 11:44] LABS: Ferritin 116 ng/mL (10-120)
[2019-01-09 11:53] LABS: Folate > 22.3 ng/mL (3.0-16.0); Vitamin B12 579 pg/mL (250-1100)
--- NOTE | 2019-01-09 11:58 | Discharge Summary ---
- NOTES TO OUTPATIENT PROVIDER Notes to Outpatient Provider: Posthospital discharge for physical deconditioning Orders not resulted at time of discharge: Pending orders 01/08/19 11:29 ECG 12 lead ECG [ECG] Stat 01/08/19 11:35 Culture,Blood [BC] Stat Estimated PT Needs at Discharge: Inpatient Rehab/Swing Bed Estimated OT Needs at Discharge: Inpatient Rehab/Swing Bed Estimated ST Needs at Discharge: Inpatient Rehab/Swing Bed PT Estimated DME Needs at D/C: Front Wheeled Walker Modified Barium Swallow Dietary Recommendations: Regular Date of Encounter: 01/09/19 Time of Encounter: 14:16 - Discharge Diagnosis (1) Physical deconditioning Priority: Primary Status: Acute Assessment and Plan: Treatment plan and discussion was made with the patient and her family including her daughter and POA, another sister's of hers, a niece, and son in law. They all agreed patient will benefit from ECF for rehabilitation. Would also initiate patient on a low-dose antidepressant with saturating 25 due to complaints of being lonesome. Workup including TSH iron studies B12 and folate all unremarkable, has CT abdomen and pelvis was also unremarkable for any acute intra-abdominal abnormalities, a chest x-ray was also unremarkable with no acute cardiopulmonary disease, and a head CT was also unremarkable with no acute intracranial abnormality Patient is complaining of generalized weakness physical exam is unremarkable carrasquillo spect physical deconditioning PT OT pending. plan is to transion patient to ECF for rehabilitation. She denies depression but admits to being lonely. May need outpatient follow-up for underlying undiagnosed depression (2) Type 2 diabetes mellitus Priority: Secondary Status: Acute Assessment and Plan: Check A1c 7.3 at goal for her age will continue her home medication upon discharge Comments: not on insulin Qualifiers: Diabetes mellitus intermediate accountant insulin use: without intermediate use Diabetes mellitus complication status: without complication Qualified Code(s): E11.9 - Type 2 diabetes mellitus without complications (3) Abdominal wall mass Priority: Secondary Status: Acute Assessment and Plan: Incidental finding on CT imaging -1.7 centimeter soft tissue nodule within the right lateral anterior abdominal wall. Although her daughter did state the patient had a history of colon cancer this may need to explored an outpatient with a repeat CT abdomen and pelvis in 6 months. Patient and her family was informed of this new finding however this is quite unlikely the reaason for her generalized weakness (4) CAD (coronary artery disease) Priority: Secondary Status: Chronic Assessment and Plan: Troponin was negative. Chest pain and cardiology consult is pending, resume Plavix, atorvastatin carvedilol aspirin Qualifiers: Coronary Disease-Associated Artery/Lesion type: [place] artery [place] vs. transplanted heart: [place] heart Associated angina: without angina Qualified Code(s): I25.10 - Atherosclerotic heart disease of [place] coronary artery without angina pectoris (5) EDNA (acute kidney injury) Priority: Secondary Status: Acute Assessment and Plan: Her creatinine slightly elevated with initiate gentle IV saline hydration, improved (6) Hypothyroid Priority: Secondary Status: Acute Assessment and Plan: TSH 4.026 Qualifiers: Hypothyroidism type: unspecified Qualified Code(s): E03.9 - Hypothyroidism, unspecified (7) DVT prophylaxis Priority: Secondary Status: Acute Assessment and Plan: SCDs (8) Macrocytic anemia Priority: Secondary Status: Acute Assessment and Plan: Workup including B12 and folate and iron studies were all remarkable. since she is c/o generalized weakness 1 dose of IM B12 was administered Hospital course: Ms. Vilchis is a 88 year old female status post left have cats with PCI week ago was brought in by her family ddue to generalized weakness. She had extensive workup including CT imaging of her abdomen and pelvis, chest x-ray, left renal workup including iron studies to 12 folate and TSH which were all un- yielding. Patient per daughter and POA refused ECF rehabilitation during her last hospital stay and basically was non ambulatory sitting in her recliner all day or laying in bed. Patient did admit to being lonely there is concern for possible underlying depression. She was started on low-dose sertraline and is now reluctantly agreeable to ECF placement for rehabilitation Discharge discussed with: patient, family, nurse, social work, case management - Time Spent with Patient Total time spent providing and/or coordinating discharge services: 42 mins Specific discharge activities: Please participate at physical therapy, occupational therapy at the ECF - Discharge Medications Prescriptions: New Sertraline [Zoloft] 25 mg PO DAILY #30 tablet Continued Acetaminophen [Tylenol] 500 mg PO Q6H PRN PRN Reason: Pain Aspirin [Lo-Dose Aspirin EC] 81 mg PO DAILY #30 tablet. Atorvastatin [Lipitor] 40 mg PO HS #30 tablet Clopidogrel [Plavix] 75 mg PO DAILY #30 tablet Nitroglycerin [Nitrostat] 0.4 mg SL Q5M PRN #30 tab.subl PRN Reason: Chest Pain Lisinopril [Zestril] 5 mg PO DAILY Carvedilol 3.125 mg PO BID Ranolazine [Ranexa] 1,000 mg PO BID #60 tab.er.12h Isosorbide MONOnitrate (24 HR) [Imdur] 60 mg PO DAILY Discontinued HydrOXYzine [Atarax] 10 mg PO TID PRN PRN Reason: Anxiety No Action SitaGLIPtin [Januvia] 100 mg PO DAILY Pantoprazole Sodium [Protonix] 40 mg PO DAILY Multivitamin [Multivitamins] 1 cap PO DAILY Furosemide [Lasix] 40 mg PO DAILY Metformin HCl [Glucophage Xr] 750 mg PO QPM Mupirocin [Bactroban Oint] 1 appl TP BID PRN PRN Reason: INFECTION Magnesium Oxide [Mag-Ox] 400 mg PO BID #60 tablet Calcium Carbonate [Tums] 1,000 mg PO BID #60 tab.chew Home Medications: Multivitamin [Multivitamins] 1 cap PO DAILY 05/28/17 [History] Pantoprazole Sodium [Protonix] 40 mg PO DAILY 05/28/17 [History] SitaGLIPtin [Januvia] 100 mg PO DAILY 05/28/17 [History] Acetaminophen [Tylenol] 500 mg PO Q6H PRN 08/14/17 [History] Aspirin [Lo-Dose Aspirin EC] 81 mg PO DAILY #30 tablet.dr 09/22/17 [Rx] Atorvastatin [Lipitor] 40 mg PO HS #30 tablet 09/22/17 [Rx] Clopidogrel [Plavix] 75 mg PO DAILY #30 tablet 09/22/17 [Rx] Nitroglycerin [Nitrostat] 0.4 mg SL Q5M PRN #30 tab.subl 09/22/17 [Rx] Lisinopril [Zestril] 5 mg PO DAILY 09/30/17 [History] Furosemide [Lasix] 40 mg PO DAILY 02/02/18 [History] Metformin HCl [Glucophage Xr] 750 mg PO QPM 12/28/18 [History] Carvedilol 3.125 mg PO BID 12/29/18 [History] Mupirocin [Bactroban Oint] 1 appl TP BID PRN 12/29/18 [History] Calcium Carbonate [Tums] 1,000 mg PO BID #60 tab.chew 01/02/19 [Rx] Magnesium Oxide [Mag-Ox] 400 mg PO BID #60 tablet 01/02/19 [Rx] Ranolazine [Ranexa] 1,000 mg PO BID #60 tab.er.12h 01/02/19 [Rx] Isosorbide MONOnitrate (24 HR) [Imdur] 60 mg PO DAILY 01/08/19 [History] Sertraline [Zoloft] 25 mg PO DAILY #30 tablet 01/09/19 [Rx] Allergies/Adverse Reactions: Allergy/AdvReac Type Severity Reaction Status Date / Time metformin Allergy See Verified 12/29/18 19:11 Comments Sulfa (Sulfonamide Allergy See Verified 12/29/18 19:11 Antibiotics) Comments Date of admission: 01/08/19 16:41 Primary care physician: Arlen Thomas Consults: 01/08/19 17:12 Consult to Occupational Therapy [CONS] Routine Comment: Evaluate, develop and implement POC Reason for Consult: gen weakness Does patient have active BEDREST order?: No Is patient medically & hemodynamically stable?: Yes Consult to Physical Therapy [CONS] Routine Comment: Evaluate, develop and implement POC Reason for Consult: gen weakness Does patient have active BEDREST order?: No Is patient medically & hemodynamically stable?: Yes Patient assessed for mobility or mobilized this visit?: Yes 01/08/19 18:39 Consult to Socket Puller [CONS] Routine Reason for SW Consult: possible need for ECF/SNF placement at discharge Discharging clinician: Norbert Chapman Anticipated date of discharge: 01/09/19 - Constitutional Vitals: Temp Pulse Resp BP Pulse Ox 98.3 F 71 16 105/60 98 01/09/19 07:25 01/09/19 07:25 01/09/19 07:25 01/09/19 07:25 01/09/19 08:44 Exam: GEN: NAD, A&O x 3, Pleasant and conversant, daughter, sister, son-in-law, niece, were at the bedside SKIN: [place] warm acyanotic not jaundice HEART: RRR, no murmurs LUNGS: CTA no wheeze or crackles, overall non labored ABDOMEN; Soft, non tender or distended, BS x 4 normactive, colostomy bag noted with brown fecal matter EXT: No LE edema, Pedal pulses 1+, radial pulses 2+ PSYCH: Mood and affect is appropriate - Patient Status Disposition: Transfer Inpatient Rehab Fac Condition: Fair Functional capacity at discharge: independent ambulation Overall status at discharge: patient is back to baseline - Discharge Instructions Instructions: Anemia (GEN) Follow Up With: Arlen Thomas MD [Primary Care Provider] - (Appt has been requested. ) Forms: ED Satisfaction Letter - Diet and Activity Activity: as per physical therapy Diet: diabetic diet, low fat, low cholesterol
--- NOTE | 2019-01-09 14:07 | Electrocardiograph Report ---
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
--- NOTE | 2019-01-09 14:23 | Physician Discharge Referral ---
ExtendedCare Referral Info Provider in Charge after Transfer: Other Institutional Level of Care: Intermediate - Diagnosis (1) Physical deconditioning Status: Acute (2) Type 2 diabetes mellitus Priority: Secondary Status: Acute (3) Abdominal wall mass Priority: Secondary Status: Acute (4) CAD (coronary artery disease) Priority: Secondary Status: Chronic (5) EDNA (acute kidney injury) Priority: Secondary Status: Acute (6) Hypothyroid Priority: Secondary Status: Acute (7) DVT prophylaxis Priority: Secondary Status: Acute (8) Macrocytic anemia Priority: Secondary Status: Acute Prognosis: Good Aware of Diagnosis: Patient, Family Aware of Prognosis: Patient, Family - Transfer Medications Prescriptions: Sertraline [Zoloft] 25 mg PO DAILY #30 tablet Home Medications: Multivitamin [Multivitamins] 1 cap PO DAILY 05/28/17 [History] Pantoprazole Sodium [Protonix] 40 mg PO DAILY 05/28/17 [History] SitaGLIPtin [Januvia] 100 mg PO DAILY 05/28/17 [History] Acetaminophen [Tylenol] 500 mg PO Q6H PRN 08/14/17 [History] Aspirin [Lo-Dose Aspirin EC] 81 mg PO DAILY #30 tablet.dr 09/22/17 [Rx] Atorvastatin [Lipitor] 40 mg PO HS #30 tablet 09/22/17 [Rx] Clopidogrel [Plavix] 75 mg PO DAILY #30 tablet 09/22/17 [Rx] Nitroglycerin [Nitrostat] 0.4 mg SL Q5M PRN #30 tab.subl 09/22/17 [Rx] Lisinopril [Zestril] 5 mg PO DAILY 09/30/17 [History] Furosemide [Lasix] 40 mg PO DAILY 02/02/18 [History] Metformin HCl [Glucophage Xr] 750 mg PO QPM 12/28/18 [History] Carvedilol 3.125 mg PO BID 12/29/18 [History] Mupirocin [Bactroban Oint] 1 appl TP BID PRN 12/29/18 [History] Calcium Carbonate [Tums] 1,000 mg PO BID #60 tab.chew 01/02/19 [Rx] Magnesium Oxide [Mag-Ox] 400 mg PO BID #60 tablet 01/02/19 [Rx] Ranolazine [Ranexa] 1,000 mg PO BID #60 tab.er.12h 01/02/19 [Rx] Isosorbide MONOnitrate (24 HR) [Imdur] 60 mg PO DAILY 01/08/19 [History] Sertraline [Zoloft] 25 mg PO DAILY #30 tablet 01/09/19 [Rx] Allergies/Adverse Reactions: Allergy/AdvReac Type Severity Reaction Status Date / Time metformin Allergy See Verified 12/29/18 19:11 Comments Sulfa (Sulfonamide Allergy See Verified 12/29/18 19:11 Antibiotics) Comments - Respiratory Orders Smoking Cessation: Smoking cessation has been advised. For more information, call the [place] Tobacco Quit Line at 1-130-KGQW-NOW. - Mobility Orders Ambulate - Rehabiliation Orders Rehab Potential: Good Rehab Orders: Evaluation for Physical Therapy - Diet Orders Cardiac CERTIFICATION: I certify that the transfer of the above named patient to an Extended Care Facility is necessary for the continuing treatment of the diagnosis listed. The above information is true and accurate reflection of patient's current condition. Confidential - Redisclosure prohibited without a patient's written consent.
[2019-01-09] MEDS: 0.9 % Sodium Chloride 1,000 ML IVC SCH (14:26)
[2019-01-09] MEDS ORDERED: traMADol 50 MG TABLET PO ONE (22:48)
[2019-01-10] MEDS ORDERED: Melatonin 3 MG TABLET PO ONE (02:14)
[2019-01-10 08:07] LABS: Hematocrit 31.3 % (35.3-44.9); Hemoglobin 10.4 g/dL (11.5-15.4); Mean Corpuscular HGB Conc 33.2 g/dL (31.6-35.5); Mean Corpuscular Hemoglobin 32.6 pg (28.0-33.3); Mean Corpuscular Volume 98.1 fL (83.0-100.0); Mean Platelet Volume 9.4 fL (9.4-12.4); Platelet Count 190 K/mcL (140-400); Red Blood Count 3.19 M/mcL (3.82-4.97); Red Cell Distribution Width 14.3 % (11.5-14.5); White Blood Count 9.9 K/mcL (4.3-11.1)
[2019-01-10] MEDS ORDERED: D5% in Water 1,000 ML IVC PRN (08:43)
[2019-01-10] MEDS ORDERED: *HR* Dextrose 50 % in Water (Syg) 50 ML SYRINGE IVP PRN (08:43)
[2019-01-10] MEDS ORDERED: Dextrose Gel 15 GM/37.5 ML TUBE PO PRN ×2 (08:43)
--- NOTE | 2019-01-10 08:49 | Internal Med Progress Note ---
Hospitalist Progress Note - Encounter Date of Encounter: 01/10/19 Time of Encounter: 08:46 - Subjective Interval History: the patient was seen adn examined at bedside, the patient is confused but alert denies pain, CP or SOB no fever order ABG and swallow evaluation to r/o aspiration discussed with nurse, possibly has delirium ct head on 01/08 non acute - Exam Vitals: Temp Pulse Resp BP Pulse Ox 98.1 F 86 14 118/55 97 01/10/19 01:43 01/10/19 01:43 01/10/19 01:43 01/10/19 01:43 01/10/19 01:43 Exam: Physical examination: Gen.: Patient is alert but confused , not in respiratory distress or pain HEENT: perrla , EOMI, , no neck mass, supple neck Heart: S1 and S2 turner, normal sinus rhythm, no cardiac murmur no gallop rhythm Chest: Air entry equal bilaterally, clear chest, no wheezing, crackles or crepitation Abdomen: Soft nontender nondistended positive bowel sounds, no organomegaly Extremities: No pitting edema, , no cyanosis tenderness Neuro: Able to move all 4 limbs, DVT Prophylaxis: SCD - Summary of Assessment and Plan Summary of Assessment and Plan: (1) Physical deconditioning Current Visit: Yes Status: Acute Assessment and plan: Patient is complaining of generalized weakness physical exam is unremarkable suspect physical deconditioning PT OT pending. plan is to transion patient to [facility] for rehabilitation. 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 resume Plavix, atorvastatin carvedilol aspirin has no CP ekg show atrial Ventricular paced rhythm echo on 12/28/2018 show LVEF 20-25% Qualifiers: Coronary Disease-Associated Artery/Lesion type: [place] artery Associated angina: without angina Qualified Code(s): I25.10 - Atherosclerotic heart disease of [place] coronary artery without angina pectoris (4) EDNA (acute kidney injury) Current Visit: Yes Status: Acute Assessment and plan: Her creatinine slightly elevated, initiate gentle IV saline hydration check another BMP today hold nephrotoxic medication Anemia of chronic disease: no evidence of iron deficiency [id number] (6) DVT prophylaxis Current Visit: Yes Status: Acute Assessment and plan: SCDs - Time Spent with Patient Total time spent is greater than 50% in coordination of care (as documented) at patient's floor/unit and/or counseling patient: Internal Medicine: Result - Labs CBC & Chem 7: 01/10/19 07:57 01/09/19 06:58 Labs: Short CBC 01/10/19 Range/Units 07:57 WBC 9.9 (4.3-11.1) K/mcL Hgb 10.4 L (11.5-15.4) g/dL Hct 31.3 L (35.3-44.9) % Plt Count 190 (140-400) K/mcL - ABG Interpretation ABG results: ABG ABG pH 7.39 pH Units (7.32-7.45) 01/08/19 16:13 ABG pCO2 52 mmHg (35-45) H 01/08/19 16:13 ABG pO2 109 mmHg (85-104) H 01/08/19 16:13 ABG O2 Saturation 98 % (95-98) 01/08/19 16:13 PT/INR, D-dimer PT 12.5 Seconds (9.4-12.1) H 01/08/19 11:35 Consult Discharge Plan - Plan Instructions: Anemia (GEN) Referrals: Arlen Thomas MD [Primary Care Provider] - (Appt has been requested. ) Prescriptions: Sertraline [Zoloft] 25 mg PO DAILY #30 tablet
[2019-01-10] MEDS: Furosemide 20 MG TABLET PO SCH (08:54)
[2019-01-10] MEDS: Aspirin Enteric Coated 81 MG Tablet PO SCH (08:54)
[2019-01-10] MEDS: Multivit/Ca/Min/Fe/FA 1 TAB TABLET PO SCH (08:54)
[2019-01-10] MEDS: Ranolazine 500 MG TAB.ER.12H PO SCH ×2 (08:54→21:32)
[2019-01-10] MEDS: Isosorbide MONOnitrate (24 HR) 60 MG TAB.ER.24H PO SCH (08:54)
[2019-01-10 09:41] LABS: Albumin 3.4 g/dL (3.5-5.7); Albumin/Globulin Ratio 1.5 (1.1-2.2); Bilirubin,Total 0.6 mg/dL (0.3-1.0); Calcium 8.9 mg/dL (8.6-10.3); Globulin 2.2 g/dL (2.4-3.5); Magnesium 1.5 mg/dL (1.6-2.6); Phosphorous 2.3 mg/dL (2.7-4.5); Potassium 3.8 mEq/L (3.5-5.1); Total Protein 5.6 g/dL (6.4-8.9)
[2019-01-10 09:52] LABS: Estimated Average Glucose 163 mg/dl
[2019-01-10] MEDS: Insulin LISPRO 300 UNITS/3 ML VIAL SQ SCH ×3 (12:22→19:45)
[2019-01-10 15:25] LABS: ABG Base Excess 4 mEq/L (-2 to 3); ABG HCO3 29 mEq/L (21-27); ABG Oxygen Saturation 99 % (95-98); ABG PCO2 44 mmHg (35-45); ABG PH 7.43 pH Units (7.32-7.45); ABG PO2 114 mmHg (85-104); ABG TCO2 30 mEq/L (20-26)
[2019-01-11 05:36] LABS: Hemoglobin 11.3 g/dL (11.5-15.4); Mean Corpuscular HGB Conc 32.3 g/dL (31.6-35.5); Mean Corpuscular Hemoglobin 32.4 pg (28.0-33.3); Mean Corpuscular Volume 100.3 fL (83.0-100.0); Mean Platelet Volume 9.9 fL (9.4-12.4); Platelet Count 196 K/mcL (140-400); Red Blood Count 3.49 M/mcL (3.82-4.97); Red Cell Distribution Width 14.7 % (11.5-14.5)
[2019-01-11 05:51] LABS: Alanine Aminotransferase 14 Units/L (7-52); Albumin 3.5 g/dL (3.5-5.7); Albumin/Globulin Ratio 1.5 (1.1-2.2); Alkaline Phosphatase 62 Units/L (34-104); Aspartate Amino Transferase 23 Units/L (13-39); BUN/Creatinine Ratio 18 (6-26); Bilirubin,Total 0.6 mg/dL (0.3-1.0); Blood Urea Nitrogen 17 mg/dL (8-23); Carbon Dioxide 31 mEq/L (23-29); Chloride 102 mEq/L (98-107); Globulin 2.3 g/dL (2.4-3.5); Glucose 147 mg/dL (70-105); Magnesium 2.1 mg/dL (1.6-2.6); Osmolality,Calculated 290 (280-300); Phosphorous 2.9 mg/dL (2.7-4.5); Potassium 4.5 mEq/L (3.5-5.1); Sodium 138 mEq/L (136-145); Total Protein 5.8 g/dL (6.4-8.9); eGFR For African Americans > 60 (> 60); eGFR For Non-African Americans 55 (> 60)
[2019-01-11 07:21] VITALS: BP 115/67
--- NOTE | 2019-01-11 08:20 | Internal Med Progress Note ---
Hospitalist Progress Note - Encounter Date of Encounter: 01/11/19 Time of Encounter: 08:17 - Subjective Interval History: the patient was seen and examined at bedside. discussed with daughter who states patient mentation is back to baseline ABG show no evidence of CO2 retention CXR show mild vascular congestion , continue on oral lasix 40 mg daily renal function normalize plan to d/c today to rehab - Exam Vitals: Temp Pulse Resp BP Pulse Ox 97.8 F 70 18 115/67 98 01/11/19 07:21 01/11/19 07:21 01/11/19 07:21 01/11/19 07:21 01/11/19 07:21 Exam: Physical examination: Gen.: Patient is alert and awake , not in respiratory distress or pain HEENT: perrla , EOMI, , no neck mass, supple neck Heart: S1 and S2 turner, normal sinus rhythm, no cardiac murmur no gallop rhythm Chest: Air entry equal bilaterally, clear chest, diminished breathing bilaterally, no wheezing, crackles or crepitation Abdomen: Soft nontender nondistended positive bowel sounds, no organomegaly Extremities: No pitting edema, , no cyanosis tenderness Neuro: Able to move all 4 limbs, DVT Prophylaxis: SCD - Summary of Assessment and Plan Summary of Assessment and Plan: (1) Physical deconditioning Current Visit: Yes Status: Acute Assessment and plan: Patient is complaining of generalized weakness physical exam is unremarkable suspect physical deconditioning PT OT pending. plan is to transion patient to [facility] for rehabilitation. 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 resume Plavix, atorvastatin carvedilol aspirin has no CP ekg show atrial Ventricular paced rhythm echo on 12/28/2018 show LVEF 20-25% Qualifiers: Coronary Disease-Associated Artery/Lesion type: [place] artery Associated angina: without angina Qualified Code(s): I25.10 - Atherosclerotic heart disease of [place] coronary artery without angina pectoris (4) EDNA (acute kidney injury) Current Visit: Yes Status: Acute Assessment and plan: resolved continue on Po lasix 40 mg Anemia of chronic disease: no evidence of iron deficiency [id number] H stable at 11.3 (6) DVT prophylaxis Current Visit: Yes Status: Acute Assessment and plan: SCDs - Time Spent with Patient Total time spent is greater than 50% in coordination of care (as documented) at patient's floor/unit and/or counseling patient: Internal Medicine: Result - Labs CBC & Chem 7: 01/11/19 05:13 01/11/19 05:13 Labs: Short CBC 01/11/19 Range/Units 05:13 WBC 8.0 (4.3-11.1) K/mcL Hgb 11.3 L (11.5-15.4) g/dL Hct 35.0 L (35.3-44.9) % Plt Count 196 (140-400) K/mcL BMP 01/10/19 01/11/19 07:57 05:13 Sodium 139 138 Potassium 3.8 4.5 Chloride 100 102 Carbon Dioxide 30 H 31 H BUN 22 17 Creatinine 1.20 0.96 Glucose 164 H 147 H Calcium 8.9 9.0 Liver Function 01/10/19 01/11/19 Range/Units 07:57 05:13 Total Bilirubin 0.6 0.6 (0.3-1.0) mg/dL AST 21 23 (13-39) Units/L ALT 13 14 (7-52) Units/L Alkaline Phosphatase 59 62 (34-104) Units/L Albumin 3.4 L 3.5 (3.5-5.7) g/dL - ABG Interpretation ABG results: ABG ABG pH 7.43 pH Units (7.32-7.45) 01/10/19 15:22 ABG pCO2 44 mmHg (35-45) 01/10/19 15:22 ABG pO2 114 mmHg (85-104) H 01/10/19 15:22 ABG O2 Saturation 99 % (95-98) H 01/10/19 15:22 PT/INR, D-dimer PT 12.5 Seconds (9.4-12.1) H 01/08/19 11:35 - Impressions Impressions Chest X-Ray 01/10/19 12:48 IMPRESSION: 1. Cardiomegaly with pulmonary vascular congestion and possible trace effusions. 2. Coarse interstitial opacities are similar to prior exams, and suggest superimposed pulmonary fibrosis. D/ / Stalin Garcia MD / Stalin Garcia MD Interpreting Provider: Stalin Garcia MD Consult Discharge Plan - Plan Instructions: Anemia (GEN) Referrals: Arlen Thomas MD [Primary Care Provider] - (Appt has been requested. ) Prescriptions: Sertraline [Zoloft] 25 mg PO DAILY #30 tablet
== END 2019-01-11 08:48 ==
LOC: EMEROOARM 11:18 → 3BNU 11:18
PROVIDERS: ADMIT Pharmacist; ATTEND Student in an Organized Health Care Education/Training Program

== ENCOUNTER 2019-08-10 13:12 | Inpatient (IN) ==
[2019-08-10 13:45] LABS: Basophils % 0.3 %; Eosinophils # 0.6 K/mcL (0.0-0.6); Eosinophils % 5.5 %; Hematocrit 35.7 % (35.3-44.9); Hemoglobin 11.3 g/dL (11.5-15.4); Immature Granulocytes % 0.2 % (0-4); Lymphocytes # 1.2 K/mcL (0.6-4.6); Lymphocytes % 12.5 %; Mean Corpuscular HGB Conc 31.7 g/dL (31.6-35.5); Mean Corpuscular Hemoglobin 32.6 pg (28.0-33.3); Mean Corpuscular Volume 102.9 fL (83.0-100.0); Mean Platelet Volume 10.3 fL (9.4-12.4); Monocytes # 1.2 K/mcL (0.0-1.3); Monocytes % 11.8 %; Neutrophils # 6.9 K/mcL (1.6-8.9); Platelet Count 191 K/mcL (140-400); Red Blood Count 3.47 M/mcL (3.82-4.97); Red Cell Distribution Width 12.9 % (11.5-14.5); Segmented Neutrophils % 69.7 %; White Blood Count 9.9 K/mcL (4.3-11.1)
[2019-08-10 13:52] LABS: INR 1.2; Prothrombin Time 13.5 Seconds (9.4-12.1)
[2019-08-10 13:54] LABS: Activated Partial Thrombo Time 31.6 Seconds (26.0-36.0)
[2019-08-10] MEDS ORDERED: Naloxone 0.4 MG/ML INJ IVP ONE (14:01)
[2019-08-10 14:28] LABS: Bilirubin,Urine Small (Negative); Blood,Urine Negative (Negative); Clarity,Urine Clear (Clear); Glucose,Urine (UA) Normal (Normal); Ketones,Urine Negative (Negative); Leukocyte Esterase,Urine Small (Negative); Nitrite,Urine Negative (Negative); Protein,Urine Negative (Neg-Trace); Specific Gravity,Urine 1.021 (1.010-1.025); Urobilinogen,Urine Normal (Normal)
[2019-08-10 14:32] LABS: Bacteria,Urine None Seen per hpf (None-Few); Hyaline Casts,Urine Few per lpf (None-Few); RBC,Urine 0-3 per hpf (0-3); Squamous Epithelial Cell,Urine Many per lpf (None-Few)
[2019-08-10 14:32] LABS: Alanine Aminotransferase 10 Units/L (7-52); Albumin 3.3 g/dL (3.5-5.7); Albumin/Globulin Ratio 1.3 (1.1-2.2); Alkaline Phosphatase 102 Units/L (34-104); Aspartate Amino Transferase 17 Units/L (13-39); BUN/Creatinine Ratio 27 (6-26); Bilirubin,Direct 0.1 mg/dL (0.0-0.2); Bilirubin,Indirect 0.3 mg/dL (0.0-1.0); Bilirubin,Total 0.4 mg/dL (0.3-1.0); Blood Urea Nitrogen 25 mg/dL (8-23); Calcium 8.9 mg/dL (8.6-10.3); Carbon Dioxide 32 mEq/L (23-29); Chloride 101 mEq/L (98-107); Ethanol < 10 mg/dL (Less than 10); Globulin 2.5 g/dL (2.4-3.5); Glucose 185 mg/dL (70-105); Osmolality,Calculated 301 (280-300); Potassium 3.7 mEq/L (3.5-5.1); Sodium 141 mEq/L (136-145); Thyroid Stimulating Hormone 4.461 mcIU/mL (0.340-5.600); Total Protein 5.8 g/dL (6.4-8.9); eGFR For African Americans > 60 (> 60); eGFR For Non-African Americans 58 (> 60)
[2019-08-10 14:39] LABS: Amphetamine Screen,Urine Negative ng/mL (Cutoff=1000); Barbiturate Screen,Urine Negative ng/mL (Cutoff=200); Benzodiazepines Screen,Urine Negative ng/mL (Cutoff=200); Cannabinoid Screen,Urine Negative ng/mL (Cutoff = 50); Cocaine Screen,Urine Negative ng/mL (Cutoff= 300); Opiate Screen,Urine Negative ng/mL (Cutoff=300); Phencyclidine Screen,Urine Negative ng/mL (Cutoff=25)
[2019-08-10 14:42] LABS: Color,Urine Yellow (Yellow)
[2019-08-10 14:54] LABS: ABG Base Excess 9 mEq/L (-2 to 3); ABG HCO3 35 mEq/L (21-27); ABG Oxygen Saturation 96 % (95-98); ABG PCO2 55 mmHg (35-45); ABG PH 7.41 pH Units (7.32-7.45); ABG PO2 81 mmHg (85-104); ABG TCO2 37 mEq/L (20-26)
[2019-08-10] MEDS ORDERED: Furosemide 40 MG/4 ML VIAL IVP ONE (15:47)
[2019-08-10] MEDS ORDERED: Naloxone 0.4 MG/ML INJ IVP PRN (16:36)
[2019-08-10] MEDS ORDERED: *HR* Dextrose 50 % in Water (Syg) 50 ML SYRINGE IVP PRN (16:42)
[2019-08-10] MEDS ORDERED: Dextrose Gel 15 GM/37.5 ML TUBE PO PRN ×2 (16:42)
[2019-08-10] MEDS ORDERED: D5% in Water 1,000 ML IVC PRN (16:42)
[2019-08-10 17:47] LABS: Troponin I < 0.03 ng/mL (< 0.04)
[2019-08-10] MEDS ORDERED: Perflutren Lipid Microsphere 1.3 ML in 0.9 % Sodium Chloride 8.7 ML IVP ONE (17:57)
[2019-08-10] MEDS: Insulin LISPRO 300 UNITS/3 ML VIAL SQ SCH (18:27)
[2019-08-11 01:22] LABS: Basophils % 0.3 %; Eosinophils # 0.6 K/mcL (0.0-0.6); Eosinophils % 6.1 %; Hemoglobin 11.2 g/dL (11.5-15.4); Immature Granulocytes % 0.2 % (0-4); Lymphocytes # 1.5 K/mcL (0.6-4.6); Lymphocytes % 15.6 %; Mean Corpuscular Hemoglobin 33.3 pg (28.0-33.3); Mean Corpuscular Volume 104.2 fL (83.0-100.0); Mean Platelet Volume 10.5 fL (9.4-12.4); Monocytes % 10.9 %; Neutrophils # 6.3 K/mcL (1.6-8.9); Platelet Count 196 K/mcL (140-400); Red Blood Count 3.36 M/mcL (3.82-4.97); Red Cell Distribution Width 12.9 % (11.5-14.5); Segmented Neutrophils % 66.9 %; White Blood Count 9.5 K/mcL (4.3-11.1)
[2019-08-11 01:39] LABS: BUN/Creatinine Ratio 25 (6-26); Blood Urea Nitrogen 23 mg/dL (8-23); Calcium 8.5 mg/dL (8.6-10.3); Carbon Dioxide 37 mEq/L (23-29); Chloride 101 mEq/L (98-107); Glucose 83 mg/dL (70-105); Magnesium 1.5 mg/dL (1.6-2.6); Osmolality,Calculated 299 (280-300); Potassium 3.5 mEq/L (3.5-5.1); Sodium 143 mEq/L (136-145); eGFR For African Americans > 60 (> 60); eGFR For Non-African Americans 57 (> 60)
[2019-08-11] MEDS: Insulin LISPRO 300 UNITS/3 ML VIAL SQ SCH ×4 (01:40→18:02)
[2019-08-11] MEDS: *HR* Heparin 5,000 UNIT/ML VIAL SQ SCH ×3 (05:34→18:03)
[2019-08-11] MEDS: Aspirin 81 MG TAB.CHEW PO SCH (08:34)
[2019-08-11] MEDS: Furosemide 40 MG TABLET PO SCH (11:18)
[2019-08-11] MEDS ORDERED: Ipratropium/Albuterol Neb 3 ML IH PRN (12:18)
[2019-08-11] MEDS: GuaiFENesin/Dextromethorphan TABLET PO SCH ×2 (12:45→21:32)
[2019-08-11] MEDS: Ipratropium/Albuterol Neb 3 ML IH SCH ×3 (13:57→22:14)
[2019-08-11] MEDS ORDERED: Bisacodyl 10 MG RECTAL SUPPOSITORY RC PRN (17:19)
[2019-08-11] MEDS ORDERED: Insulin DETEMIR 100 UNIT/ML X5UNITS SQ SCH (21:00)
[2019-08-11] MEDS: carvediloL 6.25 MG TABLET PO SCH (21:32)
[2019-08-11] MEDS: Ranolazine 500 MG TAB.ER.12H PO SCH (21:39)
[2019-08-11] MEDS: Magnesium Oxide 400 MG TABLET PO SCH (21:39)
[2019-08-11] MEDS: Insulin DETEMIR 100 UNIT/ML X5UNITS SQ SCH (21:45)
[2019-08-12] MEDS: Ipratropium/Albuterol Neb 3 ML IH SCH ×4 (03:47→21:59)
[2019-08-12] MEDS: *HR* Heparin 5,000 UNIT/ML VIAL SQ SCH ×2 (05:38→18:16)
[2019-08-12] MEDS: Insulin LISPRO 300 UNITS/3 ML VIAL SQ SCH ×3 (08:11→18:15)
[2019-08-12] MEDS: carvediloL 6.25 MG TABLET PO SCH ×2 (09:17→21:08)
[2019-08-12] MEDS: GuaiFENesin/Dextromethorphan TABLET PO SCH ×2 (09:19→21:08)
[2019-08-12] MEDS: Magnesium Oxide 400 MG TABLET PO SCH ×2 (09:19→21:08)
[2019-08-12] MEDS: Ranolazine 500 MG TAB.ER.12H PO SCH ×2 (09:20→21:08)
[2019-08-12] MEDS: Isosorbide MONOnitrate (24 HR) 60 MG TAB.ER.24H PO SCH (09:20)
[2019-08-12] MEDS: Furosemide 40 MG TABLET PO SCH (09:20)
[2019-08-12] MEDS: Cholecalciferol (D-3) 1,000 UNIT (25MCG) TABLET PO SCH (09:20)
[2019-08-12] MEDS: Aspirin 81 MG TAB.CHEW PO SCH (09:20)
[2019-08-12] MEDS: Multivit/Ca/Min/Fe/FA 1 TAB TABLET PO SCH (09:20)
[2019-08-12 18:26] LABS: Adenovirus Not Detected (Not Detect); Bordetella Pertussis Not Detected (Not Detect); Chlamydophila pneumoniae Not Detected (Not Detect); Coronavirus 229E Not Detected (Not Detect); Coronavirus HKU1 Not Detected (Not Detect); Coronavirus NL63 Not Detected (Not Detect); Coronavirus OC43 Not Detected (Not Detect); Human Metapneumovirus Not Detected (Not Detect); Human Rhinovirus/Enterovirus Not Detected (Not Detect); Influenza A Subtype 2009 H1 Not Detected (Not Detect); Influenza B Not Detected (Not Detect); Mycoplasma pneumoniae Not Detected (Not Detect); Parainfluenza Virus 1 Not Detected (Not Detect); Parainfluenza Virus 2 Not Detected (Not Detect); Parainfluenza Virus 3 Not Detected (Not Detect); Parainfluenza Virus 4 Not Detected (Not Detect); Respiratory Syncytial Virus Not Detected (Not Detect)
[2019-08-12] MEDS: Insulin DETEMIR 100 UNIT/ML X5UNITS SQ SCH (21:08)
[2019-08-13] MEDS: Ipratropium/Albuterol Neb 3 ML IH SCH ×2 (03:45→10:53)
[2019-08-13 05:26] LABS: Basophils % 0.3 %; Eosinophils # 0.4 K/mcL (0.0-0.6); Eosinophils % 4.1 %; Hematocrit 34.1 % (35.3-44.9); Hemoglobin 10.8 g/dL (11.5-15.4); Immature Granulocytes % 0.2 % (0-4); Lymphocytes # 1.2 K/mcL (0.6-4.6); Mean Corpuscular HGB Conc 31.7 g/dL (31.6-35.5); Mean Corpuscular Hemoglobin 32.4 pg (28.0-33.3); Mean Corpuscular Volume 102.4 fL (83.0-100.0); Mean Platelet Volume 10.7 fL (9.4-12.4); Monocytes # 1.2 K/mcL (0.0-1.3); Monocytes % 13.9 %; Neutrophils # 6.1 K/mcL (1.6-8.9); Platelet Count 189 K/mcL (140-400); Red Blood Count 3.33 M/mcL (3.82-4.97); Red Cell Distribution Width 12.6 % (11.5-14.5); Segmented Neutrophils % 68.5 %; White Blood Count 8.9 K/mcL (4.3-11.1)
[2019-08-13] MEDS: *HR* Heparin 5,000 UNIT/ML VIAL SQ SCH (05:31)
[2019-08-13 06:15] LABS: BUN/Creatinine Ratio 30 (6-26); Blood Urea Nitrogen 26 mg/dL (8-23); Calcium 8.8 mg/dL (8.6-10.3); Carbon Dioxide 32 mEq/L (23-29); Chloride 102 mEq/L (98-107); Glucose 149 mg/dL (70-105); Osmolality,Calculated 298 (280-300); Potassium 3.7 mEq/L (3.5-5.1); Sodium 140 mEq/L (136-145); eGFR For African Americans > 60 (> 60); eGFR For Non-African Americans > 60 (> 60)
[2019-08-13 08:01] VITALS: BP 120/73
[2019-08-13] MEDS: Insulin LISPRO 300 UNITS/3 ML VIAL SQ SCH (09:47)
[2019-08-13] MEDS: Furosemide 40 MG TABLET PO SCH (10:04)
[2019-08-13] MEDS: Cholecalciferol (D-3) 1,000 UNIT (25MCG) TABLET PO SCH (10:04)
[2019-08-13] MEDS: Multivit/Ca/Min/Fe/FA 1 TAB TABLET PO SCH (10:05)
[2019-08-13] MEDS: Isosorbide MONOnitrate (24 HR) 60 MG TAB.ER.24H PO SCH (10:05)
[2019-08-13] MEDS: GuaiFENesin/Dextromethorphan TABLET PO SCH (10:05)
[2019-08-13] MEDS: carvediloL 6.25 MG TABLET PO SCH (10:05)
[2019-08-13] MEDS: Aspirin 81 MG TAB.CHEW PO SCH (10:05)
[2019-08-13] MEDS: Magnesium Oxide 400 MG TABLET PO SCH (10:05)
[2019-08-13] MEDS: Ranolazine 500 MG TAB.ER.12H PO SCH (10:05)
== END 2019-08-13 13:45 | DRG 917 ==
LOC: 3ANU 13:12 → EMEROOARM 13:12 → SUATTDRO 16:31 → 3ANU 16:51
PROVIDERS: ADMIT Internal Medicine; ATTEND Internal Medicine